=== PATIENT | female | born 1930 | race Two or more races ===

== ENCOUNTER → 2016-11-28 | Outpatient (CLI) | payer OTHER ==
[~2016-11-28] MED LIST: ALLO100T; BENA5TAB3; CEPH-37; LISI-275; TRIA100C7
[2016-11-28 08:55] LABS: Urine Bilirubin Negative (Negative); Urine Blood Negative /uL (Negative); Urine Color Yellow (Yellow); Urine Glucose Normal (Normal); Urine Ketone Negative (Negative); Urine Nitrite Negative (Negative); Urine RBC 1 /hpf (0 - 4); Urine Squamous Epithelial Cell FEW /hpf (<5); Urine Urobilinogen Normal (Negative); Urine pH 6.5 (5.0-8.0)
== END | disposition home or self-care (01) ==
LOC: LAB 06:37
PROVIDERS: ATTEND Internal Medicine
DX: R30.0 Dysuria (principal)
CPT/HCPCS: 81001

== ENCOUNTER 2016-12-07 07:08 | Emergency (ER) | payer OTHER ==
[~2016-12-07] VITALS: Ht 154.9 cm; Wt 53.5 kg
[2016-12-07] MEDS ORDERED: SODIUM CHLORIDE 0.9% 1,000 ML IVB ONE (08:57)
[2016-12-07] MEDS ORDERED: METOCLOPRAMIDE HCL 5MG/ml INJ 2ml VIAL IV ONE (09:00)
[2016-12-07 09:27] VITALS: BP 173/99
[2016-12-07 10:23] LABS: Basophils # (auto) 0 uL; Basophils % (auto) 0.2 % (0.0-2.0); Eosinophils # (auto) 0 uL; Hematocrit 37.4 % (36.0-46.0); Hemoglobin 12.3 g/dL (12.2-16.2); Lymphocytes # (auto) 0.9 uL; Lymphocytes % (auto) 9.1 % (10.0-50.0); Mean Corpuscular Hemoglobin 28.2 pg (28.0-32.0); Mean Corpuscular Hgb Conc. 32.8 g/dL (32.0-36.0); Mean Corpuscular Volume 85.9 fL (80.0-100.0); Mean Platelet Volume 8.2 fL (7.4-10.4); Monocytes # (auto) 0.3 uL; Monocytes % (auto) 3.2 % (0.0-12.0); Neutrophils # (auto) 8.2 uL; Neutrophils % (auto) 87.5 % (37.0-80.0); Platelet Count (auto) 289 10^3/uL (140-450); Red Cell Distribution Width 14.5 % (11.6-16.0); White Blood Cell 9.4 10^3/uL (4.4-10.8)
[2016-12-07 10:39] LABS: Potassium 3.7 mmol/L (3.5-5.1)
[2016-12-07 10:52] LABS: Albumin 3.5 g/dL (3.4-5.0); BUN/Creatinine Ratio 23.8; Calcium 8.7 mg/dL (8.5-10.1)
[2016-12-07 10:58] LABS: Bilirubin, Total 0.6 mg/dL (0.2-1.0); Total Protein 7.2 g/dL (6.4-8.2)
[2016-12-07 12:38] LABS: Urine Bilirubin Negative (Negative); Urine Blood Negative /uL (Negative); Urine Color Yellow (Yellow); Urine Glucose Normal (Normal); Urine Ketone Negative (Negative); Urine Nitrite Negative (Negative); Urine RBC 1 /hpf (0 - 4); Urine Squamous Epithelial Cell FEW /hpf (<5); Urine Urobilinogen Normal (Negative); Urine pH 7.5 (5.0-8.0)
== END 2016-12-07 13:16 | disposition home or self-care (01) ==
LOC: ER 07:13
DX: R42 Dizziness and giddiness (principal); R11.2 Nausea with vomiting, unspecified; K29.70 Gastritis, unspecified, without bleeding; M10.9 Gout, unspecified; I10 Essential (primary) hypertension; R91.1 Solitary pulmonary nodule; Z90.710 Acquired absence of both cervix and uterus; M19.90 Unspecified osteoarthritis, unspecified site; Z88.2 Allergy status to sulfonamides; Z88.6 Allergy status to analgesic agent; Z91.041 Radiographic dye allergy status; Z79.899 Other long term (current) drug therapy
CPT/HCPCS: 36415; 71010; 74176; 80053; 81001; 83690; 83735; 84443; 85025; 85049; 93005; 96361; 96374; 99285; J2765; J7030

== ENCOUNTER 2016-12-09 07:53 | Emergency (ER) | payer OTHER ==
[~2016-12-09] VITALS: Ht 154.9 cm; Wt 77.1 kg
[2016-12-09] MEDS ORDERED: SODIUM CHLORIDE 0.9% 1,000 ML IV ONE (08:00)
[2016-12-09 08:41] LABS: Basophils # (auto) 0 uL; Basophils % (auto) 0.2 % (0.0-2.0); Eosinophils # (auto) 0 uL; Eosinophils % (auto) 0.2 % (0.0-7.0); Hematocrit 35.7 % (36.0-46.0); Hemoglobin 11.8 g/dL (12.2-16.2); Lymphocytes # (auto) 0.9 uL; Lymphocytes % (auto) 14.6 % (10.0-50.0); Mean Corpuscular Hemoglobin 28.6 pg (28.0-32.0); Mean Corpuscular Volume 86.7 fL (80.0-100.0); Mean Platelet Volume 7.7 fL (7.4-10.4); Monocytes # (auto) 0.4 uL; Monocytes % (auto) 6.5 % (0.0-12.0); Neutrophils # (auto) 5.1 uL; Neutrophils % (auto) 78.5 % (37.0-80.0); Platelet Count (auto) 273 10^3/uL (140-450); Red Cell Distribution Width 14.8 % (11.6-16.0); White Blood Cell 6.5 10^3/uL (4.4-10.8)
[2016-12-09 08:52] LABS: INR 1.08 (0.9-1.15); Partial Thromboplastin Time 27.8 sec (22.64-33.71); Prothrombin Time 11.1 sec (9.37-12.3)
[2016-12-09 09:03] LABS: Albumin 3.9 g/dL (3.4-5.0); BUN/Creatinine Ratio 21.6; Bilirubin, Total 0.6 mg/dL (0.2-1.0); Calcium 9.1 mg/dL (8.5-10.1); Potassium 3.3 mmol/L (3.5-5.1); Total Protein 7.4 g/dL (6.4-8.2)
[2016-12-09 10:01] LABS: Urine Bilirubin Negative (Negative); Urine Blood Negative /uL (Negative); Urine Color Colorless (Yellow); Urine Glucose Normal (Normal); Urine Ketone Negative (Negative); Urine Nitrite Negative (Negative); Urine RBC <1 /hpf (0 - 4); Urine Squamous Epithelial Cell FEW /hpf (<5); Urine Urobilinogen Normal (Negative); Urine pH 6.5 (5.0-8.0)
[2016-12-09] MEDS ORDERED: FERROUS SULFATE 300 MG/5 ML ORAL LIQ GT ONE (10:45)
[2016-12-09] MEDS ORDERED: ONDANSETRON HCL 4 MG/2 ML VIAL IV ONE (11:30)
[2016-12-09] MEDS ORDERED: cloNIDine HCL 0.1 MG TAB PO ONE (11:30)
[2016-12-09] MEDS ORDERED: cloNIDine 0.2 MG/24 HR PAT TD ONE (11:30)
[2016-12-09 12:20] VITALS: BP 165/75
== END 2016-12-09 14:12 | disposition home or self-care (01) ==
LOC: ER 07:54
DX: R42 Dizziness and giddiness (principal); R11.2 Nausea with vomiting, unspecified; D64.9 Anemia, unspecified; I10 Essential (primary) hypertension; M10.9 Gout, unspecified; M19.90 Unspecified osteoarthritis, unspecified site; R06.02 Shortness of breath; Z88.2 Allergy status to sulfonamides; Z88.6 Allergy status to analgesic agent; Z91.041 Radiographic dye allergy status
CPT/HCPCS: 36415; 70450; 71010; 80053; 81001; 84484; 85025; 85049; 85610; 85730; 96361; 96374; 99285; J2405; J7030

== ENCOUNTER → 2017-05-01 | Outpatient (CLI) | payer OTHER ==
[~2017-05-01] MED LIST changes: -BENA5TAB3; +BENA5TAB5
[2017-05-01 07:41] LABS: Basophils # (auto) 0 uL; Basophils % (auto) 0.5 % (0.0-2.0); CONDITION Y; Eosinophils # (auto) 0 uL; Eosinophils % (auto) 0.8 % (0.0-7.0); Hematocrit 38.4 % (36.0-46.0); Hemoglobin 12.9 g/dL (12.2-16.2); Lymphocytes # (auto) 1.6 uL; Lymphocytes % (auto) 30.3 % (10.0-50.0); Mean Corpuscular Hemoglobin 28.9 pg (28.0-32.0); Mean Corpuscular Hgb Conc. 33.5 g/dL (32.0-36.0); Mean Corpuscular Volume 86.4 fL (80.0-100.0); Mean Platelet Volume 8.5 fL (7.4-10.4); Monocytes # (auto) 0.7 uL; Monocytes % (auto) 12.6 % (0.0-12.0); Neutrophils # (auto) 2.9 uL; Neutrophils % (auto) 55.8 % (37.0-80.0); Platelet Count (auto) 279 10^3/uL (140-450); Red Cell Distribution Width 14.3 % (11.6-16.0); White Blood Cell 5.2 10^3/uL (4.4-10.8)
[2017-05-01 08:31] LABS: Calcium 9.2 mg/dL (8.5-10.1); Potassium 5.2 mmol/L (3.5-5.1)
[2017-05-01 08:34] LABS: BUN/Creatinine Ratio 22.5
== END | disposition home or self-care (01) ==
LOC: LAB 06:33
PROVIDERS: ATTEND Internal Medicine
DX: N18.3 Chronic kidney disease, stage 3 (moderate) (principal)
CPT/HCPCS: 36415; 80048; 85025

== ENCOUNTER → 2017-06-23 | Outpatient (CLI) | payer OTHER ==
[2017-06-23 07:35] LABS: Basophils # (auto) 0 uL; Basophils % (auto) 0.3 % (0.0-2.0); CONDITION Y; Eosinophils # (auto) 0 uL; Eosinophils % (auto) 0.5 % (0.0-7.0); Hematocrit 38.4 % (36.0-46.0); Hemoglobin 12.9 g/dL (12.2-16.2); Lymphocytes # (auto) 2.2 uL; Lymphocytes % (auto) 28.3 % (10.0-50.0); Mean Corpuscular Hemoglobin 28.9 pg (28.0-32.0); Mean Corpuscular Hgb Conc. 33.5 g/dL (32.0-36.0); Mean Corpuscular Volume 86.2 fL (80.0-100.0); Mean Platelet Volume 7.8 fL (7.4-10.4); Monocytes # (auto) 0.9 uL; Neutrophils # (auto) 4.6 uL; Neutrophils % (auto) 58.9 % (37.0-80.0); Platelet Count (auto) 293 10^3/uL (140-450); Red Cell Distribution Width 15.5 % (11.6-16.0); White Blood Cell 7.8 10^3/uL (4.4-10.8)
[2017-06-23 07:55] LABS: Albumin 3.7 g/dL (3.4-5.0); BUN/Creatinine Ratio 16.3; Bilirubin, Total 0.6 mg/dL (0.2-1.0); Calcium 9.5 mg/dL (8.5-10.1); Potassium 4.5 mmol/L (3.5-5.1); Total Protein 7.5 g/dL (6.4-8.2)
== END | disposition home or self-care (01) ==
LOC: LAB 06:40
PROVIDERS: ATTEND Internal Medicine
DX: I10 Essential (primary) hypertension (principal); Z12.11 Encounter for screening for malignant neoplasm of colon
CPT/HCPCS: 36415; 80053; 80061; 82306; 84443; 85025; 87086

== ENCOUNTER → 2017-06-27 | Outpatient (CLI) | payer OTHER | END | disposition home or self-care (01) | LOC: LAB 10:34 | PROVIDERS: ATTEND Internal Medicine | DX: Z12.11 Encounter for screening for malignant neoplasm of colon (principal); I10 Essential (primary) hypertension | CPT/HCPCS: 82270 ==

== ENCOUNTER → 2017-07-18 | Outpatient (CLI) | payer OTHER | END | disposition home or self-care (01) | LOC: LAB 10:10 | PROVIDERS: ATTEND Internal Medicine | DX: E11.9 Type 2 diabetes mellitus without complications (principal) | CPT/HCPCS: 36415; 82043; 83036 ==

== ENCOUNTER → 2017-09-09 | Outpatient (CLI) | payer OTHER | END | disposition home or self-care (01) | LOC: LAB 15:14 | PROVIDERS: ATTEND Internal Medicine | DX: R19.7 Diarrhea, unspecified (principal) | CPT/HCPCS: 85048; 87177 ==

== ENCOUNTER → 2017-09-29 | Outpatient (CLI) | payer OTHER | END | disposition home or self-care (01) | LOC: LAB 06:55 | PROVIDERS: ATTEND Internal Medicine | DX: Z12.11 Encounter for screening for malignant neoplasm of colon (principal); I10 Essential (primary) hypertension | CPT/HCPCS: 82270 ==

== ENCOUNTER 2018-04-19 18:54 | Emergency (ER) | payer OTHER ==
[~2018-04-19] VITALS: Ht 152.4 cm; Wt 52.2 kg
[~2018-04-19 18:54] MED LIST changes: -BENA5TAB5; -CEPH-37; +HYDR25TA4 PO; +LISI40TA PO; +METO25TA62 PO; -TRIA100C7; +VERA1TAB9 PO
[2018-04-19 20:26] LABS: Urine Bacteria NONE SEEN /hpf (None Seen); Urine Blood Negative /uL (Negative); Urine Specific Gravity 1.008 (1.001-1.035); Urine WBC 1 /hpf (0 - 5)
[2018-04-19 20:34] LABS: Basophils # (auto) 0 uL; Basophils % (auto) 0.5 % (0.0-2.0); Eosinophils # (auto) 0.1 uL; Eosinophils % (auto) 1.2 % (0.0-7.0); Hematocrit 35.2 % (36.0-46.0); Lymphocytes # (auto) 2.5 uL; Lymphocytes % (auto) 34.9 % (10.0-50.0); Mean Corpuscular Hgb Conc. 34.1 g/dL (32.0-36.0); Mean Corpuscular Volume 85.2 fL (80.0-100.0); Monocytes # (auto) 0.9 uL; Monocytes % (auto) 12.8 % (0.0-12.0); Neutrophils # (auto) 3.6 uL; Neutrophils % (auto) 50.6 % (37.0-80.0); Nucleated Red Blood Cells % 0.1 %; Platelet Count (auto) 230 10^3/uL (140-450); Red Blood Cells 4.14 10^6/uL (4.0-5.20); Red Cell Distribution Width 15.3 % (11.8-14.3); White Blood Cell 7.1 10^3/uL (4.4-10.8)
[2018-04-19 20:52] LABS: Albumin 3.4 g/dL (3.4-5.0); BUN/Creatinine Ratio 16.1; Calcium 9.2 mg/dL (8.5-10.1); Magnesium 1.9 mg/dL (1.6-2.6); Potassium 4.8 mmol/L (3.5-5.1)
[2018-04-19 21:05] LABS: Bilirubin, Total 0.3 mg/dL (0.2-1.0); Total Protein 7.3 g/dL (6.4-8.2)
[2018-04-19] MEDS: cloNIDine HCL 0.1 MG TAB PO ONE (23:25)
[2018-04-20] MEDS: MAGNESIUM CITRATE SOLUTION 300 ML BTL PO ONE (01:47)
[2018-04-20] MEDS: cloNIDine HCL 0.1 MG TAB PO ONE (02:40)
[2018-04-20 03:43] VITALS: BP 154/58
== END 2018-04-20 03:44 | disposition home or self-care (01) ==
LOC: ER 18:54
DX: K59.00 Constipation, unspecified (principal); I11.0 Hypertensive heart disease with heart failure; I50.9 Heart failure, unspecified; M19.90 Unspecified osteoarthritis, unspecified site; Z90.49 Acquired absence of other specified parts of digestive tract; Z90.89 Acquired absence of other organs; Z90.710 Acquired absence of both cervix and uterus; Z88.2 Allergy status to sulfonamides; Z88.8 Allergy status to other drugs, medicaments and biological substances
CPT/HCPCS: 36415; 74176; 80053; 81001; 82150; 83690; 83735; 83880; 84484; 85025; 93005

== ENCOUNTER 2018-08-06 17:28 | Emergency (ER) | payer OTHER ==
[~2018-08-06] VITALS: Ht 157.5 cm; Wt 53.5 kg
[2018-08-06 18:33] LABS: Urine Bacteria NONE SEEN /hpf (None Seen); Urine Blood Negative /uL (Negative); Urine Specific Gravity 1.012 (1.001-1.035); Urine WBC 1 /hpf (0 - 5)
[2018-08-06 18:49] LABS: Basophils # (auto) 0 uL; Basophils % (auto) 0.5 % (0.0-2.0); Eosinophils # (auto) 0.1 uL; Eosinophils % (auto) 1.3 % (0.0-7.0); Hematocrit 33.9 % (36.0-46.0); Hemoglobin 11.4 g/dL (12.2-16.2); Lymphocytes # (auto) 1.9 uL; Lymphocytes % (auto) 31.9 % (10.0-50.0); Mean Corpuscular Hemoglobin 28.9 pg (28.0-32.0); Mean Corpuscular Hgb Conc. 33.7 g/dL (32.0-36.0); Mean Corpuscular Volume 85.6 fL (80.0-100.0); Monocytes # (auto) 0.7 uL; Monocytes % (auto) 12.8 % (0.0-12.0); Neutrophils # (auto) 3.1 uL; Neutrophils % (auto) 53.5 % (37.0-80.0); Nucleated Red Blood Cells % 0.1 %; Platelet Count (auto) 244 10^3/uL (140-450); Red Blood Cells 3.96 10^6/uL (4.0-5.20); Red Cell Distribution Width 14.9 % (11.8-14.3); White Blood Cell 5.8 10^3/uL (4.4-10.8)
[2018-08-06 19:11] LABS: Albumin 3.5 g/dL (3.4-5.0); Bilirubin, Total 0.4 mg/dL (0.2-1.0); Calcium 8.7 mg/dL (8.5-10.1); Magnesium 2.2 mg/dL (1.6-2.6); Potassium 4.3 mmol/L (3.5-5.1); Total Protein 6.8 g/dL (6.4-8.2)
[2018-08-06] MEDS ORDERED: KETOROLAC TROMETH 30 MG/ML 1ML VIAL IV ONE (19:15)
[2018-08-06 20:00] VITALS: BP 183/72
== END 2018-08-06 20:30 | disposition home or self-care (01) ==
LOC: ER 17:31
DX: K57.30 Diverticulosis of large intestine without perforation or abscess without bleeding (principal); K59.00 Constipation, unspecified; N39.0 Urinary tract infection, site not specified; I11.0 Hypertensive heart disease with heart failure; I50.9 Heart failure, unspecified; M19.90 Unspecified osteoarthritis, unspecified site; Z90.710 Acquired absence of both cervix and uterus; Z90.49 Acquired absence of other specified parts of digestive tract; Z90.89 Acquired absence of other organs; Z88.2 Allergy status to sulfonamides; Z91.041 Radiographic dye allergy status
CPT/HCPCS: 36415; 74176; 80053; 81001; 83735; 84484; 85025; 93005; 94761; 96374; 99285; J1885

== ENCOUNTER 2019-01-13 09:34 | Inpatient (IN) | payer OTHER ==
[~2019-01-13] VITALS: Ht 152.4 cm; Wt 51.8 kg
[~2019-01-13 09:34] MED LIST changes: -ATOR10TA52 PO
[2019-01-13 10:47] LABS: Basophils # (auto) 0 uL; Basophils % (auto) 0.4 % (0.0-2.0); Eosinophils # (auto) 0 uL; Eosinophils % (auto) 0.2 % (0.0-7.0); Hematocrit 37.8 % (36.0-46.0); Hemoglobin 12.7 g/dL (12.2-16.2); Lymphocytes # (auto) 0.9 uL; Lymphocytes % (auto) 7.1 % (10.0-50.0); Mean Corpuscular Hemoglobin 28.9 pg (28.0-32.0); Mean Corpuscular Hgb Conc. 33.7 g/dL (32.0-36.0); Mean Corpuscular Volume 85.7 fL (80.0-100.0); Monocytes # (auto) 0.9 uL; Monocytes % (auto) 7.3 % (0.0-12.0); Neutrophils # (auto) 10.9 uL; Nucleated Red Blood Cells % 0.1 %; Platelet Count (auto) 249 10^3/uL (140-450); Red Blood Cells 4.41 10^6/uL (4.0-5.20); Red Cell Distribution Width 14.8 % (11.8-14.3); White Blood Cell 12.8 10^3/uL (4.4-10.8)
[2019-01-13 11:06] LABS: Albumin 3.8 g/dL (3.4-5.0); BUN/Creatinine Ratio 18.2; Calcium 8.6 mg/dL (8.5-10.1); Potassium 4.1 mmol/L (3.5-5.1)
[2019-01-13 11:11] LABS: Bilirubin, Total 0.7 mg/dL (0.2-1.0); Total Protein 7.5 g/dL (6.4-8.2)
[2019-01-13] MEDS ORDERED: HYDR25TA4 PO (20:05)
[2019-01-13] MEDS ORDERED: ATOR10TA52 PO (20:05)
[2019-01-13 20:07] LABS: INR 1.07 (0.9-1.15); Partial Thromboplastin Time 28.6 sec (23.78-33.04); Prothrombin Time 10.8 sec (9.27-12.13)
[2019-01-13] MEDS ORDERED: ACETAMINOPHEN 325 MG TAB PO PRN (20:45)
[2019-01-13] MEDS ORDERED: MORPHINE SULFATE 4 MG/ML SYR/VIAL IV PRN (20:45)
[2019-01-13] MEDS ORDERED: ONDANSETRON HCL 4 MG/2 ML VIAL IV PRN (20:45)
[2019-01-13] MEDS ORDERED: TEMAZEPAM 15 MG CAP PO PRN (20:45)
[2019-01-13] MEDS ORDERED: ENOXAPARIN SOD 60 MG/0.6 ML SYRINGE SC ONE (20:45)
[2019-01-13] MEDS ORDERED: NITROGLYCERIN 0.4 MG SL TAB SL PRN (20:45)
[2019-01-13] MEDS ORDERED: IOHEXOL 350 MG/ML 100ML IJ ONE (20:51)
[2019-01-13] MEDS: HYDROcodone-ACET 5/325MG TAB PO PRN (21:17)
[2019-01-13] MEDS: cloNIDine HCL 0.1 MG TAB PO PRN (21:19)
[2019-01-13] MEDS: SODIUM CHLOR 0.9% PF (SALINE LOCK) 10ML VIAL/SYR IV SCH (22:03)
[2019-01-13] MEDS: ATORVASTATIN 20 MG TAB PO SCH (22:06)
[2019-01-13] MEDS: FAMOTIDINE 20 MG TAB PO SCH (22:06)
--- NOTE | 2019-01-13 22:36 | NUR ---
Telemetry admit from ER ASTRIDBONNIE Reyes admitted to Telemetry unit after SBAR received. Patient oriented to Leatha huerta RN, unit, room, bed, and unit policies regarding patient care and visiting hours. Patient now on continuous telemetry monitoring, tele box # 25 and telemetry reading on arrival to unit is SR 64. Patient weighed by bedscale and encouraged to call if they need something. All questions and concerns addressed, patient verbalized understanding. Call light within reach and bed alarm activated, fall precautions implemeted and non-slip socks applied.
[2019-01-13 22:50] VITALS: BP 115/46
[2019-01-14] MEDS ORDERED: CYCLOBENZAPRINE HCL 10 MG TAB PO ONE (01:00)
--- NOTE | 2019-01-14 01:00 | NUR ---
PAIN PT C/O LEFT NECK PAIN, HEAT PACK APPLIED, NO REQUEST FOR PAIN MEDICATION, CALL LIGHT WITHIN REACH, BED ALARM ON, CONT CARE
--- NOTE | 2019-01-14 02:55 | NUR ---
PT ROUNDS PT CURRENTLY SLEEPING, BREATHING EVEN AND UNLABORED, NO DISTRESS NOTED, BED ALARM AND CALL LIGHT WITHIN REACH, CONT CARE
--- NOTE | 2019-01-14 03:45 | NUR ---
OPENING SHIFT NOTE ASSUMED CARE OF PATIENT. PATIENT RESTING COMFORTABLY IN BED AT THIS TIME. REQUESTING ASSIST TO BATHROOM. OBTAINED UA AT THIS TIME AND SENT TO LAB. PATIENT SHOWED NO S/S OF DISTRESS OR SOB NOTED UPON RETURNED TO BED. WILL CONTINUE TO MONITOR.
[2019-01-14 04:55] LABS: Basophils # (auto) 0 uL; Basophils % (auto) 0.2 % (0.0-2.0); Eosinophils # (auto) 0 uL; Eosinophils % (auto) 0.3 % (0.0-7.0); Hematocrit 32.4 % (36.0-46.0); Hemoglobin 11.3 g/dL (12.2-16.2); Lymphocytes # (auto) 1.5 uL; Lymphocytes % (auto) 19.2 % (10.0-50.0); Mean Corpuscular Hemoglobin 29.1 pg (28.0-32.0); Mean Corpuscular Hgb Conc. 34.8 g/dL (32.0-36.0); Mean Corpuscular Volume 83.7 fL (80.0-100.0); Monocytes % (auto) 12.9 % (0.0-12.0); Neutrophils # (auto) 5.1 uL; Neutrophils % (auto) 67.4 % (37.0-80.0); Platelet Count (auto) 214 10^3/uL (140-450); Red Blood Cells 3.87 10^6/uL (4.0-5.20); Red Cell Distribution Width 14.6 % (11.8-14.3); White Blood Cell 7.6 10^3/uL (4.4-10.8)
[2019-01-14 05:00] VITALS: BP 106/54
[2019-01-14 05:33] LABS: Urine Bacteria FEW /hpf (None Seen); Urine Blood Negative /uL (Negative); Urine Hyaline Cast FEW /lpf (0 - 2); Urine Mucus FEW (None Seen); Urine Specific Gravity 1.018 (1.001-1.035); Urine WBC 5 /hpf (0 - 5)
[2019-01-14 05:45] LABS: Albumin 3.1 g/dL (3.4-5.0); BUN/Creatinine Ratio 20.2; Calcium 8.4 mg/dL (8.5-10.1); Potassium 4.1 mmol/L (3.5-5.1)
[2019-01-14 05:48] LABS: Bilirubin, Total 1.1 mg/dL (0.2-1.0); Total Protein 6.3 g/dL (6.4-8.2)
[2019-01-14] MEDS: SODIUM CHLOR 0.9% PF (SALINE LOCK) 10ML VIAL/SYR IV SCH ×3 (06:25→21:22)
--- NOTE | 2019-01-14 07:45 | NUR ---
Opening Shift Note Assumed care of pt, awake and alert x4 sitting up in bed eating breakfast. No S/S of distress or SOB. Instructed on POC for the shift and to call for assistance as needed. Bed locked in lowest position with call light in reach. Will continue to monitor Q1HR and PRN throughout the shift.
[2019-01-14 08:00] VITALS: BP 110/62
[2019-01-14] MEDS ORDERED: CYCLOBENZAPRINE HCL 10 MG TAB PO PRN (09:00)
[2019-01-14] MEDS ORDERED: HCTZ 25 MG TAB PO SCH (10:00)
[2019-01-14] MEDS: METOPROLOL SUCCINATE XL 50 MG TAB PO SCH (10:00)
[2019-01-14] MEDS ORDERED: ASPirin 81 mg TAB PO SCH (10:00)
[2019-01-14] MEDS: LISINOPRIL 20 MG TAB PO SCH (10:00)
[2019-01-14] MEDS: VERAPAMIL HCL 120 mg ER tab PO SCH (10:00)
[2019-01-14] MEDS: HYDROcodone-ACET 5/325MG TAB PO PRN ×2 (10:38→21:27)
[2019-01-14] MEDS: ENOXAPARIN SOD 40 MG/0.4 ML SYRINGE SC SCH (10:38)
[2019-01-14 12:00] VITALS: BP 97/42
[2019-01-14] MEDS ORDERED: LORazepam 2MG/ML-1ML VIAL IV PRN (13:45)
[2019-01-14 17:00] VITALS: BP 141/63
--- NOTE | 2019-01-14 18:48 | NUR ---
END OF SHIFT NOTE PATIENT AWAKE AND ALERT SITTING UP IN BED. NO S/S OF DISTRESS OR SOB NOTED, FAMILY AT BEDSIDE AT THIS TIME. BED IN LOWEST LOCKED POSITION, CALL LIGHT WITHIN REACH. WILL ENDORSE CARE TO NOC RN.
--- NOTE | 2019-01-14 20:00 | NUR ---
OPENING NOTE RECEIVED REPORT FROM ALDO RN. ASSUMING ROLE OF CARE OF PATIENT AT THIS TIME. PATIENT SHOWING NO SIGN OF DISTRESS, SHORTNESS OF BREATH, AND PATIENT STATES PAIN FROM HER NECK AT 9/10. PATIENT WILL BE GIVEN PAIN MEDICATION PER PROTOCOL WHEN AVAILABLE. BED LOWERED, CALL LIGHT WITHIN REACH, AND PATIENT WILL BE ROUNDED ON EVERY HOUR AND NEEDED.
[2019-01-14] MEDS: FAMOTIDINE 20 MG TAB PO SCH (21:22)
[2019-01-14] MEDS: ATORVASTATIN 20 MG TAB PO SCH (21:22)
[2019-01-14 22:00] VITALS: BP 131/63
--- NOTE | 2019-01-14 22:00 | NUR ---
PAIN MANAGEMENT PATIENT GIVEN FLEXERIL FOR MUSCLE SPASMS AND NECK PAIN. PATIENT STATES UNSUCCESSFUL. PATIENT GIVEN NORCO FOR PAIN. PATIENT STATES UNSUCCESSFUL. PATIENT GIVEN HEATING PACK AND PLACED ON NECK AND PATIENT STATES PAIN IS SOMEWHAT RELIEVED. WILL CONTINUE TO MONITOR AND ENDORSE TO DAYSHIFT RN.
[2019-01-15 04:33] VITALS: BP 105/51
[2019-01-15 05:46] LABS: BUN/Creatinine Ratio 25.3; Calcium 8.8 mg/dL (8.5-10.1); Potassium 4.4 mmol/L (3.5-5.1)
[2019-01-15] MEDS: SODIUM CHLOR 0.9% PF (SALINE LOCK) 10ML VIAL/SYR IV SCH ×3 (06:00→21:28)
[2019-01-15 08:00] VITALS: BP 134/74
--- NOTE | 2019-01-15 08:00 | NUR ---
Opening shift note: Assumed care for patient. Patient is alert and orient x 4. no s/s of distress or pain. Iv to Right Ac saline locked, patent, clean and dry. Patient was educated on poc and told to call for assistance as needed. Bed in lowest position and call light is within reach.
[2019-01-15 09:00] VITALS: BP 134/74
[2019-01-15] MEDS: METOPROLOL SUCCINATE XL 50 MG TAB PO SCH (10:00)
[2019-01-15] MEDS: VERAPAMIL HCL 120 mg ER tab PO SCH (10:00)
[2019-01-15] MEDS: ASPirin 81 mg TAB PO SCH (10:00)
[2019-01-15] MEDS ORDERED: ASPirin 81 mg TAB PO SCH (10:00)
[2019-01-15] MEDS: LISINOPRIL 20 MG TAB PO SCH (10:00)
[2019-01-15] MEDS: ENOXAPARIN SOD 40 MG/0.4 ML SYRINGE SC SCH (10:24)
--- NOTE | 2019-01-15 11:45 | NUR ---
PATIENT OFF UNIT Patient taken down to ammunition assembly i laborer via bed by primary nurse. Patient had no s/s of distress or sob.
[2019-01-15] MEDS ORDERED: LIDOCAINE 2%HCL (LOCAL ANESTH.) INJ 20ML MDV ONE (12:15)
[2019-01-15] MEDS ORDERED: methylPREDNISolone SOD SUCC 125 MG/2 ML VL ONE (12:22)
[2019-01-15] MEDS ORDERED: diphenhdrAMINE HCL 50 MG/1 ML VL ONE (12:22)
[2019-01-15] MEDS ORDERED: ANGIOMAX 250 MG VIAL IV ONE (12:22)
[2019-01-15] MEDS ORDERED: fentaNYL CITRATE 100 MCG/2 ML VL ONE (12:23)
[2019-01-15] MEDS ORDERED: SODIUM CHL 0.9% 0 ML ONE (12:23)
[2019-01-15] MEDS ORDERED: MIDAZOLAM HCL 1MG/1ML-2 ML VIAL ONE (12:23)
[2019-01-15] MEDS ORDERED: FAMOTIDINE (10MG/ML) 2ML VL IV ONE ×2 (12:25→12:30)
[2019-01-15] MEDS ORDERED: IOHEXOL 350 MG/ML 100ML IJ ONE (12:39)
[2019-01-15] MEDS ORDERED: METOPROLOL TARTRATE 1MG/1ML-5ML VIAL IV ONE (12:44)
--- NOTE | 2019-01-15 12:59 | NUR ---
Patient not in room to sign second IM at this time.
--- NOTE | 2019-01-15 13:08 | NUR ---
assessment Patient is a 88 year old female who is alert and oriented. Patients cognitive abilities are intact. Prior to admission patient lived home with her daughter Christel who is at bedside and functioned independently. Per patient she will return home to her prior living arrangements post discharge and Christel will transport her home. Patient has no need for DME. Patients PCP is Dr Dominique Childress. Patient feels safe returning home post discharge. Patient has no post discharge needs at this time. I informed patient she has a right to speak to a child protective services social worker regarding all care. I informed patient she has a right to participate in any and all discharge planning. Patient is aware of visiting hours on the hospital floor. I informed patient she has a right to privacy. Patient has a POA and advanced directive. Patient verbalized understanding and agreed to discharge plan home. Addendum: 01/15/19 at 1309 by Gloria PARSON Amended: Links added.
--- NOTE | 2019-01-15 13:55 | NUR ---
PATIENT RETURNED TO UNIT PATIENT RETURNED TO UNIT AFTER LEFT AND RIGHT HEART CATH. PATIENT AWAKE AND ALERT LAYING FLAT IN BED. NO S/S OF DISTRESS OR SOB NOTED. RIGHT GROIN ASSESSED AT THIS TIME, NO BLEEDING NOTED, DRESSING CLEAN DRY AND INTACT. SITE HAS NO ECCHYMOSIS AND IS SOFT. WILL CONTINUE TO MONITOR. PATIENT AWARE TO LAY FLAT UNTIL 1515.
[2019-01-15 16:56] VITALS: BP 115/85
--- NOTE | 2019-01-15 18:43 | NUR ---
END OF SHIFT NOTE PATIENT AWAKE AND ALERT SITTING UP IN BED. NO S/S OF DISTRESS OR SOB NOTED. BED IN LOWEST LOCKED POSITION, CALL LIGHT WITHIN REACH. WILL ENDORSE CARE TO NOC RN.
--- NOTE | 2019-01-15 19:15 | NUR ---
Opening Shift Note Bedside report with day KELLEY Cano. Assumed care of patient, awake and confused. Patient up ambulating with family at bedside. No S/S of distress/SOB or pain. Assessed right groin site. Noted minimal serous drainage, circled drainage on dressing and informed patient the importance of staying in bed, minimal movement. Educated the risks. Instructed on POC and to call for assist PRN, will continue to monitor for changes Q1hr and PRN. Safety precautions taking place. Patient back in bed, HOB elevated, call light within reach, bed alarm on, siderails up Signed: 01/15/19 at 2327 by LUCRECIA MACK SN <Co-Signature Required> Co-Signed: 01/15/19 at 2327 by INGRID SALAZAR RN RN
[2019-01-15] MEDS: ATORVASTATIN 20 MG TAB PO SCH (21:26)
[2019-01-15] MEDS: FAMOTIDINE 20 MG TAB PO SCH (21:27)
[2019-01-15 22:00] VITALS: BP 120/74
--- NOTE | 2019-01-15 22:45 | NUR ---
PT ROUNDS Reeducated pt the importance of staying in bed due to the right groin incision and risk for bleeding, pt back in bed, bed alarm on will continue to monitor pt.
--- NOTE | 2019-01-15 23:55 | NUR ---
PT ROUNDS PT awake, out of bed, reeducated the pt on doing minimal movements due to incision minimal drainage noted, will continue to monitor pt.
[2019-01-16 04:55] VITALS: BP 146/79
[2019-01-16] MEDS: SODIUM CHLOR 0.9% PF (SALINE LOCK) 10ML VIAL/SYR IV SCH ×3 (05:06→21:03)
--- NOTE | 2019-01-16 06:46 | NUR ---
RIGHT GROIN ASSESSED Assessed patient's right groin, noted increased serous drainage. Patient complains of no pain. Applied 5 pound weight to right groin. Instructed patient the purpose of weight. Must maintain weight and minimal movement. Will continue to monitor patient. Signed: 01/16/19 at 0650 by LUCRECIA MAKC SN <Co-Signature Required> Co-Signed: 01/16/19 at 0650 by INGRID SALAZAR RN RN
--- NOTE | 2019-01-16 07:02 | NUR ---
CLOSING NOTE Patient resting. Right groin site assessed. Patient complains of no pain. No swelling noted. No increase in drainage noted. No signs and symptoms of distress. Will endorse to day RN. Signed: 01/16/19 at 705 by LUCRECIA MACK SN <Co-Signature Required> Co-Signed: 01/16/19 at 705 by INGRID SALAZAR RN RN
--- NOTE | 2019-01-16 07:37 | NUR ---
CLOSING NOTE Bed side report with day RN Guillermina, assess site no increase in drainage noted, pt resting no complain of pain.
[2019-01-16 08:00] VITALS: BP 154/77
--- NOTE | 2019-01-16 08:00 | NUR ---
OPENING SHIFT NOTE: PATIENT IS A/O X-4, AND LAYING IN BED AT THIS TIME. PATIENT IS NOT EXHIBITING ANY S/S OF DISTRESS NOR DISCOMFORT AT THIS TIME. PATIENT'S RIGHT GROIN DRESSING HAS BRIGHT RED BLOOD ON IT AND IS CHANGED AT THIS THIS TIME. PATIENT'S CALL OCHOA IS WITHIN REACH, BED IN LOW POSITION AND PATIENT ENCOURAGED TO CALL IF SHE NEEDS ANYTHING.
--- NOTE | 2019-01-16 08:00 | NUR ---
PATIENT'S DAUGHTER IS AT BEDSIDE. PATIENT IS A/O X-4 AND SITTING IN BED WITH NO S/S OF DISTRESS NOTED.
--- NOTE | 2019-01-16 11:25 | NUR ---
PATIENT IS AMBULATING IN THE HALLWAY WITH FAMILY MEMBERS WITHOUT S/S OF DISTRESS NOR DISCOMFORT AT THIS TIME. PATIENT'S RT GROIN DRESSING IS CDI WITH SOFT, SUPPLE SKIN SURROUNDING. WILL CONTINUE TO MONITOR THE PATIENT.
[2019-01-16] MEDS: ENOXAPARIN SOD 40 MG/0.4 ML SYRINGE SC SCH (11:50)
[2019-01-16] MEDS: VERAPAMIL HCL 120 mg ER tab PO SCH (11:51)
[2019-01-16] MEDS: LISINOPRIL 20 MG TAB PO SCH (11:52)
[2019-01-16] MEDS: ASPirin 81 mg TAB PO SCH (11:52)
[2019-01-16] MEDS: METOPROLOL SUCCINATE XL 50 MG TAB PO SCH (11:53)
[2019-01-16 12:30] VITALS: BP 131/70
[2019-01-16 16:51] VITALS: BP 123/58
--- NOTE | 2019-01-16 19:00 | NUR ---
CLOSING NOTE: PATIENT IS A/O X-4 AND RESTING IN BED AT THIS TIME WITH NO S/S OF DISTRESS NOTED. CARE ENDORSED TO NANDA.
--- NOTE | 2019-01-16 19:10 | NUR ---
OPENING SHIFT NOTE Received report from day shift RN. Patient is A&O X's 4 with no s/s of distress and reports no pain at this time. Patient's right groin dressing is clean/dry/intact at this time. Educated patient on POC and to use call light for any assistance and when needing to ambulate. Patient verbalized understanding. Bed is in lowest/locked position with side rails up X's 2 and call light is within reach. Will continue to monitor and round hourly/PRN.
[2019-01-16] MEDS: ATORVASTATIN 20 MG TAB PO SCH (21:02)
[2019-01-16] MEDS: FAMOTIDINE 20 MG TAB PO SCH (21:03)
[2019-01-16 22:00] VITALS: BP 136/63
[2019-01-17 04:00] VITALS: BP 137/68
[2019-01-17 05:00] VITALS: BP 137/68
[2019-01-17] MEDS: SODIUM CHLOR 0.9% PF (SALINE LOCK) 10ML VIAL/SYR IV SCH ×3 (05:53→20:59)
[2019-01-17 08:00] VITALS: BP 142/50
--- NOTE | 2019-01-17 08:00 | NUR ---
OPENING SHIFT NOTE: PATIENT IS A/O X-4, AND LAYING IN BED AT THIS TIME. PATIENT IS NOT EXHIBITING ANY S/S OF DISTRESS NOR DISCOMFORT AT THIS TIME. PATIENT'S CALL OCHOA IS WITHIN REACH, BED IN LOW POSITION AND PATIENT ENCOURAGED TO CALL IF SHE NEEDS ANYTHING.
--- NOTE | 2019-01-17 08:49 | NUR ---
ONLINE COMMUNITY MANAGER DR. Roby WITT
--- NOTE | 2019-01-17 09:45 | NUR ---
DR CEJA IS AT THE PATIENT'S BEDSIDE DISCUSSING PLAN WITH PATIENT AND PATIENT'S FAMILY FOR OPEN HEART SURGERY FOR THE PATIENT TO BE PERFORMED ON 01/20/19.
[2019-01-17 12:00] VITALS: BP 127/61
[2019-01-17] MEDS: ENOXAPARIN SOD 40 MG/0.4 ML SYRINGE SC SCH (12:28)
[2019-01-17] MEDS: VERAPAMIL HCL 120 mg ER tab PO SCH (12:28)
[2019-01-17] MEDS: ASPirin 81 mg TAB PO SCH (12:29)
[2019-01-17] MEDS: LISINOPRIL 20 MG TAB PO SCH (12:29)
[2019-01-17] MEDS: METOPROLOL SUCCINATE XL 50 MG TAB PO SCH (12:29)
--- NOTE | 2019-01-17 15:38 | NUR ---
NUTRITION ASSESSMENT NOTES Please refer to link notes of nutrition screen form filed under the intervention section of the plan of care for further details. Est. Needs: 1300 kcal to 1550 kcal (25-30 kcal/kgBW), 52 gms to 62 gms pro (1.0-1.2 gms/kgBW). Will continue to monitor pertinent labs and reassess nutrient need prn Thank you. Addendum: 01/17/19 at [address] Amended: Links added.
[2019-01-17 17:00] VITALS: BP 151/61
[2019-01-17] MEDS ORDERED: DOCUSATE SOD 100 MG CAP PO ONE (19:00)
--- NOTE | 2019-01-17 19:00 | NUR ---
CLOSING NOTE: PATIENT IS A/O X-4 AND RESTING IN BED AT THIS TIME WITH NO S/S OF DISTRESS NOTED. CARE ENDORSED TO NANDA.
--- NOTE | 2019-01-17 19:00 | NUR ---
OPENING NOTE Received report from day shift RN. Patient is A&O X's 4 with no s/s of distress. Educated patient on POC and to use call light when in need of assistance. Patient verbalized understanding. Bed is in lowest/locked position with side rails up X's 2. Will continue to monitor and round hourly/PRN.
--- NOTE | 2019-01-17 20:10 | NUR ---
PATIENT LEFT UNIT FOR HEAD CT
[2019-01-17] MEDS: FAMOTIDINE 20 MG TAB PO SCH (20:59)
[2019-01-17] MEDS: ATORVASTATIN 20 MG TAB PO SCH (21:00)
[2019-01-17] MEDS: DOCUSATE SOD 100 MG CAP PO SCH (21:00)
[2019-01-17 22:00] VITALS: BP 153/44
[2019-01-18] MEDS: SODIUM CHLOR 0.9% PF (SALINE LOCK) 10ML VIAL/SYR IV SCH ×3 (05:47→22:13)
[2019-01-18 05:54] VITALS: BP 140/63
[2019-01-18] MEDS ORDERED: MIDAZOLAM HCL 1MG/1ML-2 ML VIAL IV ONE ×2 (09:00→09:30)
[2019-01-18] MEDS ORDERED: LIDOCAINE VISCOUS 2% 15ML UD MT ONE (09:00)
[2019-01-18] MEDS ORDERED: fentaNYL CITRATE 100 MCG/2 ML VL IV ONE ×2 (09:00→09:30)
[2019-01-18 09:11] VITALS: BP 153/64
[2019-01-18 09:22] LABS: Folate (Folic Acid) > 24.00 ng/mL (5.38-24)
--- NOTE | 2019-01-18 09:23 | NUR ---
PT LEFT FLOOR FOR TRANSESOPHAGEAL ECHO ORDERED BY DR DALY. PT LEFT VIA BED WITH STAFF, NO DISTRESS NOTED.
[2019-01-18] MEDS ORDERED: ONDANSETRON HCL 4 MG/2 ML VIAL IV ONE (09:30)
[2019-01-18] MEDS ORDERED: LIDOCAINE VISCOUS 2% 15ML UD PO PRN (09:30)
[2019-01-18] MEDS: METOPROLOL SUCCINATE XL 50 MG TAB PO SCH (10:00)
[2019-01-18] MEDS: ASPirin 81 mg TAB PO SCH (10:00)
--- NOTE | 2019-01-18 11:30 | NUR ---
PT RETURNED TO FLOOR AFTER PROCEDURE. NO DISTRESS NOTED, FAMILY AT BEDSIDE. VITALS: 97.4, BP 130/55, HR 63, 02 94, RR 18. WILL CONTINUE TO MONITOR.
[2019-01-18] MEDS: LISINOPRIL 20 MG TAB PO SCH (12:08)
[2019-01-18] MEDS: DOCUSATE SOD 100 MG CAP PO SCH ×2 (12:08→22:12)
[2019-01-18] MEDS: VERAPAMIL HCL 120 mg ER tab PO SCH (12:09)
[2019-01-18] MEDS: ENOXAPARIN SOD 40 MG/0.4 ML SYRINGE SC SCH (12:10)
[2019-01-18] MEDS ORDERED: ACCU-CHEK COMFORT CURVE STRIP VI ONE (13:30)
[2019-01-18] MEDS ORDERED: ceFAZolin 1GM 2 GM in D5W 5% 50 ML IV ONE (13:30)
[2019-01-18] MEDS ORDERED: VANCOMYCIN 1GM/250ML 250 ML IV ONE (13:30)
--- NOTE | 2019-01-18 14:12 | NUR ---
BLOOD SUGAR 121. REQUESTED URINE SAMPLE FROM PATIENT, CUP AT BEDSIDE. PT REPORTS SHE WILL CALL SOON SHE VOIDS. WILL CONTINUE TO MONITOR.
[2019-01-18 15:03] LABS: Albumin 3.6 g/dL (3.4-5.0); Potassium 4.3 mmol/L (3.5-5.1)
[2019-01-18 15:05] LABS: Free T3 2.22 pg/mL (2.3-4.2); Free T4 (Free Thyroxine) 0.9 ng/dL (0.89-1.76)
[2019-01-18 15:10] LABS: Bilirubin, Total 0.5 mg/dL (0.2-1.0); Calcium 9.3 mg/dL (8.5-10.1); Total Protein 7.6 g/dL (6.4-8.2)
[2019-01-18 15:37] LABS: Basophils # (auto) 0 uL; Basophils % (auto) 0.3 % (0.0-2.0); Eosinophils # (auto) 0.1 uL; Eosinophils % (auto) 1.8 % (0.0-7.0); Hematocrit 37.9 % (36.0-46.0); Hemoglobin 12.7 g/dL (12.2-16.2); Lymphocytes # (auto) 0.9 uL; Lymphocytes % (auto) 16.8 % (10.0-50.0); Mean Corpuscular Hemoglobin 28.7 pg (28.0-32.0); Mean Corpuscular Hgb Conc. 33.5 g/dL (32.0-36.0); Mean Corpuscular Volume 85.6 fL (80.0-100.0); Monocytes # (auto) 0.5 uL; Monocytes % (auto) 8.9 % (0.0-12.0); Neutrophils % (auto) 72.2 % (37.0-80.0); Nucleated Red Blood Cells % 0.1 %; Platelet Count (auto) 268 10^3/uL (140-450); Red Blood Cells 4.43 10^6/uL (4.0-5.20); Red Cell Distribution Width 14.4 % (11.8-14.3); White Blood Cell 5.6 10^3/uL (4.4-10.8)
[2019-01-18 16:14] LABS: Urine Bacteria NONE SEEN /hpf (None Seen); Urine Blood Negative /uL (Negative); Urine Specific Gravity 1.018 (1.001-1.035); Urine WBC <1 /hpf (0 - 5)
--- NOTE | 2019-01-18 16:36 | NUR ---
RADIOLOGY CALLED, TECH REPORTS THEY WILL DO VEIN MAPPING LOWER EXTREMITY ULTRASOUND TOMORROW.
--- NOTE | 2019-01-18 16:52 | NUR ---
SPOKE WITH DR. AVILA, DR. AVILA REPORTS PATIENT IS CLEARED FOR SURGERY.
[2019-01-18 17:02] VITALS: BP 135/77
--- NOTE | 2019-01-18 19:00 | NUR ---
OPENING NOTE Received report from day shift RN. Patient is A&O X's 4 with no s/s of distress noted. Educated patient on POC and that she will be NPO at midnight. Patient verbalized understanding. Bed is in lowest/locked position with side rails up X's 2. call light is within reach. Will continue to monitor and round hourly/PRN.
[2019-01-18 22:00] VITALS: BP 131/64
[2019-01-18] MEDS ORDERED: ASCORBIC ACID 500 MG TAB PO ONE (22:00)
[2019-01-18] MEDS: FAMOTIDINE 20 MG TAB PO SCH (22:12)
[2019-01-18] MEDS: ATORVASTATIN 20 MG TAB PO SCH (22:12)
[2019-01-19] MEDS ORDERED: CHLORHEXIDINE 4% TOPICAL soln 237ML TOP ONE (02:00)
[2019-01-19 05:07] VITALS: BP 140/70
[2019-01-19] MEDS: SODIUM CHLOR 0.9% PF (SALINE LOCK) 10ML VIAL/SYR IV SCH ×3 (05:40→21:44)
--- NOTE | 2019-01-19 06:35 | NUR ---
SPOKE WITH BRENNA BENSON to HOLD [facility]. Surgery is tomorrow. Will pass this information onto day shift RN.
[2019-01-19 06:51] LABS: Basophils # (auto) 0 uL; Basophils % (auto) 0.3 % (0.0-2.0); Eosinophils # (auto) 0.2 uL; Eosinophils % (auto) 2.9 % (0.0-7.0); Hematocrit 35.7 % (36.0-46.0); Hemoglobin 12.2 g/dL (12.2-16.2); Lymphocytes # (auto) 1.1 uL; Mean Corpuscular Hemoglobin 28.8 pg (28.0-32.0); Mean Corpuscular Hgb Conc. 34.1 g/dL (32.0-36.0); Mean Corpuscular Volume 84.4 fL (80.0-100.0); Monocytes # (auto) 0.6 uL; Monocytes % (auto) 11.4 % (0.0-12.0); Neutrophils # (auto) 3.6 uL; Neutrophils % (auto) 65.4 % (37.0-80.0); Platelet Count (auto) 243 10^3/uL (140-450); Red Blood Cells 4.23 10^6/uL (4.0-5.20); Red Cell Distribution Width 14.5 % (11.8-14.3); White Blood Cell 5.5 10^3/uL (4.4-10.8)
[2019-01-19 06:53] LABS: BUN/Creatinine Ratio 22.2; Potassium 4.3 mmol/L (3.5-5.1)
[2019-01-19 07:01] LABS: INR 1.02 (0.9-1.15); Prothrombin Time 10.9 sec (9.27-12.13)
--- NOTE | 2019-01-19 07:20 | NUR ---
CLOSING NOTE Gave report to day shift RN. Informed RN of Dionne's orders to hold lovenox. Will endorse care over.
--- NOTE | 2019-01-19 07:56 | NUR ---
PT RESWTING IN BED, NO DISTRESS NOTED, TECH HERE TO DO VEIN MAPPING. PATIENT ENCOURAGED TO CALL PRN, WILL CONTINUE TO MONITOR.
[2019-01-19 09:00] VITALS: BP 145/64
[2019-01-19] MEDS: ASPirin 81 mg TAB PO SCH (10:00)
[2019-01-19] MEDS: ENOXAPARIN SOD 40 MG/0.4 ML SYRINGE SC SCH (10:00)
[2019-01-19] MEDS: DOCUSATE SOD 100 MG CAP PO SCH ×2 (10:05→21:44)
[2019-01-19] MEDS: LISINOPRIL 20 MG TAB PO SCH (10:05)
[2019-01-19] MEDS: VERAPAMIL HCL 120 mg ER tab PO SCH (10:07)
[2019-01-19] MEDS: METOPROLOL SUCCINATE XL 50 MG TAB PO SCH (10:08)
[2019-01-19 13:00] VITALS: BP 130/66
[2019-01-19] MEDS ORDERED: CHLORHEXIDINE 0.12% ORAL rinse 473ML MT ONE (13:30)
[2019-01-19 16:47] VITALS: BP 135/71
--- NOTE | 2019-01-19 19:36 | NUR ---
Opening Shift Note Assumed care of patient, awake and alert. No S/S of distress/SOB or pain. Instructed on POC and to call for assist when needed. Pt is currently laying in bed with the rails up x2, bed is locked in the lowest position and call light is with in reach. Will continue to monitor.
[2019-01-19] MEDS ORDERED: ASCORBIC ACID 500 MG TAB PO ONE (21:00)
[2019-01-19] MEDS: FAMOTIDINE 20 MG TAB PO SCH (21:44)
[2019-01-19] MEDS: ATORVASTATIN 20 MG TAB PO SCH (21:44)
[2019-01-19 22:00] VITALS: BP 143/58
[2019-01-20] VITALS (47 sets, daily range): BP systolic 18–197; BP diastolic 6–102
[2019-01-20] MEDS ORDERED: CHLORHEXIDINE 4% TOPICAL soln 237ML TOP ONE (01:30)
--- NOTE | 2019-01-20 01:30 | NUR ---
Chlorhexidine scrub completed. All new linens placed on bed.
[2019-01-20] MEDS ORDERED: ceFAZolin 1GM/50ML 100 ML IV ONE (05:30)
[2019-01-20] MEDS ORDERED: NEOMYCIN-BACITRACIN-POLYM 15GM TOP OINT TOP ONE (05:32)
[2019-01-20] MEDS ORDERED: HEPARIN 1,000 UNITS/ml 1ML VIAL ONE (05:33)
[2019-01-20] MEDS ORDERED: PAPAVERINE HCL 60 MG/2 ML 2ML VIAL ONE (05:33)
[2019-01-20] MEDS ORDERED: HEPARIN SODIUM (PORCINE) 5000 UNITS/ML 1ML VIAL ONE (05:33)
[2019-01-20] MEDS ORDERED: BACITRACIN INJ 50000 UNIT VIAL ONE (05:33)
[2019-01-20] MEDS: SODIUM CHLOR 0.9% PF (SALINE LOCK) 10ML VIAL/SYR IV SCH ×3 (05:42→21:10)
--- NOTE | 2019-01-20 06:00 | NUR ---
New 20ga IV placed in the left AC.
[2019-01-20] MEDS ORDERED: NITROGLYCERIN 50MG/250ML 250 ML IV ONE (06:05)
--- NOTE | 2019-01-20 06:15 | NUR ---
Pt taken down to OR at this time.
[2019-01-20] MEDS ORDERED: VANCOMYCIN 1GM/250ML 250 ML IV ONE (06:30)
[2019-01-20] MEDS ORDERED: ceFAZolin 1GM 2 GM in D5W 5% 50 ML IV ONE (06:30)
[2019-01-20] MEDS ORDERED: CHLORHEXIDINE 0.12% ORAL rinse 473ML MT ONE (06:30)
[2019-01-20] MEDS ORDERED: PROPOFOL 10 MG/ML 20 ML IV ONE ×2 (06:40→13:38)
[2019-01-20] MEDS ORDERED: ROCURONIUM 10MG/ML 10ML VIAL IV ONE (06:40)
[2019-01-20] MEDS ORDERED: MIDAZOLAM HCL 1MG/1ML-2 ML VIAL ONE (06:40)
[2019-01-20] MEDS ORDERED: fentaNYL CITRATE 5 ML ONE (06:40)
[2019-01-20] MEDS ORDERED: MANNITOL FTV 25% 12.5 GM/50 ML 100 ML IV ONE (06:50)
[2019-01-20] MEDS ORDERED: ALBUMIN 5% 250 ML IV ONE (06:50)
[2019-01-20] MEDS ORDERED: PLASMA-LYTE A pH7.4 6,000 ML INJ ONE (06:51)
[2019-01-20] MEDS ORDERED: MANNITOL 20 % (20GM/100ML) 1,000 ML IV ONE (06:51)
[2019-01-20] MEDS ORDERED: ALBUMIN 25% 300 ML IV ONE (06:51)
[2019-01-20] MEDS ORDERED: InsuLIN R (HUMAN) 100 UNITS in SODIUM CHL 0.9% 99 ML IV ONE (07:30)
[2019-01-20] MEDS ORDERED: AMINOCAPROIC ACID 5 GM in SODIUM CHL 0.9% 250 ML IV ONE ×2 (07:30→08:15)
[2019-01-20] MEDS ORDERED: HEPARIN 30000 UNITS in SODIUM CHLORIDE 0.9% 1000 ML IV ONE (07:30)
[2019-01-20] MEDS ORDERED: EPINEPHrine HCL 4 MG in D5W 5% 250 ML IV ONE (07:30)
[2019-01-20] MEDS ORDERED: AMINOCAPROIC ACID 10 GM in SODIUM CHL 0.9% 100 ML IV ONE ×2 (07:30→08:15)
[2019-01-20] MEDS ORDERED: NOREPINEPHRINE 8 MG/250ML KIT 250 ML IV ONE (07:30)
[2019-01-20] MEDS ORDERED: PHENYLEPHRINE INJ 20 MG in SODIUM CHL 0.9% 250 ML IV ONE (07:30)
[2019-01-20] MEDS ORDERED: NICARDIPINE 25MG/250ML BAG KIT 250 ML IV SCH (08:00)
[2019-01-20] MEDS ORDERED: TRANEXAMIC ACID 1,000 mg/10ml INJ VIAL IV ONE ×2 (08:30→14:47)
[2019-01-20] MEDS ORDERED: TRANEXAMIC ACID 1,000 MG in SODIUM CHL 0.9% 100 ML IV ONE (08:30)
[2019-01-20] MEDS: DOCUSATE SOD 100 MG CAP PO SCH ×2 (10:00→22:00)
[2019-01-20] MEDS: ASPirin 81 mg TAB PO SCH (10:00)
[2019-01-20] MEDS: METOPROLOL SUCCINATE XL 50 MG TAB PO SCH (10:00)
[2019-01-20] MEDS: LISINOPRIL 20 MG TAB PO SCH (10:00)
[2019-01-20] MEDS: VERAPAMIL HCL 120 mg ER tab PO SCH (10:00)
[2019-01-20] MEDS ORDERED: PROTAMINE SULFATE 250 MG/25 ML VL IV ONE ×2 (10:46→12:20)
[2019-01-20] MEDS ORDERED: fentaNYL CITRATE 100 MCG/2 ML VL ONE (12:13)
--- NOTE | 2019-01-20 13:42 | NUR ---
ARRIVAL: PT ARRIVED FROM OR TO ROOM 112.
--- NOTE | 2019-01-20 13:42 | NUR ---
OPEN: PT ARRIVED FROM OR TO ROOM 112 IN ICU AFTER RECEIVING REPORT FROM ANAESTHESIA, RN AND DR. CEJA. PT IS INTUBATED AT TIME WITH 8.0ETTUBE/17 LIP LINE. RT AT BEDSIDE AND PLACED PT ON AN SIMV12,TV400,100%FI02,PEEP5. OGT IN PLACE THAT IS CLAMPED. LARSON CATHETER IN PLACE DRAINING URINE TO GRAVITY. CHEST TUBE X2 IN PLACE THAT IS DRAINING BLOODY SECRETIONS TO ATRIUM CHAMBER WITH -20CM H20. SWAN DEANNA CATHETER TO RIGHT IJ AT 50CM THAT IS RUNNING LEVOPHED GTT AT 3MCG/MIN AND IV FLUIDS AT 75ML/HR. 20G IV TO RIGHT AC-SL. 20G IV TO LEFT AC-SL. 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 PT DOES HAVE BOTH ATRIAL AND VENTRICULAR EPICARDIAL PACER WIRES THAT ARE SECURE AND IN PLACE. COLT WRAP TO RIGHT LOWER LEG. ALL MONITORS HOOKED UP FOR CONTINUOUS MONITORING. SHARED POC WITH PT BUT UNABLE TO VERBALIZE UNDERSTANDING AT TIME.
--- NOTE | 2019-01-20 13:50 | NUR ---
MD VISIT: DR. CEJA IN AT BEDSIDE. ORDERS RECEIVED. PLAN TO CARRY OUT.
--- NOTE | 2019-01-20 14:00 | NUR ---
DRIPS: LEVOPHED GTT AT 3MCG/MIN. BLOOD PRESSURE ON ARRIVAL FROM OR 183/61. WILL CONTINUE TO MONITOR AND TITRATE PER RESPONSE OF PT.
--- NOTE | 2019-01-20 14:10 | NUR ---
CHEST TUBE: BILATERAL CHEST TUBES HAVE MODERATE AMOUNT OF CLOTTING NEAR INSERTION POINT ON CHEST WALL. DR. CEJA MADE AWARE AND AT BEDSIDE MILKING CHEST TUBE. MD ABLE TO REMOVE CLOTS AND PT TOLERATED WELL.
[2019-01-20] MEDS ORDERED: DEXMEDETOMIDINE HCL 400 MCG in D5W 5% 96 ML IV SCH ×2 (14:23→14:35)
[2019-01-20] MEDS ORDERED: INSULIN DRIP 100 UNIT/100ML 100 ML IV SCH ×2 (14:23→14:55)
[2019-01-20] MEDS: PHENYLEPHRINE IV 250 ML IV SCH (14:23)
[2019-01-20] MEDS ORDERED: D5W/SOD CHL 0.45% 1,000 ML IV SCH ×2 (14:23→17:30)
[2019-01-20] MEDS ORDERED: ZOLPIDEM TARTRATE 5 MG TAB PO PRN (14:30)
[2019-01-20] MEDS ORDERED: SODIUM BICARBONATE 8.4% INJ 50ML SYRINGE IV PRN (14:30)
[2019-01-20] MEDS ORDERED: MORPHINE SULFATE 4 MG/ML SYR/VIAL IV PRN (14:30)
[2019-01-20] MEDS ORDERED: DEXTROSE (50%) 50ML SYRG IV PRN ×2 (14:30→15:00)
[2019-01-20] MEDS ORDERED: TEMAZEPAM 15 MG CAP PO PRN (14:30)
[2019-01-20] MEDS ORDERED: ONDANSETRON HCL 4 MG/2 ML VIAL IV PRN (14:30)
[2019-01-20] MEDS ORDERED: MAGNESIUM SULFATE 1GM/100ML 100 ML IV PRN (14:30)
[2019-01-20] MEDS ORDERED: MAGNESIUM SULF 50% 40 MEQ/10 ML VL IV ONE (14:47)
[2019-01-20] MEDS ORDERED: DEXAMETHASONE SODIUM PHOSP 120 MG/30ml VIAL IV ONE (14:47)
[2019-01-20] MEDS ORDERED: PHENYLEPHRINE HCL 10 MG/ML VL IV ONE (14:47)
[2019-01-20] MEDS ORDERED: SODIUM BICARBONATE 8.4 % INJ 50ML VIAL IV ONE (14:47)
[2019-01-20] MEDS ORDERED: CALCIUM CHLOR(10%) 100MG/ML 10ML SYRINGE IV ONE (14:47)
[2019-01-20] MEDS ORDERED: ADENOSINE 6 MG/2 ML INJ IV ONE (14:47)
[2019-01-20] MEDS ORDERED: POTASSIUM CHL 2MEQ/ML 20ML IV ONE (14:47)
[2019-01-20] MEDS ORDERED: LIDOCAINE HCL 100 MG/5ML (2%) SYRG INJ IV ONE (14:47)
--- NOTE | 2019-01-20 14:50 | NUR ---
NEURO STATUS: PT STARTING TO WAKE UP MORE THAN PRIOR, ABLE TO FOLLOW SIMPLE COMMANDS, ABLE TO MOVE ALL EXTREMITIES ON COMMAND, DOES SHAKE HEAD YES AND NO TO QUESTIONS AND DOES NOD YES WHEN ASKED IF IN PAIN. MD AWARE AND ORDERS PLACED FOR PRECEDEX GTT FOR COMFORT.
[2019-01-20 14:54] LABS: Basophils # (auto) 0 uL; Basophils % (auto) 0.1 % (0.0-2.0); Eosinophils # (auto) 0 uL; Eosinophils % (auto) 0.2 % (0.0-7.0); Hematocrit 30.2 % (36.0-46.0); Hemoglobin 10.3 g/dL (12.2-16.2); Lymphocytes # (auto) 0.5 uL; Lymphocytes % (auto) 4.4 % (10.0-50.0); Mean Corpuscular Hemoglobin 29.3 pg (28.0-32.0); Mean Corpuscular Hgb Conc. 34.3 g/dL (32.0-36.0); Mean Corpuscular Volume 85.6 fL (80.0-100.0); Monocytes # (auto) 0.8 uL; Monocytes % (auto) 6.8 % (0.0-12.0); Neutrophils # (auto) 10.3 uL; Neutrophils % (auto) 88.5 % (37.0-80.0); Platelet Count (auto) 110 10^3/uL (140-450); Red Blood Cells 3.53 10^6/uL (4.0-5.20); Red Cell Distribution Width 14.2 % (11.8-14.3); White Blood Cell 11.7 10^3/uL (4.4-10.8)
[2019-01-20] MEDS: NOREPINEPHRINE 8 MG/250ML KIT 250 ML IV SCH (15:00)
[2019-01-20] MEDS ORDERED: ACCU-CHEK COMFORT CURVE STRIP VI SCH (15:00)
[2019-01-20] MEDS: ACCU-CHEK COMFORT CURVE STRIP VI SCH ×9 (15:00→23:00)
[2019-01-20] MEDS: NICARDIPINE 25MG/250ML BAG KIT 250 ML IV SCH ×2 (15:00→19:37)
[2019-01-20] MEDS ORDERED: PHYTONADIONE (VIT K)10 MG/ML 1ML VIAL IV ONE (15:00)
[2019-01-20] MEDS ORDERED: PHYTONADIONE (VIT K)10 MG/ML 1ML VIAL SUBCUT ONE (15:00)
--- NOTE | 2019-01-20 15:00 | NUR ---
DRIPS/VITALS: INSULIN GTT AT 7UNITS/HR. PRECEDEX GTT STARTED FOR PAIN AND DISCOMFORT IN PT, STARTED GTT AT 0.4MCG/KG/HR, NITROGLYCERIN AT 5MCG/MIN, CARDENE AT 1MG/HR, LEVOPHED AT 1MCG/MIN. BP 144/50. CI 1.7/CO 2.5.
[2019-01-20 15:06] LABS: Albumin 3.7 g/dL (3.4-5.0); Calcium 8.5 mg/dL (8.5-10.1); Potassium 3.8 mmol/L (3.5-5.1)
[2019-01-20 15:09] LABS: Bilirubin, Total 1.2 mg/dL (0.2-1.0); Total Protein 5.8 g/dL (6.4-8.2)
[2019-01-20] MEDS: ENOXAPARIN SOD 40 MG/0.4 ML SYRINGE SC SCH (15:17)
[2019-01-20 15:22] LABS: INR 1.27 (0.9-1.15); Partial Thromboplastin Time 29.9 sec (23.78-33.04); Prothrombin Time 13.4 sec (9.27-12.13)
[2019-01-20 15:33] LABS: Magnesium 4.8 mg/dL (1.6-2.6)
[2019-01-20] MEDS: VANCOMYCIN 1GM/250ML 250 ML IV SCH (16:00)
--- NOTE | 2019-01-20 16:00 | NUR ---
DRIPS/VITALS: INSULIN GTT AT 6UNITS/HR. PRECEDEX AT 0.4MCG/KG/HR, NITROGLYCERIN AT 5MCG/MIN, CARDENE AT 1MG/HR, LEVOPHED AT 3MCG/MIN. BP 97/43. CI 1.5/CO 2.3. PLAN TO ADMINISTER ALBUMIN.
--- NOTE | 2019-01-20 16:20 | NUR ---
FAMILY: ATTEMPTED TO HAVE FAMILY COME IN TO VISIT PATIENT. HOWEVER, PT FAMILY NOT IN WAITING ROOM AT TIME.
[2019-01-20] MEDS: MILRINONE 20MG/100ML 100 ML IV SCH (16:21)
[2019-01-20] MEDS: SODIUM CHLORIDE 0.9% 500 ML IV SCH (16:21)
[2019-01-20] MEDS: NITROGLYCERIN 50MG/250ML 250 ML IV SCH (16:24)
--- NOTE | 2019-01-20 16:40 | NUR ---
MD VISIT: DR. CEJA IN AT BEDSIDE. UPDATED ON PT STATUS AND AWARE OF CURRENT FINDINGS. NEW ORDERS RECEIVED PLAN TO CARRY OUT.
--- NOTE | 2019-01-20 16:40 | NUR ---
RT: RT AT BEDSIDE. DECREASED FI02 TO 35% PER DR. CEJA ORDERS. OK TO PLACE PT ON CPAP IF TOLERATING DECREASE IN FI02 PER MD.
[2019-01-20] MEDS ORDERED: POTASSIUM PHOSPHATE 44 MEQ in D5W 5% 250 ML IV ONE (16:45)
--- NOTE | 2019-01-20 16:49 | NUR ---
CPAP: PT PLACED ON CPAP BY RT AT BEDSIDE. PT IS ABLE TO FOLLOW COMMANDS, SQUEEZE HANDS WHEN TOLD, SHAKE HEAD YES OR NO AND APPEARING TO BE TOLERATING AT TIME. CONTINUE CARE FOR SHIFT.
[2019-01-20] MEDS: ALBUMIN 5% 250 ML IV PRN ×2 (16:52→21:27)
--- NOTE | 2019-01-20 17:00 | NUR ---
DRIPS/VITALS: INSULIN GTT AT 6UNITS/HR. PRECEDEX AT 0.4MCG/KG/HR, NITROGLYCERIN AT 5MCG/MIN, CARDENE AT 1MG/HR, LEVOPHED AT 2MCG/MIN. BP 125/50. CI 1.7/CO 2.6.
[2019-01-20] MEDS: ceFAZolin 1GM 2 GM in D5W 5% 100 ML IV SCH ×2 (17:04→22:30)
--- NOTE | 2019-01-20 17:15 | NUR ---
MD VISIT: DR. CEJA IN AT BEDSIDE. UPDATED ON PT STATUS AND NEW ORDERS RECEIVED FOR PAIN MANAGEMENT AND IV FLUID CHANGES. ORDERS PLACED. AWARE OF ALL VITAL SIGNS AND UPDATED LAB VALUES AT TIME. PLAN TO CARRY OUT ORDERS.
--- NOTE | 2019-01-20 17:15 | NUR ---
MD VISIT/RT: MD AT BEDSIDE. PAGED RT FOR ABG VALUES AND FOR CPAP TRIAL RESULTS.
--- NOTE | 2019-01-20 17:35 | NUR ---
RT: RT AT BEDSIDE FOR ABG.
--- NOTE | 2019-01-20 17:40 | NUR ---
MD CONTACT: SPOKE TO DR. CEJA AND OK FOR PT TO BE EXTUBATED. RT AWARE.
--- NOTE | 2019-01-20 17:55 | NUR ---
Respiratory note: PT EXTUBATED WITHOUT PER 'S BEDSIDE ORDER. KELLEY HEBERT AT BEDSIDE. PT IS AWAKE SITTING IN BED FOLLOWING ALL VERBAL COMMANDS. PT DENIES SOB/DIFF BREATHING. NO DISTRESS NOTED. HR 81 RR 16 SPO2 95% ON 35% COOL AEROSOL, NO STRIDOR HEARD. ALL WEANING PARAMETERS WNL. KELLEY HEBERT AWARE TO HAVE RT PAGED IF NEEDED.
--- NOTE | 2019-01-20 17:55 | NUR ---
EXTUBATION: AFTER SPEAKING WITH DR. CEJA AND UPDATING ON WEANING PARAMETERS AND ABG VALUES, RECEIVED ORDERS TO EXTUBATE PATIENT. PT EXTUBATED AT BEDSIDE BY RT, SUCTIONED PRIOR AND PLACED ON A COOL MIST MASK AT 35% FI02. NO STRIDOR NOTED AFTER EXTUBATION, DIMINISHED LUNG SOUNDS THROUGHOUT AND O2 SATS 96%. PT IS ABLE TO COUGH OUT SECRETIONS AND APPEARS TO BE IN NO DISTRESS AT TIME. WILL CONTINUE TO MONITOR.
[2019-01-20] MEDS: ALBUTEROL SULF 2.5 MG/0.5ML(0.5%) NEB SOLN NEB SCH (18:00)
--- NOTE | 2019-01-20 18:00 | NUR ---
DRIPS/VITALS: INSULIN GTT AT 6UNITS/HR. PRECEDEX AT 0.2MCG/KG/HR (DECREASED PER MD REQUEST), NITROGLYCERIN AT 5MCG/MIN, CARDENE AT 1MG/HR, LEVOPHED AT 3MCG/MIN. BP 109/43. CI 2.1/CO 3.1. DR. CEJA AWARE OF VALUES AND ORDERS PLACED FOR 200ML .9NS BOLUS.
[2019-01-20] MEDS ORDERED: SODIUM CHLORIDE 0.9% 200 ML IV ONE (18:15)
--- NOTE | 2019-01-20 18:20 | NUR ---
SKIN CARE/LINEN CHANGE: PARTIAL LINEN CHANGE AND SKIN CARE DONE. AT TIME, PATIENT IS CONFUSED ON PLACE, TIME AND SITUATION AND STATING SEVERAL TIMES THAT "I NEED TO PEE". EDUCATED PATIENT MULTIPLE TIMES THAT PATIENT HAS A LARSON CATHETER IN PLACE TO DRAIN URINE AND SHE IS ABLE TO USE RESTROOM THAT WAY. DESPITE EDUCATION GIVEN, PT DOES HAVE PERIODS OF CONFUSION STILL AND MILD AMOUNT OF BEING RESTLESS IN BED. MITTENS ON BILATERAL HANDS TO PREVENT PATIENT FROM PULLING ON TUBES AND LINES.
[2019-01-20] MEDS ORDERED: ACETAMINOPHEN IV 1000 MG/100ML (10MG/ML) IV PRN (18:30)
--- NOTE | 2019-01-20 19:00 | NUR ---
DRIPS/VITALS: INSULIN GTT AT 5UNITS/HR. PRECEDEX AT 0.2MCG/KG/HR (DECREASED PER MD REQUEST), NITROGLYCERIN AT 5MCG/MIN, CARDENE AT 1MG/HR, LEVOPHED AT 3MCG/MIN. BP 110/64. CI 1.8/CO 2.6.
--- NOTE | 2019-01-20 19:20 | NUR ---
REPORT: REPORT GIVEN TO CUSTOMER SERVICE REPRESENTATIVE RN TO RESUME CARE OF PT.
--- NOTE | 2019-01-20 19:30 | NUR ---
CARE ASSUMED. REPORT FROM EMILEE BENSON.
--- NOTE | 2019-01-20 19:45 | NUR ---
ASSESSMENT: ORIENTED TO NAME AND COOPERATE WITH SIMPLE COMMANDS. MOVES UPPER AND LOWER EXTREMITIES WITH NO DIFFICULTY AND PURPOSEFULLY. PUPILS 2+ BILATERALLY, SPEECH CLEAR BOTH UG[place]AN AND AMHARIC. FREQUENTLY REQUESTING TO BE ASSISTED TO BATHROOM TO URINATE, REORIENTED TO LARSON CATH FREQUENTLY. CARDIAC - SINUS RHYTHM WITH BBB 80'S, NO PVC'S. SBP 129/50, CVP 3-5, C.O/C.I - 2.9/2.0, PAP 21/8. CONTINUES ON CARDENE AT 1 MG/HR, LEVOPHED AT 2 MCG/MIN AND WILL TITRATE OFF APPROPRIATE, NTG 5 MCG/MIN., INSULIN DRIP AND PRECEDED AT 0.2 MCG/KG/HR. ATRIAL VENTRICULAR PACING WIRES IN PLACE. PACER OFF AT THIS TIME. RADIAL AND PEDAL PULSES 2+ BILAT. SKIN COOL TO TOUCH. LUNGS - DIMINISHED THROUGHOUT, WEAK COUGH. SATS 99% ON COOL MIST MASK AT 35%. CHEST TUBES X2, MEDIASTINAL AND PLEURAL, DRESSING INTACT. NO CLOTS NOTED AT THIS TIME, WILL CONTINUE TO MONITOR. ABDOMEN SOFT, HYPOACTIVE BOWEL SOUNDS, NO BM AT THIS TIME. LARSON DD CLEAR, YELLOW URINE. SKIN - RIGHT GROIN PUNCTURE SITE, BLOODY, CARE PROVIDED, NO HEMATOMA FORMATION NOTED AT THIS TIME. COLT BANDAGE TO RLE SITE TO ENDOSCOSPIC RETRIEVAL SITES. IV - RIGHT IJ SWAN DEANNA AT 50 CM AT HUB, CVP AND PA WAVE FORMS WNL. LEFT FEMORAL ART. LINE - CATHERER KINKED AND 1 CM OUT. WAVE FORM DAMPENED, LEFT ARTERIAL LINE WITH ADEQUATE WAVE FORM AND GOOD BLOOD RETURN, WILL DISCONTINUE FEMORAL LINE.
--- NOTE | 2019-01-20 20:00 | NUR ---
U.O - 610 CC LAST THREE HOURS. CHEST TUBE OUTPUT - 60 CC LAST THREE HOURS.
[2019-01-20] MEDS: CHLORHEXIDINE 0.12% ORAL rinse 473ML MT SCH (21:10)
[2019-01-20] MEDS: FAMOTIDINE 20 MG TAB PO SCH (22:00)
[2019-01-20] MEDS: ATORVASTATIN 20 MG TAB PO SCH (22:00)
[2019-01-20] MEDS: ACETYLCYSTEINE 10 %(100MG/ML) SOL 4ML NEB SCH (22:10)
[2019-01-20] MEDS: IPRATROPIUM BROM 0.5 MG/2.5ML INH SOL NEB PRN (22:10)
[2019-01-20 22:18] LABS: Basophils # (auto) 0 uL; Basophils % (auto) 0.1 % (0.0-2.0); Eosinophils # (auto) 0 uL; Hematocrit 28.3 % (36.0-46.0); Hemoglobin 9.9 g/dL (12.2-16.2); Lymphocytes # (auto) 0.2 uL; Lymphocytes % (auto) 2.2 % (10.0-50.0); Mean Corpuscular Hemoglobin 29.7 pg (28.0-32.0); Mean Corpuscular Hgb Conc. 35.2 g/dL (32.0-36.0); Mean Corpuscular Volume 84.5 fL (80.0-100.0); Monocytes # (auto) 0.2 uL; Neutrophils # (auto) 9.6 uL; Neutrophils % (auto) 95.7 % (37.0-80.0); Platelet Count (auto) 97 10^3/uL (140-450); Red Blood Cells 3.34 10^6/uL (4.0-5.20); Red Cell Distribution Width 14.4 % (11.8-14.3)
--- NOTE | 2019-01-20 22:30 | NUR ---
REQUEST REBEKAH SQUIRES, NO B.M.
[2019-01-20 22:36] LABS: Calcium 7.7 mg/dL (8.5-10.1); Magnesium 3.1 mg/dL (1.6-2.6); Phosphorus 2.6 mg/dL (2.5-4.90); Potassium 3.1 mmol/L (3.5-5.1)
[2019-01-20 22:39] LABS: BUN/Creatinine Ratio 14.7
[2019-01-20] MEDS: CALCIUM GLUC 4.65meq/50ml D5AE 50 ML IV PRN (23:08)
--- NOTE | 2019-01-20 23:45 | NUR ---
K+ 3.1, CALCIUM 7.7, 1 GM CALCIUM GLUCONATE INITIATED AND KCL PER PROTOCOL STARTED. WILL CONTINUE TO MONITOR LABS
--- NOTE | 2019-01-20 23:50 | NUR ---
BLOOD PRESSURE NOTED TO DROP TO LOW 90'S, AFTER OFFIRMEV COMPLETED. LEVOPHED TO 2.5 MCG/MIN., CARDENE OFF, PRECEDEX OFF. PT AWAKE, DENIES ANY PAIN AT THIS TIME. 250 CC ALBUMIN GIVEN AT 2200 FOR CVP 3, C.I 1.8. CVP AT THIS TIME 3, C.I 1.8. URINE OUTPUT LAST 2 HRS. 200CC, CHEST TUBE OUTPUT - 90 CC LAST 2 HRS.
[2019-01-21] VITALS (104 sets, daily range): BP systolic 15–211; BP diastolic 4–94
[2019-01-21] MEDS: NICARDIPINE 25MG/250ML BAG KIT 250 ML IV SCH ×5 (00:23→17:36)
--- NOTE | 2019-01-21 00:30 | NUR ---
BP 115/46, LEVOPHED 3.5 MCG/MIN.
[2019-01-21] MEDS: POTASSIUM CHL 20MEQ/100ML 100 ML IV PRN ×4 (00:57→12:12)
[2019-01-21] MEDS: ACCU-CHEK COMFORT CURVE STRIP VI SCH ×17 (01:00→20:26)
[2019-01-21] MEDS: D5W/SOD CHL 0.45% 1,000 ML IV SCH ×2 (03:20→14:00)
[2019-01-21] MEDS: VANCOMYCIN 1GM/250ML 250 ML IV SCH ×2 (03:22→15:26)
[2019-01-21] MEDS: HYDROcodone-ACET 5/325MG TAB PO PRN ×4 (04:05→21:52)
--- NOTE | 2019-01-21 04:30 | NUR ---
RIGHT FEMORAL ART LINE DISCONTINUED. CATHERER APPEARS INTACT. MANUAL PRESSURE HELD, NO HEMATOMA FORMATION NOTED. DRESSING TO RIGHT FEMORAL PUNCTURE SITE,
[2019-01-21 05:25] LABS: Basophils # (auto) 0 uL; Basophils % (auto) 0.1 % (0.0-2.0); Eosinophils # (auto) 0 uL; Hematocrit 25.6 % (36.0-46.0); Hemoglobin 8.8 g/dL (12.2-16.2); Lymphocytes # (auto) 0.4 uL; Lymphocytes % (auto) 4.1 % (10.0-50.0); Mean Corpuscular Hemoglobin 29.5 pg (28.0-32.0); Mean Corpuscular Hgb Conc. 34.6 g/dL (32.0-36.0); Mean Corpuscular Volume 85.3 fL (80.0-100.0); Monocytes # (auto) 0.7 uL; Monocytes % (auto) 6.9 % (0.0-12.0); Neutrophils # (auto) 9.1 uL; Neutrophils % (auto) 88.9 % (37.0-80.0); Platelet Count (auto) 86 10^3/uL (140-450); Red Cell Distribution Width 14.8 % (11.8-14.3); White Blood Cell 10.2 10^3/uL (4.4-10.8)
[2019-01-21] MEDS: SODIUM CHLOR 0.9% PF (SALINE LOCK) 10ML VIAL/SYR IV SCH ×3 (05:26→20:27)
[2019-01-21 05:39] LABS: Albumin 3.6 g/dL (3.4-5.0); BUN/Creatinine Ratio 13.5; Calcium 7.6 mg/dL (8.5-10.1); Magnesium 2.9 mg/dL (1.6-2.6); Potassium 4.9 mmol/L (3.5-5.1)
[2019-01-21 05:41] LABS: Bilirubin, Total 0.6 mg/dL (0.2-1.0); Total Protein 5.6 g/dL (6.4-8.2)
[2019-01-21 05:48] LABS: Phosphorus 3.3 mg/dL (2.5-4.90)
[2019-01-21] MEDS: ALBUMIN 5% 250 ML IV PRN ×2 (06:00→11:23)
[2019-01-21] MEDS: IPRATROPIUM BROM 0.5 MG/2.5ML INH SOL NEB SCH ×4 (06:03→18:04)
[2019-01-21] MEDS: ACETYLCYSTEINE 10 %(100MG/ML) SOL 4ML NEB SCH ×3 (06:03→22:06)
[2019-01-21] MEDS: ALBUTEROL SULF 2.5 MG/0.5ML(0.5%) NEB SOLN NEB SCH ×4 (06:03→18:04)
[2019-01-21] MEDS: ceFAZolin 1GM 2 GM in D5W 5% 100 ML IV SCH ×3 (06:39→21:46)
--- NOTE | 2019-01-21 06:45 | NUR ---
URINE OUTPUT LAST 2 HRS 45CC, CHEST TUBE OUTPUT 30 CC FOR 2 HRS. SBP 130'S, C.O/C.I - 3.0/2.0. HR 80'S, SINUS WITH BBB.
[2019-01-21] MEDS: MILRINONE 20MG/100ML 100 ML IV SCH ×2 (07:06→23:49)
--- NOTE | 2019-01-21 07:29 | NUR ---
REPORT TO KAMI BENSON
--- NOTE | 2019-01-21 07:35 | NUR ---
OPENING SHIFT NOTE Report received from Modesta BENSON, care assumed. Patient is awake and alert. Patient oriented to self, location (at times), and situation. Patient does have frequent periods of forgetfulness. Patient able to follow simple commands, speech is clear, moves all extremities. Sinus rhythm on bedside monitor, bp stable. Pulses palpable bilaterally radial and pedal. Denies chest pain, no edema noted. Lungs clear but very diminished anterior. Patient on 2 l nasal cannula, denies cough or shortness of breath. Abdomen soft, nontender with hypoactive bowel sounds. Roland catheter patent, secure, and hung below bladder. See skin assessment. Chest tubes x2 patent, no air leaks, connect to atrium on wall suction. Bed locked in lowest position with call light within reach. Patient instructed to call for assistance. [place] kayode right IJ 50 cm at hub, left wrist arterial line. AV pacer wires on standby. gtts: iv fluids, insulin, nitroglycerine, nicardipine, abx, and albumin
--- NOTE | 2019-01-21 08:00 | NUR ---
NEUROLOGY ROUNDS at bedside assessing patient.
--- NOTE | 2019-01-21 08:15 | NUR ---
BRENNA UPDATE called for update. He is aware of low trending urine output with cardiac index of 1.9-2.2. Medication orders received and placed. MD wants to titrate off ngt and nicardipine gtt, goal is to pull swan later today. MD does not want to start milrinone gtt.Patient currently resting. No signs of distress noted.
[2019-01-21] MEDS: CALCIUM GLUC 4.65meq/50ml D5AE 50 ML IV PRN ×2 (08:45→16:54)
[2019-01-21] MEDS: ASPirin 81 mg TAB PO SCH (09:01)
[2019-01-21] MEDS: VERAPAMIL HCL 120 mg ER tab PO SCH (09:02)
[2019-01-21] MEDS: ENOXAPARIN SOD 40 MG/0.4 ML SYRINGE SC SCH (09:02)
--- NOTE | 2019-01-21 09:02 | NUR ---
SURGICAL ROUNDS at bedside. Aware of patients periods of confusion, labs, and ekg.
[2019-01-21] MEDS: PANTOPRAZOLE 40 MG/10 ML VIAL IV SCH (09:35)
[2019-01-21] MEDS: NITROGLYCERIN 0.4MG/HR TOPICAL PATCH TD SCH (09:35)
[2019-01-21] MEDS: CHLORHEXIDINE 0.12% ORAL rinse 473ML MT SCH ×2 (09:35→21:48)
[2019-01-21] MEDS: ALLOPURINOL 100 MG TAB PO SCH (09:36)
[2019-01-21] MEDS: LISINOPRIL 20 MG TAB PO SCH (09:36)
[2019-01-21] MEDS: DOCUSATE SOD 100 MG CAP PO SCH ×2 (09:36→21:47)
[2019-01-21] MEDS: FERROUS SULFATE 325 MG TAB PO SCH (09:36)
[2019-01-21] MEDS ORDERED: METOPROLOL TARTRATE 25 MG TAB PO SCH ×2 (10:00)
--- NOTE | 2019-01-21 10:10 | NUR ---
FAMILY Patient has multiple family members visiting at this time.
[2019-01-21] MEDS ORDERED: MORPHINE SULFATE 4 MG/ML SYR/VIAL IV PRN (10:30)
[2019-01-21 10:40] LABS: BUN/Creatinine Ratio 12.9; Magnesium 2.5 mg/dL (1.6-2.6); Phosphorus 2.7 mg/dL (2.5-4.90); Potassium 3.7 mmol/L (3.5-5.1)
--- NOTE | 2019-01-21 10:41 | NUR ---
MD ROUNDS at bedside assessing patient.
--- NOTE | 2019-01-21 11:44 | NUR ---
LOW C.I. Patient Cardiac Index trending down 1.6, prn albumin administered.
--- NOTE | 2019-01-21 12:16 | NUR ---
Nutrition Follow-up Notes Wt.: 54.7 kg today. 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 Pt's currently on Clear Liquid diet with poor PO intake aeb 5% consumed meal on today's breakfast. Est. Needs: 1300 kcal to 1550 kcal (25-30 kcal/kgBW), 52 gms to 62 gms pro (1.0-1.2 gms/kgBW). Will continue to monitor pertinent labs and reassess nutrient need prn Labs: Ca 7.6 L, Mg 2.9 H, AST 76 H, ALP 41 L, Tpro 5.6 L Skin: Piotr scale 17, mod risk, pt's medial chest incision dry and intact per truss builder. GI: Pt had 2x BM 01/18/19 per truss builder. PES: Increased nutrient needs r/t current/chronic medical condition aeb s/p CABG, extubation, on Clear Liquid diet with <75% consumed meals. Altered nutrition related lab values r/t current/chronic medical condition aeb hyponatremia, hypochloremia, elev. BUN, Trop I,hyperbilirubinemia, hypocalcemia and mild hypoalbuminemia Will continue to monitor PO intake, skin status, pertinent labs and weight trend. F/u in 2 to 3 days. Rec.: 1.) Advance gradually oral diet (with Ensure Enlive 1 carton TID) when medically appropriate. 2.) If still on Clear Liquid diet, consider Ensure Clear 1 carton TID. 3.) Continue close supervision and feeding assistance prn during meals. 4.) Refer to RD for further nutrition education and weight monitoring upon discharged.5.) Continue current plan of care.
[2019-01-21] MEDS: FUROSEMIDE 20 MG/2 ML VIAL IV PRN (13:33)
--- NOTE | 2019-01-21 13:40 | NUR ---
LOW URINE OUTPUT Patient has had continual decreased urine output. CVP greater than 7 with stable blood pressure. PRN lasix dose given. Will monitor for increased urine output.
--- NOTE | 2019-01-21 13:50 | NUR ---
EKG Patient appeared to be having PVC/PAC. EKG performed to show sinus rhythm with marked sinus arrhythmia. Blood sent to lab to assess electrolyte balance.
[2019-01-21] MEDS: SODIUM CHLORIDE 0.9% 500 ML IV SCH (14:15)
[2019-01-21] MEDS: NOREPINEPHRINE 8 MG/250ML KIT 250 ML IV SCH (14:15)
[2019-01-21] MEDS: PHENYLEPHRINE IV 250 ML IV SCH (14:15)
[2019-01-21 14:23] LABS: Basophils # (auto) 0 uL; Eosinophils # (auto) 0 uL; Eosinophils % (auto) 0.1 % (0.0-7.0); Hematocrit 21.4 % (36.0-46.0); Hemoglobin 7.3 g/dL (12.2-16.2); Lymphocytes # (auto) 0.6 uL
[2019-01-21 14:25] LABS: Basophils % (auto) 0.2 % (0.0-2.0); Lymphocytes % (auto) 5.3 % (10.0-50.0); Mean Corpuscular Hemoglobin 29.3 pg (28.0-32.0); Mean Corpuscular Hgb Conc. 34.3 g/dL (32.0-36.0); Mean Corpuscular Volume 85.3 fL (80.0-100.0); Monocytes # (auto) 0.8 uL; Monocytes % (auto) 7.1 % (0.0-12.0); Neutrophils # (auto) 10.3 uL; Neutrophils % (auto) 87.3 % (37.0-80.0); Platelet Count (auto) 74 10^3/uL (140-450); Red Cell Distribution Width 14.7 % (11.8-14.3); White Blood Cell 11.8 10^3/uL (4.4-10.8)
[2019-01-21 14:36] LABS: Anion Gap 6 (5-15); BUN/Creatinine Ratio 13.8; Blood Urea Nitrogen 12 mg/dL (7-18); Calcium 7.8 mg/dL (8.5-10.1); Carbon Dioxide 24 mmol/L (21-32); Chloride 101 mmol/L (98-107); GFR African American 79 mL/min; GFR Non-African American 65 mL/min; Glucose 135 mg/dL (74-106); Magnesium 2.6 mg/dL (1.6-2.6); Phosphorus 3.1 mg/dL (2.5-4.90); Sodium 131 mmol/L (136-145)
--- NOTE | 2019-01-21 15:07 | NUR ---
BRENNA Notified of low urine output, blood pressure, and cardiac index. No new orders. He still wants swan-kayode removed.
--- NOTE | 2019-01-21 15:08 | NUR ---
MD COVARRUBIAS Notified of blood sugar trends, new orders for Q4 hr accu-checks, hgb level decreased. New order for 1 unit of PRBC obtained. She is aware of urine output trends as well.
[2019-01-21] MEDS ORDERED: FUROSEMIDE 40 MG/4 ML VIAL IV ONE (15:15)
[2019-01-21] MEDS ORDERED: DEXTROSE (50%) 50ML SYRG IV PRN (15:15)
--- NOTE | 2019-01-21 15:37 | NUR ---
BLOOD PRODUCT Blood product administration begun. No reactions or distress noted. Vital stable, will continue to monitor.
[2019-01-21] MEDS: cloNIDine HCL 0.1 MG TAB PO PRN ×2 (15:52→21:46)
[2019-01-21] MEDS: InsuLIN REG 1unit/0.01ml Soln (100units/ml) SC SCH ×2 (15:57→20:26)
--- NOTE | 2019-01-21 16:43 | NUR ---
MAGDI Update Magdi on urine output, C.I. HR, Blood pressure trends with having to place patient back on NGT gtt. Changes made to PO blood pressure medications.
[2019-01-21] MEDS ORDERED: LISINOPRIL 20 MG TAB PO ONE (16:45)
[2019-01-21] MEDS ORDERED: LISINOPRIL 20 MG TAB ONE (16:51)
[2019-01-21] MEDS: MORPHINE SULFATE 4 MG/ML SYR/VIAL IV PRN (17:02)
--- NOTE | 2019-01-21 17:20 | NUR ---
PAIN Patient complain of neck pain, PRN morphine given, towel roll place behind neck. Will continue to monitor.
[2019-01-21] MEDS: NITROGLYCERIN 50MG/250ML 250 ML IV SCH ×2 (17:42→20:20)
--- NOTE | 2019-01-21 18:06 | NUR ---
INCISION CARE Chest tube dressings removed. Site intact, no bleeding or clots noted. Site cleansed with chlorhexidine swabs. Petroleum gauze applied, 4x4 gauze, and secured with medipore tape. Right knee harvest site cleansed, abner wrapped reapplied.
--- NOTE | 2019-01-21 18:50 | NUR ---
SWAN-DEANNA CATHETER D/C PER MD CEJA REQUEST. CATHETER TIP INTACT.
--- NOTE | 2019-01-21 18:58 | NUR ---
OUTPUT TOTALS: CHEST TUBES:140 ML URINE:1191 ML
--- NOTE | 2019-01-21 19:00 | NUR ---
OXYGENATION Pulse ox showing 89-91% on 4 L nasal cannula, oxygen increased to 6 L. Will continue to monitor, no signs of distress or SOB noted at this time. Lung sounds clear.
--- NOTE | 2019-01-21 19:12 | NUR ---
REPORT Report given to Modesat BENSON, care endorsed.
--- NOTE | 2019-01-21 19:45 | NUR ---
ASSESSMENT: ORIENTED TO NAME AND PROCEDURE, FORGETFUL AND CONFUSED OTHERWISE. MOVING ALL EXTREMITIES EQUALLY. C/O SEVERE PAIN TO MIDSTERNAL AREA. PT. HAS RECEIVED, NORCO AND MORPHINE IV WITHIN THE LAST 3 HRS. APPEARS IN DISTRESS DUE TO PAIN. WILL MEDICATE SOON DO. SBP 160'S PER ART. LINE. NITROGLYCERIN AT 300 MCG/MIN., AND CARDENE AT 1 MG/HR. WILL TITRATE CARDENE TO MAINTAIN PRESSURES LESS THAN 140 HHMG. SBP PER NIBP CUFF 140'S. HR 90'S, SINUS, BBB, NO ECTOPY. AV WIRES INTACT, PACER OFF. LUNGS - POOR INSPIRATORY EFFORT, CRACKLES TO LEFT LATERAL BASE, CLEAR OTHERWISE BUT SIGNIFICANTLY DIMINISHED. SATS 95% ON 6L/NC WITH HUMIDIFIER. CHEST TUBE X2 WITH SMALL AMT. OF BLOODY DRAINAGE, NO AIR LEAK ASSESSED AT THIS TIME ABDOMEN - SOFT, FLAT, HYPOACTIVE BOWEL SOUNDS. LARSON TO DD WITH CLEAR, YELLOW DRAINAGE. RIGHT IJ SWAN DISCONTINUED, CORDIS REMAINS. IVS TO RAC AND LAC REMAIN INTACT. SKIN WARM AND DRY.
--- NOTE | 2019-01-21 20:08 | NUR ---
193 - REPORT FROM KAMI BENSON.
[2019-01-21] MEDS: ATORVASTATIN 20 MG TAB PO SCH (21:46)
[2019-01-21] MEDS: METOPROLOL TARTRATE 25 MG TAB PO SCH (21:47)
[2019-01-21] MEDS: FAMOTIDINE 20 MG TAB PO SCH (21:47)
--- NOTE | 2019-01-21 22:05 | NUR ---
SATS 87-88% ON 6L/NC. ASSISTED TO SIT AT BEDSIDE WITH DIFFICULTY DUE TO PAIN. BREATHING PATTERN - RR 20'S BUT APPEARS SHALLOW AND INCREASE EFFORT. PRACTICE DEEP BREATHING BUT RESPIRATORY EFFORT POOR. NO INCREASED OUTPUT FROM CHEST TUBE WHEN SITTING UP, OXYGENATION NOT IMPROVED EITHER. BACK TO BED AND REPOSITIONED. TAKES ALL PM MEDICATION WITH NO DIFFICULTY. SWALLOWS WATER OK. NORCO FOR PAIN PROVIDED. CLONIDINE AND METOPROLOL PROVIDED WELL. WILL CONTINUE TO BLOOD PRESSURES. ART PRESSURES 149/52, NIBP 111/58. PT. ALERT BUT CONFUSED AT TIMES. COOPERATIVE.
[2019-01-21] MEDS: IPRATROPIUM BROM 0.5 MG/2.5ML INH SOL NEB PRN (22:07)
--- NOTE | 2019-01-21 22:10 | NUR ---
PRESENTLY ON BIPAP FOR TREATMENT, WILL ATTEMPT TO KEEP ON BIPAP THRU THE NIGHT
--- NOTE | 2019-01-21 22:50 | NUR ---
SBP PER ART. LINE 100'S, 90'S PER CUFF. CARDENE OFF. NITROGLYCERIN 100 MCG. PT. APPEARS TO BE RESTING AT THIS TIME. WILL CONTINUE TO MONITOR
--- NOTE | 2019-01-21 23:00 | NUR ---
NITRO DOWN TO 5 MCG/MIN., SBP 100'S PER ART LINE 80'S PER CUFF. PT. SLEEPING, TOLERATING BI-PAP AT THIS TIME/ SATS 100%, 50% FIO2.
--- NOTE | 2019-01-21 23:53 | NUR ---
URINE OUTPUT 45 CC LAST 2 HRS. CHEST TUBE OUTPUT 80 CC LAST 2 HRS
[2019-01-22] VITALS (100 sets, daily range): BP systolic 73–182; BP diastolic 34–90
[2019-01-22] MEDS: ACCU-CHEK COMFORT CURVE STRIP VI SCH ×6 (00:04→23:35)
[2019-01-22] MEDS: InsuLIN REG 1unit/0.01ml Soln (100units/ml) SC SCH ×6 (00:04→23:35)
[2019-01-22] MEDS: NICARDIPINE 25MG/250ML BAG KIT 250 ML IV SCH ×5 (01:23→21:23)
[2019-01-22] MEDS: FUROSEMIDE 20 MG/2 ML VIAL IV PRN (01:38)
--- NOTE | 2019-01-22 01:45 | NUR ---
LASIX 20 MG FOR UO < 30CC/HR FOR LAST 2 HOURS.
--- NOTE | 2019-01-22 01:59 | NUR ---
URINE OUTPUT - 85CC AFTER LASIX, SBP 130'S, CARDENE REMAINS OFF AND NTG TO 1.5 MCG/MIN.
[2019-01-22] MEDS: D5W/SOD CHL 0.45% 1,000 ML IV SCH (02:30)
[2019-01-22] MEDS: VANCOMYCIN 1GM/250ML 250 ML IV SCH (03:25)
--- NOTE | 2019-01-22 04:27 | NUR ---
CONTINUES ON BI-PAP, 35%, SATS 99%. SBP 130-140'S. URINE OUTPUT - 650 LAST 2 HRS. NO CHEST TUBES LAST 2 HRS.
[2019-01-22] MEDS: HYDROcodone-ACET 5/325MG TAB PO PRN ×2 (04:42→12:48)
[2019-01-22] MEDS: MORPHINE SULFATE 4 MG/ML SYR/VIAL IV PRN (04:50)
--- NOTE | 2019-01-22 05:10 | NUR ---
SBP 160-170'S, CLONIDINE PROVIDED, WILL CONTINUE TO MONITOR PRESSURES. NTG AT 100 MCG/MIN AND CARDENE AT 3 MG/HR
[2019-01-22] MEDS: cloNIDine HCL 0.1 MG TAB PO PRN (05:13)
--- NOTE | 2019-01-22 05:50 | NUR ---
BOTH NITRO AND CARDENE OFF AT THIS TIME. SBP 110'S.
[2019-01-22] MEDS: SODIUM CHLOR 0.9% PF (SALINE LOCK) 10ML VIAL/SYR IV SCH ×3 (06:00→21:33)
[2019-01-22] MEDS: ceFAZolin 1GM 2 GM in D5W 5% 100 ML IV SCH (06:01)
[2019-01-22] MEDS: ALBUTEROL SULF 2.5 MG/0.5ML(0.5%) NEB SOLN NEB SCH ×3 (06:06→18:18)
[2019-01-22] MEDS: IPRATROPIUM BROM 0.5 MG/2.5ML INH SOL NEB SCH ×3 (06:06→18:18)
[2019-01-22] MEDS: ACETYLCYSTEINE 10 %(100MG/ML) SOL 4ML NEB SCH ×2 (06:06→18:18)
--- NOTE | 2019-01-22 06:23 | NUR ---
CALL RECEIVED FROM DR. CEJA, REGARDING LABS AND ORDERS. UPDATED ON PATIENT STATUS. WILL INITIATE ORDERS.
--- NOTE | 2019-01-22 07:34 | NUR ---
REPORT TO KAMI BENSON, ALL OF DR. CEJA'S ORDERS ENDORSE AND REVIEWED.
--- NOTE | 2019-01-22 07:35 | NUR ---
OPENING SHIFT NOTE Report received from Modesta BENSON, care assumed. Patient is awake and alert. Patient oriented to self, location (at times). Patient able to follow simple commands, speech is clear, moves all extremities. Sinus rhythm on bedside monitor, bp stable. Pulses palpable bilaterally radial and pedal. Left wrist arterial line. AV pacer wires disconnected on standby. Denies chest pain, no edema noted. Lungs clear but very diminished anterior. Patient on 8l simple mask, denies cough or shortness of breath. Abdomen soft, nontender with hypoactive bowel sounds. Roland catheter patent, secure, and hung below bladder. See skin assessment. Chest tubes x2 patent, no air leaks, connect to atrium on wall suction. Bed locked in lowest position with call light within reach. Patient instructed to call for assistance.
--- NOTE | 2019-01-22 08:00 | NUR ---
PULMONARY ROUNDS at bedside assessing patient. He is aware of decreased oxygenation yesterday afternoon, bipap tx over night and now patient on mask. Awaiting new orders.
--- NOTE | 2019-01-22 08:06 | NUR ---
LABS Type and Cross sent to lab.
--- NOTE | 2019-01-22 08:30 | NUR ---
OXYGENATION Decreased flow rate to 6 l simple mask, oxygen sat 100%. Will continue to titrate down as tolerated.
[2019-01-22 08:40] LABS: BUN/Creatinine Ratio 11.4; Calcium 7.7 mg/dL (8.5-10.1)
--- NOTE | 2019-01-22 09:00 | NUR ---
FAMILY Patient family at bedside.
--- NOTE | 2019-01-22 09:26 | NUR ---
OXYGENATION Decreased flow rate to 4 l nasal cannula, oxygen sat 95%. Patient denies shortness of breath at this time. Will continue to titrate down as tolerated.
[2019-01-22] MEDS: METOPROLOL TARTRATE 25 MG TAB PO SCH ×2 (09:42→21:42)
[2019-01-22] MEDS: LISINOPRIL 20 MG TAB PO SCH (09:42)
[2019-01-22] MEDS: FERROUS SULFATE 325 MG TAB PO SCH (09:42)
[2019-01-22] MEDS: DOCUSATE SOD 100 MG CAP PO SCH ×2 (09:43→21:33)
[2019-01-22] MEDS: NITROGLYCERIN 0.4MG/HR TOPICAL PATCH TD SCH (09:44)
[2019-01-22] MEDS: ALLOPURINOL 100 MG TAB PO SCH (09:45)
[2019-01-22] MEDS: ASPirin 81 mg TAB PO SCH (09:47)
[2019-01-22] MEDS: CHLORHEXIDINE 0.12% ORAL rinse 473ML MT SCH ×2 (09:47→21:33)
[2019-01-22] MEDS: PANTOPRAZOLE 40 MG/10 ML VIAL IV SCH (09:47)
[2019-01-22] MEDS: FUROSEMIDE 20 MG TAB PO SCH ×2 (09:49→18:00)
[2019-01-22 09:53] LABS: Basophils # (auto) 0 uL; Basophils % (auto) 0.2 % (0.0-2.0); Lymphocytes # (auto) 0.8 uL; Neutrophils # (auto) 8.4 uL; Platelet Count (auto) 59 10^3/uL (140-450); White Blood Cell 9.8 10^3/uL (4.4-10.8)
[2019-01-22 09:55] LABS: Eosinophils # (auto) 0 uL; Eosinophils % (auto) 0.5 % (0.0-7.0); Hemoglobin 9.1 g/dL (12.2-16.2); Mean Corpuscular Hgb Conc. 34.9 g/dL (32.0-36.0); Mean Corpuscular Volume 85.9 fL (80.0-100.0); Monocytes # (auto) 0.5 uL; Monocytes % (auto) 5.2 % (0.0-12.0); Neutrophils % (auto) 86.1 % (37.0-80.0); Red Blood Cells 3.02 10^6/uL (4.0-5.20); Red Cell Distribution Width 14.7 % (11.8-14.3)
[2019-01-22] MEDS ORDERED: ENOXAPARIN SOD 40 MG/0.4 ML SYRINGE SC SCH (10:00)
[2019-01-22] MEDS ORDERED: DEXTROSE (50%) 50ML SYRG IV PRN (10:00)
[2019-01-22] MEDS ORDERED: POTASSIUM CHLORIDE 8 MEQ TAB PO ONE (10:00)
--- NOTE | 2019-01-22 10:00 | NUR ---
MD ROUNDS at bedside assessing patient. She is aware of AM labs, oxygenation and blood pressure trends. CBC ordered to assess need for blood transfusion.
[2019-01-22] MEDS: fentaNYL CITRATE 100 MCG/2 ML VL IV PRN ×2 (10:43→19:39)
--- NOTE | 2019-01-22 11:09 | NUR ---
BRENNA Orellana called for update on labs, cxr, and pain control. Orders received for d/c lines, and new pain medication regime if pharmacy has dose of Codeine. Will call and clarify availability.
[2019-01-22] MEDS: Ensure Enlive Chocolate 8oz Bottle PO SCH ×2 (12:00→18:29)
--- NOTE | 2019-01-22 12:00 | NUR ---
ARTERIAL LINE Left radial arterial line removed, catheter tip intact. Manual pressure held for 5 minutes. No signs of bleeding or hematoma noted. Pressure dressing applied. Continue to monitor and reassess site.
--- NOTE | 2019-01-22 12:14 | NUR ---
CARDIOLOGY ROUNDS at bedside for assessment. No new orders received at this time.
--- NOTE | 2019-01-22 12:30 | NUR ---
ACTIVITY Patient sat on edge of bed. Patient able to stand and pivot with small steps. Patient now resting in chair at bedside with legs elevated. Blood pressure elevated 170's peripheral but decreased shortly after resting. Heart rate low 90's. Denies dizziness or shortness of breath. Call light within reach. Will continue to monitor.
--- NOTE | 2019-01-22 13:11 | NUR ---
PAIN Patient complains of chest and back pain after ambulation. Patient given PRN [place]. Will reassess pain level.
[2019-01-22] MEDS: NOREPINEPHRINE 8 MG/250ML KIT 250 ML IV SCH (14:23)
[2019-01-22] MEDS: SODIUM CHLORIDE 0.9% 500 ML IV SCH (14:23)
[2019-01-22] MEDS: PHENYLEPHRINE IV 250 ML IV SCH (14:23)
[2019-01-22] MEDS: MILRINONE 20MG/100ML 100 ML IV SCH (14:31)
--- NOTE | 2019-01-22 15:32 | NUR ---
ROUNDING NOTE Patient resting in chair, no distress noted. Vital stable. Call light within reach.
--- NOTE | 2019-01-22 16:32 | NUR ---
ACTIVITY Patient ambulated one lap around nursing station with walker, portable monitor, oxygen 4 L nasal cannula, and physical therapist Del. RN present during ambulation. Patient tolerated activity well. Gait was a little unsteady at times. Patient returned to chair, vitals stable. No distress noted. Continue to monitor. Call light within reach.
--- NOTE | 2019-01-22 18:20 | NUR ---
CORDIS D/C, PRESSURE DRESSING APPLIED.
--- NOTE | 2019-01-22 19:19 | NUR ---
REPORT Report given to Ivette BENSON, Care endorsed. While charge nurses were ambulating patient back to bed, berg catheter dislodge and was removed. No distress or injury occurred.
--- NOTE | 2019-01-22 19:30 | NUR ---
Initial Assessment Patient received laying on bed. Patient is awake and alert but oriented to self and situation only. pt unsure of date and time. Pt reoriented and she verbalized understanding. Notes equal strength bilaterally with no slurring of words of facial droop. patient answers questions appropriately. Pt C/O pain-will medicate per MD order. RR even and unlabored with equal rise and fall on 4L o2 via N/C. Lungs clear throughout. Atrial and ventricular epicardial wires dressing CDI. Currently on standby mode. Mid-line chest incision with Aquacel AG dressing in place that is CDI. Chest tube x2 connected to Atrium collection chamber at -20cm h2o suction draining sanguineous fluid. No air leak, clots, or crepitus noted. Dressing is CDI. No F/C in place at this time. Will re-insert to monitor correct output. SERGIO hose stockings intact to BLE. Neurovascular status intact with palpable distal pulses, skin warm to touch, capillary refill brisk. Patient educated about how to use the call light and encouraged to call when needing assistance and patient verbalized understanding. Bed in lowest position, side rails up, bed brakes set, bed alarm set. Call light and side table are within reach. All VSS.
--- NOTE | 2019-01-22 19:39 | NUR ---
Pain Management Patient C/O pain 6-05/26 and is requesting medication. No drowsiness or respiratory depression noted. HR 90, BP 151 systolic. Fentanyl administered per MD order via very slow IVP. patient tolerated well with no adverse reaction noted.
--- NOTE | 2019-01-22 20:00 | NUR ---
Pacemaker check Ventricular epicardial wire connected to external pacemaker generator. pacemaker check performed with Ma 10, sensitivity 0.8. It demonstrated 100% capture with proper timing. Pacemaker rate turned down to 60bpm and is sensing correct. Not currently pacing as intrinsic rate is 90's.
--- NOTE | 2019-01-22 20:30 | NUR ---
Berg catheter insertion Previous F/C was dislodged prior to shift. Patient assessed and determined to be in need of berg catheter (S/P open heart surgery requiring accurate monitoring of intake and output). Patient educated on catheter and reason for insertion. Pt verbalized understanding and agreed with reinsertion of F/C. F/C inserted with sterile technique. Patient tolerated well with no distress. clear yellow urine noted in catheter tubing.
[2019-01-22] MEDS: ATORVASTATIN 20 MG TAB PO SCH (21:33)
[2019-01-22] MEDS: FAMOTIDINE 20 MG TAB PO SCH (21:33)
--- NOTE | 2019-01-22 22:00 | NUR ---
Pressure dressing D/C Dressing to right cordis d/c site and left wrist art line d/c site taken off. There is no bleeding or hematoma present. Patient tolerated well with no c/o pain or distress.
[2019-01-23] VITALS (94 sets, daily range): BP systolic 80–172; BP diastolic 34–97
--- NOTE | 2019-01-23 02:00 | NUR ---
Ongoing Assessment Patient resting with no s/s of distress or pain. Eyes closed, awakens easily to verbal stimuli. RR even and unlabored with equal rise and fall. BP intermittently elevated but remains less than 160. Per MD order, if BP greater than 160 systolic, RN will administer Clonidine PRN. HOB elevated, being turned. All bony prominences and heels offloaded with pillows, skin is clean and dry. Neurovascular status intact. Incision sites benign. Chest tubes remain free of any clots, air leak or crepitus. Call light and side table are within reach. All VSS.
[2019-01-23] MEDS: NICARDIPINE 25MG/250ML BAG KIT 250 ML IV SCH ×5 (02:23→22:23)
[2019-01-23] MEDS: cloNIDine HCL 0.1 MG TAB PO PRN (03:06)
--- NOTE | 2019-01-23 03:06 | NUR ---
Blood pressure management systolic blood pressure 164. Clonidine administered per MD order. Patient tolerated well.
--- NOTE | 2019-01-23 04:00 | NUR ---
Incisional Care/bed bath Patient given complete CHG bed bath all linens and gown changed. Aquacel AG dressing taken off and mid-sternal incision left open to air per protocol. Chest tube insertion sites cleansed with CHG Swabsticks and re-dressed with occlusive petroleum gauze, sterile gauze, and Medipore tape. Epicardial wire insertion sites cleansed with CHG Swabsticks and re-dressed with Microfoam tape. Endoscopic harvest site cleansed with CHG Swabsticks and SERGIO hose stockings re-applied. All incision sites are well approximated with no s/s of infection, drainage, or dehiscence. patient tolerated well.
[2019-01-23 04:15] LABS: Basophils # (auto) 0 uL; Basophils % (auto) 0.2 % (0.0-2.0); Eosinophils # (auto) 0 uL; Hemoglobin 11.4 g/dL (12.2-16.2); Lymphocytes # (auto) 0.9 uL; Lymphocytes % (auto) 9.1 % (10.0-50.0); Mean Corpuscular Hemoglobin 30.1 pg (28.0-32.0); Monocytes # (auto) 0.6 uL; Nucleated Red Blood Cells % 0.1 %; Platelet Count (auto) 62 10^3/uL (140-450)
[2019-01-23 04:16] LABS: Eosinophils % (auto) 0.2 % (0.0-7.0); Hematocrit 32.8 % (36.0-46.0); Mean Corpuscular Hgb Conc. 34.7 g/dL (32.0-36.0); Neutrophils # (auto) 8.4 uL; Neutrophils % (auto) 84.5 % (37.0-80.0); Red Blood Cells 3.77 10^6/uL (4.0-5.20); Red Cell Distribution Width 14.8 % (11.8-14.3); White Blood Cell 9.9 10^3/uL (4.4-10.8)
[2019-01-23 04:31] LABS: Albumin 3.8 g/dL (3.4-5.0); BUN/Creatinine Ratio 15.8; Potassium 4.2 mmol/L (3.5-5.1)
[2019-01-23 04:34] LABS: Bilirubin, Total 0.9 mg/dL (0.2-1.0); Total Protein 6.6 g/dL (6.4-8.2)
[2019-01-23] MEDS: fentaNYL CITRATE 100 MCG/2 ML VL IV PRN (04:35)
--- NOTE | 2019-01-23 04:35 | NUR ---
Pain Management Patient C/O pain 06/26 and is requesting medication. No drowsiness or respiratory depression noted. HR 101, BP 160 systolic. Fentanyl administered per MD order via very slow IVP. patient tolerated well with no adverse reaction noted.
[2019-01-23] MEDS: SODIUM CHLOR 0.9% PF (SALINE LOCK) 10ML VIAL/SYR IV SCH ×3 (05:18→21:33)
[2019-01-23] MEDS: ACCU-CHEK COMFORT CURVE STRIP VI SCH ×4 (05:19→23:44)
[2019-01-23] MEDS: InsuLIN REG 1unit/0.01ml Soln (100units/ml) SC SCH ×4 (05:19→23:44)
[2019-01-23] MEDS: FUROSEMIDE 20 MG TAB PO SCH (05:59)
[2019-01-23] MEDS: IPRATROPIUM BROM 0.5 MG/2.5ML INH SOL NEB SCH ×5 (06:00→22:29)
[2019-01-23] MEDS: ACETYLCYSTEINE 10 %(100MG/ML) SOL 4ML NEB SCH ×3 (06:00→22:29)
[2019-01-23] MEDS: ALBUTEROL SULF 2.5 MG/0.5ML(0.5%) NEB SOLN NEB SCH ×5 (06:00→22:29)
--- NOTE | 2019-01-23 06:00 | NUR ---
Ambulation held Patient did not sleep most of the night and has finally fallen asleep. RN asked patient to attempt to get OOB to ambulate this morning and she is requesting to sleep longer. Also, patient's BP is significantly lower this morning increasing the risk of fall. RN will endorse ambulation to day shift RN with physical therapy present for patient safety due to generalized weakness the patient is experiencing.
--- NOTE | 2019-01-23 07:01 | NUR ---
Report given No changes or incidents to report. Care endorsed to day shift RN.
--- NOTE | 2019-01-23 07:40 | NUR ---
OPENING SHIFT NOTE REPORT RECEIVED FROM AQUATIC ECOLOGIST RN, MORNING ASSESSMENT PERFORMED AND DOCUMENTED. PATIENT RESTING IN BED, OPENS EYES SPONTANEOUSLY AND WHEN CALLED BY NAME, PATIENT ABLE TO FOLLOW SIMPLE COMMANDS ALERT TO SELF AND SITUATION ONLY AND APPEARS EXTREMELY FATIGUED - PER AQUATIC ECOLOGIST RN, "PATIENT NOT ABLE TO SLEEP THROUGHOUT THE NIGHT". DISCUSSED PLAN OF CARE WITH PATIENT, PATIENT ANSWERED QUESTIONS APPROPRIATELY AND NODDED HEAD YES WHEN ASKED IF SHE UNDERSTOOD. PATIENT DENIES PAIN OR DISCOMFORT AT THIS TIME, VSS AND DOCUMENTED. PATIENT CURRENTLY ON 4 LITERS OXYGEN VIA NASAL CANNULA, NO DISTRESS NOTED, RESPIRATIONS EVEN AND UNLABORED, CLEAR LUNG SOUNDS BILATERALLY. ATRIAL AND VENTRICULAR PERICARDIAL WIRES DRESSING C/D/I - CURRENTLY ON STANDBY MODE. MIDLINE INCISION OPEN TO AIR, CHEST TUBE X2 CONNECTED TO A[facility]IUM COLLECTION CHAMBER AT 20 CM H20 SUCTION AND DRAINING SANGUINOUS FLUID. NO AIR LEAKS, CLOTS OR CREPITUS NOTED - DRESSING IS C/D/I. LARSON CATHETER PATENT AND DRAINING TO GRAVITY CLEAR/YELLOW URINE. SERGIO HOSE STOCKINGS INTACT TO BLE. DISTAL PULSES PALPABLE, SKIN WARM TO TOUCH, CAPILLARY REFILL BRISK. CALL LIGHT WITHIN REACH, BED IN LOWEST POSITION, BED BRAKES SET AND BED ALARM ACTIVE. FAMILY AT BEDSIDE.
[2019-01-23] MEDS: Ensure Enlive Chocolate 8oz Bottle PO SCH ×3 (08:00→19:57)
[2019-01-23] MEDS: MILRINONE 20MG/100ML 100 ML IV SCH (09:15)
--- NOTE | 2019-01-23 09:22 | NUR ---
CALL RECEIVED FROM DR CEJA DOCTOR UPDATED ON PATIENT'S STATUS AND MORNING LABS. NO ORDERS AT THIS TIME, WILL CONTINUE TO MONITOR.
--- NOTE | 2019-01-23 10:19 | NUR ---
STRIP ROLLER DR. Roby WTIT
--- NOTE | 2019-01-23 10:22 | NUR ---
CARDIOLOGY/HOSPITALIST AT BEDSIDE DR CHRISTIANSON AND DR WITT BOTH UPDATED ON PATIENT'S STATUS. NO ORDERS AT THIS TIME.
[2019-01-23] MEDS: PANTOPRAZOLE 40 MG/10 ML VIAL IV SCH (11:53)
[2019-01-23] MEDS: NITROGLYCERIN 0.4MG/HR TOPICAL PATCH TD SCH (11:54)
[2019-01-23] MEDS: DOCUSATE SOD 100 MG CAP PO SCH ×2 (11:55→21:33)
[2019-01-23] MEDS: FERROUS SULFATE 325 MG TAB PO SCH (11:55)
[2019-01-23] MEDS: ALLOPURINOL 100 MG TAB PO SCH (11:55)
[2019-01-23] MEDS: LISINOPRIL 20 MG TAB PO SCH (11:55)
[2019-01-23] MEDS: METOPROLOL TARTRATE 25 MG TAB PO SCH ×2 (11:56→21:33)
[2019-01-23] MEDS: CHLORHEXIDINE 0.12% ORAL rinse 473ML MT SCH ×2 (11:56→21:33)
[2019-01-23] MEDS: ASPirin 81 mg TAB PO SCH (11:57)
[2019-01-23] MEDS: HYDROcodone-ACET 5/325MG TAB PO PRN (12:20)
--- NOTE | 2019-01-23 12:30 | NUR ---
AMBULATION PATIENT AMBULATED ONE TIME AROUND ICU NURSE STATION WITH USE OF FWW, POTABLE OXYGEN AT 4 LITERS NASAN CANNULA AND ACCOMPANIED BY PHYSICAL THERAPIST AND THIS NURSE. PATIENT DID TAKE ONE REST STOP, VSS AND TOLERATED WELL. PATIENT DID APPEAR TO BE FATIGUED AND ASSISTED TO BEDSIDE CHAIR - CONNECTED TO BEDSIDE MONITOR. FALL PRECAUTIONS IN PLACE, CALL LIGHT WITHIN REACH.
--- NOTE | 2019-01-23 13:54 | NUR ---
RETURN CALL FROM DR CEJA NOTIFIED OF PATIENT'S VS. ORDERS RECEIVED AND WILL BE CARRIED OUT.
[2019-01-23] MEDS ORDERED: ALBUMIN 5% 250 ML IV ONE (14:00)
[2019-01-23] MEDS: PHENYLEPHRINE IV 250 ML IV SCH (14:23)
[2019-01-23] MEDS: SODIUM CHLORIDE 0.9% 500 ML IV SCH (14:23)
[2019-01-23] MEDS: NOREPINEPHRINE 8 MG/250ML KIT 250 ML IV SCH (14:23)
--- NOTE | 2019-01-23 15:40 | NUR ---
PHONE CALL RECEIVED FROM DR CEJA/FAMILY AT BEDSIDE DR CEJA UPDATED ON PATIENT'S STATUS, CONTINUED FATIGUE, VS AND URINE OUTPUT. ORDERS FOR CBC/CMP/LIVER FUNCTION TEST AND CXR FOR TOMORROW RECEIVED AND VERIFIED WITH DR CEJA.
--- NOTE | 2019-01-23 17:22 | NUR ---
INCENTIVE SPIROMETER/FAMILY AT BEDSIDE PATIENT CONTINUES TO SIT UP IN BEDSIDE CHAIR AND TOLERATING WELL. PATIENT ALERT AND ORIENTED X3 WITH EPISODES OF FORGETFULNESS. PATIENT CONTINUES TO APPEAR FATIGUED AND SLEEPY. PATIENT EDUCATED ON NEED AND USE FOR INCENTIVE SPIROMETER. DEMONSTRATION PROVIDED AND PATIENT ABLE TO RETURN DEMONSTRATION AND MEASURED 500 MLS. PATIENT AND FAMILY EDUCATED ON IMPORTANCE OF USE, BOTH PARTIES VERBALIZED UNDERSTANDING.
--- NOTE | 2019-01-23 19:30 | NUR ---
OPEN ASSUMED CARE, FULL ASSESSMENT DONE; SEE INTERVENTIONS. PT EXTREMELY DROWSY, DOES OPEN EYES TO NAME BUT IS UNABLE TO TELL ME WHERE SHE IS, DATE/TIME, SITUATION, ETC. RE-ORIENTATION PROVIDED. PT DEEMED TOO FATIGUED TO AMBULATE AT THIS TIME, ASSISTED PT BACK TO BED WITH ASSIST X 2 RNs. PT ABLE TO BEAR WEIGHT BUT IS VERY WEAK. CT X 2 INTACT, CONNECTED TO [facility]UM DRAINING SANGUINOUS WITH NO CLOTS NOTED, DSG CDI. LARSON DRAINING TO GRAVITY. ATTEMPTED INCENTIVE SPIROMETRY TEACHING WITH PT BUT SHE HAS POOR CONCENTRATION. CALL LIGHT WITHIN REACH AND BED IN LOWEST POSITION. CONTINUE CLOSE CARE.
[2019-01-23] MEDS: ATORVASTATIN 20 MG TAB PO SCH (21:33)
[2019-01-23] MEDS: FAMOTIDINE 20 MG TAB PO SCH (21:33)
--- NOTE | 2019-01-23 23:44 | NUR ---
ROUNDS/GLUCOSE PT. RESTING, VITAL SIGNS STABLE. ASSISTED WITH REPOSITIONING TO OTHER SIDE, PT NOTED WITH MORE MOIST COUGH AT THIS TIME BUT STATES "I JUST SWALLOW IT" WHEN ASKED IF SHE HAS BEEN COUGHING ANYTHING UP. POC GLUCOSE: 140; WILL HOLD INSULIN, PER REPORT PT NOTED TO HAVE HER BLOOD SUGARS DROP SIGNIFICANTLY BY THE MORNING AND PT DID NOT EAT ANYTHING FOR DINNER.
[2019-01-24] VITALS (74 sets, daily range): BP systolic 105–160; BP diastolic 45–93
--- NOTE | 2019-01-24 01:34 | NUR ---
ROUNDS PT. CONTINUES TO REST, RESPIRATIONS EVEN AND UNLABORED, VITAL SIGNS STABLE. CONTINUE CARE.
[2019-01-24] MEDS: MILRINONE 20MG/100ML 100 ML IV SCH ×2 (01:58→18:41)
[2019-01-24] MEDS: NICARDIPINE 25MG/250ML BAG KIT 250 ML IV SCH ×5 (03:23→22:59)
[2019-01-24 04:28] LABS: Basophils # (auto) 0 uL; Eosinophils # (auto) 0 uL; Hemoglobin 9.5 g/dL (12.2-16.2); Neutrophils # (auto) 9.8 uL; Platelet Count (auto) 59 10^3/uL (140-450); White Blood Cell 11.7 10^3/uL (4.4-10.8)
[2019-01-24 04:31] LABS: Eosinophils % (auto) 0.4 % (0.0-7.0); Hematocrit 27.6 % (36.0-46.0); Mean Corpuscular Hemoglobin 30.3 pg (28.0-32.0); Mean Corpuscular Hgb Conc. 34.6 g/dL (32.0-36.0); Mean Corpuscular Volume 87.6 fL (80.0-100.0); Monocytes # (auto) 0.7 uL; Monocytes % (auto) 6.4 % (0.0-12.0); Neutrophils % (auto) 84.2 % (37.0-80.0); Nucleated Red Blood Cells % 0.1 %; Red Blood Cells 3.15 10^6/uL (4.0-5.20)
[2019-01-24 04:56] LABS: Albumin 3.3 g/dL (3.4-5.0); BUN/Creatinine Ratio 22.5; Bilirubin, Total 0.9 mg/dL (0.2-1.0); Calcium 8.1 mg/dL (8.5-10.1); Magnesium 2.2 mg/dL (1.6-2.6); Total Protein 5.7 g/dL (6.4-8.2)
--- NOTE | 2019-01-24 05:00 | NUR ---
CARES/INCENTIVE SPIROMETER CT SITES CLEANSED WITH CHLORHEX SWABS, COVERED WITH 4X4 GAUZE, AND SECURED WITH MEDIPORE TAPE. CLEANSED STERNOTOMY INCISION AND GRAFT SITES WITH CHLOR HEX SWABS. FULL BATH GIVEN, HAIR WASHED AND BRUSHED. PT REQUESTING TO SIT IN CHAIR FOR BREATHING TREATMENT, ASSISTED TO CHAIR WITHOUT ISSUE. LINENS CHANGED WHILE PT OOB. PT. ABLE TO PERFORM IS AT THIS TIME, POOR BREATH HOLD NOTED DESPITE INSTRUCTION. HIGHEST INSPIRATORY EFFORT NOTED AT APPROX. 600 MLs. STRONG, NON-PRODUCTIVE COUGH PRESENT, ENCOURAGED PT TO EXPECTORATE ANYTHING THAT SHE BRINGS UP, SHE VERBALIZED UNDERSTANDING AND IS MUCH MORE LUCID THIS MORNING. EXPLAINED TO PT THAT WE WILL BE AMBULATING AFTER HER AM BREATHING TREATMENT AND SHE VERBALIZED UNDERSTANDING.
[2019-01-24] MEDS: InsuLIN REG 1unit/0.01ml Soln (100units/ml) SC SCH ×3 (05:53→18:00)
[2019-01-24] MEDS: SODIUM CHLOR 0.9% PF (SALINE LOCK) 10ML VIAL/SYR IV SCH ×3 (05:53→22:00)
[2019-01-24] MEDS: ACCU-CHEK COMFORT CURVE STRIP VI SCH ×3 (05:54→17:55)
--- NOTE | 2019-01-24 05:54 | NUR ---
OUTPUTS URINE OUTPUT FOR SHIFT: [address] OUTPUT FOR SHIFT: 30 MLs
--- NOTE | 2019-01-24 07:02 | NUR ---
REPORT CARE ENDORSED TO KELLEY GAO. PT REMAINS IN CHAIR AT BEDSIDE RECEIVING BIPAP TREATMENT, AMBULATION ENDORSED TO DAY SHIFT RN.
--- NOTE | 2019-01-24 07:30 | NUR ---
OPENING SHIFT NOTE REPORT RECEIVED FROM PAY STATION DEPARTMENT MANAGER RN, MORNING ASSESSMENT PERFORMED AND DOCUMENTED. PATIENT RESTING IN BEDSIDE CHAIR, OPENS EYES WHEN CALLED BY NAME, PATIENT ALERT AND ORIENTED X3 WITH EPISODES OF FORGETFULNESS - PATIENT EASILY REORIENTED TO PLACE AND SITUATION. PATIENT CONTINUES TO APPEAR FATIGUED BUT MORE ALERT. FAMILY AT BEDSIDE, DISCUSSED PLAN OF CARE WITH PATIENT AND FAMILY, ALL VERBALIZED UNDERSTANDING. PATIENT DENIES PAIN OR DISCOMFORT AT THIS TIME, VSS AND DOCUMENTED. PATIENT CURRENTLY ON 4 LITERS OXYGEN VIA NASAL CANNULA, NO DISTRESS NOTED, RESPIRATIONS EVEN AND UNLABORED, CLEAR LUNG SOUNDS BILATERALLY. ATRIAL AND VENTRICULAR PERICARDIAL WIRES DRESSING C/D/I - CURRENTLY ON STANDBY MODE. MIDLINE INCISION OPEN TO AIR, CHEST TUBE X2 CONNECTED TO ATRIUM COLLECTION CHAMBER AT 20 CM H20 SUCTION AND DRAINING SANGUINOUS FLUID. NO AIR LEAKS, CLOTS OR CREPITUS NOTED - DRESSING IS C/D/I. LARSON CATHETER PATENT AND DRAINING TO GRAVITY CLEAR/YELLOW URINE. SERGIO HOSE STOCKINGS INTACT TO BLE. DISTAL PULSES PALPABLE, SKIN WARM TO TOUCH, CAPILLARY REFILL BRISK. CALL LIGHT WITHIN REACH, CHAIR BRAKES SET, FAMILY AT BEDSIDE.
[2019-01-24] MEDS: ALBUTEROL SULF 2.5 MG/0.5ML(0.5%) NEB SOLN NEB SCH ×5 (07:56→23:14)
[2019-01-24] MEDS: ACETYLCYSTEINE 10 %(100MG/ML) SOL 4ML NEB SCH ×3 (07:57→23:14)
[2019-01-24] MEDS: IPRATROPIUM BROM 0.5 MG/2.5ML INH SOL NEB SCH ×5 (07:57→23:14)
--- NOTE | 2019-01-24 08:20 | NUR ---
CHIP BIN OPERATOR DR. Roby WITT
--- NOTE | 2019-01-24 09:02 | NUR ---
PAGED P.T. FOR AMBULATION AWAITING RESPONSE.
--- NOTE | 2019-01-24 09:45 | NUR ---
AMBULATION/INCENTIVE SPIROMETER PATIENT AMBULATED WITH USE OF FWW, CONNECTED TO PORTABLE MONITOR AND OXYGEN. PATIENT ACCOMPANIED BY THIS NURSE AND FAMILY. PATIENT AMBULATED ONCE AROUND ICU NURSE STATION, TOLERATED WELL. PATIENT ASSISTED BACK TO BEDSIDE CHAIR - VSS AND DOCUMENTED. INCENTIVE SPIROMETER MEASURED 500 ML.
[2019-01-24] MEDS: ASPirin 81 mg TAB PO SCH (10:00)
[2019-01-24] MEDS: DOCUSATE SOD 100 MG CAP PO SCH ×2 (11:12→22:58)
[2019-01-24] MEDS: FERROUS SULFATE 325 MG TAB PO SCH (11:13)
[2019-01-24] MEDS: METOPROLOL TARTRATE 25 MG TAB PO SCH ×2 (11:15→22:58)
[2019-01-24] MEDS: ALLOPURINOL 100 MG TAB PO SCH (11:16)
[2019-01-24] MEDS: NITROGLYCERIN 0.4MG/HR TOPICAL PATCH TD SCH (11:19)
[2019-01-24] MEDS: PANTOPRAZOLE 40 MG/10 ML VIAL IV SCH (11:19)
[2019-01-24] MEDS: Ensure Enlive Chocolate 8oz Bottle PO SCH ×3 (11:28→18:00)
[2019-01-24] MEDS: CHLORHEXIDINE 0.12% ORAL rinse 473ML MT SCH ×2 (11:28→22:00)
--- NOTE | 2019-01-24 11:45 | NUR ---
DR CEJA AT BEDSIDE/CHEST TUBE DISCONTINUED DR CEJA AT BEDSIDE, UPDATED ON PATIENT'S STATUS, LABS, BLOOD SUGARS AND VS. DR CEJA REMOVED CHEST TUBES - PATIENT TOLERATED WELL, PENDING STAT CHEST XRAY. MEDICATION RECONCILIATION REVIEWED WITH DR CEJA AND ORDERS PLACED. PATIENT CONTINUES TO SIT UP IN BEDSIDE CHAIR.
--- NOTE | 2019-01-24 12:11 | NUR ---
Nutrition Follow-up Notes Wt.: 55.1 kg today. Pt's on oxygen via nasal cannula, asleep, no signs of distress noted earlier, currently on Ground Cardiac: 2 gms Na, Low Chol, Low Fat diet with Ensure Enlive 1 carton TID, has poor PO intake aeb <25% ave. consumed meals (x5) in last 2.5 days d/t pt refused, per nursing. Est. Needs: 1300 kcal to 1550 kcal (25-30 kcal/kgBW), 52 gms to 62 gms pro (1.0-1.2 gms/kgBW). Will continue to monitor pertinent labs and reassess nutrient need prn Labs: Gluc 123 H, Na 128 L, Cl 95 L, Ca 8.3 L, Alb 2.8 L Skin: Piotr scale 17, mod risk, pt's medial chest incision dry and intact per brands editor. GI: Pt had 2x BM 01/18/19 per brands editor. PES: Increased nutrient needs r/t current/chronic medical condition aeb s/p CABG, extubation, on Clear Liquid diet with <75% consumed meals. Altered nutrition related lab values r/t current/chronic medical condition aeb hyponatremia, hypochloremia, elev. BUN, Trop I,hyperbilirubinemia, hypocalcemia and mild hypoalbuminemia Will continue to monitor PO intake, skin status, pertinent labs and weight trend. F/u in 3 to 5 days. Rec.: 1.) Consider Ground Consistent Standard Carb: 60 gms/meal, Cardiac: 2 gms Na, Low Chol, Low Fat diet. 2.) Continue close supervision and feeding assistance prn during meals. 3.) If Albumin level continues trending down, consider Prostat 1 pkt BID. 4.) Refer to RD for further nutrition education and weight monitoring upon discharged. 5.) Continue current plan of care.
--- NOTE | 2019-01-24 14:00 | NUR ---
AMBULATION PATIENT AMBULATED TWICE AROUND ICU NURSE STATION USING FWW AND CONNECTED TO PORTABLE OXYGEN AND MONITOR. PATIENT STOPPED ONCE TO REST, VSS, PATIENT'S ACCOMPANIED BY PHYSICAL THERAPIST AND THIS NURSE. PATIENT'S DAUGHTER WATCHED FROM A DISTANCE. PATIENT TOLERATED WELL, RETURNED BACK TO BEDSIDE CHAIR. FALL PRECAUTIONS IN PLACE, CALL LIGHT WITHIN REACH.
[2019-01-24] MEDS: LISINOPRIL 20 MG TAB PO SCH (14:07)
[2019-01-24] MEDS: PHENYLEPHRINE IV 250 ML IV SCH (14:23)
[2019-01-24] MEDS: NOREPINEPHRINE 8 MG/250ML KIT 250 ML IV SCH (14:23)
[2019-01-24] MEDS: SODIUM CHLORIDE 0.9% 500 ML IV SCH (15:57)
[2019-01-24] MEDS: FUROSEMIDE 20 MG TAB PO SCH (17:55)
--- NOTE | 2019-01-24 19:12 | NUR ---
END OF SHIFT NOTE PATIENT SITTING UP IN BED, ALERT AND ORIENTED X2 WITH INCREASED EPISODES OF CONFUSION. NO DISTRESS NOTED, RESPIRATIONS EVEN AND UNLABORED. R.T. AT BEDSIDE, PATIENT ON BIPAP. WILL ENDORSE CONTINUED CARE TO TRANSITIONAL CARE NURSE RN.
--- NOTE | 2019-01-24 19:30 | NUR ---
REPORT FROM MURRAY BENSON
--- NOTE | 2019-01-24 19:45 | NUR ---
ASSESSMENT: PT. LYING SUPINE. ALERT TO NAME, BUT DISORIENTED OTHERWISE. CALM AND COOPERATIVE. REORIENTED. SPEECH, CLEAR, SWOLLOWS WITH NO DIFFICULTIES. REFUSES DINNER AT THIS TIME. CARDIAC - SINUS RHYTHM 90'S, NO ECTOPY, BBB. SBP 140'S. LUNGS COARSE AT BASES, I.S 500 EACH TIME, POOR INSPIRATORY EFFORT. O2 2L/NC WITH SATS 95-96%. NO COUGH. ABDOMEN - SOFT, WITH HYPOACTIVE BOWEL SOUNDS, NO BM FOR THE PAST 4 DAYS AND PT. UNABLE TO REMEMBER DAY OF LAST B.M, PT. ON COLACE BID. LARSON - TO DD WITH ADEQUATE AMT. OF CLEAR, YELLOW URINE. ' SKIN WARM TO TOUCH, 2+ RADIAL AND PEDAL PULSES. NO DISCOLORATION OF EXTREMITIES. IV SITE TO LAC AND RAC, INTACT. DISCUSS THE NEED TO CHANGE WITH PT. DUE TO INSERTION DATE AND AGREES. DENIES PAIN AT THIS TIME.
--- NOTE | 2019-01-24 20:15 | NUR ---
AMBULATED PATIENT WITH X1 RN ASSIST AND WALKER. HR 108, SATS 94%, RR 25-34, FREQUENT STOPS MADE DURING AMBULATION. ASSISTED BACK TO BED AFTER AMBULATION. SBP 142/71. SATS 96%.
--- NOTE | 2019-01-24 22:45 | NUR ---
PM MED - GIVEN AND TAKEN WITH NO DIFFICULTIES.
[2019-01-24] MEDS: ATORVASTATIN 20 MG TAB PO SCH (22:58)
[2019-01-24] MEDS: FAMOTIDINE 20 MG TAB PO SCH (22:58)
[2019-01-25] VITALS (63 sets, daily range): BP systolic 90–144; BP diastolic 33–94
[2019-01-25 04:26] LABS: Basophils # (auto) 0 uL; Basophils % (auto) 0.1 % (0.0-2.0); Eosinophils # (auto) 0 uL; Eosinophils % (auto) 0.2 % (0.0-7.0); Hemoglobin 9.7 g/dL (12.2-16.2); Lymphocytes # (auto) 0.9 uL; Mean Corpuscular Hemoglobin 29.8 pg (28.0-32.0); Mean Corpuscular Hgb Conc. 34.4 g/dL (32.0-36.0); Mean Corpuscular Volume 86.6 fL (80.0-100.0); Monocytes # (auto) 0.9 uL; Monocytes % (auto) 7.6 % (0.0-12.0); Neutrophils # (auto) 9.6 uL; Neutrophils % (auto) 84.1 % (37.0-80.0); Nucleated Red Blood Cells % 0.1 %; Platelet Count (auto) 77 10^3/uL (140-450); Red Blood Cells 3.24 10^6/uL (4.0-5.20); Red Cell Distribution Width 14.7 % (11.8-14.3); White Blood Cell 11.5 10^3/uL (4.4-10.8)
[2019-01-25 04:49] LABS: Potassium 3.4 mmol/L (3.5-5.1)
[2019-01-25 04:57] LABS: Albumin 3.2 g/dL (3.4-5.0); BUN/Creatinine Ratio 27.1; Bilirubin, Total 1.2 mg/dL (0.2-1.0); Calcium 8.3 mg/dL (8.5-10.1); Total Protein 5.9 g/dL (6.4-8.2)
[2019-01-25] MEDS: InsuLIN REG 1unit/0.01ml Soln (100units/ml) SC SCH ×4 (06:00→18:00)
[2019-01-25] MEDS: ACCU-CHEK COMFORT CURVE STRIP VI SCH ×4 (06:00→18:10)
[2019-01-25] MEDS: FUROSEMIDE 20 MG TAB PO SCH ×2 (06:00→18:11)
[2019-01-25] MEDS: SODIUM CHLOR 0.9% PF (SALINE LOCK) 10ML VIAL/SYR IV SCH ×3 (06:00→22:15)
[2019-01-25] MEDS: IPRATROPIUM BROM 0.5 MG/2.5ML INH SOL NEB SCH ×5 (06:27→22:33)
[2019-01-25] MEDS: ACETYLCYSTEINE 10 %(100MG/ML) SOL 4ML NEB SCH ×3 (06:27→22:33)
[2019-01-25] MEDS: ALBUTEROL SULF 2.5 MG/0.5ML(0.5%) NEB SOLN NEB SCH ×5 (06:27→22:33)
[2019-01-25] MEDS: NICARDIPINE 25MG/250ML BAG KIT 250 ML IV SCH ×2 (06:33→08:19)
[2019-01-25] MEDS ORDERED: POTASSIUM CHL 20 Meq TABLET PO ONE (06:45)
--- NOTE | 2019-01-25 07:35 | NUR ---
OPENING SHIFT NOTE Report receive from Modesta BENSON, care assumed. Patient is awake and alert. Patient is oriented to self and place, periods of forgetfulness. Patient reorient frequently. Patient able to follow simple commands. Denies pain at this time. Patient appears to be fatigued. Afebrile. Sinus rhythm on bedside monitor with stable blood pressure. Pulses palpable bilaterally. Lungs coarse anterior, patient on 2 L nasal cannula, denies shortness of breath. Patient has poor appetite and does not want to eat breakfast at this time. Roland catheter present, patent, and hung below bladder. See skin assessment. Bed locked in lowest position, alarms in place. Call light within reach. Patient instructed to call for assistance. Patient verbalized understanding. Will continue to monitor.
--- NOTE | 2019-01-25 08:05 | NUR ---
FAMILY Patient son at bedside, updated on POC. All questions and concerns addressed.
--- NOTE | 2019-01-25 09:09 | NUR ---
ACTIVITY Patient ambulated two laps around nursing stations with walker, portable monitor and oxygen at 2 l nasal cannula. Denies distress or shortness of breath. Patient now resting in chair eating breakfast with family at bedside.
[2019-01-25] MEDS: FERROUS SULFATE 325 MG TAB PO SCH (09:28)
[2019-01-25] MEDS: METOPROLOL TARTRATE 25 MG TAB PO SCH ×2 (09:28→22:16)
[2019-01-25] MEDS: NITROGLYCERIN 0.4MG/HR TOPICAL PATCH TD SCH (09:29)
[2019-01-25] MEDS: DOCUSATE SOD 100 MG CAP PO SCH ×2 (09:29→22:16)
[2019-01-25] MEDS: LISINOPRIL 20 MG TAB PO SCH (09:29)
[2019-01-25] MEDS: Ensure Enlive Chocolate 8oz Bottle PO SCH ×3 (09:29→18:10)
[2019-01-25] MEDS: ALLOPURINOL 100 MG TAB PO SCH (09:29)
[2019-01-25] MEDS: CHLORHEXIDINE 0.12% ORAL rinse 473ML MT SCH (09:30)
[2019-01-25] MEDS: PANTOPRAZOLE 40 MG/10 ML VIAL IV SCH (09:30)
[2019-01-25] MEDS: MILRINONE 20MG/100ML 100 ML IV SCH (09:30)
--- NOTE | 2019-01-25 10:37 | NUR ---
ELIMINATION Patient ambulated to bedside commode. Pt had large, brown, soft bowel movement. Pt ambulated back to chair with call light within reach. Continue to monitor.
--- NOTE | 2019-01-25 11:00 | NUR ---
MD ROUNDS David Vo rounding at bedside. She is aware of am labs (low sodium), medications, discharge planning needs. Orders received.
[2019-01-25] MEDS ORDERED: HYDROcodone-ACET 5/325MG TAB PO PRN (11:15)
[2019-01-25] MEDS ORDERED: MORPHINE SULFATE 4 MG/ML SYR/VIAL IV PRN (11:15)
--- NOTE | 2019-01-25 11:52 | NUR ---
I faxed FWW order to , home health order to [facility] as well as to [facility].
--- NOTE | 2019-01-25 12:20 | NUR ---
INCENTIVE SPIROMETER Patient educated on how to perform Incentive Spirometer correctly. Patient performed IS 6 times, best effort reaching 800 cc. Patient encouraged to use IS every hour.
--- NOTE | 2019-01-25 12:33 | NUR ---
ACTIVITY Patient ambulated three laps around nursing stations with walker, portable monitor and oxygen at 2 l nasal cannula. Denies distress or shortness of breath. Patient now resting in chair eating breakfast with family at bedside.
--- NOTE | 2019-01-25 13:21 | NUR ---
I received a call from SG, walker will be delivered to bedside today.
--- NOTE | 2019-01-25 15:14 | NUR ---
[facility] has accepted patient services to begin once D/C. S/G ETA 3 pm.
--- NOTE | 2019-01-25 15:27 | NUR ---
ACTIVITY Patient ambulated two laps around nursing stations with walker, portable monitor and oxygen at 2 l nasal cannula. Denies distress or shortness of breath. Patient now resting in chair. Patient complain of mild back pain. Vitals stable, will continue to monitor.
--- NOTE | 2019-01-25 17:03 | NUR ---
INCENTIVE SPIROMETER Patient educated on how to perform Incentive Spirometer correctly. Patient performed IS 8 times, best effort reaching 1000cc. Patient encouraged to use IS every hour.
--- NOTE | 2019-01-25 20:00 | NUR ---
ASSESSMENT: ALERT AND ORIENTED X2. CALM, COOPERATIVE. DISCUSSED ACTIVITY AND CHANGING IV SITES TONIGHT AND VERBALIZES AGREEMENT. LUNGS RHONCHI THROUGHOUT. I.S 1000 CC EACH TIME. ABDOMEN - SOFT (+) B.S. BM TODAY PER REPORT. LARSON DD WITH CLEAR, YELLOW URINE. SKIN DRY, WARM. MID STERNAL INCISION CLEANED WITH CHLORHEXIDINE SWABS. RIGHT GROIN CLEAN AND DRY. IV SITE TO RIGHT AND LEFT DC'D. NEW IV SITE TO LEFT HAND #20G, FIRST ATTEMPT.
--- NOTE | 2019-01-25 20:34 | NUR ---
AMBULATED X2 LAPS AROUND UNIT. STRONGER STEPS AND NOT NEEDING TO STOP FREQUENTLY IN PREVIOUS NIGHT. SATS 96% THROUGHOUT. RR 31. HR 110'S. ADMITS TO MIDSTERNAL DISCOMFORT WHEN MOVING AROUND OR GETTING OUT OF SITTING OR LYING POSITION.
[2019-01-25] MEDS: ATORVASTATIN 20 MG TAB PO SCH (22:15)
[2019-01-26] VITALS (38 sets, daily range): BP systolic 89–141; BP diastolic 38–78
--- NOTE | 2019-01-26 04:00 | NUR ---
SATS 90% ON 2L/NC. RR 23, PT. RESTING QUIETLY. O2 UP TO 3L/NC. STRONG NON PRODUCTIVE COUGH AT THIS TIME. WILL CONTINUE TO MONITOR.
[2019-01-26 04:06] LABS: Basophils # (auto) 0 uL; Basophils % (auto) 0.1 % (0.0-2.0); Eosinophils # (auto) 0 uL; Eosinophils % (auto) 0.3 % (0.0-7.0); Hematocrit 26.2 % (36.0-46.0); Hemoglobin 9.1 g/dL (12.2-16.2); Lymphocytes # (auto) 0.9 uL; Lymphocytes % (auto) 8.8 % (10.0-50.0); Mean Corpuscular Hemoglobin 30.1 pg (28.0-32.0); Mean Corpuscular Hgb Conc. 34.7 g/dL (32.0-36.0); Mean Corpuscular Volume 86.8 fL (80.0-100.0); Monocytes % (auto) 9.9 % (0.0-12.0); Neutrophils # (auto) 7.9 uL; Neutrophils % (auto) 80.9 % (37.0-80.0); Platelet Count (auto) 103 10^3/uL (140-450); Red Blood Cells 3.01 10^6/uL (4.0-5.20); Red Cell Distribution Width 14.7 % (11.8-14.3); White Blood Cell 9.7 10^3/uL (4.4-10.8)
[2019-01-26 04:14] LABS: Albumin 2.9 g/dL (3.4-5.0); Calcium 8.5 mg/dL (8.5-10.1); Potassium 3.6 mmol/L (3.5-5.1)
[2019-01-26 04:16] LABS: BUN/Creatinine Ratio 24.1
[2019-01-26 04:19] LABS: Bilirubin, Total 1.1 mg/dL (0.2-1.0); Total Protein 5.9 g/dL (6.4-8.2)
[2019-01-26] MEDS: SODIUM CHLOR 0.9% PF (SALINE LOCK) 10ML VIAL/SYR IV SCH ×3 (06:00→20:30)
[2019-01-26] MEDS: ACCU-CHEK COMFORT CURVE STRIP VI SCH ×5 (06:00→22:44)
[2019-01-26] MEDS: InsuLIN REG 1unit/0.01ml Soln (100units/ml) SC SCH ×5 (06:00→22:48)
[2019-01-26] MEDS: FUROSEMIDE 20 MG TAB PO SCH ×2 (06:40→10:00)
[2019-01-26] MEDS: ALBUTEROL SULF 2.5 MG/0.5ML(0.5%) NEB SOLN NEB SCH ×5 (06:59→22:22)
[2019-01-26] MEDS: IPRATROPIUM BROM 0.5 MG/2.5ML INH SOL NEB SCH ×5 (06:59→22:22)
[2019-01-26] MEDS: ACETYLCYSTEINE 10 %(100MG/ML) SOL 4ML NEB SCH ×3 (06:59→22:23)
--- NOTE | 2019-01-26 07:30 | NUR ---
REPORT RECEIVED, ASSUMING CARE, ORIENTING ANABEL GRANT
--- NOTE | 2019-01-26 07:49 | NUR ---
DR MORGAN AT BEDSIDE, EXAMINED AND SPOKE WITH PATIENT NO NEW ORDERS
--- NOTE | 2019-01-26 08:30 | NUR ---
SON/ AT BEDSIDE, UPDATED ON PLAN OF CARE, ALL QUESTIONS ADDRESSED
--- NOTE | 2019-01-26 09:13 | NUR ---
PAGED DR CEJA REGARDING DOWNGRADE ORDER PER SINTER FEEDER
--- NOTE | 2019-01-26 09:43 | NUR ---
PAGED DR TURNER FOR DOWNGRADE ORDER
[2019-01-26] MEDS: LISINOPRIL 20 MG TAB PO SCH (10:00)
[2019-01-26] MEDS: NITROGLYCERIN 0.4MG/HR TOPICAL PATCH TD SCH (10:00)
--- NOTE | 2019-01-26 10:20 | NUR ---
SPOKE WITH DR CEJA, OK TO DOWNGRADE WELL OK PER DR TURNER. ORDER TO ONLY GIVE NORCO NO MORE THAN TWO TIMES PER DAY. WILL PLACED ORDER FOR NORCO 5/325 MG PO Q12H PRN FOR PAIN.
[2019-01-26] MEDS: DOCUSATE SOD 100 MG CAP PO SCH ×2 (10:27→20:30)
[2019-01-26] MEDS: PANTOPRAZOLE 40 MG TAB PO SCH (10:28)
[2019-01-26] MEDS: ALLOPURINOL 100 MG TAB PO SCH (10:28)
[2019-01-26] MEDS: FERROUS SULFATE 325 MG TAB PO SCH (10:28)
[2019-01-26] MEDS: POTASSIUM CHL 10 Meq TABLET PO SCH (10:28)
[2019-01-26] MEDS: Ensure Enlive Chocolate 8oz Bottle PO SCH ×3 (10:29→18:00)
[2019-01-26] MEDS ORDERED: HYDROcodone-ACET 5/325MG TAB PO PRN (10:30)
--- NOTE | 2019-01-26 11:06 | NUR ---
DR TURNER AT BEDSIDE, SPOKE WITH AND EXAMINED PATIENT, ORDER TO REMOVE LARSON SINCE 01/25-OK TO REMOVE TODAY, PATIENT REMAINS ON BIPAP WILL DC LARSON WHEN OFF.
--- NOTE | 2019-01-26 11:15 | NUR ---
BIPAP OFF PER RT, Berg catheter dc'd Order to discontinue berg catheter. Berg dc'd with clean technique following deflation of balloon. Patient tolerated well with no complaints of pain. Continue care.
[2019-01-26 11:16] LABS: INR 0.95 (0.9-1.15); Partial Thromboplastin Time 28.7 sec (23.78-33.04); Prothrombin Time 10.2 sec (9.27-12.13)
--- NOTE | 2019-01-26 11:37 | NUR ---
PT KELLEY Schmidt stated patient is ambulatory but keep patient on PT schedule. Addendum: 01/26/19 at 1139 by ISSAC DUQUE PTT Amended: Links added.
[2019-01-26] MEDS: METOPROLOL TARTRATE 25 MG TAB PO SCH ×2 (12:59→20:31)
--- NOTE | 2019-01-26 13:57 | NUR ---
TRANSFERRED TO [facility] ROOM 265 AFTER TELEPHONE REPORT GIVEN TO KATHERINE BENSON. TRANSFERRED IN STABLE CONDITION WITH ALL BELONGINGS INCLUDING NEW WALKER AND WITH FAMILY AWARE OF TRANSFER AND IN WAITING ROOM. PRIOR TO TRANSFER DR CEJA AT BEDSIDE IN ICU AND ASSESSED PATIENT. PATIENT AMBULATED FROM CHAIR TO [facility] BED IN ICU SIMMONS AND TOLERATED WELL. PHARMACY SENT COUMADIN TO ICU AND SENT VIA BULLET TO [facility] IN WHICH RN CALLED TO VERIFY IT HAS BEEN RECEIVED.
--- NOTE | 2019-01-26 14:05 | NUR ---
PATIENT ARRIVED FROM ICU, ALERT AND ORIENTED TO SELF. STATS SHE IS LASHAWN TIRED TODAY AND WANTS TO SLEEP . CALL LIGHT WITHIN REACH AND INSTRUCTED TO CALL IF NEED NEEDED. EDUCATED IMPORTANCE ON NOT GETTING OUT OF BED WITHOUT STAFF AT BEDSIDE FOR ASSISTANCE. PATIENT VERBALIZED UNDERSTANDING.
--- NOTE | 2019-01-26 14:35 | NUR ---
ANNMARIE CALLED CASE MANAGEMENT TO INFORM MARY THAT REGULAR WALKER WAS DELIVERED, NOT FWW. NOTIFIED PATIENTS SON THAT WE WILL NEED TO EXCHANGE FOR DIFFERENT WALKER. LEFT MESSAGE WITH MARY IN CASE MANAGEMENT TO WORK ON CHANGING TO CORRECT WALKER
--- NOTE | 2019-01-26 16:13 | NUR ---
I faxed order to [facility] for rollator to replace the FWW that was previously delivered to bedside.
--- NOTE | 2019-01-26 16:32 | NUR ---
PATIENTS FAMILY AT BEDSIDE UPDATED ON WALKER STATUS
[2019-01-26] MEDS: WARFARIN SODIUM 1 MG TAB PO SCH (17:25)
[2019-01-26] MEDS ORDERED: NOREPINEPHRINE 8 mg/250ml D5 BAG/KIT orNS IV ONE (18:57)
[2019-01-26] MEDS ORDERED: NITROGLYCERIN 50MG/250ML BTL IV ONE (18:57)
--- NOTE | 2019-01-26 19:10 | NUR ---
PATIENTS HEART RATE INCREASED TO 140BPM. 12 LEAD DONE, PAGED DR CHRISTIANSON
--- NOTE | 2019-01-26 19:15 | NUR ---
RECEIVED CALL FROM DR CHRISTIANSON, RECEIVED ORDERS.
[2019-01-26] MEDS ORDERED: DILTIAZEM HCL 25 MG/5 ML VIAL IV ONE ×2 (19:37→19:45)
[2019-01-26] MEDS ORDERED: DIGOXIN (250MCG/ML) 2 ML AMPULE ONE (19:44)
[2019-01-26] MEDS ORDERED: DIGOXIN (250MCG/ML) 2 ML AMPULE IV ONE (19:45)
--- NOTE | 2019-01-26 19:45 | NUR ---
SHIFT OPENING NOTE RECEIVED PATIENT AWAKE. ORIENTED X2. NO SOB OR DISTRESS NOTED, BUT REPORTS 6/[address] CP FROM SUR[address] SITE. [address] 130S CARDIZEM 10MG JUST GIVEN. PLACED ON 2L N/C. WILL REASSESS FOR NEED OF DIGOXIN. PER DR. CHRISTIANSON, KEEP HR BELOW 110. MIDLINE INCISION OPEN TO AIR, LOWER CHEST DRESSING IS CLEAN, DRY AND INTACT. IV TO LW 20G SL. PHYSICAL ASSESSMENT COMPLETED, SEE INTERVENTIONS. INSTRUCTED ON POC AND TO CALL FOR ASSIST NEEDED. BED IS IN THE LOWEST POSITION WITH SIDE RAILS UP X2, CALL LIGHT IS WITHIN REACH.
[2019-01-26] MEDS: ATORVASTATIN 20 MG TAB PO SCH (20:30)
[2019-01-26] MEDS: ENOXAPARIN SOD 60 MG/0.6 ML SYRINGE SC SCH (20:31)
--- NOTE | 2019-01-26 20:50 | NUR ---
PATIENT ASSISTED UP TO BSC SAID SHE NEEDED TO URINATE. PAD SATURATED WITH URINE AND CHANGED. NO URINE IN BSC. ASSISTED BACK TO BED. INSTRUCTED CHILD CARE LEADER IF SHE NEEDS HELP. CALL LIGHT LEFT WITHIN REACH.
[2019-01-26] MEDS ORDERED: DILTIAZEM 125mg/125ml BAG KIT 125 ML IV SCH (21:00)
--- NOTE | 2019-01-26 22:45 | NUR ---
ROUNDS PATIENT QUIETLY LAYING IN BED SLEEPING. HR 87, BP 112/45. CURRENTLY ON BIPAP FOR BREATHING TREATMENT. WILL CONTINUE TO CLOSELY MONITOR.
[2019-01-27] VITALS (7 sets, daily range): BP systolic 94–134; BP diastolic 48–63
[2019-01-27] MEDS: SODIUM CHLOR 0.9% PF (SALINE LOCK) 10ML VIAL/SYR IV SCH ×3 (05:09→23:11)
[2019-01-27] MEDS: ACCU-CHEK COMFORT CURVE STRIP VI SCH ×3 (05:10→17:39)
--- NOTE | 2019-01-27 05:45 | NUR ---
MORNING HYGIENE CARE FULL BED BATH PERFORMED WITH CHG WIPES. CHEST INCISIONS CLEANSED WITH CHLORHEXIDINE SWABS. FULL LINEN CHANGE, GOWN CHANGED. PATIENT REPOSITIONED FOR COMFORT. TOLERATED IT WELL.
[2019-01-27 05:49] LABS: Basophils # (auto) 0 uL; Basophils % (auto) 0.3 % (0.0-2.0); Eosinophils # (auto) 0.1 uL; Eosinophils % (auto) 0.6 % (0.0-7.0); Hematocrit 28.4 % (36.0-46.0); Hemoglobin 9.8 g/dL (12.2-16.2); Lymphocytes % (auto) 12.1 % (10.0-50.0); Mean Corpuscular Hemoglobin 30.2 pg (28.0-32.0); Mean Corpuscular Hgb Conc. 34.7 g/dL (32.0-36.0); Mean Corpuscular Volume 87.1 fL (80.0-100.0); Monocytes # (auto) 0.9 uL; Monocytes % (auto) 10.6 % (0.0-12.0); Neutrophils # (auto) 6.6 uL; Neutrophils % (auto) 76.4 % (37.0-80.0); Platelet Count (auto) 158 10^3/uL (140-450); Red Blood Cells 3.26 10^6/uL (4.0-5.20); Red Cell Distribution Width 14.9 % (11.8-14.3); White Blood Cell 8.6 10^3/uL (4.4-10.8)
[2019-01-27] MEDS: InsuLIN REG 1unit/0.01ml Soln (100units/ml) SC SCH ×3 (06:00→17:39)
[2019-01-27 06:03] LABS: INR 1.01 (0.9-1.15); Partial Thromboplastin Time 34.6 sec (23.78-33.04); Prothrombin Time 10.8 sec (9.27-12.13)
[2019-01-27] MEDS: ALBUTEROL SULF 2.5 MG/0.5ML(0.5%) NEB SOLN NEB SCH ×4 (06:06→18:51)
[2019-01-27] MEDS: IPRATROPIUM BROM 0.5 MG/2.5ML INH SOL NEB SCH ×4 (06:06→18:51)
[2019-01-27] MEDS: ACETYLCYSTEINE 10 %(100MG/ML) SOL 4ML NEB SCH ×3 (06:07→18:52)
[2019-01-27 06:14] LABS: Potassium 4.1 mmol/L (3.5-5.1)
[2019-01-27 06:17] LABS: BUN/Creatinine Ratio 27.4; Bilirubin, Total 1.3 mg/dL (0.2-1.0); Total Protein 6.2 g/dL (6.4-8.2)
[2019-01-27] MEDS: Ensure Enlive Chocolate 8oz Bottle PO SCH ×3 (08:00→18:09)
--- NOTE | 2019-01-27 08:00 | NUR ---
OPENING SHIFT NOTE Received patient in bed resting with eyes closed easily arousable. Patient is awake and alert, patient is oriented to self and place, periods of forgetfulness; reoriented frequently. Patient able to follow simple commands. Sinus rhythm on bedside monitor in the high 90's, pulses palpable on upper/lower extremities and no edema observed. Patient on 2.5 Liters nasal cannula, denies any shortness of breath. Bowel sounds present in all quadrants with last bowel movement on 01/25/2019. Patient incontinent of her bladder. IV to the right wrist: good blood return and flushes easily; heplocked. Will continue to monitor patient.
--- NOTE | 2019-01-27 08:15 | NUR ---
ACTIVITY Assisted patient up to the side of the bed for patient to eat her breakfast.
--- NOTE | 2019-01-27 08:30 | NUR ---
FAMILY Family at bedside updated on patient condition and questions answered.
--- NOTE | 2019-01-27 08:48 | NUR ---
I called [phone] and spoke with Debbi regarding exchanging the FWW for a rollator, she said Jaime the technical delivery manager is aware and will do the exchange.
--- NOTE | 2019-01-27 08:50 | NUR ---
ADVERTISING SALES MANAGER Received phone call from embedded case manager Alisha regarding walker stating " company that delivered walker will be in today to exchange walker for correct one."
--- NOTE | 2019-01-27 09:50 | NUR ---
MD Dr. Hernandez at bedside updated on patient condition with no new orders, MD spoke to patient and patient family, whom is at bedside, regarding plan of care, questions and concerns answered by MD.
[2019-01-27] MEDS: NITROGLYCERIN 0.4MG/HR TOPICAL PATCH TD SCH (10:30)
[2019-01-27] MEDS: ENOXAPARIN SOD 60 MG/0.6 ML SYRINGE SC SCH ×2 (10:30→23:11)
[2019-01-27] MEDS: ALLOPURINOL 100 MG TAB PO SCH (10:31)
[2019-01-27] MEDS: PANTOPRAZOLE 40 MG TAB PO SCH (10:31)
[2019-01-27] MEDS: DIGOXIN 0.125 MG TAB PO SCH (10:32)
[2019-01-27] MEDS: POTASSIUM CHL 10 Meq TABLET PO SCH (10:33)
[2019-01-27] MEDS: DOCUSATE SOD 100 MG CAP PO SCH ×2 (10:34→23:12)
[2019-01-27] MEDS: FERROUS SULFATE 325 MG TAB PO SCH (10:34)
[2019-01-27] MEDS: METOPROLOL TARTRATE 25 MG TAB PO SCH ×2 (10:35→23:13)
[2019-01-27] MEDS: FUROSEMIDE 20 MG TAB PO SCH (10:35)
--- NOTE | 2019-01-27 15:01 | NUR ---
Patient's rollator has been delivered to bedside per her primary nurse Anitha.
[2019-01-27] MEDS ORDERED: ZOLPIDEM TARTRATE 5 MG TAB PO PRN (15:15)
[2019-01-27] MEDS ORDERED: TEMAZEPAM 15 MG CAP PO PRN (15:15)
[2019-01-27] MEDS: WARFARIN SODIUM 1 MG TAB PO SCH (17:00)
--- NOTE | 2019-01-27 19:45 | NUR ---
OPENING SHIFT NOTE Received report from KELLEY Weslh. Pt resting in bed with no signs of distress noted. Pt A&O to self. Pt reoriented to time, place, and situation. Pt verbalized understanding. See completed physical assessment intervention. Bed locked, in lowest position with top two side rails up, and call light within reach. All alarms on and audible. Pt instructed not to get out of bed without assistance and to use call light when in need of assistance. Pt verbalized understanding. Will continue to monitor pt.
--- NOTE | 2019-01-27 20:10 | NUR ---
VISITOR Visitor at bedside.
[2019-01-27] MEDS: ATORVASTATIN 20 MG TAB PO SCH (23:12)
[2019-01-28] VITALS (7 sets, daily range): BP systolic 115–127; BP diastolic 51–67
[2019-01-28] MEDS: ACCU-CHEK COMFORT CURVE STRIP VI SCH ×2 (00:08→05:50)
[2019-01-28] MEDS: InsuLIN REG 1unit/0.01ml Soln (100units/ml) SC SCH ×2 (00:10→05:51)
[2019-01-28 05:08] LABS: Basophils # (auto) 0 uL; Basophils % (auto) 0.3 % (0.0-2.0); Eosinophils # (auto) 0 uL; Eosinophils % (auto) 0.4 % (0.0-7.0); Hematocrit 28.3 % (36.0-46.0); Hemoglobin 9.6 g/dL (12.2-16.2); Lymphocytes # (auto) 1.2 uL; Lymphocytes % (auto) 12.5 % (10.0-50.0); Mean Corpuscular Hemoglobin 29.8 pg (28.0-32.0); Mean Corpuscular Hgb Conc. 34.1 g/dL (32.0-36.0); Mean Corpuscular Volume 87.2 fL (80.0-100.0); Monocytes % (auto) 9.8 % (0.0-12.0); Neutrophils # (auto) 7.6 uL; Platelet Count (auto) 216 10^3/uL (140-450); Red Blood Cells 3.24 10^6/uL (4.0-5.20); Red Cell Distribution Width 14.5 % (11.8-14.3); White Blood Cell 9.8 10^3/uL (4.4-10.8)
[2019-01-28 05:26] LABS: BUN/Creatinine Ratio 29.5; Potassium 3.7 mmol/L (3.5-5.1)
--- NOTE | 2019-01-28 05:31 | NUR ---
BATH/LINEN CHANGE Pt given complete bed bath. Skin integrity assessed for any changes, no changes noted. Linens changed. Pt repositioned for comfort. Pt tolerated well and VSS.
[2019-01-28 05:45] LABS: INR 1.03 (0.9-1.15); Partial Thromboplastin Time 34.8 sec (23.78-33.04)
[2019-01-28] MEDS: SODIUM CHLOR 0.9% PF (SALINE LOCK) 10ML VIAL/SYR IV SCH ×3 (05:50→22:41)
[2019-01-28] MEDS: IPRATROPIUM BROM 0.5 MG/2.5ML INH SOL NEB SCH ×3 (06:09→18:42)
[2019-01-28] MEDS: ALBUTEROL SULF 2.5 MG/0.5ML(0.5%) NEB SOLN NEB SCH ×3 (06:09→18:42)
[2019-01-28] MEDS: ACETYLCYSTEINE 10 %(100MG/ML) SOL 4ML NEB SCH (06:09)
[2019-01-28 07:26] LABS: Calcium 8.6 mg/dL (8.5-10.1)
--- NOTE | 2019-01-28 07:30 | NUR ---
REPORT Report given to KELLEY Villalta. Care endorsed.
--- NOTE | 2019-01-28 07:40 | NUR ---
DR. MORGAN HERE TO SEE PATIENT. SEE MD NOTES AND EMR FOR ANY ORDERS.
[2019-01-28] MEDS: Ensure Enlive Chocolate 8oz Bottle PO SCH ×3 (08:00→18:02)
--- NOTE | 2019-01-28 08:52 | NUR ---
DR. PAREKH HERE TO SEE PATIENT. SEE MD NOTES AND EMR FOR POSSIBLE ORDERS.
--- NOTE | 2019-01-28 09:50 | NUR ---
DR. TURNER HERE TO SEE PATIENT. PATIENT WILL BE DISCHARGED TOMORROW PER DR. TURNER.
[2019-01-28] MEDS: PANTOPRAZOLE 40 MG TAB PO SCH (10:00)
[2019-01-28] MEDS: ALLOPURINOL 100 MG TAB PO SCH (10:00)
[2019-01-28] MEDS ORDERED: ATOR20TA50 PO (10:22)
[2019-01-28] MEDS ORDERED: NITR0.4S29 SL (10:22)
[2019-01-28] MEDS ORDERED: MET25T PO (10:22)
[2019-01-28] MEDS ORDERED: ACE325T PO (10:22)
[2019-01-28] MEDS ORDERED: LISI-275 PO (10:22)
[2019-01-28] MEDS ORDERED: LEV25T PO (10:22)
[2019-01-28] MEDS ORDERED: FER325T PO (10:22)
[2019-01-28] MEDS ORDERED: PANT40T PO (10:22)
[2019-01-28] MEDS ORDERED: DIGO0.1229 PO (10:22)
[2019-01-28] MEDS: DOCUSATE SOD 100 MG CAP PO SCH ×2 (11:22→22:41)
[2019-01-28] MEDS: NITROGLYCERIN 0.4MG/HR TOPICAL PATCH TD SCH (11:22)
[2019-01-28] MEDS: FERROUS SULFATE 325 MG TAB PO SCH (11:23)
[2019-01-28] MEDS: METOPROLOL TARTRATE 25 MG TAB PO SCH ×2 (11:23→22:42)
[2019-01-28] MEDS: DIGOXIN 0.125 MG TAB PO SCH (11:23)
[2019-01-28] MEDS: POTASSIUM CHL 10 Meq TABLET PO SCH (11:23)
--- NOTE | 2019-01-28 13:15 | NUR ---
[facility] pt transferred to floor BONNIE RESENDIZ transferred to ROOM 275 A, via gurney on journalism internship and portable 02. All patient medications and personal belongings transferred with patient to receiving floor. Patient care transferred to BI BENSON.
--- NOTE | 2019-01-28 13:20 | NUR ---
Telemetry admit from BONNIE WHITE admitted to Telemetry unit after SBAR received. Patient oriented to BI FRANCIS, RN primary RN, unit, room, bed, and unit policies regarding patient care and visiting hours. Patient now on continuous telemetry monitoring, tele box # 29 and telemetry reading on arrival to unit is NORMAL SINUS RHYTHM. Patient weighed by bed scale and encouraged to call if they need something. All questions and concerns addressed, patient verbalized understanding.
--- NOTE | 2019-01-28 14:28 | NUR ---
Nutrition Follow-up Notes Wt.: 50.5 kg today. Noted 4.6 kg weight loss in last 3 days likely d/t ? fluid loss aeb on Lasix, negative I & Os for past few days. Pt's on oxygen via nasal cannula, family members at bedside, denies any discomfort during rounds this morning. Per pt she's not sure about her usual weight, however probably lost weight d/t decreased food intake r/t not feeling well few days flour blender. Pt's usually has good appetite, eat meals regularly, NKFA and not into any special diets flour blender. Pt's currently on Ground Cardiac: 2 gms Na, Low Chol, Low Fat diet with Ensure Enlive 1 carton TID, has poor PO intake aeb <25% ave. consumed meals (x6) in last 2.5 days. Encouraged to increase food intake through small frequent meals as tolerated. Provide verbal and written nutrition educ. re: current prescribed therapeutic diet and she verbalized understanding. Est. Needs: 1300 kcal to 1550 kcal (25-30 kcal/kgBW), 52 gms to 62 gms pro (1.0-1.2 gms/kgBW). Will continue to monitor pertinent labs and reassess nutrient need prn Labs: Gluc 128 H, Na 132 L, Cl 96 L, BUN 26 H; HbA1c 6.9 H, Tpro 6.2 L, Alb 3.0 L, Tot john 1.3 H, AST 142 H, ALT 88 H Skin: Piotr scale 16, mod risk, pt's medial chest incision dry and intact per rn clinical documentation specialist. GI: Pt had 1x BM 01/25/19 per rn clinical documentation specialist. PES: Increased nutrient needs r/t current/chronic medical condition aeb s/p CABG, extubation, on Clear Liquid diet with <75% consumed meals. Altered nutrition related lab values r/t current/chronic medical condition aeb hyponatremia, hypochloremia, elev. BUN, Trop I,hyperbilirubinemia, hypocalcemia and mild hypoalbuminemia Will continue to monitor PO intake, skin status, pertinent labs and weight trend. F/u in 3 to 5 days. Rec.: 1.) Consider Ground Consistent Standard Carb: 60 gms/meal, Cardiac: 2 gms Na, Low Chol, Low Fat diet with Glucerna Shakes 1 carton 1 TID instead of Ensure Enlive. 2.) Continue close supervision and feeding assistance prn during meals. 3.) If Albumin level continues trending down, consider Prostat 1 pkt BID. 4.) Refer to CDE/RD for further nutrition education and weight monitoring upon discharged. 5.) Continue current plan of care. Addendum: 01/28/19 at [address] Additional Nutrition Notes: Provide pt and family with FDI for Coumadin and Lasix and they verbalized understanding. Thank you.
[2019-01-28] MEDS: WARFARIN SODIUM 1 MG TAB PO SCH (17:27)
--- NOTE | 2019-01-28 19:00 | NUR ---
ENDORSED CARE TO TRAIN STARTER RNMASSIMO.
[2019-01-28] MEDS: ATORVASTATIN 20 MG TAB PO SCH (22:41)
[2019-01-28] MEDS: ACETAMINOPHEN 325 MG TAB PO PRN (22:49)
[2019-01-29] MEDS: IPRATROPIUM BROM 0.5 MG/2.5ML INH SOL NEB SCH ×4 (01:04→18:49)
[2019-01-29] MEDS: ALBUTEROL SULF 2.5 MG/0.5ML(0.5%) NEB SOLN NEB SCH ×4 (01:05→18:49)
[2019-01-29 05:00] VITALS: BP 132/65
[2019-01-29] MEDS: SODIUM CHLOR 0.9% PF (SALINE LOCK) 10ML VIAL/SYR IV SCH ×3 (05:33→22:26)
[2019-01-29] MEDS: LEVOTHYROXINE SODIUM 25 MCG TAB PO SCH (06:18)
[2019-01-29 06:26] LABS: Basophils # (auto) 0 uL; Basophils % (auto) 0.3 % (0.0-2.0); Eosinophils # (auto) 0 uL; Eosinophils % (auto) 0.3 % (0.0-7.0); Hemoglobin 10.2 g/dL (12.2-16.2); Lymphocytes # (auto) 0.8 uL; Mean Corpuscular Hemoglobin 30.4 pg (28.0-32.0); Mean Corpuscular Hgb Conc. 35.1 g/dL (32.0-36.0); Mean Corpuscular Volume 86.6 fL (80.0-100.0); Monocytes # (auto) 0.9 uL; Monocytes % (auto) 8.9 % (0.0-12.0); Neutrophils # (auto) 8.6 uL; Neutrophils % (auto) 82.5 % (37.0-80.0); Nucleated Red Blood Cells % 0.1 %; Platelet Count (auto) 261 10^3/uL (140-450); Red Blood Cells 3.34 10^6/uL (4.0-5.20); Red Cell Distribution Width 14.7 % (11.8-14.3); White Blood Cell 10.5 10^3/uL (4.4-10.8)
[2019-01-29 06:39] LABS: Potassium 4.3 mmol/L (3.5-5.1)
[2019-01-29 06:51] LABS: Partial Thromboplastin Time 27.1 sec (23.78-33.04); Prothrombin Time 10.7 sec (9.27-12.13)
--- NOTE | 2019-01-29 07:00 | NUR ---
Opening Shift Note Assumed care of patient, awake,but fatigued, and oriented x3. No S/S of distress/SOB or pain. IV in left forearm 20 gauge asymptomatic, intact, and saline locked. Bed locked and in lowest position and call light is within reach. Instructed on POC and to call for assist PRN, and patient verbalized understanding to the best of her ability. Will continue to monitor for changes Q1hr and PRN.
[2019-01-29] MEDS: Ensure Enlive Chocolate 8oz Bottle PO SCH ×2 (08:00→12:00)
[2019-01-29 09:00] VITALS: BP 121/62
--- NOTE | 2019-01-29 09:24 | NUR ---
PATIENT VERY DROWSY AND UNABLE TO SIGN IM FORM.
[2019-01-29] MEDS: ALLOPURINOL 100 MG TAB PO SCH (10:00)
--- NOTE | 2019-01-29 10:00 | NUR ---
PATIENT WALKED WITH PT PATIENT SUCCESSFULLY WALKED WITH PHYSICAL THERAPIST USING WALKER, FOR APPROXIMATELY 10 MINUTES. PATIENT TOLERATED WELL.
--- NOTE | 2019-01-29 10:10 | NUR ---
A-FIB RHYTHM RECEIVED CALL FROM [facility] LANDSCAPING CREW LEADER THAT PATIENT IS GOING IN AND OUT OF A-FIB RHYTHM, AND HEART RATE IS 160. PAGED HOG KILLER, DR. CHRISTIANSON, AND AWAITING REPLY. PATIENT LYING SEMI-FOWLERS IN BED, WITH NO DISTRESS NOTED. WILL CONTINUE TO MONITOR
--- NOTE | 2019-01-29 10:15 | NUR ---
FAMILY IS AT BEDSIDE.
[2019-01-29] MEDS: FERROUS SULFATE 325 MG TAB PO SCH (10:21)
[2019-01-29] MEDS: PANTOPRAZOLE 40 MG TAB PO SCH (10:21)
[2019-01-29] MEDS: POTASSIUM CHL 10 Meq TABLET PO SCH (10:22)
[2019-01-29] MEDS: DOCUSATE SOD 100 MG CAP PO SCH ×2 (10:22→22:29)
[2019-01-29] MEDS: LISINOPRIL 5 MG TAB PO SCH (10:23)
[2019-01-29] MEDS: DIGOXIN 0.125 MG TAB PO SCH (10:24)
[2019-01-29] MEDS: METOPROLOL TARTRATE 25 MG TAB PO SCH (10:24)
[2019-01-29] MEDS: NITROGLYCERIN 0.4MG/HR TOPICAL PATCH TD SCH (10:25)
[2019-01-29 13:00] VITALS: BP 134/73
[2019-01-29] MEDS: WARFARIN SODIUM 1 MG TAB PO SCH (17:00)
[2019-01-29 17:34] VITALS: BP 134/61
[2019-01-29] MEDS: Glucerna Carbsteady SHAKE Stawberry 8oz PO SCH (18:06)
--- NOTE | 2019-01-29 18:49 | NUR ---
Respiratory note: AT BEDSIDE FOR MED CLIFFORD RODRIGUEZ.
[2019-01-29 22:10] VITALS: BP 102/45
[2019-01-29] MEDS: AMIODARONE HCL 200 MG TAB PO SCH (22:28)
[2019-01-29] MEDS: ATORVASTATIN 20 MG TAB PO SCH (22:29)
[2019-01-30] VITALS (7 sets, daily range): BP systolic 100–137; BP diastolic 41–74
[2019-01-30] MEDS: ALBUTEROL SULF 2.5 MG/0.5ML(0.5%) NEB SOLN NEB SCH ×4 (00:23→19:28)
[2019-01-30] MEDS: IPRATROPIUM BROM 0.5 MG/2.5ML INH SOL NEB SCH ×4 (00:23→19:28)
[2019-01-30] MEDS: SODIUM CHLOR 0.9% PF (SALINE LOCK) 10ML VIAL/SYR IV SCH ×3 (05:20→22:00)
--- NOTE | 2019-01-30 06:00 | NUR ---
Respiratory note: ALBUTEROL 0600 MED HELD DUE TO HR OF 125. ATROVENT ADMINISTERED ORDERED.
--- NOTE | 2019-01-30 06:47 | NUR ---
PATIENT HEART RATE 128. BP 128/66 P 128 O2 94% T 97.7. EKG DONE, PER REPORTING LEAD GIOVANNY SENT FOR STAT TROPONIN LEVELS. NITROGLYCERIN GIVEN.
--- NOTE | 2019-01-30 07:13 | NUR ---
PER DR CHRISTIANSON ORDERED CARDIZEM 10MG IV.
[2019-01-30] MEDS ORDERED: DILTIAZEM HCL 25 MG/5 ML VIAL IV ONE (07:15)
[2019-01-30] MEDS: Glucerna Carbsteady SHAKE Stawberry 8oz PO SCH ×3 (08:00→18:13)
[2019-01-30 08:01] LABS: INR 1.04 (0.9-1.15); Partial Thromboplastin Time 27.3 sec (23.78-33.04); Prothrombin Time 11.1 sec (9.27-12.13)
[2019-01-30] MEDS: LEVOTHYROXINE SODIUM 25 MCG TAB PO SCH (08:13)
--- NOTE | 2019-01-30 08:24 | NUR ---
Dr. Welch informed of Troponin of 1.27. B/P 100/41, heart rate 109-123. O2 sat 92% on O2 3 L NC.
[2019-01-30] MEDS: PANTOPRAZOLE 40 MG TAB PO SCH (08:35)
[2019-01-30] MEDS: POTASSIUM CHL 10 Meq TABLET PO SCH (08:35)
[2019-01-30] MEDS: NITROGLYCERIN 0.4MG/HR TOPICAL PATCH TD SCH (08:35)
[2019-01-30] MEDS: AMIODARONE HCL 200 MG TAB PO SCH ×2 (08:36→21:41)
[2019-01-30] MEDS: LISINOPRIL 5 MG TAB PO SCH (08:36)
[2019-01-30] MEDS: DIGOXIN 0.125 MG TAB PO SCH (08:36)
[2019-01-30] MEDS: DOCUSATE SOD 100 MG CAP PO SCH ×2 (08:37→21:40)
[2019-01-30] MEDS: ALLOPURINOL 100 MG TAB PO SCH (08:37)
[2019-01-30] MEDS: FERROUS SULFATE 325 MG TAB PO SCH (08:38)
--- NOTE | 2019-01-30 08:39 | NUR ---
Dr. Welch updated on patient's vital signs. Only intervention received is to continue to give the patient her PO cardizem and call if her heart rate increases.
--- NOTE | 2019-01-30 09:30 | NUR ---
Dr. Hernandez updated on patient's condition and vital signs. Dr. Hernandez states patient to be transferred to [facility].
[2019-01-30] MEDS ORDERED: SOD CHL 0.9%/ KCL 20MEQ 1,000 ML IV ONE (09:45)
[2019-01-30] MEDS ORDERED: DILTIAZEM HCL 120MG ER CAP PO SCH (10:00)
[2019-01-30 10:03] LABS: Basophils # (auto) 0 uL; Basophils % (auto) 0.3 % (0.0-2.0); Eosinophils # (auto) 0 uL; Eosinophils % (auto) 0.4 % (0.0-7.0); Hematocrit 29.4 % (36.0-46.0); Hemoglobin 9.8 g/dL (12.2-16.2); Lymphocytes # (auto) 0.9 uL; Lymphocytes % (auto) 7.9 % (10.0-50.0); Mean Corpuscular Hemoglobin 29.6 pg (28.0-32.0); Mean Corpuscular Hgb Conc. 33.4 g/dL (32.0-36.0); Mean Corpuscular Volume 88.6 fL (80.0-100.0); Monocytes # (auto) 0.9 uL; Monocytes % (auto) 8.4 % (0.0-12.0); Platelet Count (auto) 288 10^3/uL (140-450); Red Blood Cells 3.31 10^6/uL (4.0-5.20); White Blood Cell 10.8 10^3/uL (4.4-10.8)
--- NOTE | 2019-01-30 10:20 | NUR ---
Patient transferred to [facility] 261. Report given to KELLEY Barbosa.
--- NOTE | 2019-01-30 10:30 | NUR ---
Admit to [facility] BONNIE RESENDIZ received to [facility] via from Tele floor via hospital bed on cardiac cath technician, and portable 02. Patient transfered to bed, connected to unit monitoring and oxygen, and [facility] Patient laying in bed eyes closed, arousable to verbal stimuli, no S/S of pain/SOB. HR 111, sinus tachycardia. See interventions for complete physical assessment. Patient oriented to Paz huerta RN, unit, room, bed, and unit policies regarding patient care and visiting hours. All questions and concerns addressed, patient verbalized understanding. Bed locked on low position, side rails up x2, bed alarms on at all times, call novak within reach, instructed to call for needed assistance. Son and sister at bedside. Will continue to monitor.
--- NOTE | 2019-01-30 11:10 | NUR ---
Paged Dr Welch and called back, updated on patient's status. Made aware patient's HR 120 -130 sinus rhythm. Verified if he want's to start patient on Cardizem drip as per communication order dated 01/26. Received instruction not to start drip if patient is not A-fib and request Dr Fuentes to see patient today. Paged Dr Fuentes, awaiting call back.
--- NOTE | 2019-01-30 11:15 | NUR ---
Paged Dr Hernandez and called back, updated on patient's status. Made aware of patient's Troponin 1.27 and TSH 10. Will carry out new orders.
[2019-01-30 11:21] LABS: Anion Gap 14 (5-15); Carbon Dioxide 22 mmol/L (21-32); Chloride 98 mmol/L (98-107); Potassium 4.4 mmol/L (3.5-5.1); Sodium 134 mmol/L (136-145)
[2019-01-30 11:22] LABS: BUN/Creatinine Ratio 28.2; Blood Urea Nitrogen 24 mg/dL (7-18); Calcium 8.7 mg/dL (8.5-10.1); GFR African American 81 mL/min; GFR Non-African American 67 mL/min; Glucose 114 mg/dL (74-106)
--- NOTE | 2019-01-30 11:31 | NUR ---
Respiratory note: 1200 ALBUTEROL MED NEB TX HELD. ATROVENT BEEN ADMINISTERED ORDERED. RN AWARE.
--- NOTE | 2019-01-30 11:52 | NUR ---
Dr Fuentes at bedside to assess patient, updated on patient's status. Received verbal order to discontinue Cardizem PO and start patient on Metoprolol Succ 25mg daily. Verbal orders read back and verified. Will carry out.
[2019-01-30] MEDS ORDERED: METOPROLOL SUCCINATE XL 50 MG TAB PO ONE (12:00)
--- NOTE | 2019-01-30 15:10 | NUR ---
Dr Emerson at bedside to assess patient, updated on patient's status. Spoke to patient's , sister, son regarding patient's Head CT result.
--- NOTE | 2019-01-30 15:30 | NUR ---
Berg catheter insertion Patient assessed and determined to be in need of berg catheter. Order obtained from MD. Patient and family at bedside educated on catheter and reason for insertion. All questions answered. Berg catheter 16 guage Wolof inserted with clean sterile technique. Patient tolerated well. Initial urine output 1000ml.
--- NOTE | 2019-01-30 16:15 | NUR ---
Dr Hernandez at bedside to assess patient, updated on patient's status. Discussed with patient and family members at bedside regarding patient's Head CT result and POC.
[2019-01-30] MEDS ORDERED: WARFARIN SODIUM 2 MG TAB PO SCH (17:00)
[2019-01-30] MEDS ORDERED: WARFARIN SODIUM 2 MG TAB PO ONE (17:00)
--- NOTE | 2019-01-30 19:30 | NUR ---
RECEIVED PT FROM DAY RN POC REVIEWED
[2019-01-30] MEDS: ENOXAPARIN SOD 60 MG/0.6 ML SYRINGE SC SCH (21:40)
[2019-01-30] MEDS: ATORVASTATIN 20 MG TAB PO SCH (21:40)
--- NOTE | 2019-01-30 21:54 | NUR ---
positioned with hob up resp even and unlabored, no c/o cp at this time
--- NOTE | 2019-01-31 01:50 | NUR ---
awoke resting with eyes open denies pain, call light within reach bed alarm intact
[2019-01-31 04:00] VITALS: BP 143/79
[2019-01-31] MEDS: IPRATROPIUM BROM 0.5 MG/2.5ML INH SOL NEB SCH ×4 (05:39→19:05)
[2019-01-31] MEDS: ALBUTEROL SULF 2.5 MG/0.5ML(0.5%) NEB SOLN NEB SCH ×4 (05:40→19:05)
[2019-01-31 06:00] LABS: INR 1.09 (0.9-1.15); Partial Thromboplastin Time 30.5 sec (23.78-33.04); Prothrombin Time 11.6 sec (9.27-12.13)
[2019-01-31] MEDS: SODIUM CHLOR 0.9% PF (SALINE LOCK) 10ML VIAL/SYR IV SCH ×3 (06:25→22:28)
[2019-01-31] MEDS: LEVOTHYROXINE SODIUM 50 MCG TAB PO SCH (06:25)
--- NOTE | 2019-01-31 06:42 | NUR ---
awoke am care given partial bedbath and linen change no c/o cp or discomfort hr sr 97 call light within reach bed alarm intact will continue to monitor
--- NOTE | 2019-01-31 07:30 | NUR ---
RECEIVED PATIENT LYING IN BED, A/O TIMES 3, O2 CHANGED TO 1L BY N/C DUE TO O2 SAT BEING 99%, STATES SHE IS NOT HAVING ANY PAIN, BUT IS SLEEPY,SALINE LOCK TO THE LEFT HAND FLUSHED AND PATENT, 22G, LARSON TO GRAVITY WITH DARK LORNA URINE, DENIES PAIN AND SOB, CONTINUE TO MONITOR
--- NOTE | 2019-01-31 07:52 | NUR ---
report given to am nurse poc reviewed
[2019-01-31 08:00] VITALS: BP 153/69
[2019-01-31] MEDS: Glucerna Carbsteady SHAKE Stawberry 8oz PO SCH ×3 (08:00→17:42)
--- NOTE | 2019-01-31 08:45 | NUR ---
FAMILY IN TO SEE THE PATIENT AND TO FEED HER BREAKFAST
--- NOTE | 2019-01-31 09:30 | NUR ---
FAMILY TALKING TO PATIENT WHO IS SITTING UP IN THE BED
[2019-01-31] MEDS ORDERED: METOPROLOL SUCCINATE XL 50 MG TAB PO SCH (10:00)
--- NOTE | 2019-01-31 10:20 | NUR ---
NO CHANGE PATIENT LYING IN BED PLACED ON THE BED SQUIRES AT HER REQUEST BUT DIDN'T DO ANYTHING
[2019-01-31] MEDS: FERROUS SULFATE 325 MG TAB PO SCH (11:07)
[2019-01-31] MEDS: DOCUSATE SOD 100 MG CAP PO SCH ×2 (11:07→22:36)
[2019-01-31] MEDS: AMIODARONE HCL 200 MG TAB PO SCH ×2 (11:07→22:32)
[2019-01-31] MEDS: POTASSIUM CHL 10 Meq TABLET PO SCH (11:08)
[2019-01-31] MEDS: DIGOXIN 0.125 MG TAB PO SCH (11:08)
[2019-01-31] MEDS: PANTOPRAZOLE 40 MG TAB PO SCH (11:08)
[2019-01-31] MEDS: NITROGLYCERIN 0.4MG/HR TOPICAL PATCH TD SCH (11:10)
[2019-01-31] MEDS: ENOXAPARIN SOD 60 MG/0.6 ML SYRINGE SC SCH ×2 (11:10→22:35)
[2019-01-31] MEDS: ALLOPURINOL 100 MG TAB PO SCH (11:12)
--- NOTE | 2019-01-31 11:20 | NUR ---
EXPLAIN MEDICATIONS TO THE PATIENT AND SON REGARDING THE DOSAGE, USAGE AND THE SIDE EFFECTS VERBALIZED THAT THEY UNDERSTOOD AND MEDS TAKEN ORDERED
[2019-01-31 11:45] VITALS: BP 166/71
--- NOTE | 2019-01-31 12:30 | NUR ---
REFUSED TO EAT FOR THE FAMILY, BUT DRINKS THE NUTRITIONAL DRINKS
--- NOTE | 2019-01-31 13:30 | NUR ---
FAMILY AT THE BEDSIDE HAVE BEEN WITH PATIENT ALL DAY, PATIENT HAS BEEN SLEEPING ON AND OFF MOST OF THE DAY
--- NOTE | 2019-01-31 14:05 | NUR ---
PT ASK PATIENT TO GET UP AND WALK AND SHE STATED NO SHE DIDN'T WANT TO SHE WAS SLEEPY SHE DIDN'T GET ANY SLEEP LAST NIGHT
--- NOTE | 2019-01-31 14:30 | NUR ---
NO CHANGE IN CONDITION, PATIENT SLEEPING
[2019-01-31 15:53] VITALS: BP 161/85
--- NOTE | 2019-01-31 16:23 | NUR ---
FAMILY IN TALKING WITH THE PATIENT WHO IS SLEEPING ON AND OFF
[2019-01-31] MEDS ORDERED: WARFARIN SODIUM 2 MG TAB PO ONE (17:00)
--- NOTE | 2019-01-31 17:13 | NUR ---
SON BACK TO SEE THE PATIENT, EXPLAIN THE COUMADIN TO THE FAMILY AND THE PATIENT REGARDING THE DOSAGE, USAGE AND THE SIDE EFFECTS AND THE PATIENT TOOK WITHOUT ANY PROBLEM SWALLOWING
--- NOTE | 2019-01-31 18:14 | NUR ---
PLACED ON THE BEDPAN, FAMILY STILL AT THE BEDSIDE, O2 AT 1L BY N/C, SALINE LOCK TO THE LEFT ARM 22G INTACT AND PATENT, LARSON TO GRAVITY, DRESSING TO THE UPPER ABD DRY AND INTACT, DENIES PAIN AND SOB, WILL CONTINUE TO MONITOR AND GIVE REPORT TO THE NEXT SHIFT
[2019-01-31 19:43] VITALS: BP 129/74
--- NOTE | 2019-01-31 20:00 | NUR ---
Opening Shift Note Assumed care of patient, lying on bed with eyes closed, arousal by voice, easily fell asleep. Breathing on O2NC 1LPM, even and nonlabored, No S/S of distress/SOB. Denies pain. Saline lock 20G at left FA, due to d/s, flushed well, positive blood returned, will d/s later. Incision wounds ERNIE, CDI. Chest tube removal site at upper abdomen covered with foam tape, CDI. Rloand's cath hung to gravity, with clear light silvia urine. Bed in low position, call light within reach, all alarms are audible, fall and safety precaution in place. Instructed on POC and to call for assist PRN, will continue to monitor for changes Q1hr and PRN.
--- NOTE | 2019-01-31 22:00 | NUR ---
Condition update Pt's condition and v/s stable, easily fell asleep. Mouth care done, Pt able to swish and split slowly. Pt expectorated thick creamy rust colored sputum, moderate amount. IS done 400-500ml [id number], unable to follow and do IS correctly. Skin moisturizer applied to sacral and leanna-anal area. Re-position for comfort. Continue care.
[2019-01-31] MEDS: ATORVASTATIN 20 MG TAB PO SCH (22:31)
[2019-02-01] VITALS: BP 140/71
--- NOTE | 2019-02-01 | NUR ---
Condition update Pt's sleeping well, v/s and condition stable. Attempted RA while sleeping, O2sat lowest 90%, put Pt back on O2 1LPM, will try RA again in am. Continue care.
[2019-02-01] MEDS: ALBUTEROL SULF 2.5 MG/0.5ML(0.5%) NEB SOLN NEB SCH ×4 (00:59→18:11)
[2019-02-01] MEDS: IPRATROPIUM BROM 0.5 MG/2.5ML INH SOL NEB SCH ×4 (00:59→18:11)
[2019-02-01 04:00] VITALS: BP 148/73
--- NOTE | 2019-02-01 05:10 | NUR ---
Patient bathe/linen change Patient given complete bath. Skin integrity assessed for any changes, no new changes, z-guard applied, Roland's cath care done. Complete linens changed. Patient repositioned for comfort. Addendum: 02/01/19 at 0732 by Mari Jones RN Chest tube removal wound at upper abdomen d/s done with CHG wipe. One stitch intact. Slightly moist, no drainage. Covered with Vaseline gauze and 4x4, covered with Foam tape. Incision wound at midsternum and harvest site wound cleaned, ERNIE, CDI.
[2019-02-01] MEDS: SODIUM CHLOR 0.9% PF (SALINE LOCK) 10ML VIAL/SYR IV SCH ×3 (06:22→21:13)
[2019-02-01] MEDS: LEVOTHYROXINE SODIUM 50 MCG TAB PO SCH (06:23)
[2019-02-01 07:06] LABS: Basophils # (auto) 0 uL; Basophils % (auto) 0.3 % (0.0-2.0); Eosinophils # (auto) 0 uL; Eosinophils % (auto) 0.1 % (0.0-7.0); Hematocrit 27.1 % (36.0-46.0); Hemoglobin 9.2 g/dL (12.2-16.2); Lymphocytes # (auto) 0.7 uL; Lymphocytes % (auto) 5.2 % (10.0-50.0); Mean Corpuscular Hemoglobin 29.8 pg (28.0-32.0); Mean Corpuscular Hgb Conc. 33.9 g/dL (32.0-36.0); Mean Corpuscular Volume 87.8 fL (80.0-100.0); Monocytes # (auto) 1.2 uL; Monocytes % (auto) 8.7 % (0.0-12.0); Neutrophils # (auto) 11.9 uL; Neutrophils % (auto) 85.7 % (37.0-80.0); Nucleated Red Blood Cells % 0.1 %; Platelet Count (auto) 305 10^3/uL (140-450); Red Blood Cells 3.08 10^6/uL (4.0-5.20); Red Cell Distribution Width 15.1 % (11.8-14.3); White Blood Cell 13.9 10^3/uL (4.4-10.8)
[2019-02-01 07:12] LABS: INR 1.2 (0.9-1.15); Partial Thromboplastin Time 38.7 sec (23.78-33.04); Prothrombin Time 12.7 sec (9.27-12.13)
--- NOTE | 2019-02-01 07:30 | NUR ---
RECEIVED PATIENT LYING IN BED, AWAKEN TO NAME BEING CALLED A/O TIMES 2, SALINE LOCK TO THE LEFT HAND 20G GA FLUSHED AND PATENT, LARSON TO GRAVITY, O2 AT 2L BY N/C, DRESSING TO THE ABD DRY AND INTACT, DENIES SOB AND PAIN
[2019-02-01 07:45] VITALS: BP 139/68
[2019-02-01] MEDS: Glucerna Carbsteady SHAKE Stawberry 8oz PO SCH ×3 (08:00→17:46)
--- NOTE | 2019-02-01 08:19 | NUR ---
family here to see the patient and to feed her breakfast
--- NOTE | 2019-02-01 08:45 | NUR ---
ATE ABOUT 10% OF HER BREAKFAST
--- NOTE | 2019-02-01 09:50 | NUR ---
PATIENT GOTTEN UP INTO THE CHAIR BY PT MAX ASSIST
--- NOTE | 2019-02-01 10:15 | NUR ---
DR TURNER INTO SEE THE PATIENT AND ORDERED MEGACE, SINCE SHE DOESN'T EAT WELL
[2019-02-01] MEDS: NITROGLYCERIN 0.4MG/HR TOPICAL PATCH TD SCH (10:18)
[2019-02-01] MEDS: FERROUS SULFATE 325 MG TAB PO SCH (10:18)
[2019-02-01] MEDS: AMIODARONE HCL 200 MG TAB PO SCH ×2 (10:18→21:14)
[2019-02-01] MEDS: DIGOXIN 0.125 MG TAB PO SCH (10:19)
[2019-02-01] MEDS: ALLOPURINOL 100 MG TAB PO SCH (10:19)
[2019-02-01] MEDS: METOPROLOL SUCCINATE XL 50 MG TAB PO SCH (10:19)
[2019-02-01] MEDS: ENOXAPARIN SOD 60 MG/0.6 ML SYRINGE SC SCH ×2 (10:20→21:14)
[2019-02-01] MEDS: ACETAMINOPHEN 325 MG TAB PO PRN (10:20)
[2019-02-01] MEDS: PANTOPRAZOLE 40 MG TAB PO SCH (10:20)
[2019-02-01] MEDS: DOCUSATE SOD 100 MG CAP PO SCH ×2 (10:20→21:13)
[2019-02-01] MEDS: POTASSIUM CHL 10 Meq TABLET PO SCH (10:20)
--- NOTE | 2019-02-01 10:20 | NUR ---
EXPLAIN MEDS TO THE PATIENT AND HER DAUGHTER REGARDING THE DOSAGE, USAGE AND THE SIDE EFFECTS, STATED THEY UNDERSTOOD AND MEDS GIVEN ORDERED, ALSO GAVE TYLENOL FOR PAIN TO THE LEGS
[2019-02-01] MEDS ORDERED: ACETAMINOPHEN 325 MG TAB PO PRN (10:30)
--- NOTE | 2019-02-01 10:36 | NUR ---
I spoke with Dr. 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
[2019-02-01] MEDS ORDERED: MEGESTROL ACETATE 20 MG TAB PO ONE (10:45)
--- NOTE | 2019-02-01 11:18 | NUR ---
SITTING UP IN THE CHAIR DOZING ON AND OFF DAUGHTER AT THE BEDSIDE
[2019-02-01 11:53] VITALS: BP 118/65
--- NOTE | 2019-02-01 12:33 | NUR ---
Nutrition Follow-up Notes Wt.: 51.7 kg Pt's sleeping with no family by bedside. pt with no distress noted per nursing. Pt's currently on Ground CCHO 60 gm Cardiac: 2 gms Na, Low Chol, Low Fat diet with Glucerna 1 carton TID, with inadequate PO of < 50% x 6 per RN doc as pt refusing. per nursing pt is drinking Glucerna but not eating much Est. Needs: 1300 kcal to 1550 kcal (25-30 kcal/kgBW), 52 gms to 62 gms pro (1.0-1.2 gms/kgBW). Will continue to monitor pertinent labs and reassess nutrient need prn Labs: BUN 24 H, GLU 114 H, ALB 3.0 L. Skin: Piotr scale 14, mod risk, pt's medial chest incision dry and intact per table filler. GI: Pt had 1x BM 01/31/19 per table filler. PES: Increased nutrient needs r/t current/chronic medical condition aeb s/p CABG, extubation, on Clear Liquid diet with <75% consumed meals. Altered nutrition related lab values r/t current/chronic medical condition aeb hyponatremia, hypochloremia, elev. BUN, Trop I,hyperbilirubinemia, hypocalcemia and mild hypoalbuminemia Will continue to monitor PO intake, skin status, pertinent labs and weight trend. F/u in 3 to 5 days. Rec.: 1.) Continue close supervision and feeding assistance prn during meals. 2.) If Albumin level continues trending down, consider Prostat 1 pkt BID. 3) Refer to CDE/RD for further nutrition education and weight monitoring upon discharged. 4.) Continue current plan of care. Addendum: 02/02/19 at [address] NEW PN Noted pt began on PN support with Clinimix from last night @ 42 ml/hr providing 510 kcals and 42.5 gm proteins. pt with inadequate PN support as it meets 32-39% kcals and 67-80% proteins Est. Needs: 1300 kcal to 1550 kcal (25-30 kcal/kgBW), 52 gms to 62 gms pro (1.0-1.2 gms/kgBW). Will continue to monitor pertinent labs and reassess nutrient need prn Labs: PREALB 6.2 L. TG wnl Rec: Advance PN support to meet > 75% of needs if PO continues to be low. 2) taper off PN as pt has adequate PO. 3) continue current plan of care
--- NOTE | 2019-02-01 12:35 | NUR ---
PATIENT SITTING UP IN THE CHAIR SLEEPING, DAUGHTER AT THE BEDSIDE
--- NOTE | 2019-02-01 12:54 | NUR ---
DAUGHTER TRYING TO FEED THE PATIENT
--- NOTE | 2019-02-01 14:20 | NUR ---
GOTTEN BACK INTO THE BED BY PT, MAX ASSISTANCE
--- NOTE | 2019-02-01 14:52 | NUR ---
PATIENT SLEEPING, BUT EASY TO AROUSE
--- NOTE | 2019-02-01 15:28 | NUR ---
DR CEJA INTO SEE THE PATIENT AND SPOKE TO HER AND THE FAMILY
--- NOTE | 2019-02-01 15:40 | NUR ---
DR TURNER INTO SEE THE PATIENT AND STATED HE WAS GOING TO START THE PATIENT ON TPN
[2019-02-01] MEDS ORDERED: TPN PER PHARMACY 0 ML IV SCH (15:45)
[2019-02-01 15:50] VITALS: BP 135/77
--- NOTE | 2019-02-01 16:04 | NUR ---
CONTRACT CLERK IN TALKING WITH THE FAMILY AND THE PATIENT
[2019-02-01] MEDS ORDERED: PPN PER PHARMACY 0 ML IV SCH (16:15)
[2019-02-01] MEDS ORDERED: WARFARIN SODIUM 2 MG TAB PO ONE (17:00)
--- NOTE | 2019-02-01 17:00 | NUR ---
DISCUSSED MEDICATIONS WITH THE PATIENT AND SON AND COUMADIN GIVEN ORDERED
--- NOTE | 2019-02-01 17:27 | NUR ---
DAUGHTER TAKING PATIENTS Addendum: 02/01/19 at 1729 by Debbi Ga RN DAUGHTER TAKING PATIENTS HOME
--- NOTE | 2019-02-01 17:50 | NUR ---
MEDICATED FOR PAIN TO THE CHEST, STATES IT HURTS WHEN YOU TOUCH HER CHEST BY THE INCISION ,TYLENOL GIVEN 06/26
--- NOTE | 2019-02-01 18:11 | NUR ---
SON AT THE BEDSIDE, BREATHING TREATMENT BEING GIVEN BY RT, PATIENT SITTING UP IN THE BED, TALKS TO YOU WHEN YOU CALL HER NAME, O2 AT 1L BY N/C, DRESSING TO THE LOWER CHEST, LARSON TO GRAVITY, SALINE LOCK TO THE LEFT HAND, INTACT AND PATENT, NO SOB WILL CONTINUE TO MONITOR AND GIVE REPORT TO THE NEXT SHIFT
--- NOTE | 2019-02-01 19:40 | NUR ---
Opening Shift Note Received patient asleep in bed with no s/s of distress or SOB on 1L NC. Patient awoken easily when called by name. Noted to be alert and oriented x2. Patient knows name and and states she in the hospital but does not know recent sx or reason for hospitalization or year. Patient reoriented at this time. Midsternal incision and right posterior knee incisions noted to be well approximated and healed.Large ecchymotic area to left leg and abd noted. Continue to monitor.Juan Carlos Gold at bedside, instructed to call unit for more questions and states he will be stepping out and coming back tomorrow morning.
[2019-02-01 19:50] VITALS: BP 115/63
[2019-02-01] MEDS ORDERED: AMINO ACID INFUSION IN D10W 1,000 ML IV ONE (20:00)
[2019-02-01] MEDS: MEGESTROL ACETATE 20 MG TAB PO SCH (21:13)
[2019-02-01] MEDS: ATORVASTATIN 20 MG TAB PO SCH (21:13)
[2019-02-02] VITALS: BP 126/65
[2019-02-02] MEDS ORDERED: DEXTROSE (50%) 50ML SYRG IV SCH
[2019-02-02] MEDS: InsuLIN REG 1unit/0.01ml Soln (100units/ml) SC SCH ×5 (00:04→23:46)
[2019-02-02] MEDS: ACCU-CHEK COMFORT CURVE STRIP VI SCH ×5 (00:04→23:45)
[2019-02-02] MEDS: ALBUTEROL SULF 2.5 MG/0.5ML(0.5%) NEB SOLN NEB SCH ×4 (00:11→18:10)
[2019-02-02] MEDS: IPRATROPIUM BROM 0.5 MG/2.5ML INH SOL NEB SCH ×4 (00:11→18:10)
--- NOTE | 2019-02-02 03:53 | NUR ---
AM CARE/LINEN CHANGE COMPLETE BED BATH GIVEN TO PATIENT USING WARM SOAPY WATER. SKIN INTEGRITY REASSESSED AT THIS TIME. NO NEW CHANGES. Z-GUARD BARRIER CREAM APPLIED TO SACRUM AND COCCYX FOR PREVENTION OF SKIN BREAKDOWN. MIDSTERNAL AND RIGHT POSTERIOR KNEE INCISIONS CLEANSED PER ORDERS. NEW DRESSING CHANGE TO UPPER MID INCISIONS DONE. PATIENT TOLERATED WELL. NEW GOWN PLACED AND PARTIAL BED LINEN CHANGE DONE. PATIENT REPOSITIONED FOR COMFORT. VS STABLE SEE VS SPREADSHEET. PATIENT ON 1LNC POX 98%. CONTINUE CARE. BED ALARM ON.
[2019-02-02 04:00] VITALS: BP 140/63
[2019-02-02 05:27] LABS: INR 1.59 (0.9-1.15); Prothrombin Time 16.6 sec (9.27-12.13)
[2019-02-02 05:42] LABS: Potassium 4.2 mmol/L (3.5-5.1)
[2019-02-02 05:51] LABS: Albumin 2.6 g/dL (3.4-5.0); BUN/Creatinine Ratio 28.6; Bilirubin, Total 0.7 mg/dL (0.2-1.0); Calcium 8.7 mg/dL (8.5-10.1); Magnesium 2.3 mg/dL (1.6-2.6); Phosphorus 1.7 mg/dL (2.5-4.90); Pre Albumin 6.2 mg/dL (20.0-40.0); Total Protein 6.8 g/dL (6.4-8.2)
[2019-02-02] MEDS: SODIUM CHLOR 0.9% PF (SALINE LOCK) 10ML VIAL/SYR IV SCH ×3 (06:04→21:56)
[2019-02-02] MEDS: LEVOTHYROXINE SODIUM 50 MCG TAB PO SCH (06:18)
--- NOTE | 2019-02-02 06:49 | NUR ---
END OF SHIFT PATIENT RESTING IN BED . BED ALARM ON AND SIDE RAILS UP X2. NO S/S OF DISTRESS OR SOB. PATIENT REMAINED STABLE THROUGHOUT THE NIGHT AND SLEPT FOR MOST OF THE NIGHT WITH VS WNL. POX 97% AND HEART RATE CURRENTLY 88 WITH NO ECTOPY NOTED. WILL ENDORSE CARE TO DAY SHIFT RN.
--- NOTE | 2019-02-02 07:30 | NUR ---
Opening Shift Note Assumed care of patient. Patient resting at this time. No S/S of distress/SOB or pain. Patient on 2L NC. Roland to gravity light silvia urine noted. IV Left hand 20G running Clinimax 42ml/hr. Instructed on POC and to call for assist PRN, will continue to monitor for changes Q1hr and PRN.
[2019-02-02] MEDS: Glucerna Carbsteady SHAKE Stawberry 8oz PO SCH ×3 (08:00→18:21)
--- NOTE | 2019-02-02 08:00 | NUR ---
Family at bedside
--- NOTE | 2019-02-02 09:00 | NUR ---
Midline Placement Patient educated on need for midline placement. All risks and benefits explained and all questions and concerns addresses prior to procedure. 18g/8cm midline inserted via right brachial vein using Ultrasound. Sterile technique utilized. Blood return obtained from single lumen and flushed easily with NS using proper technique. Midline secured with saline lock; biodisc and occlusive dressing applied. Primary RN notified. Midline lot #[id number].
--- NOTE | 2019-02-02 09:45 | NUR ---
DISCUSSED MEDICATIONS WITH THE PATENT REGARDING THE DOSAGE, USAGE, AND THE SIDE EFFECTS, VERBALIZED THAT HE UNDERSTOOD AND MEDS GIVEN ORDERED
[2019-02-02] MEDS: DOCUSATE SOD 100 MG CAP PO SCH ×2 (09:46→21:56)
[2019-02-02] MEDS: DIGOXIN 0.125 MG TAB PO SCH (09:48)
[2019-02-02] MEDS: ALLOPURINOL 100 MG TAB PO SCH (09:49)
[2019-02-02] MEDS: AMIODARONE HCL 200 MG TAB PO SCH ×2 (09:49→21:56)
[2019-02-02] MEDS: ENOXAPARIN SOD 60 MG/0.6 ML SYRINGE SC SCH ×2 (09:50→21:56)
[2019-02-02] MEDS: PANTOPRAZOLE 40 MG TAB PO SCH (09:54)
[2019-02-02] MEDS: FERROUS SULFATE 325 MG TAB PO SCH (09:54)
[2019-02-02] MEDS: NITROGLYCERIN 0.4MG/HR TOPICAL PATCH TD SCH (09:54)
[2019-02-02] MEDS: MEGESTROL ACETATE 20 MG TAB PO SCH ×2 (09:55→21:56)
[2019-02-02] MEDS: METOPROLOL SUCCINATE XL 50 MG TAB PO SCH (09:55)
[2019-02-02] MEDS: POTASSIUM CHL 10 Meq TABLET PO SCH (09:55)
[2019-02-02] MEDS ORDERED: SODIUM PHOSP 40 MEQ in D5W 5% 250 ML IV ONE (10:00)
--- NOTE | 2019-02-02 10:30 | NUR ---
PT assisted Patient to chair with minimal assist. Patient tolerating chair.
--- NOTE | 2019-02-02 11:00 | NUR ---
Patient back in bed, resting at this time.
--- NOTE | 2019-02-02 11:03 | NUR ---
I spoke with Dr. Hernandez regarding the plan of care for this patient, she said probable discharge in 1-2 days, waiting for INR to become more therapeutic-no discharge for today.
[2019-02-02 12:00] VITALS: BP 141/68
--- NOTE | 2019-02-02 13:30 | NUR ---
Patient resting at this time. Family at bedside. No S/S of distress noted at this time. Will continue to monitor.
--- NOTE | 2019-02-02 15:30 | NUR ---
Family at bedside. Family encouraged patient to drink Glucerna. Patient able to drink the whole Glucerna. Will continue to monitor.
[2019-02-02 15:53] VITALS: BP 137/66
--- NOTE | 2019-02-02 16:30 | NUR ---
Repositioned patient. Placed Optifoam on patient sacrum.
[2019-02-02] MEDS ORDERED: WARFARIN SODIUM 2 MG TAB PO ONE (17:00)
--- NOTE | 2019-02-02 17:00 | NUR ---
Dr. Fairbanks at bedside. wants patient to eat whatever she wants stating she needs to eat something. New orders for a regular diet with finely chopped/ground food.
--- NOTE | 2019-02-02 18:30 | NUR ---
Patient resting at this time. No S/S of distress/SOB or pain. Patient on 2L NC. Roland to gravity light silvia urine noted. IV Left hand 20G saline lock, dry patent and intact. Right upper arm Midline running Clinimax 42ml/hr. Will continue to monitor. Report to be given to blindstitch machine operator.
--- NOTE | 2019-02-02 19:45 | NUR ---
Opening Shift Note Assumed care of patient, awake and alert and oriented x2, reoriented to situation and time. No S/S of distress/SOB or pain. Complete physical assessment done at this time: see interventions for complete details. Instructed on POC and to call for assist PRN, will continue to monitor for changes frequently.
[2019-02-02 19:53] VITALS: BP 119/65
[2019-02-02] MEDS ORDERED: PPN PER PHARMACY IV NR ×10 (20:00)
[2019-02-02] MEDS: ATORVASTATIN 20 MG TAB PO SCH (21:56)
[2019-02-03] VITALS: BP 122/51
[2019-02-03] MEDS: IPRATROPIUM BROM 0.5 MG/2.5ML INH SOL NEB SCH ×4 (00:28→19:11)
[2019-02-03] MEDS: ALBUTEROL SULF 2.5 MG/0.5ML(0.5%) NEB SOLN NEB SCH ×4 (00:28→19:11)
[2019-02-03 04:00] VITALS: BP 127/61
--- NOTE | 2019-02-03 05:09 | NUR ---
AM CARE PATIENT GIVEN PARTIAL BED BATH USING WARM SOAPY WATER PARTIAL BED LINEN CHANGE DONE AND PATIENT REPOSITIONED IN BED FOR COMFORT. NO NEW SKIN CHANGES NOTED CONTINUE CARE
--- NOTE | 2019-02-03 05:09 | NUR ---
AM LABS DRAWN FROM RIGHT UPPER ARM MIDLINE AND SENT TO LAB VIA BULLET
[2019-02-03 05:36] LABS: INR 1.67 (0.9-1.15); Prothrombin Time 17.4 sec (9.27-12.13)
[2019-02-03 05:45] LABS: Potassium 3.9 mmol/L (3.5-5.1)
[2019-02-03] MEDS: ACCU-CHEK COMFORT CURVE STRIP VI SCH ×3 (05:55→18:02)
[2019-02-03 05:56] LABS: Albumin 2.2 g/dL (3.4-5.0); BUN/Creatinine Ratio 25.8; Bilirubin, Total 0.5 mg/dL (0.2-1.0); Calcium 8.3 mg/dL (8.5-10.1); Magnesium 2.1 mg/dL (1.6-2.6); Phosphorus 3.6 mg/dL (2.5-4.90); Total Protein 6.3 g/dL (6.4-8.2)
[2019-02-03] MEDS: SODIUM CHLOR 0.9% PF (SALINE LOCK) 10ML VIAL/SYR IV SCH ×3 (06:31→21:45)
[2019-02-03] MEDS: InsuLIN REG 1unit/0.01ml Soln (100units/ml) SC SCH ×3 (06:32→18:08)
[2019-02-03] MEDS: LEVOTHYROXINE SODIUM 50 MCG TAB PO SCH (06:34)
[2019-02-03 08:00] VITALS: BP 117/60
[2019-02-03] MEDS: Glucerna Carbsteady SHAKE Stawberry 8oz PO SCH ×3 (08:00→18:02)
--- NOTE | 2019-02-03 08:00 | NUR ---
SBAR REPORT RECEIVED FROM NOC SHIFT. PERFORMED AM ASSESSMENT AT THIS TIME. SEE FLOWSHEET FOR MORE DETAILS.VSS.
--- NOTE | 2019-02-03 08:14 | NUR ---
RT NOTE: PT REFUSED TX AT THIS TIME. NO SIGNS OF RESPIRATORY DISTRESS. ON 1L NC SPO2 99 HR 89 RR 16. LUNG SOUNDS WERE CLEAR DIMINISHED T/O. PT WINCES FROM PAIN WHEN BEING AUSCULTATED. PT AWARE THAT I WILL RETURN FOR NEXT SCHEDULED TX UNLESS CALLED FOR PRN. FAMILY AT BEDSIDE. WILL CONTINUE TO MONITOR.
[2019-02-03 10:00] VITALS: BP 120/55
[2019-02-03] MEDS: LISINOPRIL 5 MG TAB PO SCH (10:00)
[2019-02-03] MEDS: DIGOXIN 0.125 MG TAB PO SCH (10:05)
[2019-02-03] MEDS: ALLOPURINOL 100 MG TAB PO SCH (10:05)
[2019-02-03] MEDS: PANTOPRAZOLE 40 MG TAB PO SCH (10:05)
[2019-02-03] MEDS: AMIODARONE HCL 200 MG TAB PO SCH ×2 (10:05→21:45)
[2019-02-03] MEDS: DOCUSATE SOD 100 MG CAP PO SCH ×2 (10:05→21:45)
[2019-02-03] MEDS: METOPROLOL SUCCINATE XL 50 MG TAB PO SCH (10:05)
[2019-02-03] MEDS: FERROUS SULFATE 325 MG TAB PO SCH (10:05)
[2019-02-03] MEDS: MEGESTROL ACETATE 20 MG TAB PO SCH ×2 (10:05→21:45)
[2019-02-03] MEDS: POTASSIUM CHL 10 Meq TABLET PO SCH (10:05)
[2019-02-03] MEDS: ENOXAPARIN SOD 60 MG/0.6 ML SYRINGE SC SCH ×2 (10:05→21:46)
[2019-02-03] MEDS: NITROGLYCERIN 0.4MG/HR TOPICAL PATCH TD SCH (10:06)
--- NOTE | 2019-02-03 10:30 | NUR ---
MD TURNER AT BEDSIDE. UPDATED MD ON PT OVERALL STATUS. NEW ORDERS GIVEN AND IMPLEMENTED. MD UPDATED PT AND FAMILY WITH POC AT BEDSIDE. NO FURTHER QUESTIONS AT THIS TIME FROM FAMILY. VSS.
--- NOTE | 2019-02-03 11:01 | NUR ---
SBAR REPORT GIVEN TO CATALINO LOCK RN AT THIS TIME FOR CONTINUITY OF CARE. NO CHANGES NOTED (SEE FLOWSHEET). FAMILY AT BEDSIDE AND AWARE OF TRANSFER. NO FURTHER QUESTIONS AT THIS TIME. VSS. PT WILL BE TRANSFERRED TO ROOM 219A.
--- NOTE | 2019-02-03 11:05 | NUR ---
REPORT RECEIVED FROM SANDRA BENSON IN [facility]
--- NOTE | 2019-02-03 11:14 | NUR ---
PT TRANSFERRED TO ROOM 219A WITH 0 COMPLICATIONS NOTED, VSS. CATALINO BENSON MADE AWARE OF PT ARRIVING TO ROOM.
--- NOTE | 2019-02-03 11:20 | NUR ---
RECEIVED PATIENT TO THE FLOOR WITH DAUGHTER AT BEDSIDE. PATIENT IS ALERT AND UNDER NO SIGNS OF DISTRESS. BED LOCKED IN LOWEST POSITION WITH TWO SIDE RAILS UP AND CALL LIGHT IN REACH. O2 RUNNING AT 1 L NC AND PP RESTARTED AT 44ML/HR. INSTRUCTED THE PATIENT ON THE PLAN OF CARE WILL CONTINUE TO MONITOR Q HOURLY AND NEEDED.
--- NOTE | 2019-02-03 15:00 | NUR ---
DR BRENNA HENDERSON
--- NOTE | 2019-02-03 15:41 | NUR ---
PT WORKING WITH PATIENT. PATIENT WALKING DOWN THE SIMMONS, TOLERATED WELL.
[2019-02-03] MEDS ORDERED: WARFARIN SODIUM 2 MG TAB PO ONE (17:00)
--- NOTE | 2019-02-03 19:30 | NUR ---
Opening Shift Note Received report from nerissa Bailey RN. Assumed care of patient, awake and alert resting in bed comfortably. No S/S of distress/SOB or pain. Instructed on POC and to call for assist PRN. Bed placed in lowest position, bed alarm turned on and call light within reach.
[2019-02-03] MEDS ORDERED: PPN PER PHARMACY IV NR ×13 (20:00)
[2019-02-03] MEDS: ATORVASTATIN 20 MG TAB PO SCH (21:45)
[2019-02-03 22:00] VITALS: BP 120/65
[2019-02-04] MEDS: ACCU-CHEK COMFORT CURVE STRIP VI SCH ×4 (00:24→17:06)
[2019-02-04] MEDS: ALBUTEROL SULF 2.5 MG/0.5ML(0.5%) NEB SOLN NEB SCH ×4 (00:24→18:35)
[2019-02-04] MEDS: IPRATROPIUM BROM 0.5 MG/2.5ML INH SOL NEB SCH ×4 (00:24→18:35)
[2019-02-04] MEDS: InsuLIN REG 1unit/0.01ml Soln (100units/ml) SC SCH ×4 (00:25→17:32)
[2019-02-04 03:20] VITALS: BP 120/65
[2019-02-04 05:00] VITALS: BP 120/57
[2019-02-04] MEDS: LEVOTHYROXINE SODIUM 50 MCG TAB PO SCH (06:52)
[2019-02-04] MEDS: SODIUM CHLOR 0.9% PF (SALINE LOCK) 10ML VIAL/SYR IV SCH ×3 (06:52→21:34)
[2019-02-04 06:57] LABS: Calcium 8.3 mg/dL (8.5-10.1); Potassium 3.9 mmol/L (3.5-5.1)
[2019-02-04 07:01] LABS: Albumin 2.1 g/dL (3.4-5.0); BUN/Creatinine Ratio 26.9
[2019-02-04 07:04] LABS: Bilirubin, Total 0.3 mg/dL (0.2-1.0); Phosphorus 2.6 mg/dL (2.5-4.90)
--- NOTE | 2019-02-04 07:05 | NUR ---
PATIENT IS RESTING IN BED, ALERT AND AWAKE. NO DISTRESS NOTED AND PATIENT DENIES PAIN. BLOOD SUGAR IS 153, GIVEN 2 UNITS OF REG INSULIN
[2019-02-04 07:11] LABS: INR 1.75 (0.9-1.15); Prothrombin Time 18.1 sec (9.27-12.13)
--- NOTE | 2019-02-04 07:35 | NUR ---
Opening Shift Note Received report from Marline BENSON. Assumed care of patient, awake and alert. No S/S of distress/SOB. Reported pain on chest incision site s/p CABG. Noted incision site dry, no signs of infection & bleeding. Son and at bedside. Instructed on POC and to call for assist PRN, will continue to monitor for changes Q1hr and PRN.
[2019-02-04] MEDS: Glucerna Carbsteady SHAKE Stawberry 8oz PO SCH ×3 (07:44→17:06)
[2019-02-04] MEDS: ENOXAPARIN SOD 60 MG/0.6 ML SYRINGE SC SCH ×2 (09:23→21:35)
[2019-02-04] MEDS: NITROGLYCERIN 0.4MG/HR TOPICAL PATCH TD SCH (09:23)
[2019-02-04] MEDS: POTASSIUM CHL 10 Meq TABLET PO SCH (09:24)
[2019-02-04] MEDS: METOPROLOL SUCCINATE XL 50 MG TAB PO SCH (09:24)
[2019-02-04] MEDS: AMIODARONE HCL 200 MG TAB PO SCH ×2 (09:24→21:34)
[2019-02-04] MEDS: FERROUS SULFATE 325 MG TAB PO SCH (09:24)
[2019-02-04] MEDS: DIGOXIN 0.125 MG TAB PO SCH (09:25)
[2019-02-04] MEDS: MEGESTROL ACETATE 20 MG TAB PO SCH ×2 (09:25→21:34)
[2019-02-04] MEDS: PANTOPRAZOLE 40 MG TAB PO SCH (09:25)
[2019-02-04] MEDS: LISINOPRIL 5 MG TAB PO SCH (09:25)
[2019-02-04] MEDS: ALLOPURINOL 100 MG TAB PO SCH (09:25)
[2019-02-04] MEDS: DOCUSATE SOD 100 MG CAP PO SCH ×2 (09:26→21:34)
--- NOTE | 2019-02-04 09:45 | NUR ---
Dr. Hernandez at bedside.
[2019-02-04 11:57] VITALS: BP 133/65
[2019-02-04] MEDS ORDERED: WARFARIN SODIUM 1 MG TAB PO ONE (17:00)
[2019-02-04 17:02] VITALS: BP 129/67
[2019-02-04] MEDS ORDERED: PPN PER PHARMACY IV NR ×13 (20:00)
[2019-02-04] MEDS: ATORVASTATIN 20 MG TAB PO SCH (21:34)
[2019-02-04 22:00] VITALS: BP 138/65
[2019-02-05] MEDS: ALBUTEROL SULF 2.5 MG/0.5ML(0.5%) NEB SOLN NEB SCH ×3 (00:34→11:52)
[2019-02-05] MEDS: IPRATROPIUM BROM 0.5 MG/2.5ML INH SOL NEB SCH ×3 (00:34→11:52)
[2019-02-05] MEDS: InsuLIN REG 1unit/0.01ml Soln (100units/ml) SC SCH ×2 (00:45→06:07)
--- NOTE | 2019-02-05 04:42 | NUR ---
PATIENT IS RESTING IN BED WITH EYES CLOSED, NO DISTRESS NOTED, WITH EVEN AND UNLABORED RESPIRATIONS AND PATIENT DENIES PAIN.
[2019-02-05 05:00] VITALS: BP 162/70
[2019-02-05] MEDS: ACCU-CHEK COMFORT CURVE STRIP VI SCH ×2 (06:07)
[2019-02-05] MEDS: SODIUM CHLOR 0.9% PF (SALINE LOCK) 10ML VIAL/SYR IV SCH ×2 (06:07→14:19)
[2019-02-05] MEDS: LEVOTHYROXINE SODIUM 50 MCG TAB PO SCH (06:34)
[2019-02-05 06:48] LABS: INR 1.86 (0.9-1.15); Prothrombin Time 19.2 sec (9.27-12.13)
[2019-02-05 06:49] LABS: Basophils # (auto) 0 uL; Basophils % (auto) 0.4 % (0.0-2.0); Eosinophils # (auto) 0 uL; Eosinophils % (auto) 0.6 % (0.0-7.0); Hematocrit 27.1 % (36.0-46.0); Hemoglobin 9.3 g/dL (12.2-16.2); Lymphocytes # (auto) 0.9 uL; Lymphocytes % (auto) 12.7 % (10.0-50.0); Mean Corpuscular Hemoglobin 29.7 pg (28.0-32.0); Mean Corpuscular Hgb Conc. 34.3 g/dL (32.0-36.0); Mean Corpuscular Volume 86.4 fL (80.0-100.0); Monocytes # (auto) 0.6 uL; Neutrophils # (auto) 5.5 uL; Neutrophils % (auto) 77.3 % (37.0-80.0); Platelet Count (auto) 296 10^3/uL (140-450); Red Blood Cells 3.13 10^6/uL (4.0-5.20); Red Cell Distribution Width 15.2 % (11.8-14.3); White Blood Cell 7.2 10^3/uL (4.4-10.8)
[2019-02-05 06:50] LABS: Potassium 4.5 mmol/L (3.5-5.1)
[2019-02-05 07:00] LABS: Albumin 2.3 g/dL (3.4-5.0); BUN/Creatinine Ratio 29.8; Bilirubin, Total 0.4 mg/dL (0.2-1.0); Calcium 8.6 mg/dL (8.5-10.1); Magnesium 2.3 mg/dL (1.6-2.6); Phosphorus 2.7 mg/dL (2.5-4.90); Total Protein 6.5 g/dL (6.4-8.2)
--- NOTE | 2019-02-05 07:50 | NUR ---
PT RESTING IN BED EYES CLOSED. NOY CHEST MOVEMENT WITH SPONTANEOUS RESPIRATION, NO S/S OF ACUTE DISTRESS. MIDLINE RIGHT UPPER ARM INFUSING PPN AT 67ML/HR. F/C DRAINING TO GRAVITY CLEAR/DARK LORNA URINE. BED LOCKED IN THE LOWEST POSITION, CALL LIGHT WITHIN EASY REACH, WILL CONTINUE CARE.
[2019-02-05 09:00] VITALS: BP 155/70
[2019-02-05] MEDS ORDERED: MED20T PO (09:34)
[2019-02-05] MEDS ORDERED: AMI200T PO (09:34)
[2019-02-05] MEDS ORDERED: LEV50T PO (09:34)
[2019-02-05] MEDS ORDERED: MET5XLT PO (09:34)
[2019-02-05] MEDS ORDERED: WARPRX PO (09:34)
[2019-02-05] MEDS: ALLOPURINOL 100 MG TAB PO SCH (09:44)
[2019-02-05] MEDS: DOCUSATE SOD 100 MG CAP PO SCH (09:44)
[2019-02-05] MEDS: PANTOPRAZOLE 40 MG TAB PO SCH (09:44)
[2019-02-05] MEDS: FERROUS SULFATE 325 MG TAB PO SCH (09:44)
[2019-02-05] MEDS: MEGESTROL ACETATE 20 MG TAB PO SCH (09:45)
[2019-02-05] MEDS: LISINOPRIL 5 MG TAB PO SCH (09:45)
[2019-02-05] MEDS: POTASSIUM CHL 10 Meq TABLET PO SCH (09:45)
[2019-02-05] MEDS: METOPROLOL SUCCINATE XL 50 MG TAB PO SCH (09:45)
[2019-02-05] MEDS: DIGOXIN 0.125 MG TAB PO SCH (09:46)
[2019-02-05] MEDS: AMIODARONE HCL 200 MG TAB PO SCH (09:46)
[2019-02-05] MEDS: ENOXAPARIN SOD 60 MG/0.6 ML SYRINGE SC SCH (09:46)
[2019-02-05] MEDS: NITROGLYCERIN 0.4MG/HR TOPICAL PATCH TD SCH (09:47)
[2019-02-05] MEDS ORDERED: ZOLPIDEM TARTRATE 5 MG TAB PO PRN (10:15)
--- NOTE | 2019-02-05 10:15 | NUR ---
DR. TURNER AT BEDSIDE. [facility].
--- NOTE | 2019-02-05 10:45 | NUR ---
Berg catheter dc'd Order to discontinue berg catheter. Berg dc'd with clean technique following deflation of balloon. Patient tolerated well with no complaints of pain. Continue care.
--- NOTE | 2019-02-05 11:57 | NUR ---
CHARTING ERROR AT 0704, ALBUTEROL 1.25MG GIVEN NOT 2.5MG.
[2019-02-05] MEDS ORDERED: Glucerna Carbsteady SHAKE Chocolate 8oz PO SCH (12:00)
[2019-02-05 13:21] VITALS: BP 135/74
[2019-02-05 13:31] VITALS: BP 135/74
--- NOTE | 2019-02-05 14:30 | NUR ---
PT ABLE TO URINATE. DENIED OF DYSURIA, NO HEMATURIA NOTED. WILL CONTINUE CARE.
--- NOTE | 2019-02-05 15:01 | NUR ---
Nutrition Follow-up Notes Wt.: 51.8 kg Pt's on oxygen via nasal cannula, asleep, no immediate family member at bedside during rounds this morning. Pt's no signs of distress noted earlier, just off from PN support, currently on currently on Ground CCHO 45 gms/meal, Cardiac: 2 gms Na, Low Chol, Low Fat diet with Glucerna Shakes 1 carton TID, on Megace with inadequate PO intake aeb <50% ave. consumed meals (x6) in last 2.5 days. Est. Needs: 1300 kcal to 1550 kcal (25-30 kcal/kgBW), 52 gms to 62 gms pro (1.0-1.2 gms/kgBW). Will continue to monitor pertinent labs and reassess nutrient need prn Labs: Gluc 136 H, Na 131 L, AST 82 H, ALT 76 H, Alb 2.3 L. Skin: Piotr scale 16, mod risk, pt's Rt knee abrasion, medial chest incision dry and intact per swimming professor. GI: Pt had 1x BM 01/31/19 per swimming professor. PES: Resolved: Increased nutrient needs r/t current/chronic medical condition aeb s/p CABG, extubation, on Clear Liquid diet with <75% consumed meals. Altered nutrition related lab values r/t current/chronic medical condition aeb hyponatremia, hypochloremia, elev. BUN, Trop I,hyperbilirubinemia, hypocalcemia and mild hypoalbuminemia Will continue to monitor PO intake, skin status, pertinent labs and weight trend. F/u in 3 to 5 days. Rec.: 1.) Continue close supervision and feeding assistance prn during meals. 2.) If Albumin level continues trending down, consider Prostat 1 pkt BID. 3.) Refer to CDE/RD for further nutrition education and weight monitoring upon discharged. 4.) Continue current plan of care.
[2019-02-05 15:13] VITALS: BP 135/74
[2019-02-05] MEDS ORDERED: WARFARIN SODIUM 2 MG TAB PO ONE (17:00)
[2019-02-05 17:23] VITALS: BP 131/71
--- NOTE | 2019-02-05 17:36 | NUR ---
re-assessment Per ss consult [facility] for PT, vitals and medication management. MD order has been sent to [facility] [phone]. Per Monae she is reviewing and will call back. Waiting for reply back now. Addendum: 02/05/19 at 1737 by Gloria Coreas Amended: Links added.
--- NOTE | 2019-02-05 17:55 | NUR ---
Discharge instructions given as ordered. Encourage to follow up with PCP DR. MCKENZIE ON 02/24/19 @ 0900AM, FOLLOW UP WITH DR. CEJA 02/10/19 @ 1045, FOLLOW UP WITH [facility] ON 02/10/19 @ 0830 as instructed. All questions and concerns addressed. Patient verbalized understanding. Medication reconciliation form completed and copy given to patient. IV removed with catheter intact, pressure dressing applied. Telemetry unit returned to [facility]. Patient taken to vehicle via wheelchair with all personal belongings, accompanied by staff and family member. No distress noted at time of departure.
[2019-02-05] MEDS ORDERED: PPN PER PHARMACY IV NR ×14 (20:00)
[2019-02-05] MEDS ORDERED: ENOXAPARIN SOD 60 MG/0.6 ML SYRINGE SC SCH (22:00)
== END 2019-02-05 18:00 | disposition home health service (06) | DRG 216 ==
LOC: ER 09:34 → TELE 21:04 → TELE-CENTR 23:08 → ICU WEST 01-20 11:32 → DOU IN ICU 01-26 13:35 → TELE-WESTW 01-28 14:35 → DOU IN ICU 01-30 10:59 → TELE-CENTR 02-03 11:30
PROVIDERS: ADMIT Nurse Practitioner; ATTEND Internal Medicine
PROC: 4A023N8 Measurement of Cardiac Sampling and Pressure, Bilateral, Percutaneous Approach (ICD-10-PCS; principal; 2019-01-15)
PROC: B2111ZZ Fluoroscopy of Multiple Coronary Arteries using Low Osmolar Contrast (ICD-10-PCS; 2019-01-15)
PROC: B2151ZZ Fluoroscopy of Left Heart using Low Osmolar Contrast (ICD-10-PCS; 2019-01-15)
PROC: B246ZZ4 Ultrasonography of Right and Left Heart, Transesophageal (ICD-10-PCS; 2019-01-18)
PROC: 02RF08Z Replacement of Aortic Valve with Zooplastic Tissue, Open Approach (ICD-10-PCS; 2019-01-20)
PROC: 02100Z9 Bypass Coronary Artery, One Artery from Left Internal Mammary, Open Approach (ICD-10-PCS; 2019-01-20)
PROC: 021109W Bypass Coronary Artery, Two Arteries from Aorta with Autologous Venous Tissue, Open Approach (ICD-10-PCS; 2019-01-20)
PROC: 06BP4ZZ Excision of Right Saphenous Vein, Percutaneous Endoscopic Approach (ICD-10-PCS; 2019-01-20)
PROC: 5A1221Z Performance of Cardiac Output, Continuous (ICD-10-PCS; 2019-01-20)
PROC: 5A09357 Assistance with Respiratory Ventilation, Less than 24 Consecutive Hours, Continuous Positive Airway Pressure (ICD-10-PCS; 2019-01-20)
PROC: 30233N1 Transfusion of Nonautologous Red Blood Cells into Peripheral Vein, Percutaneous Approach (ICD-10-PCS; 2019-01-20)
PROC: 5A09357 Assistance with Respiratory Ventilation, Less than 24 Consecutive Hours, Continuous Positive Airway Pressure (ICD-10-PCS; 2019-01-21)
PROC: 30233N1 Transfusion of Nonautologous Red Blood Cells into Peripheral Vein, Percutaneous Approach (ICD-10-PCS; 2019-01-21)
PROC: 5A09357 Assistance with Respiratory Ventilation, Less than 24 Consecutive Hours, Continuous Positive Airway Pressure (ICD-10-PCS; 2019-01-22)
PROC: 5A09357 Assistance with Respiratory Ventilation, Less than 24 Consecutive Hours, Continuous Positive Airway Pressure (ICD-10-PCS; 2019-01-23)
PROC: 5A09357 Assistance with Respiratory Ventilation, Less than 24 Consecutive Hours, Continuous Positive Airway Pressure (ICD-10-PCS; 2019-01-24)
PROC: 5A09357 Assistance with Respiratory Ventilation, Less than 24 Consecutive Hours, Continuous Positive Airway Pressure (ICD-10-PCS; 2019-01-25)
PROC: 5A09357 Assistance with Respiratory Ventilation, Less than 24 Consecutive Hours, Continuous Positive Airway Pressure (ICD-10-PCS; 2019-01-26)
PROC: 5A09357 Assistance with Respiratory Ventilation, Less than 24 Consecutive Hours, Continuous Positive Airway Pressure (ICD-10-PCS; 2019-01-27)
PROC: 5A09357 Assistance with Respiratory Ventilation, Less than 24 Consecutive Hours, Continuous Positive Airway Pressure (ICD-10-PCS; 2019-01-28)
DX: I21.4 Non-ST elevation (NSTEMI) myocardial infarction (principal); G93.41 Metabolic encephalopathy; I63.9 Cerebral infarction, unspecified; R65.11 Systemic inflammatory response syndrome (SIRS) of non-infectious origin with acute organ dysfunction; J96.90 Respiratory failure, unspecified, unspecified whether with hypoxia or hypercapnia; E87.1 Hypo-osmolality and hyponatremia; I47.1 Supraventricular tachycardia; I25.810 Atherosclerosis of coronary artery bypass graft(s) without angina pectoris; I35.0 Nonrheumatic aortic (valve) stenosis; M46.92 Unspecified inflammatory spondylopathy, cervical region; I11.0 Hypertensive heart disease with heart failure; I50.9 Heart failure, unspecified; E78.5 Hyperlipidemia, unspecified; D69.6 Thrombocytopenia, unspecified; I48.0 Paroxysmal atrial fibrillation; S16.1XXA Strain of muscle, fascia and tendon at neck level, initial encounter; F41.9 Anxiety disorder, unspecified; M47.892 Other spondylosis, cervical region; M54.2 Cervicalgia; E03.9 Hypothyroidism, unspecified; M48.02 Spinal stenosis, cervical region; M10.9 Gout, unspecified; M54.9 Dorsalgia, unspecified; M19.90 Unspecified osteoarthritis, unspecified site; X58.XXXA Exposure to other specified factors, initial encounter; Z95.1 Presence of aortocoronary bypass graft; Z99.81 Dependence on supplemental oxygen; Z90.710 Acquired absence of both cervix and uterus; Z79.01 Long term (current) use of anticoagulants; Z88.2 Allergy status to sulfonamides; Z88.8 Allergy status to other drugs, medicaments and biological substances; Z88.6 Allergy status to analgesic agent; Z91.041 Radiographic dye allergy status; Z82.49 Family history of ischemic heart disease and other diseases of the circulatory system; Y93.89 Activity, other specified; Y92.89 Other specified places as the place of occurrence of the external cause; Y99.8 Other external cause status
CPT/HCPCS: 36415; 36600; 70450; 71045; 71250; 72125; 72141; 80048; 80053; 80061; 80162; 81001; 82040; 82607; 82746; 82805; 82962; 83036; 83735; 84100; 84132; 84295; 84439; 84443; 84478; 84481; 84484; 85025; 85379; 85576; 85610; 85730; 86850; 86900; 86901; 86920; 87070; 87075; 87081; 87205; 93005; 93306; 93312; 93460; 93886; 93970; 94002; 94640; 94660; 94761; 96372; 97110; 97116; 97163; 97530; 99152; A6257; C1751; C9113; G0378; J0131; J0153; J0610; J0690; J1100; J1642; J1644; J1815; J2250; J2405; J2440; J2704; J2720; J3430; J3480; J3490; J7060; J7131; P9047

== ENCOUNTER → 2019-01-13 | Outpatient (CLI) | payer OTHER ==
[~2019-01-13] MED LIST changes: +ATOR10TA52 PO
[2019-01-13 07:52] LABS: Urine Bacteria NONE SEEN /hpf (None Seen); Urine Blood Negative /uL (Negative); Urine Specific Gravity 1.016 (1.001-1.035); Urine WBC <1 /hpf (0 - 5)
[2019-01-13 08:30] LABS: Albumin 3.9 g/dL (3.4-5.0); Potassium 4.4 mmol/L (3.5-5.1)
[2019-01-13 08:41] LABS: BUN/Creatinine Ratio 20.5; Bilirubin, Total 0.8 mg/dL (0.2-1.0); CRP High Sensitivity 0.24 mg/dL (< 0.3); Calcium 9.4 mg/dL (8.5-10.1); Total Protein 7.7 g/dL (6.4-8.2)
[2019-01-13 09:22] LABS: Free T4 (Free Thyroxine) 0.79 ng/dL (0.89-1.76); T3 Total 0.82 ng/mL (0.60-1.81)
== END | disposition home or self-care (01) ==
LOC: LAB 07:04
PROVIDERS: ATTEND Internal Medicine
DX: E11.22 Type 2 diabetes mellitus with diabetic chronic kidney disease (principal); I13.0 Hypertensive heart and chronic kidney disease with heart failure and stage 1 through stage 4 chronic kidney disease, or unspecified chronic kidney disease; I50.9 Heart failure, unspecified; N18.9 Chronic kidney disease, unspecified; M10.9 Gout, unspecified; E78.5 Hyperlipidemia, unspecified; R30.0 Dysuria
CPT/HCPCS: 36415; 80053; 80061; 81001; 82306; 82607; 83036; 84439; 84443; 84480; 86141

== ENCOUNTER 2019-02-06 20:40 | Inpatient (IN) | payer OTHER ==
[~2019-02-06] VITALS: Ht 157.5 cm; Wt 47.6 kg
--- NOTE | 2019-02-06 03:30 | NUR ---
Telemetry admit from [facility] RESENDIZBONNIE admitted to Telemetry unit after SBAR received. Patient oriented to Melina Crowder RN primary RN, unit, room, bed, and unit policies regarding patient care and visiting hours. Patient now on continuous telemetry monitoring, tele box #5 and telemetry reading on arrival to unit is sinus rhythm. Patient placed on bedside oxygen at 2 liters, weighed by bedscale and encouraged to call if they need something. All questions and concerns addressed, patient verbalized understanding. Bed is in lowest locked position with bed rails up x2.
[~2019-02-06 20:40] MED LIST changes: +ACE325T PO; +AMI200T PO; +ATOR20TA50 PO; +DIGO0.1229 PO; +FER325T PO; -HYDR25TA4 PO; +LEV50T PO; -LISI-275; +LISI-275 PO; -LISI40TA PO; +MED20T PO; +MET5XLT PO; -METO25TA62 PO; +NITR0.4S29 SL; +PANT40T PO; -VERA1TAB9 PO; +WARPRX PO
[2019-02-06] MEDS ORDERED: METOPROLOL TARTRATE 1MG/1ML-5ML VIAL IV ONE ×2 (20:53→21:00)
[2019-02-06] MEDS ORDERED: ONDANSETRON HCL 4 MG/2 ML VIAL IV ONE (21:00)
[2019-02-06] MEDS ORDERED: METOPROLOL TARTRATE 25 MG TAB PO ONE (21:00)
[2019-02-06] MEDS ORDERED: ATORVASTATIN 20 MG TAB PO ONE (21:00)
[2019-02-06] MEDS ORDERED: MORPHINE SULFATE 4 MG/ML SYR/VIAL IV ONE (21:00)
[2019-02-06 21:12] LABS: Basophils # (auto) 0 uL; Basophils % (auto) 0.6 % (0.0-2.0); Eosinophils # (auto) 0 uL; Eosinophils % (auto) 0.4 % (0.0-7.0); Hematocrit 29.6 % (36.0-46.0); Hemoglobin 9.7 g/dL (12.2-16.2); Lymphocytes # (auto) 0.9 uL; Lymphocytes % (auto) 13.7 % (10.0-50.0); Mean Corpuscular Hemoglobin 28.7 pg (28.0-32.0); Mean Corpuscular Hgb Conc. 32.8 g/dL (32.0-36.0); Mean Corpuscular Volume 87.5 fL (80.0-100.0); Monocytes # (auto) 0.8 uL; Monocytes % (auto) 12.1 % (0.0-12.0); Neutrophils # (auto) 4.8 uL; Neutrophils % (auto) 73.2 % (37.0-80.0); Platelet Count (auto) 296 10^3/uL (140-450); Red Blood Cells 3.39 10^6/uL (4.0-5.20); Red Cell Distribution Width 15.3 % (11.8-14.3); White Blood Cell 6.6 10^3/uL (4.4-10.8)
[2019-02-06] MEDS ORDERED: HEPARIN SODIUM (PORCINE) 5000 UNITS/ML 1ML VIAL IV ONE (21:15)
[2019-02-06 21:26] LABS: INR 2.34 (0.9-1.15); Prothrombin Time 23.9 sec (9.27-12.13)
[2019-02-06 21:28] LABS: Albumin 2.7 g/dL (3.4-5.0); Magnesium 2.4 mg/dL (1.6-2.6); Potassium 4.5 mmol/L (3.5-5.1)
[2019-02-06 21:34] LABS: BUN/Creatinine Ratio 24.4; Bilirubin, Total 0.7 mg/dL (0.2-1.0)
[2019-02-06] MEDS: HEPARIN DRIP/D5W 100UNITS/ML 250 ML IV SCH (22:45)
[2019-02-07] VITALS (7 sets, daily range): BP systolic 143–166; BP diastolic 59–81
--- NOTE | 2019-02-07 03:35 | NUR ---
Patient arrived with a Heparin drip running: Heparin drip currently running at 10ml/hr, to place next aptt blood draw 6 hours prior to last draw.
--- NOTE | 2019-02-07 03:50 | NUR ---
Stat order placed per protocol for APTT: Called lab at this time to notify them that APTT blood draw is needed stat to adjust the rate. No answer from lab. Will call again.
--- NOTE | 2019-02-07 04:25 | NUR ---
Reconcile meds: Patient could not recall home medications and no family members at bedside. Patient unreliable source to reconcile medications Will endorsed to day shift nurse.
--- NOTE | 2019-02-07 05:00 | NUR ---
Admission information: Patient is an unreliable source while collecting admission data. Patient stated "I dont remember" or "I dont know" to questions of admission. Retrieved medical history by what has been listed in the charts. Further information much be retrieved by family members. Will notify day shift nurse.
[2019-02-07 05:05] LABS: Basophils # (auto) 0 uL; Basophils % (auto) 0.6 % (0.0-2.0); Eosinophils # (auto) 0.1 uL; Hematocrit 30.2 % (36.0-46.0); Hemoglobin 9.9 g/dL (12.2-16.2); Mean Corpuscular Hemoglobin 29.4 pg (28.0-32.0); Mean Corpuscular Hgb Conc. 32.7 g/dL (32.0-36.0); Mean Corpuscular Volume 89.7 fL (80.0-100.0); Monocytes # (auto) 0.8 uL; Monocytes % (auto) 12.3 % (0.0-12.0); Neutrophils # (auto) 4.4 uL; Neutrophils % (auto) 70.1 % (37.0-80.0); Nucleated Red Blood Cells % 0.1 %; Platelet Count (auto) 285 10^3/uL (140-450); Red Blood Cells 3.37 10^6/uL (4.0-5.20); Red Cell Distribution Width 15.8 % (11.8-14.3); White Blood Cell 6.3 10^3/uL (4.4-10.8)
[2019-02-07 05:21] LABS: BUN/Creatinine Ratio 25.3; Calcium 8.8 mg/dL (8.5-10.1); Potassium 4.3 mmol/L (3.5-5.1)
[2019-02-07 05:28] LABS: INR 3.11 (0.9-1.15)
[2019-02-07 05:42] LABS: Partial Thromboplastin Time > 170.00 sec (23.78-33.04)
--- NOTE | 2019-02-07 05:45 | NUR ---
Received critical lab value at this time for Patient PTT: Received call from lab that patients PTT was a critical lab value of <170. Heparin drip was stopped as per heparin drip protocol at this time and will wait 1 hour before resuming treatment by decreasing rate by 3 mls/hr from prior rate on heparin drip, making it 7mls/hr.
[2019-02-07] MEDS: LEVOTHYROXINE SODIUM 50 MCG TAB PO SCH (06:01)
[2019-02-07] MEDS: DOXYCYCLINE 100MG/250ML 250 ML IV SCH ×2 (06:03→17:36)
--- NOTE | 2019-02-07 07:00 | NUR ---
Heparin drip restarted at this time: Heparin drip restarted and decreased previous rate by 3 ml/hr as per heparin drip protocol. Drip now running at 7ml/hr.
--- NOTE | 2019-02-07 07:30 | NUR ---
Opening Shift Note Assumed care of patient, awake and alert to self and situation. Patient needs frequent reorientation. No S/S of distress/SOB or pain. Instructed on POC and to call for assist PRN, will continue to monitor. Bed locked in the lowest position. Bed rails up x2. Call light in reach. Bed alarm on.
[2019-02-07] MEDS: FERROUS SULFATE 325 MG TAB PO SCH ×2 (08:10→17:36)
--- NOTE | 2019-02-07 08:29 | NUR ---
Closing note: Patient is resting in bed with breaths even and unlabored. No s/s of distress sob noted. Bed is in lowest locked position with bed rails up x2. Call light is within reach of the patient. Care endorsed to day shift nurse.
[2019-02-07] MEDS: METOPROLOL SUCCINATE XL 50 MG TAB PO SCH (10:00)
[2019-02-07] MEDS: DIGOXIN 0.125 MG TAB PO SCH ×2 (10:00→11:45)
[2019-02-07] MEDS: AMIODARONE HCL 200 MG TAB PO SCH ×3 (10:00→21:01)
[2019-02-07] MEDS: LISINOPRIL 5 MG TAB PO SCH (10:09)
[2019-02-07] MEDS: PANTOPRAZOLE 40 MG TAB PO SCH (10:10)
--- NOTE | 2019-02-07 11:30 | NUR ---
WOUND CARE NOTE: WOUND CONSULT ORDERED FOR PATIENT WITH SURGICAL INCISIONS TO CHEST/ABD. PATIENT RECENTLY ADMITTED TO [facility] WITH DIAGNOSIS OF CHEST PAIN. SHE HAS CURRENT TRISTON SCORE OF 19. SHE CAN TURN/REPOSITION SELF. SHE HAS WELL APPROXIMATED SURGICAL INCISION TO STERNUM FROM RECENT CABG SURGERY. WOUND IS WELL APPROXIMATED, GOOD EPITHELIAL RIDGE NOTED, NO OPEN OR DRAINING AREAS NOTED. SHE ALSO HAS OLD DRAIN SITES TO THE ABDOMEN THAT HAVE INTACT SUTURES IN 2 OF THREE DRAIN SITES. NO OPEN OR DRAINING AREAS NOTED. ALL WOUNDS CAN BE LEFT OPEN TO AIR. NO NEED FOR WOUND CARE.
--- NOTE | 2019-02-07 11:45 | NUR ---
APPRENTICE MACHINIST OUTSIDE DR. Roby WITT
--- NOTE | 2019-02-07 11:49 | NUR ---
AT THE BEDSIDE DR. WITT AT THE BEDSIDE. PER MD, HOLD AM DOSE OF METOPROLOL.
--- NOTE | 2019-02-07 13:00 | NUR ---
AWARE DR. WITT AWARE OF PATIENTS TRENDING VITALS AND BLOOD PRESSURE. NO NEW ORDERS RECEIVED.
--- NOTE | 2019-02-07 13:36 | NUR ---
CONTACTED LAB CONTACTED LAB REGARDING TIMED APTT DRAW. PER HYUN IN LAB, SHE WILL CONTACT PASTRY SOUS CHEF TO GO TO ROOM TO DRAW PATIENT.
[2019-02-07 14:42] LABS: INR 3.24 (0.9-1.15); Prothrombin Time 32.4 sec (9.27-12.13)
--- NOTE | 2019-02-07 14:50 | NUR ---
COVERING NURSE CATALINO RECEIVED CALL FROM LAB FOR CRITICAL PTT OF 154.3.
[2019-02-07 14:51] LABS: Partial Thromboplastin Time 154.3 sec (23.78-33.04)
--- NOTE | 2019-02-07 14:55 | NUR ---
COVERING NURSE CATALINO STOPPED HEPARIN INFUSION PER PROTOCOL.
[2019-02-07] MEDS: HEPARIN DRIP/D5W 100UNITS/ML 250 ML IV SCH (16:09)
--- NOTE | 2019-02-07 16:09 | NUR ---
TITRATED HEPARIN PER PROTOCOL. SEE eMAR.
--- NOTE | 2019-02-07 19:00 | NUR ---
CLOSING NOTE Patient is awake and alert to self and situation. No S/S of distress/SOB or pain. Family at bedside. Bed locked in the lowest position, bed rails up x2. Call light in reach. Endorsed care to night nurse.
[2019-02-07] MEDS ORDERED: METO-169 PO (19:15)
[2019-02-07] MEDS ORDERED: AMIO200T33 PO (19:15)
[2019-02-07] MEDS ORDERED: ATOR20TA50 PO (19:15)
[2019-02-07] MEDS ORDERED: MEGE1SUS5 PO (19:15)
[2019-02-07] MEDS ORDERED: PANT40T PO (19:15)
[2019-02-07] MEDS ORDERED: FERR-20 PO (19:15)
[2019-02-07] MEDS ORDERED: DIGO0.1262 PO (19:15)
[2019-02-07] MEDS ORDERED: LEVO50TA7 PO (19:15)
[2019-02-07] MEDS ORDERED: LISI-275 PO (19:15)
[2019-02-07] MEDS ORDERED: NITR0.4D10 TD (19:15)
[2019-02-07] MEDS ORDERED: WARF3TAB22 PO (19:15)
--- NOTE | 2019-02-07 19:30 | NUR ---
Received patient in bed alert and responsive. Heparin drip infusing at 400 units/hr. Call novak with in reach, bed in low position.
[2019-02-07] MEDS: ATORVASTATIN 20 MG TAB PO SCH (21:01)
[2019-02-07] MEDS: MORPHINE SULF INJ 2 MG/ML SYRINGE 1ML IV PRN (21:01)
--- NOTE | 2019-02-07 22:00 | NUR ---
IV insertion IV access obtained, via clean sterile technique by inserting #22 gauge catheter at left forearm after first attempt. IV secured properly. No trauma to site. Patient tolerated well.
--- NOTE | 2019-02-07 22:50 | NUR ---
PTT drawn at 2150 awaiting result. Result still pending as of this time.
[2019-02-07 23:03] LABS: INR 3.1 (0.9-1.15); Prothrombin Time 31.1 sec (9.27-12.13)
[2019-02-07 23:11] LABS: Partial Thromboplastin Time 81.4 sec (23.78-33.04)
--- NOTE | 2019-02-07 23:15 | NUR ---
PTT 81.4, PER SLIDING SCALE DECREASE BY 200UNITS=2ML. CURRENT RATE 400UNITS. DECREASE BY 200UNITS. HEPARIN RATE NOW 200 UNITS/HOUR=2ML/HR.
[2019-02-08] MEDS: MORPHINE SULF INJ 2 MG/ML SYRINGE 1ML IV PRN (01:58)
[2019-02-08] MEDS: HEPARIN DRIP/D5W 100UNITS/ML 250 ML IV SCH ×2 (02:07→08:37)
[2019-02-08 05:12] VITALS: BP 140/78
[2019-02-08] MEDS: DOXYCYCLINE 100MG/250ML 250 ML IV SCH ×2 (05:29→18:21)
[2019-02-08] MEDS: LEVOTHYROXINE SODIUM 50 MCG TAB PO SCH (05:34)
[2019-02-08 07:28] LABS: INR 2.99 (0.9-1.15); Partial Thromboplastin Time 48.6 sec (23.78-33.04); Prothrombin Time 30.1 sec (9.27-12.13)
--- NOTE | 2019-02-08 07:40 | NUR ---
opening patient in bed, bed in lowest position, call light within reach. No distress noted at this time. Will f/u with morning assessment. Patient on heparin drip currently at level of 200 units/hr a & o x1 patient continuously asks where she is and where her family is. will continue to closely monitor and f/u current aptt 48.60 cardiac consult pending hgb 9.9 sodium 132
--- NOTE | 2019-02-08 08:30 | NUR ---
heparin aPtt is 48.60 this change indicates to increase heparin drip per protocol 200 units/2mL per hour changed heparin from 200units/2mL to 400 units/4mL per hour now/current, administered as ordered and witnessed with second nurse. next draw of aptt will be today 02/08/19 at 1430 as per protocol 6 hours after last change of heparin infusion
[2019-02-08] MEDS: LISINOPRIL 5 MG TAB PO SCH (09:57)
[2019-02-08] MEDS: METOPROLOL SUCCINATE XL 50 MG TAB PO SCH (09:57)
[2019-02-08] MEDS: AMIODARONE HCL 200 MG TAB PO SCH ×2 (09:58→20:56)
[2019-02-08] MEDS: FERROUS SULFATE 325 MG TAB PO SCH ×2 (09:58→18:21)
[2019-02-08] MEDS: PANTOPRAZOLE 40 MG TAB PO SCH (09:58)
[2019-02-08] MEDS: DIGOXIN 0.125 MG TAB PO SCH (10:00)
--- NOTE | 2019-02-08 11:11 | NUR ---
electronic page makeup system operator md krishnan at bedside, notes the hospitalist will see the patient.
--- NOTE | 2019-02-08 11:13 | NUR ---
current lab troponin is 0.385 (02/07/19) trending down
[2019-02-08] MEDS ORDERED: LEVOTHYROXINE SODIUM 100 MCG/5 ML INJ IV ONE (12:00)
[2019-02-08] MEDS ORDERED: WARFARIN SODIUM 1 MG TAB PO ONE (17:00)
[2019-02-08] MEDS: ATORVASTATIN 20 MG TAB PO SCH (20:55)
[2019-02-08 22:00] VITALS: BP 146/77
[2019-02-09] MEDS: ACETAMINOPHEN 500 MG TAB PO PRN (03:52)
[2019-02-09 04:58] VITALS: BP 148/79
[2019-02-09] MEDS: DOXYCYCLINE 100MG/250ML 250 ML IV SCH (05:34)
--- NOTE | 2019-02-09 06:46 | NUR ---
PATIENT C/O CHEST PAIN TO INCISION SITE, TYLENOL GIVEN WITH GOOD EFFECT, PATIENT REMAINS ALERT TO SELF ONLY. PATIENT ASKING FOR FAMILY REPEATEDLY. FREQUENT REORIENTATION AND REASSURANCE GIVEN.
[2019-02-09 07:09] LABS: INR 3.1 (0.9-1.15); Partial Thromboplastin Time 48.6 sec (23.78-33.04); Prothrombin Time 31.1 sec (9.27-12.13)
--- NOTE | 2019-02-09 07:40 | NUR ---
opening Patient in bed , bed in lowest position, call light within reach. Patient has complaints of the incisional chest pain, will review charts and medications and administer medication as ordered. Will f/u with morning assessment and continue to monitor. Pending cxr results chest ct results mrsa negative pt 31.10 inr 3.10 aptt 48.60
[2019-02-09 08:30] VITALS: BP 143/67
[2019-02-09] MEDS: FERROUS SULFATE 325 MG TAB PO SCH ×2 (08:52→17:58)
[2019-02-09] MEDS ORDERED: DOXYCYCLINE 100 MG TAB/CAP PO SCH (10:00)
[2019-02-09] MEDS: AMIODARONE HCL 200 MG TAB PO SCH ×2 (10:45→21:50)
[2019-02-09] MEDS: PANTOPRAZOLE 40 MG TAB PO SCH (10:45)
[2019-02-09] MEDS: ASPirin-EC 81 mg tab PO SCH (10:45)
[2019-02-09] MEDS: LEVOTHYROXINE SODIUM 100 MCG/5 ML INJ IV SCH (10:45)
[2019-02-09] MEDS: DIGOXIN 0.125 MG TAB PO SCH (10:47)
[2019-02-09] MEDS: METOPROLOL SUCCINATE XL 50 MG TAB PO SCH (10:48)
[2019-02-09] MEDS: LISINOPRIL 5 MG TAB PO SCH (10:48)
[2019-02-09] MEDS ORDERED: MEGESTROL ACET 400MG/10ML ORAL SUSP PO ONE (11:30)
[2019-02-09] MEDS: traMADol HCL 50 MG TAB PO PRN ×3 (11:57→21:50)
[2019-02-09] MEDS: Ensure Enlive Vanilla 8oz Bottle PO SCH ×2 (12:00→18:00)
[2019-02-09 13:16] VITALS: BP 160/71
[2019-02-09 16:15] VITALS: BP 140/67
[2019-02-09] MEDS: Pro-Stat SF 30ml Vanilla PO SCH (17:59)
--- NOTE | 2019-02-09 19:35 | NUR ---
OPENING SHIFT NOTE RECEIVED REPORT FROM DAYSHIFT RN. PATIENT LYING IN BED, NO S/S OF DISTRESS OR SOB. PATIENT COMPLAINS OF CHEST PAIN R/T INCISION, S/P CABG ~3 WEEKS AGO. WILL MEDICATE PER MEDICATION ORDERS. PATIENT ALERT TO SELF AND SITUATION, FREQUENTLY ASKING FOR FAMILY MEMBERS. UPDATED PATIENT ON POC, VERBALIZED UNDERSTANDING. BED LOCKED IN LOW POSITION, CALL LIGHT WITHIN REACH, WILL CONTINUE TO MONITOR PATIENT Q1HR AND PRN.
[2019-02-09] MEDS: ATORVASTATIN 20 MG TAB PO SCH (21:49)
[2019-02-09] MEDS: MEGESTROL ACET 400MG/10ML ORAL SUSP PO SCH (21:49)
[2019-02-09] MEDS: DOXYCYCLINE 100 MG TAB/CAP PO SCH (21:50)
[2019-02-09 22:00] VITALS: BP 148/62
[2019-02-10] MEDS: ONDANSETRON HCL 4 MG/2 ML VIAL IV PRN ×2 (02:54→12:41)
[2019-02-10] MEDS: traMADol HCL 50 MG TAB PO PRN ×2 (04:46→14:18)
[2019-02-10 04:59] VITALS: BP 172/75
[2019-02-10 07:29] LABS: INR 2.74 (0.9-1.15); Partial Thromboplastin Time 44.3 sec (23.78-33.04); Prothrombin Time 27.7 sec (9.27-12.13)
[2019-02-10 09:00] VITALS: BP 148/60
--- NOTE | 2019-02-10 09:00 | NUR ---
Opening Shift Note Assumed care of patient, awake and alert. No S/S of distress/SOB or pain. Instructed on POC and to call for assist PRN, will continue to monitor for changes Q1hr and PRN.
[2019-02-10] MEDS: DIGOXIN 0.125 MG TAB PO SCH (09:09)
[2019-02-10] MEDS: AMIODARONE HCL 200 MG TAB PO SCH ×2 (09:09→22:05)
[2019-02-10] MEDS: ASPirin-EC 81 mg tab PO SCH ×2 (09:10→09:14)
[2019-02-10] MEDS: METOPROLOL SUCCINATE XL 50 MG TAB PO SCH (09:10)
[2019-02-10] MEDS: FERROUS SULFATE 325 MG TAB PO SCH ×2 (09:10→17:21)
[2019-02-10] MEDS: LISINOPRIL 5 MG TAB PO SCH (09:10)
[2019-02-10] MEDS: PANTOPRAZOLE 40 MG TAB PO SCH (09:10)
[2019-02-10] MEDS: MEGESTROL ACET 400MG/10ML ORAL SUSP PO SCH ×2 (09:11→22:06)
[2019-02-10] MEDS: DOXYCYCLINE 100 MG TAB/CAP PO SCH ×2 (09:11→22:06)
[2019-02-10] MEDS: Ensure Enlive Vanilla 8oz Bottle PO SCH ×3 (09:11→18:38)
[2019-02-10] MEDS: LEVOTHYROXINE SODIUM 100 MCG/5 ML INJ IV SCH (09:11)
[2019-02-10] MEDS: Pro-Stat SF 30ml Vanilla PO SCH ×2 (09:11→18:00)
[2019-02-10] MEDS ORDERED: MORPHINE SULF INJ 2 MG/ML SYRINGE 1ML IV PRN (10:30)
--- NOTE | 2019-02-10 10:30 | NUR ---
Dr. Hernandez at bedside.
[2019-02-10 12:03] VITALS: BP 134/69
--- NOTE | 2019-02-10 12:27 | NUR ---
Nutrition Assessment Notes please see attached link for complete assessment Est. Needs based on BW (52 kg) : 7175-4291 kcal (25-30 kcal/kgBW), 52-62 gms pro (1.0-1.2 gms/kgBW). Will continue to monitor pertinent labs and reassess nutrient need prn Addendum: 02/10/19 at [address] Amended: Links added.
[2019-02-10 17:00] VITALS: BP 154/65
[2019-02-10] MEDS: WARFARIN SODIUM 1 MG TAB PO SCH (17:21)
[2019-02-10 22:00] VITALS: BP 152/74
[2019-02-10] MEDS: ATORVASTATIN 20 MG TAB PO SCH (22:06)
[2019-02-11 05:00] VITALS: BP 136/68
[2019-02-11 06:10] LABS: INR 2.57 (0.9-1.15); Partial Thromboplastin Time 42.7 sec (23.78-33.04); Prothrombin Time 26.1 sec (9.27-12.13)
[2019-02-11] MEDS: traMADol HCL 50 MG TAB PO PRN ×3 (06:38→23:10)
[2019-02-11] MEDS: Ensure Enlive Vanilla 8oz Bottle PO SCH ×3 (08:00→18:00)
[2019-02-11] MEDS: Pro-Stat SF 30ml Vanilla PO SCH ×2 (08:00→18:00)
[2019-02-11 08:26] VITALS: BP 147/64
[2019-02-11] MEDS: LEVOTHYROXINE SODIUM 100 MCG/5 ML INJ IV SCH (09:16)
[2019-02-11] MEDS: MEGESTROL ACET 400MG/10ML ORAL SUSP PO SCH ×2 (09:16→22:23)
[2019-02-11] MEDS: FERROUS SULFATE 325 MG TAB PO SCH ×2 (09:16→17:17)
[2019-02-11] MEDS: PANTOPRAZOLE 40 MG TAB PO SCH (09:17)
[2019-02-11] MEDS: DOXYCYCLINE 100 MG TAB/CAP PO SCH ×2 (09:17→22:24)
[2019-02-11] MEDS: AMIODARONE HCL 200 MG TAB PO SCH ×2 (09:17→22:25)
[2019-02-11] MEDS: DIGOXIN 0.125 MG TAB PO SCH (09:17)
[2019-02-11] MEDS: METOPROLOL SUCCINATE XL 50 MG TAB PO SCH (09:17)
[2019-02-11] MEDS: LISINOPRIL 5 MG TAB PO SCH (09:18)
--- NOTE | 2019-02-11 11:16 | NUR ---
PT Patient refused to be OOB during morning PT visit with c/o weakness and fatigue but requested to comeback this afternoon. Addendum: 02/11/19 at 1117 by ISSAC DUQUE PTT Amended: Links added.
[2019-02-11] MEDS ORDERED: PYRIDOXINE HCL 50 MG TAB PO ONE (11:30)
[2019-02-11 11:45] LABS: Basophils # (auto) 0 uL; Basophils % (auto) 0.7 % (0.0-2.0); Eosinophils # (auto) 0 uL; Eosinophils % (auto) 0.5 % (0.0-7.0); Hematocrit 30.8 % (36.0-46.0); Hemoglobin 10.3 g/dL (12.2-16.2); Lymphocytes # (auto) 0.8 uL; Lymphocytes % (auto) 12.5 % (10.0-50.0); Mean Corpuscular Hemoglobin 29.3 pg (28.0-32.0); Mean Corpuscular Hgb Conc. 33.6 g/dL (32.0-36.0); Mean Corpuscular Volume 87.2 fL (80.0-100.0); Monocytes # (auto) 0.6 uL; Monocytes % (auto) 9.7 % (0.0-12.0); Neutrophils # (auto) 4.6 uL; Neutrophils % (auto) 76.6 % (37.0-80.0); Platelet Count (auto) 322 10^3/uL (140-450); Red Blood Cells 3.53 10^6/uL (4.0-5.20); White Blood Cell 6.1 10^3/uL (4.4-10.8)
[2019-02-11 11:55] LABS: BUN/Creatinine Ratio 22.4; Calcium 9.1 mg/dL (8.5-10.1); Potassium 3.8 mmol/L (3.5-5.1)
[2019-02-11 11:56] LABS: Folate (Folic Acid) 21.25 ng/mL (5.38-24)
[2019-02-11 12:28] VITALS: BP 144/64
--- NOTE | 2019-02-11 13:29 | NUR ---
PT Patient c/o severe dizziness when sitting at EOB during afternoon PT visit. Hold PT until pt's nausea has subsided. Addendum: 02/11/19 at 1331 by ISSAC DUQUE PTT Amended: Links added.
[2019-02-11 16:07] VITALS: BP 143/68
[2019-02-11] MEDS: WARFARIN SODIUM 1 MG TAB PO SCH (17:17)
--- NOTE | 2019-02-11 19:45 | NUR ---
Opening Shift Note Assumed care of patient, awake and alert x3. No S/S of distress/SOB or pain. Patient is on 2L via nc with even and unlabored breaths. Patient denies pain at this time. Instructed on POC and to call for assist PRN. Bed is in lowest position with bed alarm on and call light within reach.
[2019-02-11] MEDS: ATORVASTATIN 20 MG TAB PO SCH (22:24)
[2019-02-11 22:43] VITALS: BP 155/70
[2019-02-12] MEDS: ACETAMINOPHEN 500 MG TAB PO PRN (01:44)
--- NOTE | 2019-02-12 03:58 | NUR ---
Rhythm changed Arabella called to make this nurse aware of rhythm change in the st segment. Immediately performed and EKG and compared to original no changes at this time will continue to monitor the patient. Vitals temperature 98.5, pulse 75, respiration 18, O2 99%, blood pressure 153/64.
[2019-02-12 05:18] VITALS: BP 153/64
[2019-02-12] MEDS: traMADol HCL 50 MG TAB PO PRN ×2 (06:01→21:03)
--- NOTE | 2019-02-12 07:01 | NUR ---
CLOSING SHIFT: Care endorsed to day yvonne Root.
[2019-02-12] MEDS: Pro-Stat SF 30ml Vanilla PO SCH ×2 (08:00→18:00)
[2019-02-12] MEDS: Ensure Enlive Vanilla 8oz Bottle PO SCH ×3 (08:00→18:00)
[2019-02-12 08:49] VITALS: BP 128/71
--- NOTE | 2019-02-12 09:00 | NUR ---
Opening Shift Note Assumed care of patient, awake and alert, oriented x 3 with forgetful. No S/S of distress/SOB or pain. Instructed on POC and to call for assist PRN, will continue to monitor for changes Q1hr and PRN.
[2019-02-12] MEDS: FERROUS SULFATE 325 MG TAB PO SCH ×2 (09:17→17:20)
[2019-02-12] MEDS: LEVOTHYROXINE SODIUM 100 MCG/5 ML INJ IV SCH (09:17)
[2019-02-12] MEDS: MEGESTROL ACET 400MG/10ML ORAL SUSP PO SCH ×2 (09:17→21:36)
[2019-02-12] MEDS: DIGOXIN 0.125 MG TAB PO SCH (09:18)
[2019-02-12] MEDS: PANTOPRAZOLE 40 MG TAB PO SCH (09:18)
[2019-02-12] MEDS: AMIODARONE HCL 200 MG TAB PO SCH (09:18)
[2019-02-12] MEDS: DOXYCYCLINE 100 MG TAB/CAP PO SCH ×2 (09:19→21:36)
[2019-02-12] MEDS: METOPROLOL SUCCINATE XL 50 MG TAB PO SCH (09:19)
[2019-02-12] MEDS: PYRIDOXINE HCL 50 MG TAB PO SCH (09:19)
[2019-02-12] MEDS: LISINOPRIL 5 MG TAB PO SCH (09:24)
[2019-02-12] MEDS ORDERED: CHOLECALCIFEROL (VITD3) 1,000 UNIT TAB PO ONE (10:15)
[2019-02-12 11:24] LABS: INR 2.63 (0.9-1.15); Partial Thromboplastin Time 41.5 sec (23.78-33.04); Prothrombin Time 26.6 sec (9.27-12.13)
[2019-02-12 12:46] VITALS: BP 114/57
[2019-02-12 15:04] LABS: Free T3 1.36 pg/mL (2.3-4.2); Free T4 (Free Thyroxine) 1.75 ng/dL (0.89-1.76)
[2019-02-12] MEDS ORDERED: THROAT LOZENGES(CEPASTAT) MT PRN (15:30)
[2019-02-12] MEDS ORDERED: THROAT LOZENGES(CEPASTAT) MT ONE (15:30)
[2019-02-12 16:40] VITALS: BP 140/64
[2019-02-12] MEDS: WARFARIN SODIUM 1 MG TAB PO SCH (17:20)
--- NOTE | 2019-02-12 19:55 | NUR ---
Opening Shift Note Assumed care of patient, awake and alert, very forgetful. No S/S of distress/SOB or pain. Instructed on POC and to call for assist PRN, will continue to monitor for changes Q1hr and PRN.
--- NOTE | 2019-02-12 20:28 | NUR ---
Respiratory note: AT BEDSIDE FOR MED NEB TX IN (B) BED BUT (A) BED PT IS CRYING STATING SHE HAS A VERY PAINFUL PAIN IN HER CHEST. PT POINTING TO HER CHEST. RN CALLED X3 AT [phone] FROM PTS ROOM NO ANSWER. KELLEY MALONE @[phone] (ACOUSTICAL CARPENTER) MADE AWARE OF PTS COMPLAINTS. I ASSESSED MY [id number]% ON 2LNC, HR74, BS DIMINISHED T/O.
[2019-02-12 21:14] VITALS: BP 151/68
[2019-02-12] MEDS: ATORVASTATIN 20 MG TAB PO SCH (21:35)
[2019-02-13] MEDS: traMADol HCL 50 MG TAB PO PRN ×2 (03:25→23:11)
[2019-02-13 04:52] VITALS: BP 136/77
[2019-02-13 06:27] LABS: Basophils # (auto) 0 uL; Basophils % (auto) 0.3 % (0.0-2.0); Eosinophils # (auto) 0.1 uL; Eosinophils % (auto) 0.9 % (0.0-7.0); Hematocrit 31.1 % (36.0-46.0); Hemoglobin 10.5 g/dL (12.2-16.2); Lymphocytes # (auto) 1.2 uL; Lymphocytes % (auto) 14.6 % (10.0-50.0); Mean Corpuscular Hemoglobin 29.3 pg (28.0-32.0); Mean Corpuscular Hgb Conc. 33.7 g/dL (32.0-36.0); Mean Corpuscular Volume 86.7 fL (80.0-100.0); Monocytes # (auto) 0.7 uL; Monocytes % (auto) 8.4 % (0.0-12.0); Neutrophils # (auto) 6.1 uL; Neutrophils % (auto) 75.8 % (37.0-80.0); Platelet Count (auto) 304 10^3/uL (140-450); Red Blood Cells 3.58 10^6/uL (4.0-5.20); Red Cell Distribution Width 15.7 % (11.8-14.3); White Blood Cell 8.1 10^3/uL (4.4-10.8)
[2019-02-13 06:37] LABS: BUN/Creatinine Ratio 19.1; Calcium 8.9 mg/dL (8.5-10.1); Potassium 3.4 mmol/L (3.5-5.1)
[2019-02-13 06:39] LABS: INR 2.77 (0.9-1.15); Partial Thromboplastin Time 41.4 sec (23.78-33.04)
[2019-02-13] MEDS: Ensure Enlive Vanilla 8oz Bottle PO SCH ×3 (08:00→17:40)
[2019-02-13] MEDS: Pro-Stat SF 30ml Vanilla PO SCH ×2 (08:00→17:40)
[2019-02-13 09:00] VITALS: BP 159/71
[2019-02-13] MEDS: FERROUS SULFATE 325 MG TAB PO SCH ×2 (09:35→17:30)
[2019-02-13] MEDS: LEVOTHYROXINE SODIUM 100 MCG/5 ML INJ IV SCH (09:36)
[2019-02-13] MEDS: CHOLECALCIFEROL (VITD3) 1,000 UNIT TAB PO SCH (09:36)
[2019-02-13] MEDS: PANTOPRAZOLE 40 MG TAB PO SCH (09:36)
[2019-02-13] MEDS: DIGOXIN 0.125 MG TAB PO SCH (09:37)
[2019-02-13] MEDS: MEGESTROL ACET 400MG/10ML ORAL SUSP PO SCH ×2 (09:37→22:08)
[2019-02-13] MEDS: DOXYCYCLINE 100 MG TAB/CAP PO SCH ×2 (09:38→22:08)
[2019-02-13] MEDS: PYRIDOXINE HCL 50 MG TAB PO SCH (09:38)
[2019-02-13] MEDS: METOPROLOL SUCCINATE XL 50 MG TAB PO SCH (09:38)
[2019-02-13] MEDS: LISINOPRIL 5 MG TAB PO SCH (09:39)
--- NOTE | 2019-02-13 11:38 | NUR ---
Spoke to Germania regarding patient needs Midline for TPN, she made aware.
[2019-02-13] MEDS ORDERED: TPN PER PHARMACY 0 ML IV SCH (11:45)
[2019-02-13] MEDS ORDERED: MORPHINE SULF INJ 2 MG/ML SYRINGE 1ML IV PRN (11:45)
[2019-02-13 12:58] LABS: Magnesium 1.8 mg/dL (1.6-2.6); Phosphorus 2.3 mg/dL (2.5-4.90)
[2019-02-13 13:00] VITALS: BP 133/59
[2019-02-13] MEDS ORDERED: traMADol HCL 50 MG TAB PO ONE (13:45)
[2019-02-13] MEDS ORDERED: POTASSIUM CHL 20MEQ/100ML 100 ML IV ONE (13:45)
[2019-02-13] MEDS ORDERED: MAGNESIUM SULFATE 1GM/100ML 100 ML IV ONE (13:45)
--- NOTE | 2019-02-13 14:00 | NUR ---
IV insertion IV access obtained, via clean sterile technique by inserting 22 gauge catheter at after attempt(s). IV secured properly. No trauma to site. Patient tolerated procedure well.
[2019-02-13] MEDS ORDERED: SODIUM PHOSPHATES 20 MEQ in SODIUM CHL 0.9% 100 ML IV ONE (16:00)
[2019-02-13 16:42] VITALS: BP 140/68
[2019-02-13] MEDS: WARFARIN SODIUM 1 MG TAB PO SCH (17:30)
[2019-02-13] MEDS ORDERED: DEXTROSE (50%) 50ML SYRG IV SCH (20:00)
[2019-02-13] MEDS: ACCU-CHEK COMFORT CURVE STRIP VI SCH (20:34)
[2019-02-13] MEDS: InsuLIN REG 1unit/0.01ml Soln (100units/ml) SC SCH (20:35)
[2019-02-13] MEDS: CLINIMIX PER PHARMACY IV NR (20:36)
[2019-02-13 22:00] VITALS: BP 139/65
[2019-02-13] MEDS: ATORVASTATIN 20 MG TAB PO SCH (22:07)
[2019-02-14] MEDS: ACCU-CHEK COMFORT CURVE STRIP VI SCH ×4 (00:28→17:55)
[2019-02-14] MEDS: InsuLIN REG 1unit/0.01ml Soln (100units/ml) SC SCH ×4 (00:29→17:54)
[2019-02-14 05:41] VITALS: BP 147/74
[2019-02-14 06:38] LABS: INR 3.12 (0.9-1.15); Partial Thromboplastin Time 41.2 sec (23.78-33.04); Prothrombin Time 31.3 sec (9.27-12.13)
[2019-02-14 06:43] LABS: Albumin 2.7 g/dL (3.4-5.0); Calcium 8.5 mg/dL (8.5-10.1); Magnesium 1.6 mg/dL (1.6-2.6); Potassium 3.2 mmol/L (3.5-5.1)
[2019-02-14 06:49] LABS: BUN/Creatinine Ratio 17.9; Bilirubin, Total 0.6 mg/dL (0.2-1.0); Phosphorus 1.8 mg/dL (2.5-4.90); Pre Albumin 12.1 mg/dL (20.0-40.0); Total Protein 6.2 g/dL (6.4-8.2)
[2019-02-14] MEDS: Ensure Enlive Vanilla 8oz Bottle PO SCH ×3 (08:00→18:00)
[2019-02-14] MEDS: Pro-Stat SF 30ml Vanilla PO SCH ×2 (08:00→18:00)
[2019-02-14] MEDS: FERROUS SULFATE 325 MG TAB PO SCH ×2 (08:00→17:54)
[2019-02-14] MEDS ORDERED: POTASSIUM PHOSPHATE 44 MEQ in D5W 5% 250 ML IV ONE (09:15)
[2019-02-14 09:20] VITALS: BP 150/71
[2019-02-14] MEDS: METOPROLOL SUCCINATE XL 50 MG TAB PO SCH (10:27)
[2019-02-14] MEDS: MEGESTROL ACET 400MG/10ML ORAL SUSP PO SCH ×2 (10:28→21:34)
[2019-02-14] MEDS: DIGOXIN 0.125 MG TAB PO SCH (10:28)
[2019-02-14] MEDS: LEVOTHYROXINE SODIUM 100 MCG/5 ML INJ IV SCH (10:28)
[2019-02-14] MEDS: PANTOPRAZOLE 40 MG TAB PO SCH (10:29)
[2019-02-14] MEDS: CHOLECALCIFEROL (VITD3) 1,000 UNIT TAB PO SCH (10:29)
[2019-02-14] MEDS: traMADol HCL 50 MG TAB PO PRN ×3 (10:30→21:32)
[2019-02-14] MEDS: DOXYCYCLINE 100 MG TAB/CAP PO SCH ×2 (10:30→21:33)
[2019-02-14] MEDS: LISINOPRIL 5 MG TAB PO SCH (10:31)
[2019-02-14] MEDS: PYRIDOXINE HCL 50 MG TAB PO SCH (10:32)
--- NOTE | 2019-02-14 12:49 | NUR ---
INR to high for picc line. patient refuses midline at this time. patient has x 2 IVs
[2019-02-14 13:00] VITALS: BP 142/68
--- NOTE | 2019-02-14 13:30 | NUR ---
Provided patient and family member with extensive education regarding need for midline. Patient and family member stated they do not want midline because patient has 2 peripheral IVs. Provided education regarding need to run PPN independently of other medications and midline RN is at the bedside. Both patient and family member are aware that if an IV infiltrates, she cannot receive any other IV medications with PPN. Primary RN and electrical discharge machine operator attempted multiple times to place IV. Patient and family member continue to refuse midline. Midline RN also provided extensive education.
--- NOTE | 2019-02-14 13:40 | NUR ---
Nutrition Consult and Follow-up Notes Wt.: 49.4 kg as of yesterday. Pt's on oxygen via nasal cannula, son and RN at bedside during rounds this morning. Pt's no signs of distress noted earlier, except for mild medial chest pain incision, per son earlier. Pt's currently on Cardiac: 2 gms Na, Low Chol, Low Fat diet with Ensure Enlive 1 carton TID and Prostat 1 pkt BID, on Megace, has fair PO intake aeb 65% ave. consumed meals (x5) in last 2.5 days. Encouraged to increase food intake through small frequent meals as tolerated. Pt's on Clinimix @ 42 ml/hr providing 510 kcal, 340 NPCs and 42.5 gms pro. Pt with inadequate PN support d/t low initiation rate delivery of diluted formula aeb current PN infusion meets 63% to 39% of est caloric needs and 63% to 82% of est protein needs.Discussed importance/benefits of PN support r/t pt's current medical condition, reinforced FDI for Coumadin and they verbalized understanding. Noted pt's to to receive tonight another TPN @ 54 ml/hr to provide 848 kcal, 608 NPC, 60 gms pro and 24% Fat. Est. Needs based on BW (52 kg) : 6762-7306 kcal (25-30 kcal/kgBW), 52-68 gms pro (1.0-1.3 gms/kgBW d/t mod hypoalbuminemia). Will continue to monitor pertinent labs and reassess nutrient need prn Labs: Gluc 125 H, Na 131 L, K 3.2 L, Phos 1.8 L, Tpro 6.2 L, Alb 2.7 L, Prealb 12.7 L, Trig 67 wnl. Skin: Piotr scale 17, mod risk, p's medial chest incision dry and intact per executive vice president. GI: Pt's no bowel activity since 02/06/19 per executive vice president. PES: Increased nutrient needs r/t current/chronic medical/nutritional status aeb 99% IBW, BMI 19.9 kg/m2, decreased muscle mass, <75% consumed meal, on PN support Altered nutrition related lab values r/t current/chronic medical condition aeb elev BUN, hyperglycemia, mod hypoalb Will continue to monitor PO intake, PN tolerance, skin status, pertinent labs and weight trend. F/u in 2 to 3 days. Rec.: 1.) Continue close supervision and feeding assistance prn during meals. 2.) If pt's PO intake remains inadequate (<75%) with PN support, consider gradual increase on calories and protein to meet at least 75% of est nutrient needs. 4.) Refer pt to CDE/RD for further nutrition education and weight monitoring upon discharge. 5.) Continue current plan of care. Thank you for this consult.
--- NOTE | 2019-02-14 16:22 | NUR ---
Spoke with Dr. Sutton regarding coumadin administration. Per MD INR is prolonged at 3.12 and hold coumadin. Pharmacy is aware.
[2019-02-14] MEDS: WARFARIN SODIUM 1 MG TAB PO SCH (16:43)
[2019-02-14 17:19] VITALS: BP 129/72
--- NOTE | 2019-02-14 18:18 | NUR ---
Provided Dr. Emerson with results of head CT. MD aware coumadin was held due to high INR. Redraw INR in AM. No new orders given. Patient is asymptomatic.
--- NOTE | 2019-02-14 19:13 | NUR ---
Change of shift given to welder 2nd shift RN. No distress noted.
--- NOTE | 2019-02-14 19:20 | NUR ---
Called Pharmacy to clarify order: Called pharmacy to clarify order of PPN and Clinimix scheduled around same time. To hold Clinimix and administer new order of PPN from pharmacy as ordered.
[2019-02-14] MEDS: CLINIMIX PER PHARMACY IV NR (19:23)
--- NOTE | 2019-02-14 19:37 | NUR ---
Opening Shift Note Assumed care of patient, awake and alert oriented x4. Bed is in lowest locked position with bed rails up x2 and call light is within reach of the patient. No S/S of distress/SOB noted. Instructed on POC and to call for assist PRN.
[2019-02-14] MEDS ORDERED: PPN PER PHARMACY IV NR ×9 (20:00)
--- NOTE | 2019-02-14 20:00 | NUR ---
Pharmacy clarification about TPN: Pharmacy clarified saying TPN was okay to be run by peripheral line or central line. Was made to be able to be run through peripheral line. Also states on sticker of TPN bag that it is okay.
--- NOTE | 2019-02-14 20:10 | NUR ---
IV insertion IV access obtained from charge nurse, via clean sterile technique by inserting 22 gauge catheter on the right hand. IV secured properly. No trauma to site. Patient tolerated well.
--- NOTE | 2019-02-14 20:11 | NUR ---
IV insertion IV access obtained from charge nurse, via clean sterile technique by inserting 22 gauge catheter on the left hand. IV secured properly. No trauma to site. Patient tolerated well.
--- NOTE | 2019-02-14 20:30 | NUR ---
Password: Patients family called to ask about patient information about IV but no password was placed. Asked patient if they would like to set up a password and then speak to family. Patient agreed. Patients password is "[email or web address]" which is patients sons name. Patient spoke to family member and gave password to speak about the patient.
[2019-02-14] MEDS: ATORVASTATIN 20 MG TAB PO SCH (21:32)
[2019-02-14 22:00] VITALS: BP 154/72
[2019-02-15] MEDS: InsuLIN REG 1unit/0.01ml Soln (100units/ml) SC SCH ×4 (00:15→17:58)
[2019-02-15] MEDS: ACCU-CHEK COMFORT CURVE STRIP VI SCH ×4 (00:16→17:59)
[2019-02-15 05:00] VITALS: BP 148/71
[2019-02-15] MEDS: ONDANSETRON HCL 4 MG/2 ML VIAL IV PRN ×2 (05:52→20:36)
[2019-02-15] MEDS: traMADol HCL 50 MG TAB PO PRN (06:32)
[2019-02-15 06:48] LABS: Basophils # (auto) 0 uL; Basophils % (auto) 0.3 % (0.0-2.0); Eosinophils # (auto) 0 uL; Eosinophils % (auto) 0.4 % (0.0-7.0); Hematocrit 30.2 % (36.0-46.0); Hemoglobin 10.2 g/dL (12.2-16.2); Lymphocytes # (auto) 1.2 uL; Lymphocytes % (auto) 12.3 % (10.0-50.0); Mean Corpuscular Hemoglobin 29.4 pg (28.0-32.0); Mean Corpuscular Hgb Conc. 33.9 g/dL (32.0-36.0); Mean Corpuscular Volume 86.7 fL (80.0-100.0); Monocytes # (auto) 0.7 uL; Monocytes % (auto) 7.7 % (0.0-12.0); Neutrophils # (auto) 7.7 uL; Neutrophils % (auto) 79.3 % (37.0-80.0); Platelet Count (auto) 268 10^3/uL (140-450); Red Blood Cells 3.48 10^6/uL (4.0-5.20); Red Cell Distribution Width 16.2 % (11.8-14.3); White Blood Cell 9.7 10^3/uL (4.4-10.8)
[2019-02-15 06:53] LABS: Albumin 2.6 g/dL (3.4-5.0); Calcium 8.4 mg/dL (8.5-10.1); Potassium 3.6 mmol/L (3.5-5.1)
[2019-02-15 06:57] LABS: BUN/Creatinine Ratio 22.2; Bilirubin, Total 0.5 mg/dL (0.2-1.0); Phosphorus 2.8 mg/dL (2.5-4.90); Total Protein 6.2 g/dL (6.4-8.2)
--- NOTE | 2019-02-15 07:01 | NUR ---
Spoke with pharmacist Cam, per pharmacy patient can receive IV nutrition via peripheral vein because dextrose concentration is < 10%. Will continue to monitor.
--- NOTE | 2019-02-15 07:02 | NUR ---
Closing note: Patient is resting in bed with breaths even and unlabored. No S/S of distress SOB noted. Bed is in lowest locked position with bed rails up x2 and call light is within reach of the patient. Care endorsed to day shift nurse.
--- NOTE | 2019-02-15 07:04 | NUR ---
Opening Shift Note Assumed care of patient. No S/S of distress/SOB or pain. Instructed on POC and to call for assist PRN, will continue to monitor for changes Q1hr and PRN.Opening Shift Note
[2019-02-15 07:13] LABS: INR 2.71 (0.9-1.15); Partial Thromboplastin Time 39.3 sec (23.78-33.04); Prothrombin Time 27.4 sec (9.27-12.13)
[2019-02-15] MEDS: FERROUS SULFATE 325 MG TAB PO SCH ×2 (08:00→17:58)
[2019-02-15] MEDS: Pro-Stat SF 30ml Vanilla PO SCH ×2 (08:00→18:00)
[2019-02-15] MEDS: Ensure Enlive Vanilla 8oz Bottle PO SCH ×3 (08:00→18:00)
[2019-02-15 08:30] VITALS: BP 142/63
--- NOTE | 2019-02-15 09:35 | NUR ---
Midline Placement Patient and son educated on need for midline placement, agreeing for midline placement. All risks and benefits explained and all questions and concerns addresses prior to procedure. 18g/10cm midline inserted via Right Brachial vein using Ultrasound. Sterile technique utilized. Blood return obtained from single lumen and flushed easily with NS using proper technique. Midline secured with saline lock; biodisc and occlusive dressing applied. Primary RN notified. Midline lot #[id number].
[2019-02-15] MEDS: CHOLECALCIFEROL (VITD3) 1,000 UNIT TAB PO SCH (09:57)
[2019-02-15] MEDS: PANTOPRAZOLE 40 MG TAB PO SCH (09:58)
[2019-02-15] MEDS: PYRIDOXINE HCL 50 MG TAB PO SCH (09:58)
[2019-02-15] MEDS: MEGESTROL ACET 400MG/10ML ORAL SUSP PO SCH ×2 (09:59→20:36)
[2019-02-15] MEDS: DIGOXIN 0.125 MG TAB PO SCH (09:59)
[2019-02-15] MEDS: LEVOTHYROXINE SODIUM 100 MCG/5 ML INJ IV SCH (09:59)
[2019-02-15] MEDS: DOXYCYCLINE 100 MG TAB/CAP PO SCH ×2 (09:59→20:36)
[2019-02-15] MEDS: METOPROLOL SUCCINATE XL 50 MG TAB PO SCH (10:00)
[2019-02-15] MEDS: LISINOPRIL 5 MG TAB PO SCH (10:00)
[2019-02-15 13:00] VITALS: BP 111/63
[2019-02-15 13:50] LABS: Cholesterol 70 mg/dL (< 200)
[2019-02-15 13:53] LABS: HDL Cholesterol 41 mg/dL (40-59); LDL Cholesterol 30 mg/dL (< 100); Triglycerides 65 mg/dL (< 150)
[2019-02-15 17:00] VITALS: BP 130/65
--- NOTE | 2019-02-15 19:12 | NUR ---
Change of shift given to power and recovery shift engineer RN. No distress noted.
[2019-02-15] MEDS ORDERED: PPN PER PHARMACY IV NR ×11 (20:00)
--- NOTE | 2019-02-15 20:00 | NUR ---
Opening Shift Note: A&Ox4, resting in bed. Currently on 2LO2 via NC; patient states she does not wear at home; pain level 0/10, and currently bedrest related to weakness; baseline patient is independent with wheeled walker. Patient's own WW at bedside. Bed locked in lowest position, side rails up x2, call light within reach, and bed alarm on for patient safety. IV: 22 g in left wrist IID inserted on 02/14/19; IV 22 g in right wrist IID inserted on 02/13/19; IV 22 g in right hand IID inserted on 02/14/19; midline in RUE running PPN at 61 ml/hr inserted on 02/15/19. Skin: scab/old abrasion medial right knee ERNIE; bruise on left hip; medial chest incision PUBLIC RELATIONS ACCOUNT EXECUTIVE. POC discussed and questions answered. Will continue to round and reposition prn.
[2019-02-15] MEDS: ATORVASTATIN 20 MG TAB PO SCH (20:36)
[2019-02-15 22:00] VITALS: BP 118/55
[2019-02-16] MEDS: ACCU-CHEK COMFORT CURVE STRIP VI SCH ×5 (00:22→23:50)
[2019-02-16 05:00] VITALS: BP 152/73
--- NOTE | 2019-02-16 05:30 | NUR ---
IVs removed in right hand; x2 22 g related to pain.
[2019-02-16] MEDS: InsuLIN REG 1unit/0.01ml Soln (100units/ml) SC SCH ×5 (05:49→23:50)
--- NOTE | 2019-02-16 05:50 | NUR ---
Wound Care: Right upper chest area of skin irritation related to telemetry lead. Lead removed and picture taken for reference. Optifoam gentle dressing applied for protection. Will reconsult wound care.
[2019-02-16 08:00] VITALS: BP 142/63
[2019-02-16] MEDS: Pro-Stat SF 30ml Vanilla PO SCH ×2 (08:00→18:41)
[2019-02-16] MEDS: Ensure Enlive Vanilla 8oz Bottle PO SCH ×3 (08:00→18:40)
[2019-02-16 08:09] LABS: Potassium 3.7 mmol/L (3.5-5.1)
[2019-02-16 08:13] LABS: INR 1.45 (0.9-1.15); Partial Thromboplastin Time 32.4 sec (23.78-33.04); Prothrombin Time 15.2 sec (9.27-12.13)
[2019-02-16 08:15] LABS: Albumin 2.6 g/dL (3.4-5.0); BUN/Creatinine Ratio 19.7; Bilirubin, Total 0.5 mg/dL (0.2-1.0); Calcium 8.5 mg/dL (8.5-10.1); Magnesium 2.5 mg/dL (1.6-2.6); Phosphorus 2.9 mg/dL (2.5-4.90); Total Protein 6.2 g/dL (6.4-8.2)
[2019-02-16 08:32] VITALS: BP 127/62
[2019-02-16] MEDS: MEGESTROL ACET 400MG/10ML ORAL SUSP PO SCH ×2 (08:55→22:15)
[2019-02-16] MEDS: FERROUS SULFATE 325 MG TAB PO SCH ×2 (08:55→17:12)
[2019-02-16] MEDS: PYRIDOXINE HCL 50 MG TAB PO SCH (08:55)
[2019-02-16] MEDS: DIGOXIN 0.125 MG TAB PO SCH (08:56)
[2019-02-16] MEDS: LISINOPRIL 5 MG TAB PO SCH (08:56)
[2019-02-16] MEDS: CHOLECALCIFEROL (VITD3) 1,000 UNIT TAB PO SCH (08:57)
[2019-02-16] MEDS: DOXYCYCLINE 100 MG TAB/CAP PO SCH (08:58)
[2019-02-16] MEDS: PANTOPRAZOLE 40 MG TAB PO SCH (08:58)
[2019-02-16] MEDS: METOPROLOL SUCCINATE XL 50 MG TAB PO SCH (08:59)
[2019-02-16] MEDS: LEVOTHYROXINE SODIUM 100 MCG/5 ML INJ IV SCH (08:59)
[2019-02-16] MEDS: traMADol HCL 50 MG TAB PO PRN ×4 (09:02→23:09)
--- NOTE | 2019-02-16 12:27 | NUR ---
Nutrition Follow-up Notes Wt.: 47.5 kg Pt's sleeping with no family by bedside. Pt's currently on Cardiac: 2 gms Na, Low Chol, Low Fat diet with Ensure Enlive 1 carton TID and Prostat 1 pkt BID, on Megace, with inadequte PO of 50% x 4 per RN doc. Pt's on PPN support @ 61 ml/hr providing 848 kcal, 608 NPCs and 60 gms pro. Pt with inadequate PN support d/t low initiation rate delivery of diluted formula aeb current PN infusion meets 54-65% of est caloric needs however meets 88-15% of est protein needs. Est. Needs based on BW (52 kg) : 2340-2301 kcal (25-30 kcal/kgBW), 52-68 gms pro (1.0-1.3 gms/kgBW d/t mod hypoalbuminemia). Will continue to monitor pertinent labs and reassess nutrient need prn Labs: GLU 113 H, ALB 2.6 L. Skin: Piotr scale 15, mod risk, p's medial chest incision dry and intact per pest controller. GI: Pt's no bowel activity since 02/06/19 per pest controller. PES: Increased nutrient needs r/t current/chronic medical/nutritional status aeb 99% IBW, BMI 19.9 kg/m2, decreased muscle mass, <75% consumed meal, on PN support Altered nutrition related lab values r/t current/chronic medical condition aeb elev BUN, hyperglycemia, mod hypoalb Will continue to monitor PO intake, PN tolerance, skin status, pertinent labs and weight trend. F/u in 2 to 3 days. Rec.: 1.) Continue close supervision and feeding assistance prn during meals. 2.) If pt's PO intake remains inadequate (<75%) with PN support, consider gradual increase on calories and protein to meet at least 75% of est nutrient needs. 4.) Refer pt to CDE/RD for further nutrition education and weight monitoring upon discharge. 5.) Continue current plan of care.
[2019-02-16 12:31] VITALS: BP 116/54
--- NOTE | 2019-02-16 14:28 | NUR ---
PT Patient refused to be OOB during PT visit with c/o pain to her upper chest area. Addendum: 02/16/19 at 1429 by ISSAC DUQUE PTT Amended: Links added.
[2019-02-16] MEDS ORDERED: LIDOCAINE 5% TOPICAL PATCH TOP ONE (15:30)
[2019-02-16 17:00] VITALS: BP 127/65
[2019-02-16] MEDS ORDERED: WARFARIN SODIUM 1 MG TAB PO ONE (17:00)
--- NOTE | 2019-02-16 19:40 | NUR ---
OPENING NOTE REPORT RECEIVED FROM DAY SHIFT RN PATIENT IS A/OX4 RESTING IN BED. PATIENT DENIES ANY PAIN AT THIS TIME. PHYSICAL ASSESSMENT DONE-SEE INTERVENTIONS. POC FOR TONIGHT DISCUSSED, ALL QUESTIONS ANSWERED. RIGHT UPPER ARM MIDLINE RUNNING PPN, NEW BAG TO BE HUNG AT 2000. SAFETY PRECAUTIONS IN PLACE, CALL LIGHT WITHIN REACH. WILL MONITOR THROUGHOUT SHIFT.
[2019-02-16] MEDS ORDERED: PPN PER PHARMACY IV NR ×10 (20:00)
--- NOTE | 2019-02-16 20:00 | NUR ---
PPN NEW BAG OF PPN HUNG VIA MIDLINE TO RIGHT UPPER ARM ALL COMPONENTS VERIFIED WITH SECOND RNFAISAL CURRENT BLOOD SUGAR OF 131 RATE NOW AT 61ML/HR ORDERED
[2019-02-16] MEDS: ONDANSETRON HCL 4 MG/2 ML VIAL IV PRN (20:31)
--- NOTE | 2019-02-16 20:37 | NUR ---
NAUSEA PT C/O FEELING NAUSEOUS. PT HAS NOT EATEN DINNER TRAY DUE TO NAUSEA ADMINISTERED ZOFRAN ORDERED BY MD WILL REASSESS PATIENT AND OFFER DINNER TRAY IN 30 MINUTES
[2019-02-16 22:00] VITALS: BP 138/67
[2019-02-16] MEDS: ATORVASTATIN 20 MG TAB PO SCH (22:15)
--- NOTE | 2019-02-16 23:54 | NUR ---
BLOOD SUGAR OF 175 PT REFUSES INSULIN AT THIS TIME. PATIENT ALSO DID NOT EAT ANY OF HER DINNER TRAY. WILL RECHECK BLOOD SUGAR IN AM SCHEDULED
[2019-02-17] MEDS: ONDANSETRON HCL 4 MG/2 ML VIAL IV PRN (03:39)
[2019-02-17 05:00] VITALS: BP 156/76
[2019-02-17] MEDS: InsuLIN REG 1unit/0.01ml Soln (100units/ml) SC SCH ×4 (06:00→23:57)
[2019-02-17] MEDS: LEVOTHYROXINE SODIUM 100 MCG TAB PO SCH (06:25)
[2019-02-17] MEDS: ACCU-CHEK COMFORT CURVE STRIP VI SCH ×4 (06:26→23:57)
[2019-02-17] MEDS: traMADol HCL 50 MG TAB PO PRN ×2 (06:26→19:08)
[2019-02-17 07:02] LABS: INR 1.35 (0.9-1.15); Partial Thromboplastin Time 31.7 sec (23.78-33.04); Potassium 4.2 mmol/L (3.5-5.1); Prothrombin Time 14.2 sec (9.27-12.13)
[2019-02-17 07:14] LABS: Albumin 2.9 g/dL (3.4-5.0); BUN/Creatinine Ratio 24.7; Bilirubin, Total 0.5 mg/dL (0.2-1.0); Calcium 8.7 mg/dL (8.5-10.1); Phosphorus 2.8 mg/dL (2.5-4.90); Pre Albumin 13.2 mg/dL (20.0-40.0); Total Protein 6.9 g/dL (6.4-8.2)
--- NOTE | 2019-02-17 07:20 | NUR ---
CLOSING NOTE REPORT ENDORSED TO DAY SHIFT RN PATIENT IS RESTING IN BED WITH EYES CLOSED NO SIGNS OF DISTRESS NOTED AT THIS TIME SAFETY PRECAUTIONS IN PLACE CALL LIGHT WITHIN REACH
[2019-02-17 08:00] VITALS: BP 127/62
[2019-02-17] MEDS: Pro-Stat SF 30ml Vanilla PO SCH ×2 (08:00→18:00)
[2019-02-17] MEDS: Ensure Enlive Vanilla 8oz Bottle PO SCH ×3 (08:00→18:00)
[2019-02-17 09:00] VITALS: BP 147/78
[2019-02-17] MEDS: FERROUS SULFATE 325 MG TAB PO SCH ×2 (09:12→17:43)
[2019-02-17] MEDS: LIDOCAINE 5% TOPICAL PATCH TOP SCH (09:12)
[2019-02-17] MEDS: MEGESTROL ACET 400MG/10ML ORAL SUSP PO SCH (09:12)
[2019-02-17] MEDS: METOPROLOL SUCCINATE XL 50 MG TAB PO SCH (09:13)
[2019-02-17] MEDS: LISINOPRIL 5 MG TAB PO SCH (09:13)
[2019-02-17] MEDS: CHOLECALCIFEROL (VITD3) 1,000 UNIT TAB PO SCH (09:14)
[2019-02-17] MEDS: PANTOPRAZOLE 40 MG TAB PO SCH (09:14)
[2019-02-17] MEDS: PYRIDOXINE HCL 50 MG TAB PO SCH (09:14)
[2019-02-17 13:00] VITALS: BP 139/65
[2019-02-17 16:37] VITALS: BP 149/77
[2019-02-17] MEDS ORDERED: WARFARIN SODIUM 5 MG TAB PO ONE (17:00)
--- NOTE | 2019-02-17 17:04 | NUR ---
assessment Patient is a 88 year old female who is alert and oriented. Prior to admission patient lived home with family and functioned with assistance. Per patient she will return home to her prior living arrangements post discharge and family will transport her home. Patient has a rollator for home use. Patient has good family support. Patient is on service with [facility]. Patient has been re-admitted for chest pain. Patient has had a CABG recently. Patients post discharge needs to be determined prior to discharge. I informed patient she has a right to speak to a social media project manager regarding all care. I informed patient she has a right to participate in any and all discharge planning. Patient is aware of visiting hours on the hospital floor. I informed patient she has a right to privacy. Patient has a POA and advanced directive. Patient verbalized understanding and agreed to discharge plan. Addendum: 02/17/19 at 1709 by Gloria PARSON Amended: Links added.
[2019-02-17] MEDS: GABAPENTIN 100 MG CAP PO SCH ×2 (17:42→21:33)
--- NOTE | 2019-02-17 19:29 | NUR ---
PPN NEW PPDivya HOANG. ALL COMPONENTS VERIFIED BY SECOND RN, LORENA Ca BLOOD SUGAR PRIOR TO ADMINISTRATION:140 Addendum: 02/17/19 at 2016 by Pepper Sanchez RN ORDERED RATE OF 61ML/HR
--- NOTE | 2019-02-17 19:30 | NUR ---
OPENING NOTE REPORT RECEIVED FROM DAY SHIFT RN PATIENT IS RESTING IN BED, PATIENT IS HAVING PERIODS OF CONFUSION. PATIENT IS EASILY REORIENTED AT THIS TIME, ABLE TO VERIFY NAME/ AND PLACE. PER JOHN PADILLA, PATIENT ASKED, "HOW CAN I PAY THIS ELECTRICITY BILL?" WHILE PATIENT POINTED AT GREEN EMESIS BAG. PATIENT REORIENTED TO TIME/PLACE/SITUATION. PATIENT HAS BEEN DOWNGRADED TO MED SURG PER , TELE BOX NO LONGER ON PATIENT. PATIENT STILL C/O PAIN TO INCISION SITE. TRAMADOL GIVEN ORDERED BY MD. PHYSICAL ASSESSMENT DONE-SEE INTERVENTIONS. POC FOR TONIGHT DISCUSSED. SAFETY MEASURES IN PLACE, CALL LIGHT WITHIN REACH.
[2019-02-17] MEDS ORDERED: PPN PER PHARMACY IV NR ×11 (20:00)
[2019-02-17] MEDS: ATORVASTATIN 20 MG TAB PO SCH (21:33)
[2019-02-17 21:52] VITALS: BP 147/96
[2019-02-18] MEDS: traMADol HCL 50 MG TAB PO PRN ×4 (02:08→21:08)
[2019-02-18 04:58] VITALS: BP 124/72
[2019-02-18] MEDS: InsuLIN REG 1unit/0.01ml Soln (100units/ml) SC SCH ×3 (06:00→16:54)
[2019-02-18] MEDS: GABAPENTIN 100 MG CAP PO SCH ×2 (06:22→21:08)
[2019-02-18] MEDS: LEVOTHYROXINE SODIUM 100 MCG TAB PO SCH (06:22)
[2019-02-18] MEDS: ACCU-CHEK COMFORT CURVE STRIP VI SCH ×3 (06:22→16:53)
[2019-02-18 06:53] LABS: INR 1.42 (0.9-1.15); Partial Thromboplastin Time 32.5 sec (23.78-33.04); Prothrombin Time 14.9 sec (9.27-12.13)
[2019-02-18 06:55] LABS: Albumin 2.9 g/dL (3.4-5.0); Calcium 8.8 mg/dL (8.5-10.1); Magnesium 2.2 mg/dL (1.6-2.6); Potassium 4.4 mmol/L (3.5-5.1)
[2019-02-18 06:59] LABS: BUN/Creatinine Ratio 27.4; Bilirubin, Total 0.6 mg/dL (0.2-1.0); Phosphorus 2.7 mg/dL (2.5-4.90); Total Protein 6.7 g/dL (6.4-8.2)
--- NOTE | 2019-02-18 07:28 | NUR ---
CLOSING NOTE REPORT ENDORSED TO DAY SHIFT RN PATIENT IS SLEEPING, NO S/S OF DISTRESS NOTED CALL LIGHT WITHIN REACH
--- NOTE | 2019-02-18 07:35 | NUR ---
Assumed care of pt, awake and alert, no s&s of distress/sob, reports abd pain (see pain medication administration data), instructed on poc and to call for assist prn, will continue to monitor for changes q1h and prn.
[2019-02-18] MEDS: LIDOCAINE 5% TOPICAL PATCH TOP SCH (08:43)
[2019-02-18] MEDS: LISINOPRIL 5 MG TAB PO SCH (08:44)
[2019-02-18] MEDS: PYRIDOXINE HCL 50 MG TAB PO SCH (08:45)
[2019-02-18] MEDS: FERROUS SULFATE 325 MG TAB PO SCH (08:45)
[2019-02-18] MEDS: METOPROLOL SUCCINATE XL 50 MG TAB PO SCH (08:45)
[2019-02-18] MEDS: CHOLECALCIFEROL (VITD3) 1,000 UNIT TAB PO SCH (08:46)
[2019-02-18] MEDS: PANTOPRAZOLE 40 MG TAB PO SCH (08:46)
[2019-02-18] MEDS: Ensure Enlive Vanilla 8oz Bottle PO SCH ×3 (08:47→17:36)
[2019-02-18] MEDS: Pro-Stat SF 30ml Vanilla PO SCH ×2 (08:47→17:37)
[2019-02-18 08:50] VITALS: BP 147/70
--- NOTE | 2019-02-18 12:07 | NUR ---
Pt awake and alert, no s&s of distress/sob, reports lower abd discomfort (see pain med administration data), will continue to monitor for changes q1h and prn.
--- NOTE | 2019-02-18 12:19 | NUR ---
Notified Dr. Hernandez re pt is c/o abd pain and constipation, no orders received, md states will come in to see pt.
[2019-02-18 13:00] VITALS: BP 143/65
--- NOTE | 2019-02-18 13:54 | NUR ---
Roland catheter inserted, tolerated fairly.
[2019-02-18] MEDS ORDERED: MAGNESIUM CITRATE SOLUTION 300 ML BTL PO ONE (14:30)
--- NOTE | 2019-02-18 15:37 | NUR ---
Pt sleeping, son at bedside, no s&s of distress/sob or pain noted, will continue to monitor for changes q1h and prn.
--- NOTE | 2019-02-18 15:54 | NUR ---
Notified Dr. Hernandez pt had possible severe s&s of vaginal infection (lots of white discharge noted)when berg was being placed, no orders received.
[2019-02-18 16:29] VITALS: BP 141/70
[2019-02-18] MEDS ORDERED: WARFARIN SODIUM 5 MG TAB PO ONE (17:00)
--- NOTE | 2019-02-18 19:30 | NUR ---
Opening Shift Note Assumed care of patient, oriented to name and place, with episode of confusion, berg intact draining to bright silvia urine. No S/S of distress/SOB. Instructed on POC and to call for assist PRN, patient verbalized understanding, call light within reach, bed alarm on, will continue to monitor for changes Q1hr and PRN.
[2019-02-18] MEDS ORDERED: PPN PER PHARMACY IV NR ×11 (20:00)
[2019-02-18 20:56] VITALS: BP 127/65
[2019-02-18] MEDS: ATORVASTATIN 20 MG TAB PO SCH (21:07)
[2019-02-19] MEDS: traMADol HCL 50 MG TAB PO PRN ×3 (03:05→20:14)
[2019-02-19 05:00] VITALS: BP 136/69
[2019-02-19] MEDS: InsuLIN REG 1unit/0.01ml Soln (100units/ml) SC SCH ×3 (06:00→11:28)
[2019-02-19] MEDS: ACCU-CHEK COMFORT CURVE STRIP VI SCH ×3 (06:05→11:19)
[2019-02-19] MEDS: LEVOTHYROXINE SODIUM 100 MCG TAB PO SCH (06:06)
--- NOTE | 2019-02-19 06:06 | NUR ---
Patient had 4 loose bowel movements during the shift, changed linens and bed bath done
[2019-02-19 07:07] LABS: INR 1.82 (0.9-1.15); Partial Thromboplastin Time 37.1 sec (23.78-33.04); Prothrombin Time 18.8 sec (9.27-12.13)
[2019-02-19 07:27] LABS: Albumin 3.2 g/dL (3.4-5.0); BUN/Creatinine Ratio 29.2; Calcium 9.5 mg/dL (8.5-10.1); Magnesium 2.9 mg/dL (1.6-2.6); Potassium 5.2 mmol/L (3.5-5.1)
[2019-02-19 07:30] LABS: Bilirubin, Total 0.5 mg/dL (0.2-1.0); Phosphorus 3.4 mg/dL (2.5-4.90); Total Protein 7.4 g/dL (6.4-8.2)
--- NOTE | 2019-02-19 07:30 | NUR ---
Opening Shift Note Received report from Tatianna BENSON. Assumed care of patient, asleep. Patient's son at bedside, said that he fed his mom and ate well. No S/S of distress/SOB or pain. Instructed on POC and to call for assist PRN, will continue to monitor for changes Q1hr and PRN.
[2019-02-19] MEDS: Ensure Enlive Vanilla 8oz Bottle PO SCH ×3 (07:47→17:15)
[2019-02-19] MEDS: Pro-Stat SF 30ml Vanilla PO SCH ×2 (07:48→17:16)
[2019-02-19 08:00] VITALS: BP 121/62
[2019-02-19] MEDS ORDERED: FLUCONAZOLE 100 MG TAB PO ONE (09:30)
[2019-02-19 09:50] VITALS: BP 121/62
--- NOTE | 2019-02-19 10:30 | NUR ---
RECEIVED VERBAL ORDER FROM DR. TURNER TO WEAN PATIENT OFF FROM TPN. PHARMACIST MADE AWARE. SAID TO DECREASE RATE LESS 20MLS/HR THEN AFTER 3HOURS, DECREASE RATE AGAIN LESS 20MLS/HR. PATIENT AND SON MADE AWARE AND VERBALIZED UNDERSTANDING.
[2019-02-19] MEDS: GABAPENTIN 100 MG CAP PO SCH ×2 (10:44→21:43)
[2019-02-19] MEDS: PANTOPRAZOLE 40 MG TAB PO SCH (10:44)
[2019-02-19] MEDS: METOPROLOL SUCCINATE XL 50 MG TAB PO SCH (10:45)
[2019-02-19] MEDS: CHOLECALCIFEROL (VITD3) 1,000 UNIT TAB PO SCH (10:46)
[2019-02-19] MEDS: LIDOCAINE 5% TOPICAL PATCH TOP SCH (10:47)
[2019-02-19] MEDS: PYRIDOXINE HCL 50 MG TAB PO SCH (10:48)
[2019-02-19] MEDS: LISINOPRIL 5 MG TAB PO SCH (10:48)
--- NOTE | 2019-02-19 11:20 | NUR ---
DECREASED TPN RATE TO 41MLS/HR PER PHARMACIST.
--- NOTE | 2019-02-19 12:02 | NUR ---
Nutrition Follow-up Notes Wt.: 48.8 kg Pt's sleeping with family by bedside. per fly. pt is eating sightly better than before. per fly. they try to feed her as much possible and give her ensure too. Pt's currently on Cardiac: 2 gms Na, Low Chol, Low Fat diet with Ensure Enlive 1 carton TID and Prostat 1 pkt BID, on Megace, with inadequate PO <50% x 5 per RN doc as pt refuses. Pt's on PPN support @ 61 ml/hr providing 848 kcal, 608 NPCs and 60 gms pro. Pt with inadequate PN support d/t low initiation rate delivery of diluted formula aeb current PN infusion meets 54-65% of est caloric needs however meets 88-15% of est protein needs. Est. Needs based on BW (52 kg) : 0149-5477 kcal (25-30 kcal/kgBW), 52-68 gms pro (1.0-1.3 gms/kgBW d/t mod hypoalbuminemia). Will continue to monitor pertinent labs and reassess nutrient need prn Labs: BUN 21 H, ALB 3.2 L. Skin: Piotr scale 16, mod risk, p's medial chest incision dry and intact per harbor [employer] police. GI: Pt had 6 BM today per harbor [employer] police. PES: Increased nutrient needs r/t current/chronic medical/nutritional status aeb 99% IBW, BMI 19.9 kg/m2, decreased muscle mass, <75% consumed meal, on PN support Altered nutrition related lab values r/t current/chronic medical condition aeb elev BUN, hyperglycemia, mod hypoalb Will continue to monitor PO intake, PN tolerance, skin status, pertinent labs and weight trend. F/u in 2 to 3 days. Rec.: 1.) Continue close supervision and feeding assistance prn during meals. 2.) If pt's PO intake remains inadequate (<75%) with PN support, consider gradual increase on calories and protein to meet at least 75% of est nutrient needs. 4.) Refer pt to CDE/RD for further nutrition education and weight monitoring upon discharge. 5.) Continue current plan of care.
[2019-02-19 12:20] LABS: Urine Amorphous Crystal FEW /hpf (None Seen); Urine Bacteria MANY /hpf (None Seen); Urine Blood 1+ /uL (Negative); Urine Mucus MANY (None Seen); Urine Specific Gravity 1.022 (1.001-1.035); Urine WBC 176 /hpf (0 - 5)
[2019-02-19 12:30] VITALS: BP 110/58
[2019-02-19] MEDS ORDERED: cefTRIAXone 1GM/50ML D5W 50 ML IV ONE (14:00)
[2019-02-19] MEDS ORDERED: ACET-1156 PO (15:17)
[2019-02-19] MEDS ORDERED: WARFARIN SODIUM 1 MG TAB PO ONE (17:00)
[2019-02-19 17:13] VITALS: BP 114/65
--- NOTE | 2019-02-19 19:35 | NUR ---
Opening Shift Note Assumed care of patient, awake and alert x2. Patient is on 1L nasal cannula, no S/S of distress/SOB noted. Patient complains of generalized pain, will medicate patient as ordered. Instructed on plan of care and to call for assistance as needed. Bed is locked in lowest position, side rails x 2 are up, call light is within reach, and bed alarm is on.
[2019-02-19] MEDS: ATORVASTATIN 20 MG TAB PO SCH (21:43)
[2019-02-19 22:00] VITALS: BP 102/54
--- NOTE | 2019-02-19 22:51 | NUR ---
LIDOCAINE PATCH REMOVED Lidocaine patch removed from medial chest as ordered per MD. Patient is laying in bed. No signs/symptoms of distress noted. Bed is locked in lowest position, side rails x 2 are up, call light is within reach, and bed alarm is on.
[2019-02-20] MEDS: ONDANSETRON HCL 4 MG/2 ML VIAL IV PRN (03:05)
[2019-02-20 05:00] VITALS: BP 127/51
[2019-02-20] MEDS: LEVOTHYROXINE SODIUM 100 MCG TAB PO SCH (06:18)
--- NOTE | 2019-02-20 06:32 | NUR ---
SPOKE WITH HOSPITALIST RE: URINE OUTPUT Notified OLIMPIA Poole that patients total urine output from [id number] was 125ml. OLIMPIA Poole was also informed that bladder scan showed 0ml. No new orders received at this time.
--- NOTE | 2019-02-20 07:30 | NUR ---
Opening Shift Note Assumed care of patient, awake and alert, eating breakfast. No S/S of distress/SOB or pain. Roland catheter intact, patent and draining concentrated yellow urine to gravity. Family at bedside, instructed on POC and to call for assist PRN, will continue to monitor for changes Q1hr and PRN.
[2019-02-20 08:00] VITALS: BP 121/62
[2019-02-20] MEDS: Pro-Stat SF 30ml Vanilla PO SCH ×2 (08:00→18:06)
[2019-02-20] MEDS: Ensure Enlive Vanilla 8oz Bottle PO SCH ×3 (08:00→18:06)
[2019-02-20 08:34] VITALS: BP 115/49
[2019-02-20 08:48] LABS: INR 2.87 (0.9-1.15); Partial Thromboplastin Time 43.4 sec (23.78-33.04); Prothrombin Time 28.9 sec (9.27-12.13)
[2019-02-20 08:54] LABS: Albumin 2.8 g/dL (3.4-5.0); Calcium 8.8 mg/dL (8.5-10.1); Magnesium 2.9 mg/dL (1.6-2.6)
[2019-02-20 08:58] LABS: BUN/Creatinine Ratio 29.3; Bilirubin, Total 0.4 mg/dL (0.2-1.0); Phosphorus 3.4 mg/dL (2.5-4.90); Total Protein 6.4 g/dL (6.4-8.2)
[2019-02-20] MEDS: PANTOPRAZOLE 40 MG TAB PO SCH (09:15)
[2019-02-20] MEDS: cefTRIAXone 1GM/50ML D5W 50 ML IV SCH (09:15)
[2019-02-20] MEDS: LISINOPRIL 5 MG TAB PO SCH (09:16)
[2019-02-20] MEDS: METOPROLOL SUCCINATE XL 50 MG TAB PO SCH (09:16)
[2019-02-20] MEDS: GABAPENTIN 100 MG CAP PO SCH ×2 (09:16→22:06)
[2019-02-20] MEDS: CHOLECALCIFEROL (VITD3) 1,000 UNIT TAB PO SCH (09:17)
[2019-02-20] MEDS: PYRIDOXINE HCL 50 MG TAB PO SCH (09:22)
[2019-02-20] MEDS: LIDOCAINE 5% TOPICAL PATCH TOP SCH (09:22)
--- NOTE | 2019-02-20 09:51 | NUR ---
Dr. Hernandez called, ordered to reduce warfarin to 1 mg daily.
[2019-02-20 13:00] VITALS: BP 100/41
[2019-02-20 16:50] VITALS: BP 110/48
[2019-02-20] MEDS ORDERED: WARFARIN SODIUM 2 MG TAB PO SCH (17:00)
[2019-02-20] MEDS: WARFARIN SODIUM 1 MG TAB PO SCH (17:36)
--- NOTE | 2019-02-20 19:30 | NUR ---
Opening Shift Note Assumed care of patient, awake and alert to self and date of . Patient was easily reoriented to situation and place. No S/S of distress/SOB or pain. Instructed on POC and to call for assistance as needed. Bed is locked in lowest position, side rails x 2 are up, call light is within reach, and bed alarm is on.
[2019-02-20 21:23] VITALS: BP 105/50
--- NOTE | 2019-02-20 21:25 | NUR ---
LIDOCAINE PATCH REMOVED Lidocaine patch removed from medial chest as ordered per MD. Patient is laying in bed with no S/S of distress/SOB. Patient denies pain at this time. Bed is locked in lowest position, side rails x 2 are up, call light is within reach, and bed alarm is on.
[2019-02-20] MEDS: ATORVASTATIN 20 MG TAB PO SCH (22:06)
[2019-02-21] MEDS: traMADol HCL 50 MG TAB PO PRN ×4 (04:10→21:23)
[2019-02-21 05:34] VITALS: BP 126/60
[2019-02-21 06:11] LABS: Basophils # (auto) 0 uL; Basophils % (auto) 0.4 % (0.0-2.0); Eosinophils # (auto) 0 uL; Eosinophils % (auto) 0.6 % (0.0-7.0); Hematocrit 30.2 % (36.0-46.0); Hemoglobin 10.3 g/dL (12.2-16.2); Lymphocytes # (auto) 1.3 uL; Lymphocytes % (auto) 18.4 % (10.0-50.0); Mean Corpuscular Hemoglobin 29.6 pg (28.0-32.0); Mean Corpuscular Volume 87.1 fL (80.0-100.0); Monocytes # (auto) 0.7 uL; Monocytes % (auto) 10.2 % (0.0-12.0); Neutrophils # (auto) 5.1 uL; Neutrophils % (auto) 70.4 % (37.0-80.0); Platelet Count (auto) 171 10^3/uL (140-450); Red Blood Cells 3.47 10^6/uL (4.0-5.20); Red Cell Distribution Width 16.8 % (11.8-14.3); White Blood Cell 7.2 10^3/uL (4.4-10.8)
[2019-02-21] MEDS: LEVOTHYROXINE SODIUM 100 MCG TAB PO SCH (06:16)
[2019-02-21 06:32] LABS: INR 3.99 (0.9-1.15); Partial Thromboplastin Time 47.7 sec (23.78-33.04); Prothrombin Time 39.5 sec (9.27-12.13)
[2019-02-21 06:37] LABS: Potassium 4.7 mmol/L (3.5-5.1)
[2019-02-21 06:48] LABS: BUN/Creatinine Ratio 25.8
--- NOTE | 2019-02-21 07:39 | NUR ---
CLOSING SHIFT NOTE Endorsed patient care to Justine BENSON.
[2019-02-21 07:48] VITALS: BP 115/49
[2019-02-21] MEDS: Pro-Stat SF 30ml Vanilla PO SCH ×2 (08:00→18:17)
[2019-02-21] MEDS: Ensure Enlive Vanilla 8oz Bottle PO SCH ×3 (08:00→18:17)
[2019-02-21] MEDS: LIDOCAINE 5% TOPICAL PATCH TOP SCH (08:35)
[2019-02-21] MEDS: cefTRIAXone 1GM/50ML D5W 50 ML IV SCH (08:35)
[2019-02-21] MEDS: METOPROLOL SUCCINATE XL 50 MG TAB PO SCH (08:36)
[2019-02-21] MEDS: PANTOPRAZOLE 40 MG TAB PO SCH (08:36)
[2019-02-21] MEDS: CHOLECALCIFEROL (VITD3) 1,000 UNIT TAB PO SCH (08:36)
[2019-02-21] MEDS: LISINOPRIL 5 MG TAB PO SCH (08:37)
[2019-02-21] MEDS: PYRIDOXINE HCL 50 MG TAB PO SCH (08:37)
[2019-02-21] MEDS: GABAPENTIN 100 MG CAP PO SCH (08:37)
[2019-02-21 09:52] VITALS: BP 110/51
--- NOTE | 2019-02-21 12:06 | NUR ---
Nutrition Follow-up Notes Wt.: 49.0 kg Pt's sleeping with no family by bedside. Pt's currently on Cardiac: 2 gms Na, Low Chol, Low Fat diet with Ensure Enlive 1 carton TID and Prostat 1 pkt BID, on Megace, with inadequate PO 50% x 2 days per RN doc. pt is now off PN support Est. Needs based on BW (52 kg) : 0700-4086 kcal (25-30 kcal/kgBW), 52-68 gms pro (1.0-1.3 gms/kgBW d/t mod hypoalbuminemia). Will continue to monitor pertinent labs and reassess nutrient need prn Labs: BUN 24 H, ALB 2.8 L. Skin: Piotr scale 15, mod risk, p's medial chest incision dry and intact per budget assistant. GI: Pt had 6 BM on 02/19 per budget assistant. PES: Increased nutrient needs r/t current/chronic medical/nutritional status aeb 99% IBW, BMI 19.9 kg/m2, decreased muscle mass, <75% consumed meal, on PN support Altered nutrition related lab values r/t current/chronic medical condition aeb elev BUN, hyperglycemia, mod hypoalb Will continue to monitor PO intake, skin status, pertinent labs and weight trend. F/u in 2 to 3 days. Rec.: 1.) Continue close supervision and feeding assistance prn during meals. 2.) If pt's PO intake remains inadequate (<75%) resume PN support, to meet at least 75% of est nutrient needs. 4.) Refer pt to CDE/RD for further nutrition education and weight monitoring upon discharge. 5.) Continue current plan of care.
[2019-02-21 13:16] VITALS: BP 104/53
[2019-02-21] MEDS: WARFARIN SODIUM 1 MG TAB PO SCH (17:00)
[2019-02-21 17:24] VITALS: BP 115/55
[2019-02-21] MEDS ORDERED: GABAPENTIN 300 MG CAP PO ONE (17:30)
--- NOTE | 2019-02-21 19:30 | NUR ---
Opening Shift Note Assumed care of patient, awake and alert. No S/S of distress/SOB or pain. Insructed on POC and to callfor assist PRN, will continue to monitor for changes Q1hr and PRN. Fall and safety precautions in place. Call light within reach.
[2019-02-21] MEDS: ATORVASTATIN 20 MG TAB PO SCH (21:23)
--- NOTE | 2019-02-21 22:00 | NUR ---
LIDOCAINE PATCH Lidocaine patch removed as ordered.
[2019-02-21 22:40] VITALS: BP 109/55
[2019-02-22 04:43] VITALS: BP 116/60
[2019-02-22 05:53] LABS: Basophils # (auto) 0 uL; Basophils % (auto) 0.3 % (0.0-2.0); Eosinophils # (auto) 0 uL; Eosinophils % (auto) 0.6 % (0.0-7.0); Hematocrit 29.8 % (36.0-46.0); Hemoglobin 10.1 g/dL (12.2-16.2); Lymphocytes # (auto) 1.2 uL; Lymphocytes % (auto) 15.3 % (10.0-50.0); Mean Corpuscular Hemoglobin 29.7 pg (28.0-32.0); Mean Corpuscular Volume 87.4 fL (80.0-100.0); Monocytes # (auto) 0.9 uL; Monocytes % (auto) 12.1 % (0.0-12.0); Neutrophils # (auto) 5.4 uL; Neutrophils % (auto) 71.7 % (37.0-80.0); Platelet Count (auto) 163 10^3/uL (140-450); Red Blood Cells 3.41 10^6/uL (4.0-5.20); Red Cell Distribution Width 16.5 % (11.8-14.3); White Blood Cell 7.5 10^3/uL (4.4-10.8)
[2019-02-22 06:12] LABS: Partial Thromboplastin Time 51.1 sec (23.78-33.04); Prothrombin Time 41.9 sec (9.27-12.13)
[2019-02-22 06:14] LABS: INR 4.25 (0.9-1.15)
--- NOTE | 2019-02-22 06:14 | NUR ---
CRITICAL LAB Received call from Scott in lab, critical value INR 4.25. Will call hospitalist regarding this.
[2019-02-22 06:24] LABS: Potassium 4.9 mmol/L (3.5-5.1)
[2019-02-22 06:28] LABS: Albumin 2.9 g/dL (3.4-5.0); BUN/Creatinine Ratio 31.5
[2019-02-22 06:30] LABS: Bilirubin, Total 0.4 mg/dL (0.2-1.0); Total Protein 6.7 g/dL (6.4-8.2)
--- NOTE | 2019-02-22 06:30 | NUR ---
HOSPITALIST Paged hospitalist regarding critical lab value INR 4.25. Awaiting call back.
[2019-02-22] MEDS: traMADol HCL 50 MG TAB PO PRN ×3 (06:39→17:50)
[2019-02-22] MEDS: LEVOTHYROXINE SODIUM 100 MCG TAB PO SCH (06:39)
--- NOTE | 2019-02-22 07:00 | NUR ---
ENDORSED CARE Endorsed care to Daksha Dee RN. Informed her of patient's critical lab value INR 4.25 and no call back from hospitalist.
[2019-02-22] MEDS: PYRIDOXINE HCL 50 MG TAB PO SCH (08:39)
[2019-02-22] MEDS: CHOLECALCIFEROL (VITD3) 1,000 UNIT TAB PO SCH (08:39)
[2019-02-22] MEDS: GABAPENTIN 300 MG CAP PO SCH ×2 (08:40→21:18)
[2019-02-22] MEDS: PANTOPRAZOLE 40 MG TAB PO SCH (08:40)
[2019-02-22] MEDS: ACETAMINOPHEN 500 MG TAB PO PRN (08:40)
[2019-02-22] MEDS: LIDOCAINE 5% TOPICAL PATCH TOP SCH (08:42)
[2019-02-22 09:17] VITALS: BP 99/50
[2019-02-22] MEDS: cefTRIAXone 1GM/50ML D5W 50 ML IV SCH (09:18)
[2019-02-22] MEDS: Pro-Stat SF 30ml Vanilla PO SCH ×2 (09:18→17:03)
[2019-02-22] MEDS: Ensure Enlive Vanilla 8oz Bottle PO SCH ×3 (09:18→17:03)
[2019-02-22] MEDS: METOPROLOL SUCCINATE XL 50 MG TAB PO SCH (09:19)
[2019-02-22] MEDS: LISINOPRIL 5 MG TAB PO SCH (09:19)
[2019-02-22 13:18] VITALS: BP 95/50
[2019-02-22] MEDS ORDERED: SODIUM CHLORIDE 0.9% 1,000 ML IV ONE (15:30)
[2019-02-22 17:16] VITALS: BP 96/42
[2019-02-22] MEDS: ATORVASTATIN 20 MG TAB PO SCH (21:18)
[2019-02-22 22:00] VITALS: BP 108/50
--- NOTE | 2019-02-22 22:00 | NUR ---
LIDOCAINE PATCH Lidocaine patch on upper chest removed per MD order.
[2019-02-23] MEDS: traMADol HCL 50 MG TAB PO PRN ×2 (05:13→17:06)
[2019-02-23] MEDS: LEVOTHYROXINE SODIUM 100 MCG TAB PO SCH (05:13)
[2019-02-23 05:23] VITALS: BP 150/78
[2019-02-23 06:20] LABS: Partial Thromboplastin Time 55.3 sec (23.78-33.04)
[2019-02-23 06:27] LABS: INR 4.37 (0.9-1.15)
--- NOTE | 2019-02-23 06:27 | NUR ---
CRITICAL Received call from Daniella in lab for critical value; INR 4.37. 0629: Hospitalist paged regarding critical lab value. 0632: Received call back from Todd Champion NP. New orders received. Reach back and verified. Will input and carry out.
--- NOTE | 2019-02-23 07:40 | NUR ---
opening Patient awake in bed, bed in lowest position, call light within reach. No distress noted at this time. Will f/u with morning assessment, and continue to monitor. current sodium 133 inr 4.37 critical called by noc nurse to hospitalist no current orders wbc 7.5 rbc 3.41 hgb 10.1 pt 43 aptt 55.30 bun 29 crea 0.92 ast 40 alt 40 albumin 2.9
--- NOTE | 2019-02-23 07:45 | NUR ---
family at bedside (son)
[2019-02-23] MEDS: Ensure Enlive Vanilla 8oz Bottle PO SCH ×3 (08:00→18:00)
[2019-02-23] MEDS: Pro-Stat SF 30ml Vanilla PO SCH ×2 (08:00→18:00)
[2019-02-23 09:00] VITALS: BP 111/53
[2019-02-23] MEDS: DOCUSATE SOD 100 MG CAP PO SCH ×2 (09:54→22:11)
[2019-02-23] MEDS: GABAPENTIN 300 MG CAP PO SCH ×2 (09:54→22:11)
[2019-02-23] MEDS: CHOLECALCIFEROL (VITD3) 1,000 UNIT TAB PO SCH (09:54)
[2019-02-23] MEDS: PANTOPRAZOLE 40 MG TAB PO SCH (09:55)
[2019-02-23] MEDS: cefTRIAXone 1GM/50ML D5W 50 ML IV SCH (09:55)
[2019-02-23] MEDS: METOPROLOL SUCCINATE XL 50 MG TAB PO SCH (09:56)
[2019-02-23] MEDS: LISINOPRIL 5 MG TAB PO SCH (09:57)
[2019-02-23] MEDS: PYRIDOXINE HCL 50 MG TAB PO SCH (10:00)
[2019-02-23] MEDS: LIDOCAINE 5% TOPICAL PATCH TOP SCH (10:37)
--- NOTE | 2019-02-23 10:57 | NUR ---
PT Patient was having BM during morning PT visit. Addendum: 02/23/19 at 1058 by ISSAC DUQUE PTT Amended: Links added.
[2019-02-23 12:42] VITALS: BP 112/54
--- NOTE | 2019-02-23 12:50 | NUR ---
nurse note patient up in bed, eating lunch, family at bedside.
--- NOTE | 2019-02-23 12:55 | NUR ---
physical therapy pt Jace ambulating with patient
--- NOTE | 2019-02-23 13:00 | NUR ---
nurse note patients son, had complaints of an unknown work "in blue" he states. He did not say what exactly happened. I asked if the patient was "ok" sitting in the chair, he states "yes she is fine"
[2019-02-23 16:46] VITALS: BP 99/42
[2019-02-23 22:00] VITALS: BP 109/54
[2019-02-23] MEDS: ATORVASTATIN 20 MG TAB PO SCH (22:11)
[2019-02-24 05:09] VITALS: BP 143/53
[2019-02-24] MEDS: LEVOTHYROXINE SODIUM 100 MCG TAB PO SCH (06:27)
[2019-02-24] MEDS: traMADol HCL 50 MG TAB PO PRN ×2 (06:27→16:41)
[2019-02-24 06:33] LABS: INR 3.66 (0.9-1.15); Partial Thromboplastin Time 57.7 sec (23.78-33.04); Prothrombin Time 36.4 sec (9.27-12.13)
--- NOTE | 2019-02-24 07:40 | NUR ---
opening patient in bed asleep, bed in lowest position, call light within reach. No distress noted at this time. Will f/u with morning assessment current inr back to therapeutic range 3.66 pt 36.4 aptt 57.70 will reevaluate the berg catheter and possibly discontinue per nurse protocol, as long as it is not indicated in orders/notes
[2019-02-24] MEDS: Ensure Enlive Vanilla 8oz Bottle PO SCH ×3 (08:00→18:29)
[2019-02-24] MEDS: Pro-Stat SF 30ml Vanilla PO SCH ×2 (08:00→18:00)
[2019-02-24 09:00] VITALS: BP 136/60
[2019-02-24] MEDS: cefTRIAXone 1GM/50ML D5W 50 ML IV SCH (09:57)
[2019-02-24] MEDS: LIDOCAINE 5% TOPICAL PATCH TOP SCH (09:57)
[2019-02-24] MEDS: METOPROLOL SUCCINATE XL 50 MG TAB PO SCH (09:58)
[2019-02-24] MEDS: DOCUSATE SOD 100 MG CAP PO SCH ×2 (09:58→21:21)
[2019-02-24] MEDS: GABAPENTIN 300 MG CAP PO SCH ×2 (09:58→21:21)
[2019-02-24] MEDS: LISINOPRIL 5 MG TAB PO SCH (09:58)
[2019-02-24] MEDS: PYRIDOXINE HCL 50 MG TAB PO SCH (09:58)
[2019-02-24] MEDS: CHOLECALCIFEROL (VITD3) 1,000 UNIT TAB PO SCH (09:59)
[2019-02-24] MEDS: PANTOPRAZOLE 40 MG TAB PO SCH (09:59)
--- NOTE | 2019-02-24 12:55 | NUR ---
discontinued f/c patient had complaints of berg catheter. Talked to MD richards earlier about discontinuing, MD was in agreement. Discontinued berg patient tolerated well, 10cc of saline balloon (deflated) 50 mL urine in berg bag.
[2019-02-24 13:00] VITALS: BP 137/83
--- NOTE | 2019-02-24 15:32 | NUR ---
re-assessment Per consult resume home health on discharge. [facility] Addendum: 02/24/19 at 1532 by Gloria Coreas Amended: Links added.
--- NOTE | 2019-02-24 16:24 | NUR ---
MONIKA FROM [facility] HAS ACCEPTED PT FOR SAFETY AND P.T.
[2019-02-24 17:00] VITALS: BP 103/38
--- NOTE | 2019-02-24 19:05 | NUR ---
assumed care, pt. awake, repositioned pt. no c/o pain, no sob.
[2019-02-24] MEDS: ATORVASTATIN 20 MG TAB PO SCH (21:21)
[2019-02-24 21:48] VITALS: BP 108/48
[2019-02-25 04:53] VITALS: BP 149/73
[2019-02-25] MEDS: LEVOTHYROXINE SODIUM 100 MCG TAB PO SCH (06:06)
[2019-02-25 06:22] LABS: INR 3.78 (0.9-1.15); Partial Thromboplastin Time 55.6 sec (23.78-33.04); Prothrombin Time 37.5 sec (9.27-12.13)
--- NOTE | 2019-02-25 07:30 | NUR ---
Opening Shift Note Assumed care of patient, awake and alert. No S/S of distress/SOB or pain. InsTructed on POC and to call for assist PRN, will continue to monitor for changes Q1hr and PRN. PT NEEDS ASSISTANCE FOR ADLs.
[2019-02-25 08:13] VITALS: BP 132/63
[2019-02-25] MEDS: cefTRIAXone 1GM/50ML D5W 50 ML IV SCH (08:38)
[2019-02-25] MEDS: CHOLECALCIFEROL (VITD3) 1,000 UNIT TAB PO SCH (08:39)
[2019-02-25] MEDS: traMADol HCL 50 MG TAB PO PRN ×4 (08:39→23:12)
[2019-02-25] MEDS: PANTOPRAZOLE 40 MG TAB PO SCH (08:39)
[2019-02-25] MEDS: DOCUSATE SOD 100 MG CAP PO SCH ×2 (08:39→21:50)
[2019-02-25] MEDS: GABAPENTIN 300 MG CAP PO SCH ×2 (08:39→21:51)
[2019-02-25] MEDS: METOPROLOL SUCCINATE XL 50 MG TAB PO SCH (08:40)
[2019-02-25] MEDS: PYRIDOXINE HCL 50 MG TAB PO SCH (08:40)
[2019-02-25] MEDS: LISINOPRIL 5 MG TAB PO SCH (08:41)
[2019-02-25] MEDS: Pro-Stat SF 30ml Vanilla PO SCH ×2 (08:55→17:32)
[2019-02-25] MEDS: Ensure Enlive Vanilla 8oz Bottle PO SCH ×3 (08:56→17:31)
[2019-02-25 09:59] LABS: BUN/Creatinine Ratio 17.8; Potassium 4.7 mmol/L (3.5-5.1)
--- NOTE | 2019-02-25 10:00 | NUR ---
FAMILY AT BEDSIDE. PT RESTING. NO DISTRESS NOTED.
--- NOTE | 2019-02-25 12:26 | NUR ---
Nutrition Follow-up Notes Wt.: 49.0 kg Pt's sleeping with no family by bedside. Pt's currently on Cardiac: 2 gms Na, Low Chol, Low Fat diet with Ensure Enlive 1 carton TID and Prostat 1 pkt BID, on Megace, with inadequate PO 50% x 3 days per RN doc. Est. Needs based on BW (52 kg) : 9640-0169 kcal (25-30 kcal/kgBW), 52-68 gms pro (1.0-1.3 gms/kgBW d/t mod hypoalbuminemia). Will continue to monitor pertinent labs and reassess nutrient need prn Labs: BUN 29 H, ALB 2.9 L. Skin: Piotr scale 18, mod risk, p's medial chest incision dry and intact per octave board racker. GI: Pt had 1 BM on 02/25 per octave board racker. PES: Increased nutrient needs r/t current/chronic medical/nutritional status aeb 99% IBW, BMI 19.9 kg/m2, decreased muscle mass, <75% consumed meal, on PN support Altered nutrition related lab values r/t current/chronic medical condition aeb elev BUN, hyperglycemia, mod hypoalb Will continue to monitor PO intake, skin status, pertinent labs and weight trend. F/u in 2 to 3 days. Rec.: 1.) Continue close supervision and feeding assistance prn during meals. 2.) If pt's PO intake remains inadequate (<75%) resume PN support, to meet at least 75% of est nutrient needs. 4.) Refer pt to CDE/RD for further nutrition education and weight monitoring upon discharge. 5.) Continue current plan of care.
[2019-02-25 13:09] VITALS: BP 106/45
[2019-02-25] MEDS: CEPHALEXIN 250 MG CAP PO SCH ×2 (13:13→21:50)
--- NOTE | 2019-02-25 16:30 | NUR ---
PT ACTIVITY PT AMBULATED WITH P.T. TWICE TODAY. TOLERATED VERY WELL. FAMILY AT BEDSIDE.
[2019-02-25 16:39] VITALS: BP 115/65
--- NOTE | 2019-02-25 18:45 | NUR ---
PT NOTES PT SITTING IN THE COMMODE. FAMILY AT BEDSIDE. SON AWARE TO HOLD AND ASSIST WHEN GETTING IN AND OUT OF BED OR COMMODE BY PUTTING HIS ARMS UNDER THE PT'S ARMPIT TO PREVENT PT FROM PUTTING TOO MUCH PRESSURE ON HER CHEST WHEN SHE TRIES TO GET IN AND OUT OF BED BY PUSHING UP WITH HER ARMS. PT AND SON VERBALIZED UNDERSTANDING.
--- NOTE | 2019-02-25 19:05 | NUR ---
Opening Shift Note RECEIVED SBAR REPORT FROM LINO BENSON. Assumed care of patient,In bed resting asleep, No S/S of distress/SOB or pain. will continue to monitor for changes Q1hr and PRN
--- NOTE | 2019-02-25 19:30 | NUR ---
REPORT GIVEN TO KELLEY SÁNCHEZ.
[2019-02-25 20:05] VITALS: BP 109/62
[2019-02-25] MEDS: ATORVASTATIN 20 MG TAB PO SCH (21:51)
[2019-02-25 22:00] VITALS: BP 109/62
--- NOTE | 2019-02-26 03:09 | NUR ---
PT COMPLAINING OF INABILITY TO URINATE. BLADDER SCANNER READS AVERAGE OF 458 ML. SALINE LOCK. HX OF URINARY RETENTION. HOSPITALIST INFORMED.
--- NOTE | 2019-02-26 03:11 | NUR ---
NEW ORDERS RECEIVED LARSON CATH PLACEMENT.
[2019-02-26] MEDS: ONDANSETRON HCL 4 MG/2 ML VIAL IV PRN (03:41)
[2019-02-26] MEDS: ACETAMINOPHEN 500 MG TAB PO PRN (03:42)
--- NOTE | 2019-02-26 03:45 | NUR ---
Roland catheter insertion Patient assessed and determined to be in need of Roland catheter. Order obtained from Hospitalist Virgilio. Patient educated on catheter and reason for insertion, Acute Urinary Retention. All questions answered. Roland catheter 16 gauge B[place]udian inserted with clean sterile technique. Patient tolerated well. 500 ml urinary immediate output after Roland Cath Placement
[2019-02-26 05:26] VITALS: BP 132/62
[2019-02-26] MEDS: LEVOTHYROXINE SODIUM 100 MCG TAB PO SCH (05:26)
[2019-02-26] MEDS: traMADol HCL 50 MG TAB PO PRN ×3 (05:26→20:25)
[2019-02-26 06:14] LABS: INR 3.32 (0.9-1.15); Prothrombin Time 33.2 sec (9.27-12.13)
--- NOTE | 2019-02-26 06:23 | NUR ---
PT COMPLAINTS OF CHEST PAIN W/ NAUSEA EKG WAS TAKEN TO ASSURE NO CARDIAC INVOLVEMENT. NO CHANGES TO EKG . MEDICATION PROVIDED FOR PAIN AND VITAL SIGN STABLE.
--- NOTE | 2019-02-26 06:25 | NUR ---
HOSPITALIST GIOVANNY AWARE OF CHEST PAIN HE REVIEWED AND SIGNED EKG, PLACED IN CHART.
--- NOTE | 2019-02-26 06:54 | NUR ---
CLOSING NOTES PT RESTING IN BED, ASLEEP, PT STATED CHEST PAIN NON CARDIAC RELATED, VS WDL, MEDICATED FOR PAIN AND NAUSEA, SAFETY MEASURES IN PLACE, LARSON CATH IN PLACE FOR ACUTE URINARY RETENTION.
--- NOTE | 2019-02-26 07:35 | NUR ---
Opening Shift Note Assumed care of patient, awake and alert to self and place. No S/S of distress/SOB or pain. Instructed on POC and to call for assist PRN, will continue to monitor for changes Q1hr and PRN.
[2019-02-26 09:00] VITALS: BP 125/59
--- NOTE | 2019-02-26 10:00 | NUR ---
Patient sitting out in chair at bedside. Son in attendance.
[2019-02-26] MEDS: Pro-Stat SF 30ml Vanilla PO SCH ×2 (10:09→17:24)
[2019-02-26] MEDS: Ensure Enlive Vanilla 8oz Bottle PO SCH ×3 (10:09→17:23)
[2019-02-26] MEDS: CHOLECALCIFEROL (VITD3) 1,000 UNIT TAB PO SCH (10:09)
[2019-02-26] MEDS: PANTOPRAZOLE 40 MG TAB PO SCH (10:09)
[2019-02-26] MEDS: LEVOTHYROXINE SODIUM 50 MCG TAB PO SCH (10:09)
[2019-02-26] MEDS: GABAPENTIN 300 MG CAP PO SCH ×2 (10:09→22:16)
[2019-02-26] MEDS: CEPHALEXIN 250 MG CAP PO SCH ×2 (10:10→22:15)
[2019-02-26] MEDS: PYRIDOXINE HCL 50 MG TAB PO SCH (10:10)
[2019-02-26] MEDS: METOPROLOL SUCCINATE XL 50 MG TAB PO SCH (10:10)
--- NOTE | 2019-02-26 10:10 | NUR ---
Hospitalist Rounding Dr. Hernandez at bedside.
[2019-02-26] MEDS: METOCLOPRAMIDE HCL 10 MG TAB PO SCH ×3 (11:30→22:16)
[2019-02-26 13:00] VITALS: BP 119/54
[2019-02-26 17:00] VITALS: BP 120/68
--- NOTE | 2019-02-26 17:10 | NUR ---
Berg Catheter Patient requested that berg catheter be removed. I explained to her reason for it and that if she is unable to void naturally it may have to be reinserted. The patient stated that she wanted it taken out now. She will use the commode to pass her urine. Family members at bedside and aware of patients request. Her son explained to her in Indonesian and she still wanted it to be taken out. Same D/C as per request. Emptied 75mls of clear, pale yellow urine.
[2019-02-26 21:37] VITALS: BP 125/60
[2019-02-26] MEDS: ATORVASTATIN 20 MG TAB PO SCH (22:16)
--- NOTE | 2019-02-26 22:45 | NUR ---
THE PATIENT C/O CHEST PAIN THAT RADIATES TO HER LEFT SHOULDER. EKG WAS OBTAINED. HOSPITALIST REVIEWED EKG. MORPHINE HAS BEEN ORDERED FOR THE PATIENT FOR CONTINUED CHEST PAIN. WILL CONTINUE TO MONITOR THE PATIENT.
[2019-02-26] MEDS ORDERED: MORPHINE SULF INJ 2 MG/ML SYRINGE 1ML IV PRN (23:00)
--- NOTE | 2019-02-27 02:30 | NUR ---
ASSISTED THE PATIENT TO COMMODE @0603 AND INSTRUCTED THE PATIENT TO USE CALL LIGHT @0606. THE PATIENT C/O RIGHT SIDED TEMPORAL HEAD PAIN.
--- NOTE | 2019-02-27 02:30 | NUR ---
THE PATIENT CALLED FOR ASSISTANCE TO BEDSIDE COMMODE. THE PATIENT WAS ASSISTED TO BEDSIDE COMMODE AND INSTRUCTED TO PRESS CALL LIGHT WHEN FINISHED. @0210 - THE PATIENT'S ROOMMATE CALLED FOR HELP BECAUSE THE PATIENT FELL ONTO THE GROUND. THE PATIENT CURRENTLY C/O HEAD PAIN. VITAL SIGNS INCLUDE 130/64, HR 88, SPO2 98, TEMP 98.6, PAIN 9/10. THE HOSPITALIST HAS BEEN PAGED AND NOTIFIED. STAT CT HEAD W/O CONTRAST HAS BEEN ORDERED. FAMILY MEMBER WILL BE NOTIFIED. Addendum: 02/27/19 at 0244 by Sridhar Richardson RN CALL LIGHT WAS IN REACH OF THE PATIENT.
[2019-02-27] MEDS: traMADol HCL 50 MG TAB PO PRN ×2 (02:40→21:25)
--- NOTE | 2019-02-27 03:20 | NUR ---
PATIENT WAS TAKEN DOWN TO CT.
--- NOTE | 2019-02-27 03:55 | NUR ---
THE PATIENT WAS PLACED IN ROOM 86A. Addendum: 02/27/19 at 0431 by Sridhar Richardson RN THE PATIENT IS PLACED WITH A SITTER.
--- NOTE | 2019-02-27 04:10 | NUR ---
THE PATIENT STATES THAT HER HEAD PAIN HAS IMPROVED AFTER RECEIVING PAIN MEDICATION BUT DID NOT SPECIFY SEVERITY.
--- NOTE | 2019-02-27 05:20 | NUR ---
SPOKE TO IGNACIA AND NOTIFIED HIM OF THE PATIENT'S FALL. HE STATES THAT HE WILL BE HERE TO SEE THE PATIENT AT 0800 AM.
[2019-02-27 05:48] VITALS: BP 132/67
[2019-02-27] MEDS: METOCLOPRAMIDE HCL 10 MG TAB PO SCH ×4 (05:54→21:13)
[2019-02-27] MEDS: ACETAMINOPHEN 500 MG TAB PO PRN (05:54)
[2019-02-27 06:40] LABS: INR 2.44 (0.9-1.15); Partial Thromboplastin Time 48.8 sec (23.78-33.04); Prothrombin Time 24.8 sec (9.27-12.13)
[2019-02-27] MEDS ORDERED: methylPREDNISolone SOD SUCC 125 MG/2 ML VL IV ONE (06:45)
--- NOTE | 2019-02-27 07:00 | NUR ---
SPOKE TO IGNACIA ON THE UNIT. Addendum: 02/27/19 at 0807 by Sridhar Richardson RN HE IS CURRENTLY AT THE PATIENT'S BEDSIDE.
--- NOTE | 2019-02-27 08:00 | NUR ---
Assumed care of pt, awake and alert, no s&s of distress/sob or pain noted, instructed on poc and to call for assist prn, will continue to monitor for changes q1h and prn.
[2019-02-27 09:00] VITALS: BP 100/50
[2019-02-27] MEDS: GABAPENTIN 300 MG CAP PO SCH ×2 (09:15→21:12)
[2019-02-27] MEDS: CEPHALEXIN 250 MG CAP PO SCH ×2 (09:15→21:12)
[2019-02-27] MEDS: LEVOTHYROXINE SODIUM 50 MCG TAB PO SCH (09:15)
[2019-02-27] MEDS: CHOLECALCIFEROL (VITD3) 1,000 UNIT TAB PO SCH (09:15)
[2019-02-27] MEDS: PANTOPRAZOLE 40 MG TAB PO SCH (09:16)
[2019-02-27] MEDS: Ensure Enlive Vanilla 8oz Bottle PO SCH ×3 (09:17→18:11)
[2019-02-27] MEDS: Pro-Stat SF 30ml Vanilla PO SCH ×2 (09:17→18:11)
[2019-02-27] MEDS: METOPROLOL SUCCINATE XL 50 MG TAB PO SCH (09:23)
--- NOTE | 2019-02-27 11:57 | NUR ---
Pt awake and alert, no s&s of distress/sob or pain noted, will continue to monitor for changes q1h and prn. Addendum: 02/27/19 at 1556 by Usman Lugo RN family at bedside
[2019-02-27 12:43] VITALS: BP 143/70
[2019-02-27 17:00] VITALS: BP 109/47
--- NOTE | 2019-02-27 19:00 | NUR ---
Opening Shift Note Assumed care of patient, awake and alert. No S/S of distress/SOB or pain. Instructed on POC and to call for assist PRN, will continue to monitor for changes Q1hr and PRN. Sitter is at bed side.
--- NOTE | 2019-02-27 19:35 | NUR ---
THE PATIENT BEGAN C/O BILATERAL FEET PAIN. SHE FIRST STATED THE PAIN BEGAN PRIOR TO ARRIVAL AND THEN STATED IT BEGAN AFTER ARRIVAL TO THE HOSPITAL. WILL CONTINUE TO MONITOR THE PAIN.
[2019-02-27] MEDS: ATORVASTATIN 20 MG TAB PO SCH (21:12)
[2019-02-27 22:00] VITALS: BP 121/85
--- NOTE | 2019-02-28 | NUR ---
PATIENT FELT DIZZY WILL GETTING UP FROM THE BEDSIDE COMMODE. STATES THAT HER FEET FEEL BETTER BUT STILL C/O A HEADACHE.
[2019-02-28] MEDS: METOCLOPRAMIDE HCL 10 MG TAB PO SCH ×4 (06:47→21:34)
[2019-02-28] MEDS: traMADol HCL 50 MG TAB PO PRN ×3 (06:48→21:43)
--- NOTE | 2019-02-28 07:00 | NUR ---
UPON ASSESSMENT THE PATIENT STATED THAT SHE HERE PAIN WAS 7/10. PRIOR TO ADMINISTERING THE TRAMADOL, THE PATIENT STATED THAT SHE WAS NOT IN PAIN. WILL WASTE THE TRAMADOL AND ENDORSE REASSESSMENT TO DAY SHIFT RN.
--- NOTE | 2019-02-28 07:43 | NUR ---
OPENING SHIFT NOTE ASSUMED CARE OF PATIENT. PATIENT RESTING COMFORTABLY IN BED WITH EYES CLOSED. SITTER AT BEDSIDE FOR SAFETY. BED IN LOWEST LOCKED POSITION, CALL LIGHT WITHIN REACH. WILL CONTINUE TO MONITOR.
[2019-02-28 08:16] VITALS: BP 115/46
[2019-02-28 08:24] LABS: Basophils # (auto) 0 uL; Basophils % (auto) 0.5 % (0.0-2.0); Eosinophils # (auto) 0 uL; Eosinophils % (auto) 0.7 % (0.0-7.0); Hematocrit 26.6 % (36.0-46.0); Lymphocytes # (auto) 1.1 uL; Lymphocytes % (auto) 20.9 % (10.0-50.0); Mean Corpuscular Hemoglobin 29.4 pg (28.0-32.0); Mean Corpuscular Volume 86.5 fL (80.0-100.0); Monocytes # (auto) 0.6 uL; Monocytes % (auto) 11.3 % (0.0-12.0); Neutrophils # (auto) 3.6 uL; Neutrophils % (auto) 66.6 % (37.0-80.0); Platelet Count (auto) 207 10^3/uL (140-450); Red Blood Cells 3.07 10^6/uL (4.0-5.20); Red Cell Distribution Width 16.2 % (11.8-14.3); White Blood Cell 5.4 10^3/uL (4.4-10.8)
[2019-02-28] MEDS: Pro-Stat SF 30ml Vanilla PO SCH ×2 (08:31→17:52)
[2019-02-28] MEDS: Ensure Enlive Vanilla 8oz Bottle PO SCH ×3 (08:31→17:52)
[2019-02-28 08:41] LABS: INR 1.91 (0.9-1.15); Partial Thromboplastin Time 29.9 sec (23.78-33.04); Prothrombin Time 19.7 sec (9.27-12.13)
[2019-02-28 08:42] LABS: BUN/Creatinine Ratio 14.9; Calcium 8.5 mg/dL (8.5-10.1); Potassium 4.6 mmol/L (3.5-5.1)
[2019-02-28] MEDS: METOPROLOL SUCCINATE XL 50 MG TAB PO SCH (10:00)
[2019-02-28] MEDS: GABAPENTIN 300 MG CAP PO SCH ×2 (10:31→21:34)
[2019-02-28] MEDS: LEVOTHYROXINE SODIUM 50 MCG TAB PO SCH (10:31)
[2019-02-28] MEDS: PANTOPRAZOLE 40 MG TAB PO SCH (10:31)
[2019-02-28] MEDS: CHOLECALCIFEROL (VITD3) 1,000 UNIT TAB PO SCH (10:31)
[2019-02-28 12:59] VITALS: BP 118/50
--- NOTE | 2019-02-28 15:13 | NUR ---
Patient complained of pain to incision site. Tramadol 50mg PO given. Son at bedside. Addendum: 02/28/19 at 1514 by MADELINE KUMAR RN Covering for assigned RN.
[2019-02-28 17:17] VITALS: BP 123/65
--- NOTE | 2019-02-28 17:19 | NUR ---
PAGE OUT TO HOSPITALIST PAGED HOSPITALIST AT THIS TIME REGARDING INR/COUMADIN PER DR TURNER'S NOTE. CONTINUING TO MONITOR.
--- NOTE | 2019-02-28 17:25 | NUR ---
CALL BACK FROM HOSPITALIST RECEIVED CALL BACK FROM HOSPITALIST GUICHO PFEIFFER NP. WILL REVIEW CHART AND DETERMINE WHETHER TO CONTINUE. CONTINUING TO MONITOR.
--- NOTE | 2019-02-28 18:43 | NUR ---
END OF SHIFT NOTE PATIENT AWAKE AND ALERT SITTING UP IN BED EATING DINNER. NO S/S OF DISTRESS OR SOB NOTED. BED IN LOWEST LOCKED POSITION, CALL LIGHT WITHIN REACH. SITTER AT BEDSIDE FOR SAFETY. WILL ENDORSE CARE TO NOC RN.
--- NOTE | 2019-02-28 19:15 | NUR ---
Opening Shift Note Assumed care of patient from day shift RN Rachael. Pt is awake and alert and oriented x4. Safety maintained with bed rails upx2, locked and in lowest position with call novak within reach. No S/S of distress/SOB or pain. Instructed on POC and to call for assist PRN, will continue to monitor for changes Q1hr and PRN. Sitter at bedside.
[2019-02-28] MEDS: ATORVASTATIN 20 MG TAB PO SCH (21:34)
[2019-03-01 05:00] VITALS: BP 112/68
[2019-03-01 05:57] LABS: INR 1.53 (0.9-1.15); Partial Thromboplastin Time 35.5 sec (23.78-33.04)
--- NOTE | 2019-03-01 06:00 | NUR ---
PT C/O URGE TO URINATE BUT NO URINE OUTPUT
[2019-03-01] MEDS: METOCLOPRAMIDE HCL 10 MG TAB PO SCH ×4 (06:16→22:46)
--- NOTE | 2019-03-01 06:57 | NUR ---
Closing Shift Note Patient resting in bed, no s/s distress. Safety maintained with bed rails upx2, locked and in lowest position with call novak within reach. Sitter at bedside. Will endorse care to day shift KELLEY Hernández.
--- NOTE | 2019-03-01 07:55 | NUR ---
Opening Shift Note Assumed care of patient, awake and alert. No S/S of distress/SOB or pain. Instructed on POC and to call for assist PRN. Bed at lowest position and call light within reach , sitter at bedside. Will continue to monitor for changes Q1hr and PRN.
[2019-03-01 08:00] VITALS: BP 118/59
[2019-03-01] MEDS: Pro-Stat SF 30ml Vanilla PO SCH ×2 (08:00→18:00)
[2019-03-01 08:29] VITALS: BP 118/59
[2019-03-01] MEDS: METOPROLOL SUCCINATE XL 50 MG TAB PO SCH (10:56)
[2019-03-01] MEDS: LEVOTHYROXINE SODIUM 50 MCG TAB PO SCH (10:57)
[2019-03-01] MEDS: CHOLECALCIFEROL (VITD3) 1,000 UNIT TAB PO SCH (10:57)
[2019-03-01] MEDS: GABAPENTIN 300 MG CAP PO SCH ×2 (10:57→22:46)
[2019-03-01] MEDS: PANTOPRAZOLE 40 MG TAB PO SCH (10:57)
--- NOTE | 2019-03-01 12:38 | NUR ---
Nutrition Follow-up Notes Wt.: 46.3 kg Pt's sleeping with no family by bedside. Pt's currently on Cardiac: 2 gms Na, Low Chol, Low Fat diet with Ensure Enlive 1 carton TID and Prostat 1 pkt BID, with inadequate PO 50% x 3 days per RN doc. Est. Needs based on BW (52 kg) : 1074-3389 kcal (25-30 kcal/kgBW), 52-68 gms pro (1.0-1.3 gms/kgBW d/t mod hypoalbuminemia). Will continue to monitor pertinent labs and reassess nutrient need prn Labs: ALB 2.9 L. rest lab wnl Skin: Piotr scale 19, mod risk, p's medial chest incision dry and intact per show host or hostess. GI: Pt had 3 BM on 02/25 per show host or hostess. PES: Increased nutrient needs r/t current/chronic medical/nutritional status aeb 99% IBW, BMI 19.9 kg/m2, decreased muscle mass, <75% consumed meal, on PN support Altered nutrition related lab values r/t current/chronic medical condition aeb elev BUN, hyperglycemia, mod hypoalb Will continue to monitor PO intake, skin status, pertinent labs and weight trend. F/u in 2 to 3 days. Rec.: 1.) Continue close supervision and feeding assistance prn during meals. 2.) If pt's PO intake remains inadequate (<75%) resume PN support, to meet at least 75% of est nutrient needs. 4.) Refer pt to CDE/RD for further nutrition education and weight monitoring upon discharge. 5.) Continue current plan of care.
[2019-03-01 13:00] VITALS: BP 116/54
[2019-03-01] MEDS: Ensure Enlive Vanilla 8oz Bottle PO SCH ×3 (15:56→18:00)
[2019-03-01] MEDS: traMADol HCL 50 MG TAB PO PRN (17:24)
[2019-03-01 17:38] VITALS: BP 116/58
--- NOTE | 2019-03-01 20:00 | NUR ---
Report given to GONZALO BENSON.
[2019-03-01 22:00] VITALS: BP 141/60
[2019-03-01] MEDS: ATORVASTATIN 20 MG TAB PO SCH (22:46)
[2019-03-02] MEDS: traMADol HCL 50 MG TAB PO PRN (03:37)
[2019-03-02 05:00] VITALS: BP 121/55
[2019-03-02 05:37] LABS: Hematocrit 29.3 % (36.0-46.0)
[2019-03-02 05:48] LABS: INR 1.3 (0.9-1.15); Partial Thromboplastin Time 30.5 sec (23.78-33.04); Prothrombin Time 13.7 sec (9.27-12.13)
[2019-03-02 05:55] LABS: Potassium 4.3 mmol/L (3.5-5.1)
[2019-03-02] MEDS: METOCLOPRAMIDE HCL 10 MG TAB PO SCH ×2 (05:55→10:32)
[2019-03-02 05:58] LABS: Calcium 8.9 mg/dL (8.5-10.1); Magnesium 2.2 mg/dL (1.6-2.6)
[2019-03-02 06:02] LABS: BUN/Creatinine Ratio 14.1
[2019-03-02 08:00] VITALS: BP 110/52
[2019-03-02] MEDS: Ensure Enlive Vanilla 8oz Bottle PO SCH ×2 (08:22→12:00)
[2019-03-02] MEDS: Pro-Stat SF 30ml Vanilla PO SCH (08:22)
[2019-03-02 09:00] VITALS: BP 110/51
[2019-03-02] MEDS ORDERED: METO10TA3 PO (10:10)
[2019-03-02] MEDS ORDERED: MET5XLT PO (10:10)
[2019-03-02] MEDS ORDERED: PANT40T PO (10:10)
[2019-03-02] MEDS ORDERED: GABA300C10 PO (10:10)
[2019-03-02] MEDS ORDERED: WARF2TAB55 PO (10:27)
[2019-03-02] MEDS ORDERED: CHOL1000T PO (10:27)
[2019-03-02] MEDS: GABAPENTIN 300 MG CAP PO SCH (10:31)
[2019-03-02] MEDS: PANTOPRAZOLE 40 MG TAB PO SCH (10:31)
[2019-03-02] MEDS: CHOLECALCIFEROL (VITD3) 1,000 UNIT TAB PO SCH (10:32)
[2019-03-02] MEDS: METOPROLOL SUCCINATE XL 50 MG TAB PO SCH (10:32)
[2019-03-02] MEDS: LEVOTHYROXINE SODIUM 50 MCG TAB PO SCH (10:32)
--- NOTE | 2019-03-02 10:38 | NUR ---
[facility] NOTIFIED THAT PATIENT IS BEING DISCHARGED TODAY. RESUMPTION OF CARE WILL BE 24 TO 48 HOURS AFTER DISCHARGE. [phone]
[2019-03-02 11:01] VITALS: BP 110/52
[2019-03-02 13:00] VITALS: BP 101/54
--- NOTE | 2019-03-02 15:15 | NUR ---
MRSA swab sent to lab.
--- NOTE | 2019-03-02 15:38 | NUR ---
Discharge instructions given as ordered. Encourage to follow up with PMD as instructed. All questions and concerns addressed. Patient verbalized understanding. IV removed with catheter intact, pressure dressing applied. Patient taken to vehicle via personal wheelchair with all personal belongings, accompanied by staff and family member. No distress noted at time of departure.
== END 2019-03-02 15:36 | disposition home health service (06) | DRG 313 ==
LOC: ER 20:40 → EDBD 20:40 → MERGE 02-07 02:25 → TELE-WESTW 02-07 02:25 → WEST WING 02-16 11:12
PROVIDERS: ADMIT Nurse Practitioner Family; ATTEND Internal Medicine
DX: R07.89 Other chest pain (principal); N18.6 End stage renal disease; E43 Unspecified severe protein-calorie malnutrition; D68.9 Coagulation defect, unspecified; E87.1 Hypo-osmolality and hyponatremia; I13.2 Hypertensive heart and chronic kidney disease with heart failure and with stage 5 chronic kidney disease, or end stage renal disease; N39.0 Urinary tract infection, site not specified; Z68.1 Body mass index [BMI] 19.9 or less, adult; Z95.1 Presence of aortocoronary bypass graft; I25.10 Atherosclerotic heart disease of native coronary artery without angina pectoris; E03.9 Hypothyroidism, unspecified; I50.9 Heart failure, unspecified; I48.0 Paroxysmal atrial fibrillation; D63.8 Anemia in other chronic diseases classified elsewhere; E87.6 Hypokalemia; E86.0 Dehydration; E78.5 Hyperlipidemia, unspecified; D64.9 Anemia, unspecified; E78.00 Pure hypercholesterolemia, unspecified; F09 Unspecified mental disorder due to known physiological condition; F41.9 Anxiety disorder, unspecified; H53.461 Homonymous bilateral field defects, right side; M10.9 Gout, unspecified; E55.9 Vitamin D deficiency, unspecified; K59.00 Constipation, unspecified; M48.02 Spinal stenosis, cervical region; M77.9 Enthesopathy, unspecified; T45.515A Adverse effect of anticoagulants, initial encounter; Z79.01 Long term (current) use of anticoagulants; Z90.710 Acquired absence of both cervix and uterus; Z95.2 Presence of prosthetic heart valve; Z86.73 Personal history of transient ischemic attack (TIA), and cerebral infarction without residual deficits; Z79.899 Other long term (current) drug therapy; Z88.6 Allergy status to analgesic agent; Z88.2 Allergy status to sulfonamides; I25.2 Old myocardial infarction
CPT/HCPCS: 36415; 70450; 70551; 71045; 71250; 74176; 80048; 80053; 80061; 80162; 81001; 82040; 82306; 82533; 82607; 82746; 82962; 83735; 84100; 84295; 84439; 84443; 84478; 84481; 84484; 85014; 85018; 85025; 85610; 85730; 87081; 87086; 93005; 93306; 94761; 96374; 96375; 97110; 97116; 97163; 97530; G0378; J0696; J1815; J2405; J3480; J3490; J7060; J7131

== ENCOUNTER 2019-03-13 08:09 | Emergency (ER) | payer OTHER ==
[~2019-03-13] VITALS: Ht 157.5 cm; Wt 44.0 kg
[~2019-03-13 08:09] MED LIST changes: +ACET-1156 PO; +CHOL1000T PO; +FERR-20 PO; +GABA300C10 PO; +LEVO50TA7 PO; +METO10TA3 PO; +NITR0.4D10 TD; +WARF2TAB55 PO
[2019-03-13 08:34] LABS: Basophils # (auto) 0 uL; Basophils % (auto) 0.5 % (0.0-2.0); Eosinophils # (auto) 0 uL; Eosinophils % (auto) 0.8 % (0.0-7.0); Hematocrit 35.3 % (36.0-46.0); Hemoglobin 11.5 g/dL (12.2-16.2); Lymphocytes # (auto) 1.1 uL; Mean Corpuscular Volume 88.7 fL (80.0-100.0); Monocytes # (auto) 0.5 uL; Monocytes % (auto) 9.5 % (0.0-12.0); Neutrophils # (auto) 3.3 uL; Neutrophils % (auto) 66.2 % (37.0-80.0); Red Blood Cells 3.98 10^6/uL (4.0-5.20)
[2019-03-13 08:35] LABS: Mean Corpuscular Hemoglobin 28.8 pg (28.0-32.0); Mean Corpuscular Hgb Conc. 32.5 g/dL (32.0-36.0); Platelet Count (auto) 227 10^3/uL (140-450); Red Cell Distribution Width 17.5 % (11.8-14.3)
[2019-03-13 08:52] LABS: INR 1.68 (0.9-1.15); Partial Thromboplastin Time 31.7 sec (23.78-33.04); Prothrombin Time 17.5 sec (9.27-12.13)
[2019-03-13 08:53] LABS: Albumin 3.6 g/dL (3.4-5.0); BUN/Creatinine Ratio 26.2; Calcium 9.1 mg/dL (8.5-10.1); Potassium 3.8 mmol/L (3.5-5.1)
[2019-03-13 08:58] LABS: Bilirubin, Total 0.7 mg/dL (0.2-1.0); Total Protein 7.4 g/dL (6.4-8.2)
[2019-03-13] MEDS ORDERED: SODIUM CHLORIDE 0.9% 1,000 ML IV ONE (10:19)
[2019-03-13 12:13] LABS: Urine Bacteria NONE SEEN /hpf (None Seen); Urine Blood Negative /uL (Negative); Urine Specific Gravity 1.018 (1.001-1.035); Urine WBC 1 /hpf (0 - 5)
[2019-03-13] MEDS ORDERED: cloNIDine HCL 0.1 MG TAB PO ONE (14:00)
[2019-03-13 14:45] VITALS: BP 177/88
[2019-03-13] MEDS ORDERED: WARF1TAB36 PO (19:22)
== END 2019-03-13 15:10 | disposition home or self-care (01) ==
LOC: ER 08:09 → UNDOADMIN 17:33 → TELE 17:33 → TELE-EAST 18:44 → UNDODISIN 19:01
DX: R42 Dizziness and giddiness (principal); R53.1 Weakness; N39.0 Urinary tract infection, site not specified; I11.0 Hypertensive heart disease with heart failure; I50.9 Heart failure, unspecified; Z95.2 Presence of prosthetic heart valve; Z90.49 Acquired absence of other specified parts of digestive tract; Z90.710 Acquired absence of both cervix and uterus
CPT/HCPCS: 36415; 70450; 71046; 80053; 81001; 83735; 84443; 84484; 85025; 85610; 85730; 87081; 93005; 94761; 96360; 96361; 99284; J7030; G0378

== ENCOUNTER 2019-03-18 15:21 | Emergency (ER) | payer OTHER ==
[~2019-03-18] VITALS: Ht 162.6 cm; Wt 54.4 kg
[~2019-03-18 15:21] MED LIST changes: -ACE325T PO; -ALLO100T; -AMI200T PO; -DIGO0.1229 PO; -FER325T PO; -GABA300C10 PO; -LEV50T PO; -MED20T PO; -METO10TA3 PO; -NITR0.4D10 TD; -NITR0.4S29 SL; -PANT40T PO; +WARF1TAB36 PO; -WARF2TAB55 PO; -WARPRX PO
[2019-03-18 16:47] VITALS: BP 180/84
== END 2019-03-18 17:09 | disposition home or self-care (01) ==
LOC: EDBD 15:21 → ER 15:21
DX: S09.8XXA Other specified injuries of head, initial encounter (principal); E03.8 Other specified hypothyroidism; R42 Dizziness and giddiness; E43 Unspecified severe protein-calorie malnutrition; I11.0 Hypertensive heart disease with heart failure; I50.9 Heart failure, unspecified; E86.0 Dehydration; K59.00 Constipation, unspecified; Z68.20 Body mass index [BMI] 20.0-20.9, adult; Z95.1 Presence of aortocoronary bypass graft; Z88.2 Allergy status to sulfonamides; Z88.6 Allergy status to analgesic agent; Z88.8 Allergy status to other drugs, medicaments and biological substances; Z90.49 Acquired absence of other specified parts of digestive tract; Z90.710 Acquired absence of both cervix and uterus; W19.XXXA Unspecified fall, initial encounter; Y93.89 Activity, other specified; Y92.89 Other specified places as the place of occurrence of the external cause; Y99.8 Other external cause status
CPT/HCPCS: 70450; 93005

== ENCOUNTER 2019-04-28 14:59 | Inpatient (IN) | payer OTHER ==
[~2019-04-28] VITALS: Ht 152.4 cm; Wt 46.1 kg
[~2019-04-28 14:59] MED LIST changes: -FERR-20 PO
--- NOTE | 2019-04-28 20:05 | NUR ---
Direct Admit Note BONNIE RESENDIZ admitted to [facility] unit as a direct admit from [facility]. Patient oriented to Emilie Dia, primary RN, unit, room, bed, and unit policies regarding patient care and visiting hours. Assessment initiated. Patient admitted due to S/P fall. Facial bruising noted with blood shot sclera, skin tear on the right eyebrow area, multiple bruising on the bilateral upper extremities, skin tear on the left fingers. Patient oriented mostly to self only, re-oriented to place, time, and situation. Patient weighed by bed scale and encouraged to call if she needs something. Patient verbalized understanding. Patient's room next to the nurse's station and bed alarm on at all times for patient's safety. Will monitor patient q1 hour and prn.
--- NOTE | 2019-04-28 20:15 | NUR ---
Called patient's daughter Christel Hurst to inform patient's arrival to the hospital. Per Christel, her brother is on his way to the hospital to check on patient's status. Care continued.
--- NOTE | 2019-04-28 20:20 | NUR ---
Hospitalist paged for admission orders. Awaiting call back.
--- NOTE | 2019-04-28 20:30 | NUR ---
Hospitalist called back, updated with patient's status. Order received for admission. Care continued.
--- NOTE | 2019-04-28 20:35 | NUR ---
Son at bedside, updated with patient's status. All questions and concerns addressed, patient's son verbalized understanding. Care continued.
[2019-04-28 22:00] VITALS: BP 128/61
--- NOTE | 2019-04-29 | NUR ---
Hospitalist Elinor Chapa BUDGET EXAMINER, at bedside, new orders added. Care continued.
[2019-04-29] MEDS ORDERED: TEMAZEPAM 15 MG CAP PO PRN (00:15)
[2019-04-29] MEDS ORDERED: HYDROcodone-ACET 5/325MG TAB PO PRN (00:15)
[2019-04-29] MEDS ORDERED: ONDANSETRON HCL 4 MG/2 ML VIAL IV PRN (00:15)
[2019-04-29 05:33] VITALS: BP 147/73
[2019-04-29 06:03] LABS: Basophils # (auto) 0 uL; Basophils % (auto) 0.2 % (0.0-2.0); Eosinophils # (auto) 0 uL; Eosinophils % (auto) 0.5 % (0.0-7.0); Hematocrit 28.7 % (36.0-46.0); Lymphocytes # (auto) 1.1 uL; Lymphocytes % (auto) 15.9 % (10.0-50.0); Mean Corpuscular Hemoglobin 30.6 pg (28.0-32.0); Mean Corpuscular Volume 87.5 fL (80.0-100.0); Monocytes # (auto) 0.7 uL; Monocytes % (auto) 10.4 % (0.0-12.0); Nucleated Red Blood Cells % 0.1 %; Platelet Count (auto) 222 10^3/uL (140-450); Red Blood Cells 3.28 10^6/uL (4.0-5.20); Red Cell Distribution Width 17.7 % (11.8-14.3); White Blood Cell 6.8 10^3/uL (4.4-10.8)
[2019-04-29 06:11] LABS: BUN/Creatinine Ratio 25.8; Calcium 8.4 mg/dL (8.5-10.1); Potassium 3.7 mmol/L (3.5-5.1)
[2019-04-29 06:26] LABS: INR 1.14 (0.9-1.15)
[2019-04-29] MEDS: LEVOTHYROXINE SODIUM 50 MCG TAB PO SCH (06:33)
[2019-04-29] MEDS: PANTOPRAZOLE 40 MG TAB PO SCH (06:33)
--- NOTE | 2019-04-29 06:49 | NUR ---
Patient become increasingly confused, trying to get up to void. Patient too weak to use bedside commode, bed puckett is being used at this time. Patient re-oriented. Bed alarm on at all times, room next to nurse's station. Patient has been closely monitored. Will give report to oncoming RN.
[2019-04-29 07:58] LABS: Albumin 2.8 g/dL (3.4-5.0); Bilirubin, Direct 0.2 mg/dL (0-0.2)
[2019-04-29 08:00] LABS: Bilirubin, Total 0.7 mg/dL (0.2-1.0); Total Protein 6.3 g/dL (6.4-8.2)
[2019-04-29 09:00] VITALS: BP 130/61
[2019-04-29] MEDS: CLOPIDOGREL BISULFATE 75 MG TAB PO SCH (09:48)
[2019-04-29] MEDS: METOPROLOL SUCCINATE XL 50 MG TAB PO SCH (09:49)
--- NOTE | 2019-04-29 10:55 | NUR ---
assessment Patient is a 88 year old female who is alert and oriented. Prior to admission patient lived home with family and functioned with assistance. Patient son and daughter are at bedside. Patient has a rollator and bedside commode for home use. Patient has been admitted for a fall at [facility]. Patient has an advanced directive. Patients PCP is Dr May. I informed patient and Christel patients daughter I will keep monitoring patient for discharge needs. Addendum: 04/30/19 at 1624 by Gloria PARSON Amended: Links added.
[2019-04-29 17:00] VITALS: BP 133/64
[2019-04-29] MEDS ORDERED: WARFARIN SODIUM 5 MG TAB PO ONE (17:00)
[2019-04-29] MEDS ORDERED: MORPHINE SULF INJ 2 MG/ML SYRINGE 1ML IV PRN (17:30)
[2019-04-29] MEDS: ACETAMINOPHEN 500 MG TAB PO PRN (18:47)
[2019-04-29] MEDS: SODIUM CHLORIDE 0.9% 1,000 ML IV SCH (18:47)
[2019-04-29] MEDS: FERROUS SULFATE 325 MG TAB PO SCH (18:47)
[2019-04-29 21:42] VITALS: BP 153/73
[2019-04-29] MEDS: ATORVASTATIN 20 MG TAB PO SCH (22:11)
[2019-04-30 05:00] VITALS: BP 138/64
[2019-04-30 05:23] VITALS: BP_SYST 115; BP_SYST 132; BP_DIAS 61; BP_DIAS 72
[2019-04-30 05:59] LABS: Basophils # (auto) 0 uL; Basophils % (auto) 0.2 % (0.0-2.0); Eosinophils # (auto) 0 uL; Eosinophils % (auto) 0.4 % (0.0-7.0); Hematocrit 28.8 % (36.0-46.0); Hemoglobin 9.9 g/dL (12.2-16.2); Lymphocytes # (auto) 0.9 uL; Lymphocytes % (auto) 12.1 % (10.0-50.0); Mean Corpuscular Hemoglobin 30.1 pg (28.0-32.0); Mean Corpuscular Hgb Conc. 34.3 g/dL (32.0-36.0); Mean Corpuscular Volume 87.7 fL (80.0-100.0); Monocytes # (auto) 0.7 uL; Monocytes % (auto) 8.4 % (0.0-12.0); Neutrophils # (auto) 6.2 uL; Neutrophils % (auto) 78.9 % (37.0-80.0); Platelet Count (auto) 236 10^3/uL (140-450); Red Blood Cells 3.29 10^6/uL (4.0-5.20); Red Cell Distribution Width 17.3 % (11.8-14.3); White Blood Cell 7.8 10^3/uL (4.4-10.8)
[2019-04-30 06:22] LABS: Potassium 3.4 mmol/L (3.5-5.1)
[2019-04-30 06:24] LABS: INR 1.08 (0.9-1.15); Partial Thromboplastin Time 30.7 sec (23.64-32.05)
[2019-04-30 06:29] LABS: Albumin 2.6 g/dL (3.4-5.0); Bilirubin, Total 0.7 mg/dL (0.2-1.0); Calcium 8.5 mg/dL (8.5-10.1); Magnesium 1.9 mg/dL (1.6-2.6)
[2019-04-30] MEDS: PANTOPRAZOLE 40 MG TAB PO SCH (06:53)
[2019-04-30] MEDS: LEVOTHYROXINE SODIUM 50 MCG TAB PO SCH (06:57)
[2019-04-30] MEDS: FERROUS SULFATE 325 MG TAB PO SCH ×2 (08:00→18:00)
[2019-04-30 09:00] VITALS: BP 129/73
[2019-04-30] MEDS: CLOPIDOGREL BISULFATE 75 MG TAB PO SCH (11:51)
[2019-04-30] MEDS: METOPROLOL SUCCINATE XL 50 MG TAB PO SCH (11:52)
[2019-04-30] MEDS: SODIUM CHLORIDE 0.9% 1,000 ML IV SCH (11:53)
[2019-04-30] MEDS: ACETAMINOPHEN 500 MG TAB PO PRN ×2 (11:53→22:11)
[2019-04-30] MEDS ORDERED: LORazepam 2MG/ML-1ML VIAL IV PRN (12:30)
[2019-04-30] MEDS ORDERED: POTASSIUM CHL 20 Meq TABLET PO ONE (13:45)
--- NOTE | 2019-04-30 16:18 | NUR ---
re-assessment Per consult hospice mieshaJaime Oneil has been given a list of medicare providers. Per Thad [facility] to provide service. MD order has been sent to [facility]. Tabitha from [facility] [phone] has met with family and patient. Family has signed all consents. Transport with [facility] [phone] will be set up on discharge with [facility]. Tabitha [phone] will call nurse with transport time. Patient and family agrees to discharge plan home on hospice. Addendum: 04/30/19 at 1624 by Gloria Coreas Amended: Links added.
[2019-04-30 17:00] VITALS: BP 162/73
[2019-04-30] MEDS ORDERED: WARFARIN SODIUM 5 MG TAB PO ONE (17:00)
[2019-04-30] MEDS ORDERED: POTASSIUM CHLORIDE 20 MEQ, LIDOCAINE 1% (LOCAL ANESTH.) 2 ML in SODIUM CHL 0.9% 100 ML IV ONE (17:15)
[2019-04-30 22:00] VITALS: BP_SYST 125; BP_SYST 128; BP_SYST 138; BP_DIAS 47; BP_DIAS 49; BP_DIAS 68
[2019-04-30] MEDS: ATORVASTATIN 20 MG TAB PO SCH (22:10)
[2019-05-01 05:00] VITALS: BP_SYST 151; BP_SYST 155; BP_SYST 156; BP_DIAS 72; BP_DIAS 74; BP_DIAS 85
[2019-05-01 05:32] VITALS: BP_SYST 151; BP_SYST 155; BP_SYST 156; BP_DIAS 72; BP_DIAS 74; BP_DIAS 85
[2019-05-01] MEDS: LEVOTHYROXINE SODIUM 25 MCG TAB PO SCH (06:44)
[2019-05-01] MEDS: PANTOPRAZOLE 40 MG TAB PO SCH (06:44)
--- NOTE | 2019-05-01 07:15 | NUR ---
Opening Shift Note RECEIVED REPORT FROM NOC RN. Assumed care of patient, awake and alert. No S/S of distress/SOB or pain. BED IN LOWEST, LOCKED POSITION WITH SIDERAILS UP x3 AND SITTER AT BEDSIDE. Instructed on POC and to call for assist PRN, will continue to monitor for changes Q1hr and PRN.
[2019-05-01] MEDS: FERROUS SULFATE 325 MG TAB PO SCH ×2 (08:02→18:11)
[2019-05-01] MEDS: ACETAMINOPHEN 500 MG TAB PO PRN ×3 (08:02→21:36)
--- NOTE | 2019-05-01 08:15 | NUR ---
FAMILY AT BEDSIDE.
[2019-05-01 09:00] VITALS: BP_SYST 159; BP_SYST 163; BP_SYST 170; BP_DIAS 117; BP_DIAS 73; BP_DIAS 84
[2019-05-01] MEDS: METOPROLOL SUCCINATE XL 50 MG TAB PO SCH (10:11)
[2019-05-01] MEDS: CLOPIDOGREL BISULFATE 75 MG TAB PO SCH (10:12)
[2019-05-01 11:41] LABS: Basophils # (auto) 0 uL; Basophils % (auto) 0.2 % (0.0-2.0); Eosinophils # (auto) 0.1 uL; Hemoglobin 9.2 g/dL (12.2-16.2); Lymphocytes % (auto) 16.8 % (10.0-50.0); Mean Corpuscular Hemoglobin 29.5 pg (28.0-32.0); Mean Corpuscular Hgb Conc. 34.2 g/dL (32.0-36.0); Mean Corpuscular Volume 86.4 fL (80.0-100.0); Monocytes # (auto) 0.4 uL; Monocytes % (auto) 7.4 % (0.0-12.0); Neutrophils # (auto) 4.2 uL; Neutrophils % (auto) 74.6 % (37.0-80.0); Nucleated Red Blood Cells % 0.1 %; Platelet Count (auto) 259 10^3/uL (140-450); Red Blood Cells 3.13 10^6/uL (4.0-5.20); Red Cell Distribution Width 17.6 % (11.8-14.3); White Blood Cell 5.7 10^3/uL (4.4-10.8)
[2019-05-01 11:53] LABS: Potassium 3.6 mmol/L (3.5-5.1)
[2019-05-01 12:11] LABS: INR 1.28 (0.9-1.15)
[2019-05-01 12:27] VITALS: BP_SYST 141; BP_SYST 149; BP_DIAS 66; BP_DIAS 72
--- NOTE | 2019-05-01 16:30 | NUR ---
DR. HERNANDEZ AT BEDSIDE.
[2019-05-01 16:39] VITALS: BP_SYST 124; BP_SYST 141; BP_SYST 146; BP_DIAS 69; BP_DIAS 72; BP_DIAS 74
[2019-05-01] MEDS ORDERED: WARFARIN SODIUM 5 MG TAB PO ONE (17:00)
--- NOTE | 2019-05-01 18:00 | NUR ---
IV removal IV IN RIGHT FOOT DC'd with clean sterile technique, catheter fully intact. Pressure dressing applied to site. Patient tolerated well.
[2019-05-01] MEDS: cloNIDine HCL 0.1 MG TAB PO PRN ×2 (19:50→21:50)
--- NOTE | 2019-05-01 20:00 | NUR ---
OPENING NOTE RECEIVED REPORT FROM DAYSHIFT RN. ASSUMING ROLE OF CARE OF PATIENT AT THIS TIME. PATIENT SHOWING NO SIGN OF DISTRESS, SHORTNESS OF BREATH, AND PATIENT DENIES ANY PAIN AT THIS TIME. PATIENT EDUCATED ON PLAN OF CARE FOR THE NIGHT AND PATIENT VERBALIZED UNDERSTANDING. SITTER AT BEDSIDE AND BED ALARM ON. BED LOWERED, CALL LIGHT WITHIN REACH, AND PATIENT WILL BE ROUNDED ON EVERY HOUR AND NEEDED.
--- NOTE | 2019-05-01 21:13 | NUR ---
HOSPITALIST PAGED PATIENT HAS AN ELEVATED BP WHEN PERFORMING ORTHO BP. PATIENT'S BP WAS 167/76 SUPINE, 159/82 SITTING, AND 173/83 STANDING. 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 PATIENT HAS NO PRN BP MEDICATIONS. PATIENT RECEIVES METOPROLOL DAILY. WILL AWAIT CALL BACK OR ORDERS.
[2019-05-01 22:00] VITALS: BP_SYST 159; BP_SYST 167; BP_SYST 173; BP_DIAS 76; BP_DIAS 82; BP_DIAS 83
[2019-05-01] MEDS: ATORVASTATIN 20 MG TAB PO SCH (22:09)
--- NOTE | 2019-05-01 22:30 | NUR ---
BP RECHECKED BP 147/59. PATIENT RESTING COMFORTABLY. WILL CONTINUE TO MONITOR.
[2019-05-02 05:19] VITALS: BP_SYST 107; BP_SYST 129; BP_SYST 139; BP_DIAS 64; BP_DIAS 67; BP_DIAS 82
[2019-05-02 06:00] LABS: Urine Bacteria NONE SEEN /hpf (None Seen); Urine Blood Negative /uL (Negative); Urine Mucus FEW (None Seen); Urine Specific Gravity 1.013 (1.001-1.035); Urine WBC 1 /hpf (0 - 5)
[2019-05-02] MEDS: PANTOPRAZOLE 40 MG TAB PO SCH (06:09)
[2019-05-02] MEDS: LEVOTHYROXINE SODIUM 25 MCG TAB PO SCH (06:09)
[2019-05-02 06:23] LABS: Basophils # (auto) 0 uL; Basophils % (auto) 0.4 % (0.0-2.0); Eosinophils # (auto) 0.1 uL; Eosinophils % (auto) 1.5 % (0.0-7.0); Hematocrit 31.2 % (36.0-46.0); Hemoglobin 10.6 g/dL (12.2-16.2); Lymphocytes # (auto) 0.8 uL; Lymphocytes % (auto) 21.1 % (10.0-50.0); Mean Corpuscular Hemoglobin 29.5 pg (28.0-32.0); Mean Corpuscular Hgb Conc. 33.9 g/dL (32.0-36.0); Mean Corpuscular Volume 87.1 fL (80.0-100.0); Monocytes # (auto) 0.3 uL; Monocytes % (auto) 7.5 % (0.0-12.0); Neutrophils # (auto) 2.7 uL; Neutrophils % (auto) 69.5 % (37.0-80.0); Nucleated Red Blood Cells % 0.1 %; Platelet Count (auto) 289 10^3/uL (140-450); Red Blood Cells 3.59 10^6/uL (4.0-5.20); Red Cell Distribution Width 17.3 % (11.8-14.3); White Blood Cell 3.9 10^3/uL (4.4-10.8)
[2019-05-02 06:50] LABS: INR 1.54 (0.9-1.15); Partial Thromboplastin Time 35.6 sec (23.64-32.05)
--- NOTE | 2019-05-02 08:00 | NUR ---
Opening Shift Note Assumed care of patient, awake but with periods of confusion. Patient has a sitter at bedside. Patient has unsteady gait. With facial bruising secondary to syncopal episode prior to admit. No S/S of distress/SOB or pain. Will continue to monitor for changes Q1hr and PRN.
[2019-05-02 09:00] VITALS: BP 137/61
[2019-05-02] MEDS: FERROUS SULFATE 325 MG TAB PO SCH ×2 (09:42→17:58)
[2019-05-02] MEDS: METOPROLOL SUCCINATE XL 50 MG TAB PO SCH (09:43)
[2019-05-02] MEDS: DOCUSATE SOD 100 MG CAP PO PRN ×2 (09:43→21:25)
[2019-05-02] MEDS: CLOPIDOGREL BISULFATE 75 MG TAB PO SCH (09:43)
--- NOTE | 2019-05-02 10:00 | NUR ---
Patient complained of constipation, had a bowel movement with dark hard stools. Patient on Ferrous Sulfate PO. Stool softener administered as ordered. Will continue to monitor.
[2019-05-02 13:07] VITALS: BP 175/76
[2019-05-02] MEDS: cloNIDine HCL 0.1 MG TAB PO PRN (13:07)
--- NOTE | 2019-05-02 13:07 | NUR ---
BP-175/76, complains of feeling very tired. Medicated with prn Catapres PO. Will continue care.
--- NOTE | 2019-05-02 14:00 | NUR ---
Patient is standby transferred to bedside commode.
--- NOTE | 2019-05-02 15:12 | NUR ---
Nutrition consult/assessment Notes please see attached link for complete assessment Est. Needs BW [id number] kcal (25-30 kcal/kgBW), 48-57 gms pro (1.0-1.2 gms/kgBW). Will continue to monitor pertinent labs and reassess nutrient need prn Addendum: 05/02/19 at [address] Amended: Links added.
[2019-05-02] MEDS ORDERED: POTASSIUM CHL 20 Meq TABLET PO ONE (16:30)
[2019-05-02] MEDS ORDERED: HYDROcodone-ACET 5/325MG TAB PO PRN (16:30)
[2019-05-02] MEDS ORDERED: WARFARIN SODIUM 5 MG TAB PO ONE (17:00)
[2019-05-02 17:01] VITALS: BP 129/62
[2019-05-02 18:30] VITALS: BP_SYST 105; BP_SYST 128; BP_DIAS 59; BP_DIAS 64
--- NOTE | 2019-05-02 18:30 | NUR ---
Error in VS documentation: [id number]/64, HR-88 not BP-105/59 and HR-68.
--- NOTE | 2019-05-02 20:00 | NUR ---
OPENING NOTE RECEIVED REPORT FROM DAYSHIFT RN. ASSUMING ROLE OF CARE OF PATIENT AT THIS TIME. PATIENT EDUCATED ON PLAN OF CARE FOR THE NIGHT AND PATIENT VERBALIZED UNDERSTANDING. PATIENT SHOWING NO SIGN OF DISTRESS, SHORTNESS OF BREATH, AND PATIENT DENIES ANY PAIN AT THIS TIME. BED LOWERED, CALL LIGHT WITHIN REACH, AND PATIENT WILL BE ROUNDED ON EVERY HOUR AND NEEDED.
--- NOTE | 2019-05-02 20:02 | NUR ---
PER DAYSHIFT RN [facility] AND TO CONTACT EITHER [facility] [phone] OR [facility] [phone] ONCE DC ORDER IS PLACED TO ARRANGE TRANSPORT. NO DC ORDER AT THIS TIME. WILL CONTINUE TO MONITOR.
[2019-05-02] MEDS: ATORVASTATIN 20 MG TAB PO SCH (21:25)
[2019-05-02 22:05] VITALS: BP 141/58
[2019-05-03 04:45] VITALS: BP 143/75
[2019-05-03] MEDS: PANTOPRAZOLE 40 MG TAB PO SCH (06:12)
[2019-05-03] MEDS: LEVOTHYROXINE SODIUM 25 MCG TAB PO SCH (06:13)
[2019-05-03 08:38] LABS: Hematocrit 28.8 % (36.0-46.0); Hemoglobin 9.9 g/dL (12.2-16.2)
[2019-05-03 08:46] VITALS: BP 119/64
[2019-05-03] MEDS: FERROUS SULFATE 325 MG TAB PO SCH ×2 (08:46→18:45)
[2019-05-03 08:58] LABS: INR 2.1 (0.9-1.15)
[2019-05-03] MEDS: CLOPIDOGREL BISULFATE 75 MG TAB PO SCH (09:42)
[2019-05-03] MEDS: METOPROLOL SUCCINATE XL 50 MG TAB PO SCH (09:43)
--- NOTE | 2019-05-03 15:00 | NUR ---
SPOKE TO NAHUM FROM [facility]. NAHUM INFORMED ME Tabitha [phone] WOULD CALL ME WITH A [employer] TIME FOR PATIENT D/C ORDERS HAVE BEEN PLACED AND D/C PAPER WORK COMPLETE
[2019-05-03 15:17] VITALS: BP 119/64
[2019-05-03 17:00] VITALS: BP 154/62
[2019-05-03] MEDS ORDERED: WARFARIN SODIUM 2 MG TAB PO ONE (17:00)
--- NOTE | 2019-05-03 17:35 | NUR ---
CALLED Warren [phone] FROM [facility] SAID SHE IS WORKING ON A TRANSPORT TIME AND WOULD CALL ME BACK IN 10 MINUTES
--- NOTE | 2019-05-03 18:45 | NUR ---
DISCHARGE Discharge instructions given as ordered. Encourage to follow up with Pcp/HOSPICE as instructed. All questions and concerns addressed. Patient verbalized understanding. IV removed with catheter intact, pressure dressing applied. Telemetry unit returned to [facility]. Patient taken to personal vehicle via wheelchair with all personal belongings, accompanied by staff and son. No distress noted at time of departure.
== END 2019-05-03 18:50 | disposition hospice, home (50) | DRG 64 ==
LOC: EDBD 20:19 → WEST WING 20:19 → EDUNIT# 20:19 → TELE-WESTW 04-30 13:35
PROVIDERS: ADMIT Nurse Practitioner Acute Care; ATTEND Internal Medicine
DX: I63.9 Cerebral infarction, unspecified (principal); G93.6 Cerebral edema; G93.41 Metabolic encephalopathy; E44.0 Moderate protein-calorie malnutrition; I50.42 Chronic combined systolic (congestive) and diastolic (congestive) heart failure; Z68.1 Body mass index [BMI] 19.9 or less, adult; R55 Syncope and collapse; S00.10XA Contusion of unspecified eyelid and periocular area, initial encounter; E03.9 Hypothyroidism, unspecified; E05.90 Thyrotoxicosis, unspecified without thyrotoxic crisis or storm; S09.90XA Unspecified injury of head, initial encounter; E78.5 Hyperlipidemia, unspecified; E87.6 Hypokalemia; W18.39XA Other fall on same level, initial encounter; D63.8 Anemia in other chronic diseases classified elsewhere; I11.0 Hypertensive heart disease with heart failure; I25.10 Atherosclerotic heart disease of native coronary artery without angina pectoris; I48.0 Paroxysmal atrial fibrillation; Z79.01 Long term (current) use of anticoagulants; Z82.49 Family history of ischemic heart disease and other diseases of the circulatory system; Z86.73 Personal history of transient ischemic attack (TIA), and cerebral infarction without residual deficits; Z95.1 Presence of aortocoronary bypass graft; Z95.2 Presence of prosthetic heart valve; Y93.89 Activity, other specified; Y92.89 Other specified places as the place of occurrence of the external cause; Y99.8 Other external cause status; Z88.2 Allergy status to sulfonamides; Z88.8 Allergy status to other drugs, medicaments and biological substances; Z88.6 Allergy status to analgesic agent; Z88.1 Allergy status to other antibiotic agents; Z91.041 Radiographic dye allergy status
CPT/HCPCS: 36415; 70450; 70551; 80048; 80053; 80076; 81001; 83735; 84132; 84443; 85014; 85018; 85025; 85610; 85730; 87081; 87086; 93886; 97163; G0378; J2001